=== PATIENT | female | born 1960 | race Caucasian/White ===

== ENCOUNTER → 2020-04-29 12:55 | Outpatient (BNVA) | payer OTHER, SELFPAY | PROVIDERS: PCP Internal Medicine; Visit Provider Nurse Practitioner Gerontology | DX: E11.42 Type 2 diabetes mellitus with diabetic polyneuropathy (principal); Z79.4 Long term (current) use of insulin; E78.5 Hyperlipidemia, unspecified; I10 Essential (primary) hypertension; F17.200 Nicotine dependence, unspecified, uncomplicated | CPT/HCPCS: 82947; Q3014 ==

== ENCOUNTER → 2020-05-30 09:15 | Outpatient (BNVA) | payer OTHER, SELFPAY | PROVIDERS: PCP Internal Medicine; Visit Provider Internal Medicine Gastroenterology | DX: Z13.89 Encounter for screening for other disorder (principal) | CPT/HCPCS: Q3014 ==

== ENCOUNTER → 2020-06-03 14:46 | Outpatient (BNVA) | payer OTHER, SELFPAY | PROVIDERS: PCP Internal Medicine; Visit Provider Nurse Practitioner Gerontology | DX: E11.42 Type 2 diabetes mellitus with diabetic polyneuropathy (principal); I10 Essential (primary) hypertension; E78.5 Hyperlipidemia, unspecified; F17.200 Nicotine dependence, unspecified, uncomplicated | CPT/HCPCS: 82947; 99212 ==

== ENCOUNTER → 2020-08-05 14:17 | Outpatient (BNVA) | payer OTHER, SELFPAY | PROVIDERS: PCP Internal Medicine; Visit Provider Nurse Practitioner Gerontology | DX: Z13.89 Encounter for screening for other disorder (principal) | CPT/HCPCS: Q3014 ==

== ENCOUNTER → 2020-09-19 08:05 | Outpatient (BNVA) | payer OTHER, SELFPAY | PROVIDERS: PCP Internal Medicine; Visit Provider Nurse Practitioner Gerontology | DX: E11.42 Type 2 diabetes mellitus with diabetic polyneuropathy (principal); I10 Essential (primary) hypertension; E78.5 Hyperlipidemia, unspecified; F17.200 Nicotine dependence, unspecified, uncomplicated | CPT/HCPCS: Q3014 ==

== ENCOUNTER → 2020-10-03 12:36 | Outpatient (BNVA) | payer OTHER, SELFPAY | PROVIDERS: PCP Internal Medicine; Visit Provider Internal Medicine Gastroenterology | DX: Z13.89 Encounter for screening for other disorder (principal) | CPT/HCPCS: Q3014 ==

== ENCOUNTER → 2020-12-19 08:01 | Outpatient (BNVA) | payer OTHER, SELFPAY | PROVIDERS: PCP Internal Medicine; Visit Provider Nurse Practitioner Gerontology | DX: E11.42 Type 2 diabetes mellitus with diabetic polyneuropathy (principal); I10 Essential (primary) hypertension; E78.5 Hyperlipidemia, unspecified; D53.9 Nutritional anemia, unspecified; K85.90 Acute pancreatitis without necrosis or infection, unspecified; F17.210 Nicotine dependence, cigarettes, uncomplicated; J30.1 Allergic rhinitis due to pollen; Z88.2 Allergy status to sulfonamides; Z79.4 Long term (current) use of insulin; Z79.899 Other long term (current) drug therapy | CPT/HCPCS: 82947; 99212 ==

== ENCOUNTER 2020-12-31 07:34 | Day surgery (SDC) | payer OTHER, SELFPAY ==
[2020-12-24 15:22] VITALS: BMI 20.1
--- NOTE | 2020-12-27 10:02 | P.CONAN_ITS ---
Documented by User: Susu Grey NP 12/27/20 10:03 HPI - Anesthesia Eval Consult details Narrative: 60yo F for Upper Endoscopy and Colonoscopy PMFSH Active Problems Active Problems: All Active Problems (Updated 12/24/20 @ 15:35 by Therese Mcknight, KEARA) GERD (gastroesophageal reflux disease) (Acute) Colon cancer screening (Acute) Type 2 diabetes mellitus with polyneuropathy (Acute) Essential hypertension (Acute) Hyperlipidemia LDL goal <100 (Acute) Chronic pancreatitis (Acute) Past Medical History Medical History Asthma Chronic pancreatitis Essential hypertension Hx MRSA infection Hx of respiratory failure Hx of septic shock Hyperlipidemia LDL goal <100 Macrocytic anemia Smoking Type 2 diabetes mellitus with polyneuropathy Family History Family History Father Diabetes Surgical History Surgical History Hx of abdominal surgery Hx of exploratory laparotomy Social History Social History Household Members: Family Household Members Other:: Sister Alcohol intake: former Year quit: 2019 Patient Tobacco Use Status: Current everyday Tobacco user Cigarettes Per Day: 20 Years Smoked: 30 Use of substances other than those prescribed or required for medical reasons: No Have you been hit, kicked, punched, or otherwise hurt by someone within the past year? If so, by whom?: No Are you DNR?: No Advance Directives: No Advance Directives Information Provided: No Advance Directives on File: No Current occupational status: disabled Meds Allergies Allergy/AdvReac Type Severity Reaction Status Date / Time ragweed pollen [RAGWEED] Allergy Severe RUNNY NOSE Verified 12/24/20 15:20 Sulfa (Sulfonamide Allergy Intermediate PASS OUT, Verified 12/24/20 15:20 Antibiotics) HIVES [SULFA(SULFONAMIDE ANTIBIOTICS)] Home Medications Medication Instructions Recorded Confirmed Last Taken Type blood pressure test kit-large #1 ea 04/29/20 12/19/20 Unknown History blood sugar diagnostic #10 ea 04/29/20 12/19/20 Unknown History insulin syringe-needle U-100 0.3 #10 ea 04/29/20 12/19/20 Unknown History mL 31 gauge x 5/16 lancets 28 gauge #100 ea 04/29/20 12/19/20 Unknown History lisinopril 10 mg tablet 10 mg PO DAILY 04/29/20 12/24/20 Unknown History pen needle, diabetic 32 gauge x #50 ea 04/29/20 12/19/20 Unknown History simvastatin 5 mg tablet 5 mg PO BEDTIME 04/29/20 12/24/20 Unknown History amlodipine 5 mg tablet 5 mg PO DAILY 06/03/20 12/24/20 Unknown History aspirin 81 mg tablet,delayed 81 mg PO DAILY 06/03/20 12/24/20 Unknown History release (Adult Low Dose Aspirin) ferrous sulfate 325 mg (65 mg 325 mg PO DAILY 06/03/20 12/24/20 Unknown History iron) tablet albuterol sulfate 90 mcg/actuation INHALATION 12/24/20 Unknown History aerosol inhaler insulin glargine U-300 conc 300 unit SUBCUT 12/24/20 Unknown History unit/mL (1.5 mL) subcutaneous pen (Toujeo SoloStar U-300 Insulin) insulin lispro 100 unit/mL SUBCUT 12/24/20 Unknown History subcutaneous half-unit pen (Humalog Scot KwikPen (U-100)) [id number] 2 cap PO TID 12/24/20 12/24/20 Unknown History 24,000-76,000-120,000 unit capsule,delayed rel (Creon) Exam Exam Date and Time: December 27, 2020 1002 Height,Weight and Vital Signs: Height 5 ft Weight 46.72 kg Assessment and Plan Assessment Anesthesia Assessment: Chart Reviewed Documented by User: Radha Bolton MD 12/31/20 08:33 [facility] Past Medical History Medical History Asthma Chronic pancreatitis Essential hypertension Hx MRSA infection Hx of respiratory failure Hx of septic shock Hyperlipidemia LDL goal <100 Macrocytic anemia Smoking Type 2 diabetes mellitus with polyneuropathy Family History Family History Father Diabetes Surgical History Surgical History Hx of abdominal surgery Hx of exploratory laparotomy History of Problems with Anesthesia: No Social History Social History Household Members: Family Household Members Other:: Sister Alcohol intake: former Year quit: 2019 Patient Tobacco Use Status: Current everyday Tobacco user Cigarettes Per Day: 20 Years Smoked: 30 Use of substances other than those prescribed or required for medical reasons: No Have you been hit, kicked, punched, or otherwise hurt by someone within the past year? If so, by whom?: No Are you DNR?: No Advance Directives: No Advance Directives Information Provided: No Advance Directives on File: No Current occupational status: disabled Meds Allergies Allergy/AdvReac Type Severity Reaction Status Date / Time ragweed pollen [RAGWEED] Allergy Severe RUNNY NOSE Verified 12/24/20 15:20 Sulfa (Sulfonamide Allergy Intermediate PASS OUT, Verified 12/24/20 15:20 Antibiotics) HIVES [SULFA(SULFONAMIDE ANTIBIOTICS)] Home Medications Medication Instructions Recorded Confirmed Last Taken Type blood pressure test kit-large #1 ea 04/29/20 12/19/20 Unknown History blood sugar diagnostic #10 ea 04/29/20 12/19/20 Unknown History insulin syringe-needle U-100 0.3 #10 ea 04/29/20 12/19/20 Unknown History mL 31 gauge x 5/16 lancets 28 gauge #100 ea 04/29/20 12/19/20 Unknown History lisinopril 10 mg tablet 10 mg PO DAILY 04/29/20 12/24/20 Unknown History pen needle, diabetic 32 gauge x #50 ea 04/29/20 12/19/20 Unknown History simvastatin 5 mg tablet 5 mg PO BEDTIME 04/29/20 12/24/20 Unknown History amlodipine 5 mg tablet 5 mg PO DAILY 06/03/20 12/24/20 Unknown History aspirin 81 mg tablet,delayed 81 mg PO DAILY 06/03/20 12/24/20 Unknown History release (Adult Low Dose Aspirin) ferrous sulfate 325 mg (65 mg 325 mg PO DAILY 06/03/20 12/24/20 Unknown History iron) tablet albuterol sulfate 90 mcg/actuation INHALATION 12/24/20 Unknown History aerosol inhaler insulin glargine U-300 conc 300 unit SUBCUT 12/24/20 Unknown History unit/mL (1.5 mL) subcutaneous pen (Toujeo SoloStar U-300 Insulin) insulin lispro 100 unit/mL SUBCUT 12/24/20 Unknown History subcutaneous half-unit pen (Humalog Scot KwikPen (U-100)) [id number] 2 cap PO TID 12/24/20 12/24/20 Unknown History 24,000-76,000-120,000 unit capsule,delayed rel (Creon) Exam Airway Mallampati Class: III (Very poor dentition) TM Dist: >3cm Neck ROM: Full Loose/Missing/Broken Teeth: Yes, Upper and Lower Heart: RRR Lungs: distant but clear Assessment and Plan Final Anesthetic Review History of Problems with Anesthesia: No NPO: Yes ASA Class: III Final Preanesthetic Review: Meds/Allgs Chart Reviewed, Consent Obtained/Reviewed and Anes Risks/Benef Reviewed Patient Risk: Intermediate Procedure Risk: Intermediate Anesthetic Plan Anesthetic Plan: MAC: Disposition: Standard PACU
[2020-12-31 07:32] VITALS: BP 131/86; PULSE 103; RESP 18; TEMP 36.1; O2SAT 99
--- NOTE | 2020-12-31 07:45 | MHC.SHP ---
Pre-Procedural Eval Section A Date of Service: 12/31/20 The patient is an INPATIENT: No The History & Physical has been completed within 30 days and I have reviewed it.: No Section B Chief Complaint: Screening, GERD Details of Present Illness: Colon cancer screening, GERD, dyspepsia Relevant Family History (Specify if Yes): No Relevant Social History: Tobacco Use Present Medications: see Short Stay Collaborative assessment Medical History: Significant History (Asthma Chronic pancreatitis Essential hypertension Hyperlipidemia LDL goal <100 Macrocytic anemia Smoking Type 2 diabetes mellitus with polyneuropathy) History of Previous Operations: Relevant previous surgery/procedure and date(s) (Hx of abdominal surgery Hx of mammogram) Allergies: Allergies Allergy/AdvReac Type Severity Reaction Status Date / Time ragweed pollen [RAGWEED] Allergy Severe RUNNY NOSE Verified 12/24/20 15:20 Sulfa (Sulfonamide Allergy Intermediate PASS OUT, Verified 12/24/20 15:20 Antibiotics) HIVES [SULFA(SULFONAMIDE ANTIBIOTICS)] Review of Systems Sugical H&P ROS: Negative: Constitution, Cardiovascular and Respiratory and Yes, Specify: Gastrointestinal (GERD, dyspepsia) Exam Surgical H&P Exam: Normal: Heart, Normal: Lungs, Normal: Extremities and Normal: Abdomen Plan Diagnosis/Plan: Unchanged I have reviewed the history and physical and performed a pertinent physical examination on my patient. No changes have occurred unless specified.
[2020-12-31 08:10] VITALS: BMI 20.2
[2020-12-31] MEDS: Lactated Ringers 1,000 ML 100 ML IVCONT (08:11)
--- NOTE | 2020-12-31 08:35 | PM.OP ---
Brief Operative Note Date of Service: 12/31/20 Pre-op diagnosis: Colon cancer screening, GERD, dyspepsia Post-op diagnosis: other (GERD, hiatal hernia, gastritis, duodenal nodules, colon polyp, diverticulosis) Procedure: FLEXIBLE TRANSORAL UPPER GASTROINTESTINAL ENDOSCOPY WITH BIOPSIES AND COLONOSCOPY TILL CECUM WITH BIOPSIES UPPER ENDOSCOPY Consent: Indications for the procedure and potential complications of bleeding, perforation, reaction to medications and missed diagnosis were discussed with the patient and informed consent was obtained. Instrument: Olympus GIF H 190 mid size upper endoscope Monitoring: Vital signs and clinical assessment, continuous EKG monitoring, Pulse oximetry, Carbon Dioxide monitoring and blood pressure monitoring were done throughout the procedure. Procedure: The patient was placed in the left lateral decubitis position and pre-procedure medications were administered and a bite block was placed. The endoscope was inserted into the mouth and advanced under direct vision to the third part of duodenum. A careful inspection was made as the upper endoscope was withdrawn including a retroflexed examination of the proximal stomach; Findings and interventions are described below. Findings: Larynx: Normal Esophagus: GE junction at 32 cms, hiatal hernia 32 to 35 cms. Irregular Z line - biopsied to check for Meyer's. Stomach: Moderate gastric erythema with nodular appearing gastric mucosa - biopsies were obtained from the gastric antrum and body. Grade 3 flap valve on retroflexed examination of the cardia. Duodenum: Multiple 5-8 mm benign aoppearing nodules/polyps in the bulb - biopsied. Normal descending duodenum Intervention: Biopsies as noted above COLONOSCOPY PROCEDURE NOTE Consent: Indications for the procedure and potential complications of bleeding, perforation, reaction to medications and missed diagnosis were discussed with the patient and informed consent was obtained. Instrument: Olympus PCF H 190 L variable stiffness pediatric colonoscope Monitoring: Vital signs and clinical assessment, intermittent blood pressure monitoring, continuous EKG monitoring, Pulse oximetry and Carbon Dioxide monitoring were done throughout the procedure. Colon withdrawl time was 16 minutes. Procedure: The patient was placed in the left lateral decubitis position and pre-procedure medications were administered. After a digital rectal examination of the ano-rectum, the video colonoscope was inserted into the rectum and advanced through the colon to the cecum. The colonoscope was slowly withdrawn in a retrograde panoramic fashion and the colon mucosa was carefully examined including a retroflexed view of the rectum. Findings and interventions are described below. Procedure Difficulty: : Without difficulty Findings: Terminal Ileum: Not evaluated Cecum: Normal Ascending Colon: Moderate diverticulosis Transverse Colon: Moderate diverticulosis Descending Colon: Severe diverticulosis Sigmoid Colon: A 5-6 mm diminutive appearing polyp removed with a cold bx. Severe diverticulosis with luminal narrowing Rectum: Normal Ano-rectum: Normal Colon preparation: Good after some irrigation Impression and Post Procedure Diagnosis: Endoscopy Findings: ESOPHAGUS: GE junction at 32 cms, hiatal hernia 32 to 35 cms. Irregular Z line - biopsied to check for Meyer's. STOMACH: Moderate gastric erythema with nodular appearing gastric mucosa - biopsies were obtained from the gastric antrum and body. DUODENUM: Multiple benign appearing polyps/nodule in the bulb. Colonoscopy Findings: One small polyp removed Random biopsies were obtained from the colon to check for microscopic colitis Moderate to severe diverticulosis seen in the entire colon Plan: Await pathology results Patient has an appointment on 01/16/21 in the GI Clinic with Angelika Ba M.D.. Repeat Colonoscopy interval based on path results - in 5 years if polyps are adenomatous and 10 years if polyps are hyperplastic. Above findings were reviewed with the patient and colon polyps and diverticulosis handouts were given in the discharge area Surgeon: Angelika aB MD Anesthesia: MAC Was an Addictions Counselor Assistant used for this Procedure?: Yes Addictions Counselor Assistant: Marianne Goss Estimated blood loss (mL): 0 Pathology: other (A. small bowel biopsies, R/O celiac B. nodule- duodenal bulb C. gastric antrum, R/O H. pylori D. gastric body E. gastro-esophageal junction, R/O Meyer's F. random colon, R/O) Condition: stable Disposition: PACU
--- NOTE | 2020-12-31 08:36 | W.PM.OPN ---
Operative Note Operative Note Date of Service: 12/31/20 Narrative: Pre-op diagnosis:?Colon cancer screening, GERD, dyspepsia Post-op diagnosis:?other (GERD, hiatal hernia, gastritis, duodenal nodules, colon polyp, diverticulosis) Procedure:? FLEXIBLE TRANSORAL UPPER GASTROINTESTINAL ENDOSCOPY WITH BIOPSIES AND COLONOSCOPY TILL CECUM WITH BIOPSIES UPPER ENDOSCOPY Consent:?Indications for the procedure and potential complications of bleeding, perforation, reaction to medications and missed diagnosis were discussed with the patient and informed consent was obtained. Instrument:?Olympus GIF H 190 mid size upper endoscope Monitoring: Vital signs and clinical assessment, continuous EKG monitoring, Pulse oximetry, Carbon Dioxide monitoring and blood pressure monitoring were done throughout the procedure. Procedure:?The patient was placed in the left lateral decubitis position and pre-procedure medications were administered and a bite block was placed. The endoscope was inserted into the mouth and advanced under direct vision to the third part of duodenum. A careful inspection was made as the upper endoscope was withdrawn including a retroflexed examination of the proximal stomach; Findings and interventions are described below. Findings: Larynx:? Normal Esophagus:?GE junction at 32 cms, hiatal hernia 32 to 35 cms.? Irregular Z line - biopsied to check for Meyer's. Stomach:?Moderate gastric erythema with nodular appearing gastric mucosa -? biopsies were obtained from the gastric antrum and body. Grade 3 flap valve on retroflexed examination of the cardia. Duodenum:?Multiple 5-8 mm benign aoppearing nodules/polyps in the bulb - biopsied. Normal descending duodenum Intervention:?Biopsies as noted above COLONOSCOPY PROCEDURE NOTE Consent:?Indications for the procedure and potential complications of bleeding, perforation, reaction to medications and missed diagnosis were discussed with the patient and informed consent was obtained. Instrument:?Olympus PCF H 190 L variable stiffness pediatric colonoscope Monitoring:?Vital signs and clinical assessment, intermittent blood pressure monitoring, continuous EKG monitoring, Pulse oximetry and Carbon Dioxide monitoring were done throughout the procedure. Colon withdrawl time was 16 minutes. Procedure:?The patient was placed in the left lateral decubitis position and pre-procedure medications were administered. After a digital rectal examination of the ano-rectum, the video colonoscope was inserted into the rectum and advanced through the colon to the cecum. The colonoscope was slowly withdrawn in a retrograde panoramic fashion and the colon mucosa was carefully examined including a retroflexed view of the rectum. Findings and interventions are described below. Procedure Difficulty:?: Without difficulty Findings: Terminal Ileum: Not evaluated Cecum:? Normal Ascending Colon:??Moderate diverticulosis Transverse Colon:??Moderate diverticulosis Descending Colon:? Severe diverticulosis Sigmoid Colon:??A 5-6 mm diminutive appearing polyp removed with a cold bx. Severe diverticulosis with luminal narrowing Rectum:??Normal Ano-rectum:??Normal Colon preparation:? Good after some irrigation Impression and Post Procedure Diagnosis: Endoscopy Findings: ESOPHAGUS:??GE junction at 32 cms, hiatal hernia 32 to 35 cms.? Irregular Z line - biopsied to check for Meyer's. STOMACH:?Moderate gastric erythema with nodular appearing gastric mucosa -? biopsies were obtained from the gastric antrum and body. DUODENUM: Multiple benign appearing polyps/nodule in the bulb. Colonoscopy Findings: One small polyp removed Random biopsies were obtained from the colon to check for microscopic colitis Moderate to severe diverticulosis seen in the entire colon Plan: Await pathology results Patient has an appointment on 01/16/21 in the GI Clinic with Angelika Ba M.D.. Repeat Colonoscopy interval based on path results - in 5 years if polyps are adenomatous and 10 years if polyps are hyperplastic. Above findings were reviewed with the patient and colon polyps and diverticulosis handouts were given in the discharge area Surgeon:?Angelika Ba MD Anesthesia:?MAC Was an Boat Crew Deck Hand used for this Procedure?:?Yes Boat Crew Deck Hand:?Marianne Goss Estimated blood loss (mL):?0 Pathology:?other (A. small bowel biopsies, R/O celiac? B. nodule- duodenal bulb? C. gastric antrum, R/O H. pylori? D. gastric body? E. gastro-esophageal junction, R/O Meyer's? F. random colon, R/O) Condition:?stable Disposition:?PACU
[2020-12-31 09:32] LABS: Glucose, Whole Blood 226 mg/dL (60-115)
[2020-12-31 09:34] VITALS: BP 136/78; PULSE 87; RESP 16; TEMP 36.6; O2SAT 97
[2020-12-31 09:48] VITALS: BP 122/47; PULSE 83; RESP 16; TEMP 36.6; O2SAT 100
== END 2020-12-31 10:45 | disposition home or self-care (01) ==
PROVIDERS: PCP Internal Medicine; Visit Provider Internal Medicine Gastroenterology
PROC: (CPT 45380; principal; 2020-12-31 08:20)
DX: Z12.11 Encounter for screening for malignant neoplasm of colon (principal); K63.5 Polyp of colon; K57.30 Diverticulosis of large intestine without perforation or abscess without bleeding; K21.9 Gastro-esophageal reflux disease without esophagitis; D13.2 Benign neoplasm of duodenum; K29.50 Unspecified chronic gastritis without bleeding; K44.9 Diaphragmatic hernia without obstruction or gangrene; K86.1 Other chronic pancreatitis; J45.909 Unspecified asthma, uncomplicated; I10 Essential (primary) hypertension; D53.9 Nutritional anemia, unspecified; E78.5 Hyperlipidemia, unspecified; E11.42 Type 2 diabetes mellitus with diabetic polyneuropathy; Z79.4 Long term (current) use of insulin; Z96.41 Presence of insulin pump (external) (internal); Z79.82 Long term (current) use of aspirin; Z79.899 Other long term (current) drug therapy; Z88.2 Allergy status to sulfonamides; F17.210 Nicotine dependence, cigarettes, uncomplicated
CPT/HCPCS: 45380; 43239; 82947; 88305; 88342

== ENCOUNTER 2021-01-07 14:22 | Outpatient (REF) | payer OTHER, SELFPAY ==
[2021-01-07 16:16] LABS: COVID-19 Test Negative (Negative)
== END 2021-01-07 14:23 | disposition home or self-care (01) ==
LOC: HO.LAB 14:22
PROVIDERS: PCP Internal Medicine; Visit Provider Internal Medicine
DX: Z20.822 Contact with and (suspected) exposure to COVID-19 (principal)
CPT/HCPCS: 36415; 87635; C9803

== ENCOUNTER → 2021-01-16 09:38 | Outpatient (BNVA) | payer OTHER, SELFPAY | PROVIDERS: PCP Internal Medicine; Referring Provider Internal Medicine; Visit Provider Internal Medicine Gastroenterology | DX: Z12.11 Encounter for screening for malignant neoplasm of colon (principal); K21.9 Gastro-esophageal reflux disease without esophagitis; K86.1 Other chronic pancreatitis; R13.12 Dysphagia, oropharyngeal phase | CPT/HCPCS: 99212 ==

== ENCOUNTER 2021-01-24 13:37 | Outpatient (REF) | payer OTHER, SELFPAY ==
--- NOTE | ~2021-01-24 | MM_ITS ---
EXAMINATION: BONE DENSITOMETRY CLINICAL INDICATION: Encounter for screening for osteoporosis. COMPARISON: This is the patient's baseline examination. TECHNIQUE: Using a Big Live DXA System (software version: 13.1) manufactured by [employer], dual-energy x-ray absorptiometry was performed of the lumbar spine and left hip. The images are of good technical quality. Summary results are attached. FINDINGS: AP SPINE L1-L4: BMD 0.761 g/cm2, Z-score -1.6, T-score -3.5, osteoporosis. LEFT FEMUR, NECK: BMD 0.566 g/cm2, Z-score -1.7, T-score -3.4, osteoporosis. LEFT FEMUR, TOTAL: BMD 0.566 g/cm2, Z-score -2.1, T-score -3.5, osteoporosis. IDENTIFIED RISK FACTORS: Early menopause, secondary osteoporosis, tobacco use (current smoker). HISTORY OF FRACTURE: None listed. MEDICATIONS: Multivitamin. MM/XR DEXA axial skeleton IMPRESSION: 1. DIAGNOSIS: Osteoporosis based on the lowest T-score value of -3.5 in the total femur and lumbar spine applying World Health Organization criteria. 2. 10-YEAR FRACTURE RISK PREDICTION, FRAX: Major osteoporotic fracture (clinical spine, forearm, hip or shoulder) 20.8%. Hip fracture 10.7%. 3. Treatment Recommendations: NOF guidelines recommend consideration for treatment in postmenopausal women and men age 50 and older presenting with the following: -A hip or vertebral (clinical or morphometric) fracture. -T-score less than or equal to -2.5 at the femoral neck or spine after appropriate evaluation to exclude secondary causes. -Low bone mass at the hip or spine and a 10-year fracture probability by FRAX of greater than or equal to 3% for hip fracture or greater than or equal to 20% for major osteoporotic fracture based on the [place] adapted WHO algorithm. 4. Other Recommendations: All treatment decisions require clinical judgment and consideration of individual patient factors, including patient preferences, comorbidities, previous drug use, risk factors not captured in the FRAX model (e.g. frailty, falls, vitamin D deficiency, increased bone turnover, interval significant decline in bone density) and possible under or overestimation of fracture risk by FRAX. Additional medical evaluation for secondary cause of low bone mineral density may be appropriate. FUTURE SCAN RECOMMENDATION: People with diagnosed cases of osteoporosis or at high risk for fracture should have regular bone mineral density tests. For patients eligible for Medicare, routine testing is allowed once every 2 years. The testing frequency can be increased to one year for patients who have rapidly progressing disease, those who are receiving or discontinuing medical therapy to restore bone mass, or have additional risk factors.
--- NOTE | ~2021-01-24 | MM_ITS ---
EXAMINATION: MM SCREENING DIGITAL BREAST TOMOSYNTHESIS, BILATERAL CLINICAL INFORMATION: Screening. Asymptomatic. The lifetime risk of breast cancer based on the Tyrer-Cuzick Model is 5%. COMPARISON: Mammography: 12/18/2015 (baseline). TECHNIQUE: Digital breast tomosynthesis is performed in both the craniocaudal and mediolateral oblique views along with computer-aided detection (CAD). Synthesized 2D images are generated from the tomosynthesis. FINDINGS: There are scattered areas of fibroglandular density (ACR BI-RADS breast composition Category b). There are no significant masses, abnormal calcifications, or other abnormalities. The axilla and skin contours are unremarkable. MM/MM tomosynthesis screening BI IMPRESSION: No mammographic evidence of malignancy. ASSESSMENT: BI-RADS 1: Negative RECOMMENDATION: Routine annual mammography screening. This patient's information was entered into a reminder system with a target due date for their next mammogram.
== END 2021-01-24 13:38 | disposition home or self-care (01) ==
LOC: HO.MAMMO 13:37
PROVIDERS: PCP Internal Medicine; Visit Provider Advanced Practice Midwife
DX: Z13.820 Encounter for screening for osteoporosis (principal); Z78.0 Asymptomatic menopausal state; Z12.31 Encounter for screening mammogram for malignant neoplasm of breast
CPT/HCPCS: 77063; 77067; 77080

== ENCOUNTER 2021-02-12 15:02 | Outpatient (REF) | payer OTHER, SELFPAY ==
--- NOTE | ~2021-02-12 | FL_ITS ---
EXAMINATION: XR BARIUM SWALLOW CLINICAL INFORMATION: Dysphagia. COMPARISON: None. TECHNIQUE: Routine modified barium swallow was performed in upright sitting lateral position under fluoroscopy. FINDINGS: Following oral administration of thin, thick barium and barium-coated solid food, there is normal propagation of bolus from the oral cavity through the pharynx and esophagus. No laryngeal penetration or aspiration seen. No retention of food in the valleculae or piriform sinuses. FLUOROSCOPY TIME: 1.4 minutes. DOSE AREA PRODUCT: 0.886 uGy-m2 (microgray-meter squared). FL/FL barium swallow modified IMPRESSION: Unremarkable modified barium swallow exam.
--- NOTE | 2021-02-14 09:56 | MHC.SL.IMP ---
Date of Plan of Treatment: 02/12/21 Onset of Symptoms/Illness: 11/12/17 Date Treatment Started: 02/12/21 Admitting Diagnosis: Comorbidities: IDDM on insulin pump Hypertension Dyslipidemia Acid reflux Chronic pancreatitis Hx GI bleed Erosive esophagitis Bilateral PE status post anticoagulation Cdiff Aortic thrombus Alcohol abuse Asthma MRSA infection Respiratory failure Septic shock Hyperlipidemia Macrocytic anemia Smoking Type 2 diabetes mellitus with polyneuropathy Surgical History: Abdominal laparotomy Esophagogastroduodenoscopy (EGD) Colonoscopy Primary Speech & Language Diagnosis: R13.12 Oropharyngeal Phase Dysphagia Secondary Speech & Language Diagnosis: R49.0 Dysphonia Reason for Today's Visit: 22182 Modified Barium Swallow Study Pre-evaluation Dietary Consistencies: Regular Pre-evaluation Liquid Consistency: Thin Pre-evaluation Medication Administration: Whole with Liquid Medical History: Modified Barium Swallow Study Fluoroscopic Evaluation of Swallowing Function CPT Code 57567 Evaluation Year: 2020 Reason for Study: Patient reports globus sensation and coughing when drinking liquids. Referring Physician: Angelika Ba MD Evaluating Clinician: Krystal Redman M.A., CCC-ASSEMBLY LINE MACHINE OPERATOR Study Number: 1 Patient Name: Clare Kee Status: Outpatient, Ambulatory Age: 60 Gender: Female MEDICAL HISTORY: Year of Onset or Diagnosis: 2018 Comorbidities: IDDM on insulin pump Hypertension Dyslipidemia Acid reflux Chronic pancreatitis Hx GI bleed Erosive esophagitis Bilateral PE status post anticoagulation Cdiff Aortic thrombus Alcohol abuse Asthma MRSA infection Respiratory failure Septic shock Hyperlipidemia Macrocytic anemia Smoking Type 2 diabetes mellitus with polyneuropathy Surgical History: Abdominal laparotomy Esophagogastroduodenoscopy (EGD) Colonoscopy Current (pre-evaluation) Intake/Diet: Route: PO Diet Grade: Regular Liquid Consistencies: Thin Pre-Study Functional Oral Intake Scale (FOIS): 7- Total oral intake with no restrictions Pain: None reported at time of study Oral Motor Exam Facial Symmetry: Symmetrical Mouth Occlusion: Normal Oral-Facial Teeth Characteristics: Partially Missing Oral-Facial Lip Pucker Description: Normal Oral-Facial Smile (Lips) Description: Normal Oral-Facial Puff Cheeks Description: Normal Tongue Size: Normal Tongue Excursion Description: Normal Tongue Range of Movement Description: Normal Tongue Speed of Movement Description: Reduced Tongue Strength of Movement (against opposing pressure): Reduced Tongue Movement Characteristics: Normal/Absent Tongue Movement Miscellaneous Observation: Mildly slow lateralized lingual movements. Patient used jaw for support. Is patient able to manage secretions?: Yes Food and Liquid Trials: Oral Impairment: Lip Closure: 0=No labial escape Oral Impairment: Tongue Control During Bolus Hold: 0=Cohesive bolus between tongue to palatal seal Oral Impairment: Bolus Preparation/Mastication: 2=Disorganized chewing/mashing with solid pieces of bolus Oral Impairment: Bolus Transport/Lingual Motion: 2=Slowed tongue motion Oral Impairment: Oral Residue: 2=Residue collection on oral structures Oral Impairment:Initiation of Pharyngeal Swallow: 2=Bolus head at posterior laryngeal surface of epiglottis Pharyngeal Impairment: Soft Palate Elevation: 0=No bolus between soft palate (SP)/pharyngeal wall (PW) Pharyngeal Impairment: Laryngeal Elevation: 1=Partial thyroid cartilage/arytenoids to epiglottic petiole movement Pharyngeal Impairment: Anterior Hyoid Excursion: 1=Partial anterior movement Pharyngeal Impairment: Epiglottic Movement: 1=Partial inversion Pharyngeal Impairment: Laryngeal Vestibular Closure:: 0=Complete: no air/contrast in laryngeal vestibule Pharyngeal Impairment: Pharyngeal Stripping Wave: 1=Present: diminished Pharyngeal Impairment: Pharyngeal Contraction: Did not test Pharyngeal Impairment: Pharyngoesophageal Segment Openin=Complete distension and complete duration: no obstruction of flow Pharyngeal Impairment: Tongue Base (TB) Retraction: 3=Wide column of contrast/air between TB and posterior PW Pharyngeal Impairment: Pharyngeal Residue: 2=Collection of residue within or on pharyngeal structures Pharyngeal Impairment: Esophageal Clearance Upright Position: Did not test Impressions and Recommendations Clinical Observations: OBJECTIVE: Time-out: performed at 3:15 Evaluation Start: 3:00; Stop: 3:05 Patient Positioning: Seated 70-90 degrees Viewing Planes: LATERAL ONLY Contrast: MBSImP? Standardized Protocol using commercially prepared, standardized Barium viscosities, including: Varibar? THIN LIQUID (40% w/v, <15 cps) , 1/2 Shortbread Cookie (1 x1 x.25 ) MBSImP ID: [id number] MBSImP Results: Lip closure for intraoral bolus containment resulted in no labial escape. Tongue control during bolus hold maintained a cohesive bolus held between tongue to palate seal. Bolus preparation and mastication demonstrated disorganized chewing/mashing with solid pieces of the bolus unchewed. Bolus transport/lingual motion was with slowed tongue motion. Oral residue was a collection on oral structures. Initiation of the pharyngeal swallow occurred as the bolus head was at the posterior laryngeal surface of the epiglottis. Soft palate elevation resulted in no bolus between the soft palate and the pharyngeal wall. Laryngeal elevation was decreased, with partial superior movement of the thyroid cartilage/partial approximation of the arytenoids to the epiglottic petiole. Anterior hyoid excursion demonstrated partial anterior movement. Epiglottic movement resulted in partial inversion. Laryngeal vestibular closure was complete, as indicated by no air or contrast within the laryngeal vestibule at the height of the swallow. Pharyngeal stripping wave was present, but diminished. Pharyngeal contraction could not be determined due to logistical reasons not related to physiologic impairment. Pharyngoesophageal segment opening was completely distended for complete duration with no obstruction of bolus flow. Tongue base retraction allowed a wide column of contrast or air between the retracted tongue base and the posterior pharyngeal wall. Pharyngeal residue was a collection of residue within or on pharyngeal structures. Esophageal clearance in the upright position could not be assessed due to logistical reasons not related to physiologic impairment. Oral Impairment Score: 8 Pharyngeal Impairment Score: 9 (absence of score, component 13) Esophageal Impairment Score: --- (absence of score, component 17) Laryngeal Penetration and Aspiration: Neither penetration nor aspiration was observed in today's study with Cookie, Thin. ASSESSMENT: This exam was completed by a multidisciplinary team which included a speech language pathologist, speech language pathology [place] clinician, radiologist, and radiology technicians. Patient was seated at upright 90 degree position for lateral view only. She fed herself without any difficulty. Patient trialed the following liquid and solid consistencies: -5 mL thin liquid barium -cup sip thin liquid barium with bolus hold -consecutive cup sips thin liquid barium -pureed solid (mixture applesauce with barium paste) -ground solid (mixture chicken salad with barium paste) -regular solid (Lary Doone cookie coated with barium paste) Patient presents with mild oropharyngeal dysphagia, characterized by the following impairments in swallow physiology: ORAL PHASE: -Disorganized chewing, characterized by piecemeal deglutition pattern. Patient chewed and swallowed partial bolus. Patient continued chewing remaining bolus followed by multiple swallows. When eating regular solid, patient swallowed 3-4 times to clear oral cavity. -Slowed posterior tongue movement -Mild oral residue coating the tongue. PHARYNGEAL PHASE: -Partial laryngeal elevation with partial anterior hyoid movement and partial epiglottic inversion. -Diminished pharyngeal stripping wave, likely contributing to pharyngeal retention. -Reduced tongue base retraction -Trace residue in valleculae and pyriforms with liquids and pureed solids. Mild retention mostly in the valleculae, but also on the posterior pharyngeal wall when patient swallowed regular solid. Patient reduced residue with multiple dry swallows. Patient effectively cleared residue with liquid wash. Trace residue remained with liquid. No evidence of aspiration or penetration. Patient displayed mild pharyngeal retention with regular solid consistency. Patient effectively cleared pharyngeal residue with multiple swallow and liquid wash. Liquid Intake Recommendation: Thin Liquid Intake Strategies: Small Sips Dietary Recommendations: Chopped/Advanced (NDD3) Medication Administration: Whole with Liquid Compensatory Strategies Recommended: Sitting Upright (90 deg) Double Swallow Small Bites and Sips Alternate Liquids/Solids Rate of Ingestion Change Avoid Specific Foods Supervision during eating and or drinking: None Needed Recommended Treatments: Compens. Strategy Educat. Recommendation for Speech Therapy: Outpatient Speech Therapy Intake Recommendations: Route: PO Diet Grade: Chopped/Advanced National Dysphagia Diet Level 3 (NDD3) Liquid Consistencies: Thin Post-Study Functional Oral Intake Scale (FOIS): 5- Total oral intake of multiple consistencies requiring special preparation Patient states that she prefers softer food. Patient is recommended CHOPPED/ADVANCED (NDD3) solids or to self select soft/easy to chew foods and THIN liquids, with pills WHOLE in PUREE or LIQUID per patient?s preference/ tolerance. Recommend the following strategies to promote oral and pharyngeal clearance: -Food to be cut into small bite size pieces and moistened with sauce/gravy when possible -Small, individual bites -Avoid tough, dry, and sticky foods -Chew food well -Alternate bite of food with sip of liquid -Multiple swallows -Upright 90 degree position during meal and for at least 30 minutes afterwards Frequency/Duration: 1x weekly x 1 week Suggested Referrals: The patient might benefit from a referral to: Gastroenterology Indication for Referral: Hx GI bleed Patient displayed hyponasal resonance and may benefit from a consult with an ENT and voice evaluation with a speech-language pathologist pending ENT consult. Therapy Recommendations: Therapy will be initiated Frequency per Week: 1 Number of Weeks: 1 Recommend 1 additional follow-up to provide education RE: results of MBSS and recommended diet consistencies and strategies. Prognosis for Improvement:?The prognosis for the patient to meet nutritional needs by mouth is good based on degree of impairment. Usp Goals: ? The patient will tolerate the least restrictive diet with a safe/efficient swallow to maintain adequate nutrition and hydration. ? The patient and/or family will participate in further education for swallowing goals. Short Term Goals: ? Guidelines - The patient will comply with/recall the following guidelines/strategies 100% of the time with minimal cuing: Bolus Volume Change, Rate of Ingestion Change, Liquid Wash, Additional Swallow(s) per Bolus, No Straws. ? Education - The patient will verbalize/demonstrate understanding of the results of this evaluation, the above recommendations, and the swallowing guidelines. Clinician - Supplemental, Miscellaneous Communication: It is important to note MBSS objective studies are snapshots in time and Patient function might vary with factors such as time of day or concomitant medical conditions. For this reason, the final treatment plan for this patient should rest with their medical care team. Additional recommendations should be considered with the totality of the Patient in mind.? Thank for the opportunity to participate in the care of this patient. If you have any questions about the content of this report, please contact the [facility] at [facility].? ? Education: Education regarding findings from today's study and plans for therapy were provided to Patient only through Verbal Instruction. Understanding was expressed by the Patient only. Nutrition Therapist Clinician/Clinical Fellow: Yes: Zaynab Dunaway Supervisory Statement: Yes Speech Language Pathologist: Krystal Redman M.A., CCC-ASSEMBLY LINE MACHINE OPERATOR
== END 2021-02-12 15:03 | disposition home or self-care (01) ==
LOC: HO.XRAY 15:02
PROVIDERS: Visit Provider Internal Medicine Gastroenterology
DX: R13.12 Dysphagia, oropharyngeal phase (principal)
CPT/HCPCS: 74230; 92611

== ENCOUNTER → 2021-04-29 09:03 | Outpatient (BNVA) | payer OTHER, SELFPAY | PROVIDERS: PCP Internal Medicine; Visit Provider Nurse Practitioner Gerontology | CPT/HCPCS: Q3014 ==

== ENCOUNTER → 2021-07-10 09:42 | Outpatient (BNVA) | payer OTHER, SELFPAY | PROVIDERS: PCP Internal Medicine; Visit Provider Internal Medicine Gastroenterology | DX: Z13.89 Encounter for screening for other disorder (principal) | CPT/HCPCS: Q3014 ==

== ENCOUNTER 2021-07-29 09:38 | Outpatient (REF) | payer OTHER, SELFPAY ==
[2021-07-29 10:50] LABS: MANUAL DIFF FLAG NO
[2021-07-29 11:04] LABS: Basophils Percent Auto 0.3 % (0-2); Eosinophils Absolute Auto 0.4 X10*3/uL (0.0-0.4); Eosinophils Percent Auto 2.5 % (0-4); Hematocrit 34.6 % (37.0-47.0); Hemoglobin 11.8 g/dl (12.0-16.0); Imm Gran Abs Auto 0.08 X10*3/uL (0.00-0.03); Imm Gran Pct Auto 0.6 % (0.0-0.4); Lymphocytes Absolute Auto 3.2 X10*3/uL (1.2-4.9); Lymphocytes Percent Auto 23.6 % (20-40); Mean Corpuscular HGB Conc 34.1 g/dl (31.0-35.0); Mean Corpuscular Volume 82.2 fL (80.0-98.0); Mean Platelet Volume 8.1 fL (9.4-12.3); Monocytes Absolute Auto 0.9 X10*3/uL (0.1-1.2); Monocytes Percent Auto 6.6 % (2-11); Neutrophils Absolute Auto 9.1 x10*3/uL (2.0-8.3); Neutrophils Percent Auto 66.4 % (45-73); Platelet Count 435 X10*3/uL (160-400); Red Blood Count 4.21 X10*6/uL (4.20-5.50); Red Cell Distribution Width 12.4 % (11.0-16.0); White Blood Count 13.7 X10*3/uL (4.8-10.8)
[2021-07-29 11:15] LABS: Estimated Average Glucose 177 mg/dL; Hemoglobin A1c % 7.8 %
[2021-07-29 12:16] LABS: Cholesterol 157 mg/dL; HDL Cholesterol 71 mg/dL; LDL Cholesterol Calculated 50 mg/dl; Triglycerides 182 mg/dL
[2021-07-29 12:22] LABS: Ferritin 207 ng/mL (10-250)
[2021-07-29 13:07] LABS: Creatinine Urine 186.41 mg/dL; Microalbum/Creatinine Ratio Ur 7.5 ug/mg cr
[2021-07-29 13:11] LABS: Alanine Aminotransferase 7 U/L (0-31); Albumin Level 4.4 g/dL (3.5-5.0); Alkaline Phosphatase 128 U/L (39-117); Anion Gap 16 (12-20); Aspartate Amino Transferase 10 U/L (5-31); Bilirubin Total 0.3 mg/dL (0.0-1.0); Blood Urea Nitrogen 12 mg/dL (9-16); Calcium 9.7 mg/dL (8.4-10.2); Carbon Dioxide 23 mmol/L (22-29); Chloride 85 mmol/L (96-108); Estimated Glomerular Filt Rate 40; Glucose Fasting 346 mg/dL (60-99); Potassium 5.5 mmol/L (3.3-5.1); Sodium 118 mmol/L (135-145); Total Protein 6.9 g/dL (6.5-8.0)
[2021-07-29 13:50] LABS: Reflex LDLD? No
[2021-07-31 03:07] LABS: LDL Cholesterol Direct 60 mg/dL (<100)
== END 2021-07-29 09:39 | disposition home or self-care (01) ==
LOC: HO.LAB 09:38
PROVIDERS: Internal Medicine Gastroenterology; PCP Internal Medicine; Visit Provider Nurse Practitioner Gerontology
DX: E11.42 Type 2 diabetes mellitus with diabetic polyneuropathy (principal); I10 Essential (primary) hypertension; E78.5 Hyperlipidemia, unspecified; K86.1 Other chronic pancreatitis; Z79.4 Long term (current) use of insulin
CPT/HCPCS: 36415; 80053; 80061; 82043; 82728; 82947; 83036; 83721; 85025; 99212

== ENCOUNTER 2021-08-01 10:00 | Outpatient (REF) | payer OTHER, SELFPAY ==
[2021-08-01 10:59] LABS: Alanine Aminotransferase 7 U/L (0-31); Albumin Level 4.4 g/dL (3.5-5.0); Alkaline Phosphatase 118 U/L (39-117); Anion Gap 15 (12-20); Aspartate Amino Transferase 11 U/L (5-31); Bilirubin Total 0.4 mg/dL (0.0-1.0); Blood Urea Nitrogen 11 mg/dL (9-16); Calcium 10.1 mg/dL (8.4-10.2); Carbon Dioxide 25 mmol/L (22-29); Chloride 91 mmol/L (96-108); Estimated Glomerular Filt Rate 53; Glucose Random 96 mg/dL (60-115); Potassium 5.9 mmol/L (3.3-5.1); Sodium 125 mmol/L (135-145); Total Protein 6.8 g/dL (6.5-8.0)
== END 2021-08-01 10:01 | disposition home or self-care (01) ==
LOC: HO.LAB 10:00
PROVIDERS: PCP Internal Medicine; Visit Provider Nurse Practitioner Gerontology
DX: E11.42 Type 2 diabetes mellitus with diabetic polyneuropathy (principal)
CPT/HCPCS: 36415; 80053

== ENCOUNTER 2021-09-23 10:50 | Emergency (ER) | payer OTHER, SELFPAY ==
[2021-09-23] VITALS (7 sets, daily range): BP systolic 95–117; BP diastolic 56–78; PULSE 74–101; RESP 16–20; TEMP 36.7–37.2; O2SAT 96–100; BMI 16.4
--- NOTE | ~2021-09-23 | CT_ITS ---
CT SOFT TISSUE NECK WITHOUT CONTRAST CLINICAL INFORMATION: Neck mass. COMPARISON: None available. TECHNIQUE: Helical imaging was performed in the axial plane with generation of coronal and sagittal reformatted images. This CT examination was performed using dose optimization techniques as appropriate, variously including the following: *Automated exposure control *Adjustment of mA and/or kV according to patient size (this includes techniques or standardized protocols for targeted exams where dose is matched to indication/reason for exam; i.e. extremities or head) *Use of iterative reconstruction technique FINDINGS: Limited noncontrast CT of the neck demonstrates a large soft tissue density mass involving the dorsal oropharynx, the hypopharynx effacing the piriform sinuses bilaterally, and the post cricoid region. This lesion possibly measures up to 7 cm CC by 2.5 cm AP by 4.8 cm TV. These findings are highly concerning for malignancy. Consider MRI of the neck with and without contrast or a PET/CT to more definitively characterize the mass and distinguish mass from obstructed material. The expansile mass above partially effaces the supraglottic larynx which remains patent. There is gas along the periphery of the expected location of the hypopharynx and lower cervical esophagus which may be secondary to hypopharyngeal/esophageal perforation or superimposed gas producing infection. An air-fluid level superficial to the upper aspect of the left thyroid cartilage may reflect an obstructive laryngocele or infected collection. Possible right-sided metastatic node of [place] on image 26 of series 2 measuring 1.1 cm. Additional nonpathologic size criteria lymph nodes within the suprahyoid and infrahyoid neck bilaterally can be further assessed with PET. Imaged upper lungs are clear. There is multilevel cervical spondylosis. No acute nor suspicious osseous findings are identified. There is atherosclerotic calcification involving the carotid bifurcations bilaterally, greater on the left. There is soft tissue associated with focal mandibular erosion involving the dorsal right gingival buccal mucosa/retromolar trigone that can be further assessed with PET to exclude an additional site of malignancy in this location. CT/CT soft tissue neck wo con IMPRESSION: - Limited noncontrast CT of the neck demonstrates a large up to 7 cm soft tissue density mass involving the dorsal oropharynx, the hypopharynx effacing the piriform sinuses bilaterally, and the post cricoid region. These findings are highly concerning for malignancy. Consider MRI of the neck with and without contrast and/or a PET/CT to more definitively characterize the mass and distinguish mass from obstructed material. The expansile mass partially effaces the supraglottic larynx which remains patent and the lesion partially effaces the paraglottic fat bilaterally. - There is gas along the periphery of the expected location of the hypopharynx and lower cervical esophagus which may be secondary to hypopharyngeal/esophageal perforation or superimposed gas producing infection. An air-fluid level superficial to the upper aspect of the left thyroid cartilage may reflect an obstructive laryngocele or infected collection. - Possible right-sided metastatic node of [place] on image 26 of series 2 measuring 1.1 cm. Additional nonpathologic size criteria lymph nodes within the suprahyoid and infrahyoid neck bilaterally can be further assessed with PET. - There is soft tissue associated with focal mandibular erosion involving the dorsal right gingival buccal mucosa/retromolar trigone that can be further assessed with PET to exclude an additional site of malignancy in this location. Findings discussed with LUCIO CALDERON at 2:24 PM on 09/23/2021.
--- NOTE | 2021-09-23 11:41 | ED_ITS ---
HPI - General Adult General Chief complaint: Neck Pain/Injury Stated complaint: lump on throat Time Seen by Provider: 09/23/21 11:40 Source: patient Mode of arrival: ambulatory Limitations: no limitations History of Present Illness HPI narrative: Patient is a 60 year old female presenting to the emergency department today with a growing neck mass. Patient states that for the last 3 weeks, she has noti iraj a mass on the left side of her neck that has slowly been growing and now it has gotten to the point where she is having difficulty swallowing. Patient states that she has also had some significant weight loss. Patient denies any dizziness, lightheadedness, abdominal pain, nausea, vomiting, fever, chills, blurry vision, double vision, loss of vision, chest pain, difficulty breathing, shortness of breath, back pain, night sweats, pain with urination, increased urinary frequency, increased urinary urgency, blood in her urine or stool, syncope or a near syncopal episode, recent trauma or falls, bowel incontinence, bladder incontinence, bowel retention, bladder retention, or any other complai nts at this time. Patient states that she has a history of has had pre-cancerous polyps removed from her colon and is a daily smoker. Onset (ago): week(s) (3) Severity: moderate Severity scale (1-10): 5 Relieving factors: none Exacerbating factors: none Associated symptoms: denies other symptoms Treatments prior to arrival: none Related Data Home Medications Medication Instructions Recorded Confirmed blood pressure test kit-large #1 04/29/20 07/29/21 blood sugar diagnostic #10 04/29/20 07/29/21 insulin syringe-needle U-100 0.3 #10 04/29/20 07/29/21 mL 31 gauge x 5/16 lancets 28 gauge #100 04/29/20 07/29/21 pen needle, diabetic 32 gauge x #50 04/29/20 07/29/21 simvastatin 5 mg tablet 5 mg PO BEDTIME 04/29/20 07/29/21 amlodipine 5 mg tablet 5 mg PO DAILY 06/03/20 07/29/21 aspirin 81 mg tablet,delayed 81 mg PO DAILY 06/03/20 07/29/21 release (Adult Low Dose Aspirin) ferrous sulfate 325 mg (65 mg 325 mg PO DAILY 06/03/20 07/29/21 iron) tablet albuterol sulfate 90 mcg/actuation INHALATION 12/24/20 07/29/21 aerosol inhaler Previous Rx's Medication Instructions Recorded insulin lispro 100 unit/mL See Rx Instructions SUBCUT QID #15 01/23/21 subcutaneous half-unit pen ml MDD 60 units (Humalog Scot KwikPen (U-100)) pen needle, diabetic 32 gauge x #200 ea 05/30/21 (BD Ultra-Fine Capri Pen Needle) fluconazole 200 mg tablet 200 mg PO DAILY 10 Days #10 tab 07/10/21 lisinopril 5 mg tablet 5 mg PO DAILY #30 tab 08/02/21 insulin glargine U-300 conc 300 10 unit (0.0333 mL) SUBCUT BEDTIME 08/13/21 unit/mL (1.5 mL) subcutaneous pen #4.5 ml (Toujeo SoloStar U-300 Insulin) [id number] 2 cap PO TID #180 cap 08/13/21 24,000-76,000-120,000 unit capsule,delayed rel (Creon) metformin 500 mg tablet 500 mg PO BID #180 tab 08/13/21 omeprazole 20 mg capsule,delayed 20 mg PO DAILY 90 Days #90 cap 08/27/21 release Allergies Allergy/AdvReac Type Severity Reaction Status Date / Time ragweed pollen [RAGWEED] Allergy Severe RUNNY NOSE Verified 09/23/21 11:33 Sulfa (Sulfonamide Allergy Intermediate PASS OUT, Verified 09/23/21 11:33 Antibiotics) HIVES [SULFA(SULFONAMIDE ANTIBIOTICS)] Review of Systems Constitutional: Constitutional: Reports no additional constitutional complaints, Denies chills, Denies fever(s), Denies night sweats and Reports weight loss Eyes: Eyes: Reports no additional eye complaints, Denies blurry vision, Denies change in vision, Denies diplopia, Denies eye discharge, Denies loss of vision and Denies eye pain ENT: Denies dizziness and Reports neck mass Cardiovascular: Cardiovascular: Reports no additional cardiovascular complaints, Denies chest pain, Denies lightheadedness, Denies Loss of Consciousness and Denies dyspnea Respiratory: Respiratory: Reports no additional respiratory complaints and Denies dyspnea Gastrointestinal: Gastrointestinal: Reports no additional gastrointestinal complaints, Denies abdominal pain, Denies melena, Denies hematochezia, Denies change in bowel habits and Denies change in stool character Genitourinary: Genitourinary: Denies hematuria, Denies urinary frequency, Denies dysuria, Denies urinary incontinence, Denies urinary hesitancy and Denies urinary urgency Musculoskeletal: Musculoskeletal: Reports no additional musculoskeletal compl aints, Denies numbness and Denies tingling Neurologic: Denies dizziness, Denies loss of vision, Denies numbness and Denies tingling Psychiatric: Psychiatric: Reports no additional psychiatric complaints Endocrine: Endocrine: Reports no additional endocrine complaints Hematologic/Lymphatic: Hematologic/Lymphatic: Reports no additional hematologic/lymphatic complaints Allergic/Immunologic: Allergic/Immunologic: Reports no additional allergic/immunologic complaints PMFSH Past Medical History Attestation statement: The following information was validated with the patient. Source: old records reviewed Medical History Asthma Chronic pancreatitis Essential hypertension Hx MRSA infection Hx of respiratory failure Hx of septic shock Hyperlipidemia LDL goal <100 Macrocytic anemia Smoking Type 2 diabetes mellitus with polyneuropathy Surgical History History of esophagogastroduodenoscopy (EGD) Hx of abdominal surgery Hx of colonoscopy Hx of exploratory laparotomy Family History Family History Father Diabetes Social History Social History Household Members: Family Household Members Other:: Sister Alcohol intake: never Patient Tobacco Use Status: Current everyday Tobacco user Cigarettes Per Day: 15 Years Smoked: 30 Use of substances other than those prescribed or required for medical reasons: No Advance Directives: No Advance Directives Information Provided: No Current occupational status: disabled Physical Exam ED Vital Signs: Vital Signs - 24 hr 09/23/21 11:33 09/23/21 11:52 09/23/21 12:01 Temperature 99.0 F 98.1 F Pulse Rate 101 H 98 101 H Respiratory Rate 18 18 20 Blood Pressure 98/71 101/70 114/78 Pulse Oximetry 97 96 98 09/23/21 14:30 09/23/21 15:47 Temperature 98.2 F Pulse Rate 84 84 Respiratory Rate 18 16 Blood Pressure 117/70 95/56 L Pulse Oximetry 100 100 BMI result Body Mass Index 16.4 Const General: cooperative, no acute distress, alert and awake Nutritional Appearance: well nourished Orientation/consciousness: patient oriented x3 Limitations: no limitations HENMT Head: Yes normal to inspection and Yes atraumatic Ears: hearing grossly normal bilaterally and external ears normal General nose exam: Normal external nose present, no nasal discharge noted and no epistaxis Face and sinus: Yes normal facial exam, No abrasion and No laceration Mouth: Normal oral and palatal mucosa present, no drooling and no muffled voice Eyes General: appearance normal, both eyes and all related structures Periorbital: periorbital findings normal Eyelids: Yes eyelids normal Conjunctivae: conjunctivae normal Pupils: Equal, round and reactive pupils present EOM: EOMs intact bilaterally Neck Other: large, palpable mass to the left neck Neck: Yes full ROM Chest Chest palpation & inspection: normal inspection of the chest Resp Other: voice horse Effort & Inspection: normal respiratory effort and stridor Auscultation: diminished lung sounds Cardio Rate: regular rate Rhythm: regular rhythm GI Inspection: Yes normal to inspection Neuro General: patient oriented x3 and moves all extremities Cranial nerves: Yes Equal, round and reactive pupils present Cognition (Neuro): normal cognition Motor exam (neuro): 5/5 motor strength present throughout Sensory Exam: Normal double simultaneous stimulation for sensation Coordination: [id number]-gh-hdsd test normal Extrem General: Yes normal to inspection, Yes full ROM and Yes capillary refill normal Psych Appearance: grossly normal Mental Status: mental status grossly normal Affect: normal affect Attitude: cooperative Thought process: Normal thought process present Thought content: Normal thought content present Insight: Good insight present (Psych) Medical Decision Making [facility] Narrative Medical decision making narrative: Patient is a 60 year old female presenting to the emergency department today with a neck mass. Patient's physical exam showed a very large left sided neck mass but was otherwise unremarkable. Patient's blood work showed an elevated white blood cell count at 18.9, an elevated creatinine at 2.03, and a decreased sodium at 130. Patient chronically has low sodium levels however the other values are acute changes. Patient's soft tissue neck CT showed a 7cm mass to the left side of the neck with questionable esophageal perforation. Patient was give n IV vancomycin, IV Zosyn, and IV fluconazole. Additionally, patient was given IV fluids. I called and spoke to Dr. Marinelli at who agreed to accept the patient there. I explained my physical exam findings as well as all test results to the patient. I answered all questions asked by the patient. Patient verbalized agreement and understanding with this treatment plan and transfer. Differential Diagnosis Differential Diagnosis: esophageal cancer, neck mass Medical Records Medical records reviewed: Yes I reviewed the patient's medical records. Lab Data Lab results reviewed: Yes I reviewed the patient's lab results. Result diagrams: 09/23/21 11:39 09/23/21 11:39 Labs: Lab Results 09/23/21 09/23/21 09/23/21 Range/Units 11:39 11:39 12:38 WBC 18.9 H (4.8-10.8) X10*3/uL RBC 4.66 (4.20-5.50) X10*6/uL Hgb 12.7 (12.0-16.0) g/dl Hct 38.3 (37.0-47.0) % MCV 82.2 (80.0-98.0) fL MCH 27.3 (27.0-33.0) pg MCHC 33.2 (31.0-35.0) g/dl RDW 13.5 (11.0-16.0) % Plt Count 404 H (160-400) X10*3/uL MPV 8.6 L (9.4-12.3) fL Immature Gran % (Auto) 0.6 H (0.0-0.4) % Neut % (Auto) 78.6 H (45-73) % Lymph % (Auto) 14.7 L (20-40) % [place] % (Auto) 5.2 (2-11) % Eos % (Auto) 0.7 (0-4) % Baso % (Auto) 0.2 (0-2) % Lymph # (Auto) 2.8 (1.2-4.9) X10*3/uL [place] # (Auto) 1.0 (0.1-1.2) X10*3/uL Eos # (Auto) 0.1 (0.0-0.4) X10*3/uL Baso # (Auto) 0.0 (0.0-0.2) X10*3/uL Abs Immat Gran (auto) 0.11 H (0.00-0.03) X10*3/uL Absolute Neuts (auto) 14.9 H (2.0-8.3) x10*3/uL Absolute Nucleated RBC 0.000 (0.0-0.012) X10*3/uL Nucleated RBC % (auto) 0.0 (0.0-0.2) /100WBC Sodium 130 L (135-145) mmol/L Potassium 3.8 D (3.3-5.1) mmol/L Chloride 90 L (96-108) mmol/L Carbon Dioxide 27 (22-29) mmol/L Anion Gap 17 (12-20) BUN 58 H D (9-16) mg/dL Creatinine 2.03 H (0.5-1.4) mg/dL Estim Creat Clear Calc 17.3 Estimated GFR 25 Random Glucose 175 H (60-115) mg/dL Lactic Acid 1.9 (0.5-2.0) mmol/L Calcium 10.9 H D (8.4-10.2) mg/dL Total Bilirubin 0.5 (0.0-1.0) mg/dL AST 12 (5-31) U/L ALT 8 (0-31) U/L Alkaline Phosphatase 99 (39-117) U/L Total Protein 6.8 (6.5-8.0) g/dL Albumin 3.7 (3.5-5.0) g/dL COVID-19 (ESPINOZA) (Negative) COVID-19 Clin Com 09/23/21 Range/Units 15:18 WBC (4.8-10.8) X10*3/uL RBC (4.20-5.50) X10*6/uL Hgb (12.0-16.0) g/dl Hct (37.0-47.0) % MCV (80.0-98.0) fL MCH (27.0-33.0) pg MCHC (31.0-35.0) g/dl RDW (11.0-16.0) % Plt Count (160-400) X10*3/uL MPV (9.4-12.3) fL Immature Gran % (Auto) (0.0-0.4) % Neut % (Auto) (45-73) % Lymph % (Auto) (20-40) % [place] % (Auto) (2-11) % Eos % (Auto) (0-4) % Baso % (Auto) (0-2) % Lymph # (Auto) (1.2-4.9) X10*3/uL [place] # (Auto) (0.1-1.2) X10*3/uL Eos # (Auto) (0.0-0.4) X10*3/uL Baso # (Auto) (0.0-0.2) X10*3/uL Abs Immat Gran (auto) (0.00-0.03) X10*3/uL Absolute Neuts (auto) (2.0-8.3) x10*3/uL Absolute Nucleated RBC (0.0-0.012) X10*3/uL Nucleated RBC % (auto) (0.0-0.2) /100WBC Sodium (135-145) mmol/L Potassium (3.3-5.1) mmol/L Chloride (96-108) mmol/L Carbon Dioxide (22-29) mmol/L Anion Gap (12-20) BUN (9-16) mg/dL Creatinine (0.5-1.4) mg/dL Estim Creat Clear Calc Estimated GFR Random Glucose (60-115) mg/dL Lactic Acid (0.5-2.0) mmol/L Calcium (8.4-10.2) mg/dL Total Bilirubin (0.0-1.0) mg/dL AST (5-31) U/L ALT (0-31) U/L Alkaline Phosphatase (39-117) U/L Total Protein (6.5-8.0) g/dL Albumin (3.5-5.0) g/dL COVID-19 (ESPINOZA) Negative (Negative) COVID-19 Clin Com See Note Imaging Data CT Scan - Soft tisse neck: Attestation: I personally reviewed and interpreted this imaging study as follows: My impression: Very large mass in the left neck. Radiologist's impression: CT SOFT TISSUE NECK WITHOUT CONTRAST CLINICAL INFORMATION: Neck mass.? COMPARISON: None available.? TECHNIQUE: Helical imaging was performed in the axial plane with generation of coronal and sagittal reformatted images. This CT examination was performed using dose optimization techniques as appropriate, variously including the following: *Automated exposure control *Adjustment of mA and/or kV according to patient size (this includes techniques or standardized protocols for targeted exams where dose is matched to indication/reason for exam; i.e. extremities or head) *Use of iterative reconstruction technique FINDINGS: Limited noncontrast CT of the neck demonstrates a large soft tissue density mass involving the dorsal oropharynx, the hypopharynx effacing the piriform sinuses bilaterally, and the post cricoid region. This lesion possibly measures up to 7 cm CC by 2.5 cm AP by 4.8 cm TV. These findings are highly concerning for malignancy. Consider MRI of the neck with and without contrast or a PET/CT to more definitively characterize the mass and distinguish mass from obstructed material. The expansile mass above partially effaces the supraglottic larynx which remains patent. There is gas along the periphery of the expected location of the hypopharynx and lower cervical esophagus which may be secondary to hypopharyngeal/esophageal perforation or superimposed gas producing infection. An air-fluid level superficial to the upper aspect of the left thyroid cartilage may reflect an obstructive laryngocele or infected collection. Possible right-sided metastatic node of [place] on image 26 of series 2 measuring 1.1 cm. Additional nonpathologic size criteria lymph nodes within the suprahyoid and infrahyoid neck bilaterally can be further assessed with PET. Imaged upper lungs are clear. There is multilevel cervical spondylosis. No acute nor suspicious osseous findings are identified. There is atherosclerotic calcification involving the carotid bifurcations bilaterally, greater on the left. There is soft tissue associated with focal mandibular erosion involving the dorsal right gingival buccal mucosa/retromolar trigone that can be further assessed with PET to exclude an additional site of malignancy in this location. CT/CT soft tissue neck wo con IMPRESSION: - Limited noncontrast CT of the neck demonstrates a large up to 7 cm soft tissue density mass involving the dorsal oropharynx, the hypopharynx effacing the piriform sinuses bilaterally, and the post cricoid region. These findings are highly concerning for malignancy. Consider MRI of the neck with and without contrast and/or a PET/CT to more definitively characterize the mass and distinguish mass from obstructed material. The expansile mass partially effaces the supraglottic larynx which remains patent and the lesion partially effaces the paraglottic fat bilaterally. ? - There is gas along the periphery of the expected location of the hypopharynx and lower cervical esophagus which may be secondary to hypopharyngeal/esophageal perforation or superimposed gas producing infection. An air-fluid level superficial to the upper aspect of the left thyroid cartilage may reflect an obstructive laryngocele or infected collection. ? - Possible right-sided metastatic node of [place] on image 26 of series 2 measuring 1.1 cm. Additional nonpathologic size criteria lymph nodes within the suprahyoid and infrahyoid neck bilaterally can be further assessed with PET. ? - There is soft tissue associated with focal mandibular erosion involving the dorsal right gingival buccal mucosa/retromolar trigone that can be further assessed with PET to exclude an additional site of malignancy in this location. ? Findings discussed with LUCIO WELLS at 2:24 PM on 09/23/2021. Dictated By: Robe Benz MD Signed By: Electronically signed by Robe Benz MD 09/23/21 1423 Critical Care Time Critical Care Time Critical Care Time: Yes Total Critical Care Time: 30 Attestation: I spent 30 minutes of Critical Care Time with this patient. This does not include time spent on separately reported billable procedures. Discharge Plan Discharge Clinical Impression: Mass in neck, MACKENZIE (acute kidney injury) Patient Disposition: er [facility] Hospital Transfer Details: [facility] Prescriptions: No Action insulin lispro [Humalog Scot KwikPen U-100] 100 unit/mL insulin pen, half- unit See Rx Instructions subcut QID MDD 60 units Qty: 15 6RF Rx Instructions: 5-15 units subcut 4 times a day; (DME) pen needle, diabetic [BD Ultra-Fine Capri Pen Needle] 32 gauge x 5/32 needle See Rx Instructions .ROUTE .MEDSUPPLY Qty: 200 11RF Rx Instructions: As directed five times a day lisinopril 5 mg tablet 5 mg PO DAILY Qty: 30 6RF Creon 24,000-76,000 -120,000 unit capsule,delayed release(DR/EC) 2 cap PO TID Qty: 180 3RF metformin 500 mg tablet 500 mg PO BID Qty: 180 1RF Toujeo SoloStar U-300 Insulin 300 unit/mL (1.5 mL) insulin pen 10 unit subcut BEDTIME Qty: 4.5 4RF omeprazole 20 mg capsule,delayed release(DR/EC) 20 mg PO DAILY 90 Days Qty: 90 1RF albuterol sulfate 90 mcg/actuation HFA aerosol inhaler inhalation 0RF (DME) lancets 28 gauge misc See Rx Instructions ea topical TID Qty: 100 0RF Rx Instructions: As directed (DME) pen needle, diabetic 32 gauge x 5/32 needle See Rx Instructions ea subcut QID Qty: 50 0RF Rx Instructions: As directed simvastatin 5 mg tablet 5 mg PO BEDTIME 0RF (DME) blood pressure test kit-large Kit See Rx Instructions ea .ROUTE DIRECTED Qty: 1 0RF Rx Instructions: [place] [place] sugar [place] Strip See Rx Instructions ea Not Applicable QID Qty: 10 0RF Rx Instructions: [place] [place] insulin syringe-needle U-100 0.3 mL 31 gauge x 5/16 syringe See Rx Instructions ea .ROUTE .MEDSUPPLY Qty: 10 0RF Rx Instructions: As directed fluconazole 200 mg tablet 200 mg PO DAILY 10 Days Qty: 10 0RF amlodipine 5 mg tablet 5 mg PO DAILY 0RF ferrous sulfate 325 mg (65 mg iron) tablet 325 mg PO DAILY 0RF aspirin [Adult Low Dose Aspirin] 81 mg tablet,delayed release (DR/EC) 81 mg PO DAILY 0RF Print Language: Indonesian
[2021-09-23 11:43] LABS: Basophils Percent Auto 0.2 % (0-2); Eosinophils Absolute Auto 0.1 X10*3/uL (0.0-0.4); Eosinophils Percent Auto 0.7 % (0-4); Hematocrit 38.3 % (37.0-47.0); Hemoglobin 12.7 g/dl (12.0-16.0); Imm Gran Abs Auto 0.11 X10*3/uL (0.00-0.03); Imm Gran Pct Auto 0.6 % (0.0-0.4); Lymphocytes Absolute Auto 2.8 X10*3/uL (1.2-4.9); Lymphocytes Percent Auto 14.7 % (20-40); MANUAL DIFF FLAG NO; Mean Corpuscular HGB Conc 33.2 g/dl (31.0-35.0); Mean Corpuscular Hemoglobin 27.3 pg (27.0-33.0); Mean Corpuscular Volume 82.2 fL (80.0-98.0); Mean Platelet Volume 8.6 fL (9.4-12.3); Monocytes Percent Auto 5.2 % (2-11); Neutrophils Absolute Auto 14.9 x10*3/uL (2.0-8.3); Neutrophils Percent Auto 78.6 % (45-73); Platelet Count 404 X10*3/uL (160-400); Red Blood Count 4.66 X10*6/uL (4.20-5.50); Red Cell Distribution Width 13.5 % (11.0-16.0); White Blood Count 18.9 X10*3/uL (4.8-10.8)
--- NOTE | 2021-09-23 12:01 | PC.NURSE ---
pt alert and oriented, skin pwd, respirations even and unlabored, pt reports having a lump on her left side of the neck for about three weeks, not painful but feels scratchy, having difficulty swallowing, needs to spit in a bag once in a while, speaking in full clear sentences, no respiratory distress noticed
[2021-09-23 12:18] LABS: Alanine Aminotransferase 8 U/L (0-31); Albumin Level 3.7 g/dL (3.5-5.0); Alkaline Phosphatase 99 U/L (39-117); Anion Gap 17 (12-20); Aspartate Amino Transferase 12 U/L (5-31); Bilirubin Total 0.5 mg/dL (0.0-1.0); Blood Urea Nitrogen 58 mg/dL (9-16); Calcium 10.9 mg/dL (8.4-10.2); Carbon Dioxide 27 mmol/L (22-29); Chloride 90 mmol/L (96-108); Creatinine Clr Calc Pharmacy 17.3; Estimated Glomerular Filt Rate 25; Glucose Random 175 mg/dL (60-115); Potassium 3.8 mmol/L (3.3-5.1); Sodium 130 mmol/L (135-145); Total Protein 6.8 g/dL (6.5-8.0)
[2021-09-23] MEDS: 0.9 % Sodium Chloride 1,000 ML 999 ML IVCONT (12:45)
[2021-09-23 12:56] LABS: Lactic Acid 1.9 mmol/L (0.5-2.0)
[2021-09-23] MEDS: Piperacillin Sodium/Tazobactam 4.5 GM in 0.9 % Sodium Chloride 100 ML IV (15:12)
[2021-09-23 15:42] LABS: COVID-19 Test Negative (Negative); IDNOW Serial# 16C4AD1C
[2021-09-23] MEDS: vancomycin HCL 750 MG in 0.9 % Sodium Chloride 250 ML 265 MG IV (16:38)
--- NOTE | 2021-09-23 16:42 | PC.NURSE ---
delay on antibiotics, do to pt having only one ic access, and awaiting on cultures, pt is a difficult stick
--- NOTE | 2021-09-23 17:09 | PC.NURSE ---
report given to osvaldo simon at [facility]
--- NOTE | 2021-09-23 19:15 | PC.NURSE ---
report received from KEARA Mendoza. pt is alert and oriented. resting in bed. no signs of acute distress notice. breathing equally unlabored
[2021-09-23] MEDS: Fluconazole in NaCl,Iso-Osm 200 MG/100 ML PIGGYBACK 100 MG IV (19:16)
== END 2021-09-23 20:38 | disposition short-term general hospital (02) ==
PROVIDERS: Physician Assistant Medical; Emergency Provider Emergency Medicine; PCP Internal Medicine
DX: R22.1 Localized swelling, mass and lump, neck (principal); N17.9 Acute kidney failure, unspecified; Z20.822 Contact with and (suspected) exposure to COVID-19; E11.9 Type 2 diabetes mellitus without complications; I10 Essential (primary) hypertension; E78.5 Hyperlipidemia, unspecified; F17.200 Nicotine dependence, unspecified, uncomplicated; Z79.4 Long term (current) use of insulin; Z79.02 Long term (current) use of antithrombotics/antiplatelets; Z79.82 Long term (current) use of aspirin; Z79.899 Other long term (current) drug therapy
CPT/HCPCS: 36415; 70490; 80053; 83605; 85025; 87040; 87635; 96361; 96365; 96367; 96368; 99285; J1450; J2543; J3370

== ENCOUNTER → 2021-12-12 07:57 | Outpatient (BNVA) | payer OTHER, SELFPAY | PROVIDERS: PCP Internal Medicine; Visit Provider Internal Medicine Endocrinology, Diabetes & Metabolism | DX: E11.42 Type 2 diabetes mellitus with diabetic polyneuropathy (principal); E78.5 Hyperlipidemia, unspecified; I10 Essential (primary) hypertension; Z79.4 Long term (current) use of insulin | CPT/HCPCS: 82947; 83036; 99212 ==

== ENCOUNTER 2021-12-15 08:39 | Emergency (ER) | payer OTHER, SELFPAY ==
--- NOTE | ~2021-12-15 | XR_ITS ---
EXAMINATION: XR CHEST CLINICAL INFORMATION: Cough, congestion. COMPARISON: 08/31/2018 chest radiograph. TECHNIQUE: 2 views of the chest were obtained. FINDINGS: There is generalized hyperinflation. No pleural effusions. The heart and mediastinal structures are unremarkable. A tracheostomy tube is noted in place. XR/XR chest 2V IMPRESSION: Generalized hyperinflation. No acute cardiopulmonary process.
[2021-12-15 08:58] VITALS: BP 94/64; PULSE 114; RESP 23; TEMP 37.2; O2SAT 95; BMI 16.2
[2021-12-15 10:42] LABS: Basophils Absolute Auto 0.1 X10*3/uL (0.0-0.2); Basophils Percent Auto 0.4 % (0-2); Eosinophils Absolute Auto 0.7 X10*3/uL (0.0-0.4); Eosinophils Percent Auto 3.5 % (0-4); Hematocrit 33.1 % (37.0-47.0); Hemoglobin 10.9 g/dl (12.0-16.0); Imm Gran Pct Auto 0.5 % (0.0-0.4); Lymphocytes Absolute Auto 2.4 X10*3/uL (1.2-4.9); Lymphocytes Percent Auto 12.6 % (20-40); MANUAL DIFF FLAG SCAN; Mean Corpuscular HGB Conc 32.9 g/dl (31.0-35.0); Mean Corpuscular Hemoglobin 29.1 pg (27.0-33.0); Mean Corpuscular Volume 88.3 fL (80.0-98.0); Mean Platelet Volume 8.7 fL (9.4-12.3); Monocytes Absolute Auto 2.4 X10*3/uL (0.1-1.2); Monocytes Percent Auto 12.4 % (2-11); Neutrophils Absolute Auto 13.4 x10*3/uL (2.0-8.3); Neutrophils Percent Auto 70.6 % (45-73); Platelet Count 575 X10*3/uL (160-400); Red Blood Count 3.75 X10*6/uL (4.20-5.50); Red Cell Distribution Width 19.6 % (11.0-16.0); SCAN SMEAR FLAG 1
[2021-12-15 10:50] LABS: INTERNATIONAL NORM RATIO 0.9 (0.9-1.1); Prothrombin Time 10.4 SEC (10.0-13.1)
[2021-12-15 10:56] LABS: COVID-19 Test Negative (Negative)
[2021-12-15 11:03] LABS: SLIDE REVIEW VERIFIED
[2021-12-15 11:06] LABS: Anion Gap 17 (12-20); Blood Urea Nitrogen 34 mg/dL (9-16); Carbon Dioxide 30 mmol/L (22-29); Chloride 88 mmol/L (96-108); Creatinine Clr Calc Pharmacy 42.2; Estimated Glomerular Filt Rate > 60; Glucose Random 95 mg/dL (60-115); Potassium 5.6 mmol/L (3.3-5.1); Sodium 129 mmol/L (135-145)
== END 2021-12-15 15:21 | disposition left against medical advice (07) ==
PROVIDERS: Emergency Provider Emergency Medicine; PCP Internal Medicine
DX: R05.9 Cough, unspecified (principal); Z20.822 Contact with and (suspected) exposure to COVID-19; E11.9 Type 2 diabetes mellitus without complications; I10 Essential (primary) hypertension; E78.5 Hyperlipidemia, unspecified; Z93.0 Tracheostomy status
CPT/HCPCS: 36415; 71046; 80048; 85025; 85610; 87635; 99281; 99283

== ENCOUNTER 2021-12-16 22:35 | Inpatient (IN) | payer OTHER, SELFPAY ==
--- NOTE | ~2021-12-16 | CT_ITS ---
EXAMINATION: CT SOFT TISSUE NECK WITH CONTRAST CLINICAL INFORMATION: Macerated trachea. Necrotic tissue. COMPARISON: CT neck from 10/21/2021 and 09/24/2021. TECHNIQUE: Multidetector helical imaging was performed in the axial plane following the administration of 60 mL of Omnipaque 350 intravenous contrast. Multiple axial reformats and coronal/sagittal reconstructions were created the technologist workstation for review. This CT examination was performed using dose optimization techniques as appropriate, variously including the following: *Automated exposure control. *Adjustment of mA and/or kV according to patient size (this includes techniques or standardized protocols for targeted exams where dose is matched to indication/reason for exam; i.e. extremities or head). *Use of iterative reconstruction technique. DLP: 239 mGy-cm FINDINGS: Tracheostomy tube in place. Progressive enlargement of a heterogeneously enhancing mass lesion centered on the right lateral and posterior mckeon of the pharynx, hypopharynx, and upper esophagus (now measuring upwards of 7.8 x 4.5 x 10 cm; previously 7 x 4.5 x 9 cm). The lesion likely extends into the dorsal aspect of the supraglottic larynx and right piriform sinus. There is moderate leftward deviation of the pharynx. The cervical esophagus is indiscernible. There are small volume fluid within the nondistended esophagus at the thoracic inlet. No significant cutaneous thickening or subcutaneous inflammation. No additional discrete drainable fluid collection within the soft tissues of the neck. The premaxillary, retromaxillary, pterygopalatine fossa, orbital apical, and parapharyngeal adipose tissue is maintained. Normal appearance of the parotid glands. The aforementioned mass abuts the posterior aspects of the submandibular glands bilaterally. Otherwise, the submandibular glands are normal in appearance. Few scattered subcentimeter hypoattenuating nodules within the thyroid gland (no follow-up imaging recommended based on current guidelines at the time of examination). There is a 0.7 cm rounded right level Ib lymph node. There is a cystic 1 cm left level IIb lymph node. Otherwise, scattered subcentimeter lymph nodes bilaterally, none of which are pathologically enlarged or abnormally enhancing. No demonstrated focal lesion within the intrinsic tissues of the tongue. The right posterior arch of the hyoid bone is eroded. Normal appearance of the thyroid cartilage. No radiopaque foreign bodies. The atlantooccipital and atlantoaxial articulations remain well aligned. Mild degenerative anterolisthesis of C4 on C5. Otherwise, there is anatomic alignment of the cervical spine. No evidence of acute fracture or subluxation of the cervical spine. Moderate multilevel degenerative spondyloarthropathy of the cervical spine. No demonstrated suspicious lytic or sclerotic osseous lesions. No evidence of epidural collection. There is no prevertebral soft tissue swelling. The carotid arteries and jugular veins are peripheralized. The visualized portion of the skull base is without significant abnormalities. The visualized paranasal sinuses are clear. The patient is edentulous. Mild mucosal thickening of the paranasal sinuses. The mastoid air cells and middle ear cavities are clear. CT Upper Chest: Moderate centrilobular emphysema. Otherwise, the visualized lung apices and upper mediastinum are within normal limits. CT/CT soft tissue neck w con IMPRESSION: Interval significant progression of a large (10 cm) heterogeneous mass centered on the right lateral and posterior mckeon of the pharynx, hypopharynx, and upper esophagus. This mass lesion now likely extends along the posterior wall of the supraglottic larynx and right piriform sinus. The cervical esophagus is indistinguishable from the mass. Tracheostomy tube in place. Moderate emphysema.
--- NOTE | ~2021-12-16 | CT_ITS ---
EXAMINATION: CT SOFT TISSUE NECK WITH CONTRAST CLINICAL INFORMATION: Squamous cell carcinoma of neck with worsening swelling COMPARISON: Neck CT 12/17/2021 TECHNIQUE: Following the intravenous administration of 60 mL of Omnipaque 350 intravenous contrast, helical imaging was performed in the axial plane with generation of coronal and sagittal reformatted images. This CT examination was performed using dose optimization techniques as appropriate, variously including the following: *Automated exposure control *Adjustment of mA and/or kV according to patient size (this includes techniques or standardized protocols for targeted exams where dose is matched to indication/reason for exam; i.e. extremities or head) *Use of iterative reconstruction technique DLP: 292 mGy-cm FINDINGS: No significant change in size or appearance of the large heterogeneously enhancing mass originating from the right pharyngeal tonsillar region extending caudally and posteriorly throughout the hypopharynx crossing the midline to the contralateral right side with marked narrowing of the supraglottic airway. The tumor extends posterior to the larynx and appears to involve the cervical esophagus. The mass lesion measures 7.3 x 4.3 x 10.1 cm in size, not significantly changed. Areas of nonenhancement within the lesion, presumably central necrosis. Couple small bubbles of soft tissue gas within the left aspect of the lesion on series 2 image 61 and image 71. Cannot exclude superimposed gas-forming infection or communication adjacent airway. Small subcentimeter nodular densities in the left thyroid lobe, unchanged, negative no clinical significance. Tracheostomy tube is in place. Internal jugular veins enhance normally. Common and internal carotid arteries are patent. Small nonpathologically enlarged cervical lymph nodes. An enlarged right lateral retropharyngeal lymph node measures 0.9 cm in short axis on series 2 image 38, unchanged. Normal appearance major salivary glands. Subcutaneous edema in the neck, similar to perhaps minimally increased since prior. Mild centrilobular emphysema in the upper lungs. Lungs otherwise clear. Visualized and cannot contents unremarkable. Globes and retro-orbital structures are intact. Normal appearance of the parapharyngeal fat and glove operator spaces. Paranasal sinuses and mastoid air cells normally aerated. No acute fracture or suspicious osseous lesion. CT/CT soft tissue neck w con IMPRESSION: 1. Overall similar size of the 10 cm pharyngeal/hypopharyngeal mass with perhaps minimal increased subcutaneous edema in the interval. 2. A few small bubbles of soft tissue gas in the left aspect of the lesion are nonspecific and could represent small perforations within the hypopharynx or superimposed gas-forming infection of the mass lesion. 3. Internal jugular veins remain patent.
--- NOTE | ~2021-12-16 | XR_ITS ---
EXAMINATION: XR CHEST CLINICAL INFORMATION: Cough COMPARISON: Chest radiograph 12/16/2021, CT chest 12/17/2021. TECHNIQUE: Portable upright AP view of the chest was obtained. FINDINGS: There is interval mild bilateral infrahilar airspace opacities. No lobar or segmental airspace consolidation or air bronchograms or effusion. The vascularity is normal. The heart is normal in size. Tracheostomy tube is in position. The costophrenic sulci are clear. No acute bony abnormality. XR/XR chest 1V IMPRESSION: Mild bilateral infrahilar airspace opacities. No effusion.
--- NOTE | ~2021-12-16 | XR_ITS ---
EXAMINATION: XR ABDOMEN KUB CLINICAL INDICATION: G-tube dislodged COMPARISON: 11/06/2021 TECHNIQUE: AP view of the abdomen. FINDINGS: No visible gastrostomy tube. Dense material is present within much of the colon, suggesting previously administered oral contrast. Bowel gas pattern is nonobstructive. Redemonstrated pancreatic calcifications consistent with chronic pancreatitis. No gross evidence for free air, though evaluation is limited without intravenous contrast. Included lung bases appear well-aerated. No acute osseous findings are seen. XR/XR KUB IMPRESSION: No gastrostomy tube visualized. Nonobstructive bowel gas pattern.
--- NOTE | ~2021-12-16 | CT_ITS ---
EXAMINATION: CT CHEST WITHOUT CONTRAST CLINICAL INFORMATION: Shortness of breath COMPARISON: Chest x-ray 12/16/2021, CT 09/24/2021 TECHNIQUE: Multidetector volumetric CT imaging of the chest was done. Axial MIP volume rendering provided. Sagittal and coronal reformatted images were obtained. This CT examination was performed using dose optimization techniques as appropriate, variously including the following: *Automated exposure control *Adjustment of mA and/or kV according to patient size (this includes techniques or standardized protocols for targeted exams where dose is matched to indication/reason for exam; i.e. extremities or head) *Use of iterative reconstruction technique DLP: 141 mGy-cm FINDINGS: LUNGS: There is moderate upper lobe predominant emphysema. There is a 1.0 cm nodule in the lingula on image 302/[id number], previously 0.8 cm on 09/24/2021. Subsegmental atelectasis is also noted in the lingula. There appears to be partial volume loss in the right middle lobe with some patchy and dense areas of opacity, favored to at least partially be due to atelectasis though a superimposed acute infectious/inflammatory component may also be present. Subsegmental atelectasis is noted in the right lower lobe. MEDIASTINUM: Partially visualized extensive soft tissue density in the anterior lower neck, more fully assessed on accompanying neck CT. Mildly prominent subcentimeter mediastinal lymph node anterior to the juany is similar to prior. Cardiac size is within normal limits; no pericardial effusion. Coronary artery calcifications are present. Scattered atherosclerotic calcifications are present along the aorta. PLEURA: No pneumothorax or pleural effusion. AXILLA: No lymphadenopathy. UPPER ABDOMEN: Partially visualized pancreatic atrophy with calcifications. OSSEOUS STRUCTURES: Mild degenerative changes are noted in the spine. CT/CT chest wo con IMPRESSION: 1. Enlarging pulmonary nodule in the lingula now measuring 1.0 cm, compared to 0.8 cm on 09/24/2021. Appearance is concerning for malignancy, either metastasis or primary lung cancer. 2. Partial opacification of the right middle lobe, favored to at least partially be due to atelectasis, though a superimposed developing infectious/inflammatory component may also be present. 3. Moderate upper lobe predominant emphysema. 4. Partially visualized extensive soft tissue density in the lower neck, more fully assessed on accompanying neck CT. This critical result was discussed with Les Boggs on 12/17/2021 1:51 AM, and it was ascertained that the content and urgency of the report was understood at the time of direct communication.
--- NOTE | ~2021-12-16 | XR_ITS ---
EXAMINATION: XR ABDOMEN KUB CLINICAL INDICATION: Check J-tube replacement COMPARISON: 12/19/2021 TECHNIQUE: AP view of the abdomen. 60 mL of Gastrografin utilized. FINDINGS: Gastrostomy tube is identified. Contrast injected through the tube fills the stomach and extends into the small bowel, consistent with appropriate positioning. Nonobstructive bowel gas pattern. The lung bases are clear. XR/XR abdomen 1V IMPRESSION: Gastrostomy tube in place within the stomach.
--- NOTE | ~2021-12-16 | XR_ITS ---
EXAMINATION: XR CHEST CLINICAL INFORMATION: Trach placement, sputum production COMPARISON: 12/15/2021 TECHNIQUE: Frontal view of the chest was obtained. FINDINGS: Redemonstrated tracheostomy tube. Lung volumes are symmetric. No focal consolidation is seen. No evidence of pneumothorax, pleural effusion, or pulmonary edema. The cardiomediastinal contour is unremarkable. No acute osseous findings are seen. XR/XR chest 1V IMPRESSION: No acute cardiopulmonary findings.
[2021-12-16 22:46] VITALS: BP 146/66; PULSE 93; O2SAT 97; BMI 24.2
--- NOTE | 2021-12-16 22:52 | ED.URI ---
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 Patient tells me this has been going on intermittently for a while, worsening over the past few days. Patient is currently receiving boluses for tube feeding and feeding herself. Patient scheduled to start chemo soon however not currently on it. Scheduled to get a port in the near future. She has a meeting with Radiation oncologist soon, start date for both chemo and radiation on 12/24/2021. Denies fevers, chills, chest pain, nausea, vomiting, abdominal pain, headache, dizziness, vision changes Related Data Home Medications Medication Instructions Recorded Confirmed blood pressure test kit-large #1 ea 04/29/20 12/04/21 blood sugar diagnostic #10 ea 04/29/20 12/04/21 insulin syringe-needle U-100 0.3 #10 ea 04/29/20 12/04/21 mL 31 gauge x 5/16 lancets 28 gauge #100 ea 04/29/20 12/04/21 pen needle, diabetic 32 gauge x #50 ea 04/29/20 12/04/21 5/32 simvastatin 5 mg tablet 5 mg PO BEDTIME 04/29/20 12/04/21 amlodipine 5 mg tablet 5 mg PO DAILY 06/03/20 12/04/21 famotidine 20 mg tablet 1 tab PO BID 11/20/21 12/04/21 hydromorphone 1 mg/mL oral liquid 1 ea PO DAILY PRN Pain 11/20/21 12/04/21 ipratropium 0.5 mg-albuterol 3 mg ml inhalation 12/12/21 (2.5 mg base)/3 mL nebulization soln multivit and minerals-ferrous ml PO DAILY 12/12/21 gluconate 9 mg iron/15 mL oral liquid (Centrum) polyethylene glycol 3350 17 g PO DIRECTED 12/12/21 gram/dose oral powder (Gavilax) prochlorperazine maleate 5 mg 0 mg PO 12/12/21 tablet Previous Rx's Medication Instructions Recorded pen needle, diabetic 32 gauge x #200 ea 05/30/21/32 (BD Ultra-Fine Capri Pen Needle) lisinopril 5 mg tablet 5 mg PO DAILY #30 tabs 08/02/21 omeprazole 20 mg capsule,delayed 20 mg PO DAILY 90 days #90 caps 08/27/21 release blood sugar diagnostic (FreeStyle #100 ea 12/08/21 Lite Strips) lancets 28 gauge (FreeStyle #100 ea 12/08/21 Lancets) insulin glargine U-300 conc 300 10 unit (0.0333 mL) subcut BEDTIME 12/12/21 unit/mL (3 mL) subcutaneous pen #6 mL (Toujeo Max U-300 SoloStar) insulin lispro 100 unit/mL See Rx Instructions subcut QID #15 12/12/21 subcutaneous half-unit pen mL (Humalog Scot KwikPen (U-100)) Allergies Allergy/AdvReac Type Severity Reaction Status Date / Time ragweed pollen [RAGWEED] Allergy Severe RUNNY NOSE Verified 12/12/21 08:04 Sulfa (Sulfonamide Allergy Intermediate PASS OUT, Verified 12/12/21 08:04 Antibiotics) HIVES [SULFA(SULFONAMIDE ANTIBIOTICS)] Review of Systems Review of Systems: Constitutional : No Weight loss, No Fever, No Chills, No Fatigue, No Malaise ENT/Mouth : No sore throat, No Rhinorrhea Eyes: No Eye Pain, No Swelling, No Redness Cardiovascular : No Chest Pain, + SOB, No Dyspnea on Exertion, No Orthopnea, No Edema, No Palpitations Respiratory : + Cough, + Sputum, No Wheezing Gastrointestinal : No Nausea, No Vomiting, No Diarrhea, No Constipation, No abdominal Pain, No Hematochezia, No Melena Genitourinary : No Dysuria, No Urinary Frequency, No Hematuria, Musculoskeletal : No joint pain, No Myalgias, No Joint Swelling Skin : No Skin Lesions, No rash Neuro : No Weakness, No Numbness, No Dizziness, No Headache Psych : No Anxiety/Panic, No Depression All other systems reviewed and are negative Yes all other systems are reviewed and are negative [facility] Past Medical History Attestation statement: The following information was validated with the patient. Source: old records reviewed and nursing notes reviewed Medical History Asthma Chronic pancreatitis Essential hypertension Feeding by G-tube Hx MRSA infection Hx of respiratory failure Hx of septic shock Hyperlipidemia LDL goal <100 Macrocytic anemia Smoking Type 2 diabetes mellitus with polyneuropathy Surgical History History of esophagogastroduodenoscopy (EGD) History of tracheostomy Hx of abdominal surgery Hx of colonoscopy Hx of exploratory laparotomy Family History Family History Father Diabetes Myeloma Mother Brain cancer Mother Lung cancer Sister Breast cancer Social History Social History Household Members: Family and None Household Members Other:: Sister Housing: Apartment Are you a primary intensive care anaesthetist to a significant other at home: No Do you presently have visiting nurse or other home services: No Alcohol intake: never Patient Tobacco Use Status: Former Tobacco user Quit Date: 08/2021 Years Smoked: 30 Advance Directives: No Advance Directives Information Provided: Yes service: No Current occupational status: disabled Physical Exam Vital Signs: Vital Signs: Last Vital Signs Pulse 84 12/16/21 22:58 Resp 16 12/16/21 22:58 BP 96/49 L 12/16/21 22:58 Pulse Ox 98 12/16/21 22:58 O2 Del Method 12/16/21 22:58 BMI result Body Mass Index 24.2 Appearance: Alert.? Oriented X3.? No acute distress.? Patient intermittently coughing throughout my examination. Appears uncomfortable. Head: Normocephalic, atraumatic, no step-offs or deformities Eyes: Pupils equal, round and reactive to light.? ENT: Pharynx normal.? Neck: Normal inspection.? Neck supple.?+ tracheostomy in place, stoma with overlying macerations, appears erythematous, there is discharge that is yellow/green coming from the stoma, thick yellow/green sputum with tinges of red blood noted to the area. CVS: Normal heart rate and rhythm.? Pulses normal.? Respiratory: No respiratory distress.? Breath sounds normal.? Abdomen: Soft and nontender.? Skin: Skin warm and dry.? Normal skin color.? Normal skin turgor.? Extremities: No lower extremity edema.? No calf ttp. 5/5 strength to bilateral upper and lower extremities Neuro: Oriented X 3.? No motor deficit.? No sensory deficit. CN 2-12 intact Course Reevaluation(s) Reevaluation #1: Concern for infection, patient will be given Zosyn as well as vancomycin as she does have a history of MRSA. Time: 23:17 Reevaluation #2: Labs appear to be around baseline, however slightly higher leukocytosis. Chemistry with elevated potassium, will give Lokelma 10 mg. Lactic within normal limits. COVID negative. Chest x-ray with no acute findings. Time: 00:19 Reevaluation #3: At this time patient will be admitted to the hospitalist team for further intervention and treatment. Time: 00:26 MDM - URI/Sore Throat MDM Narrative Medical decision making narrative: [id number] 60-year-old female presents with cough and serosanguineous fluid coming from patient's trach times a few days worsening. Physical examination significant for tracheostomy in place, stoma with overlying macerations, appears erythematous, there is discharge that is yellow/green coming from the stoma, thick yellow/green sputum with tinges of red blood noted to the area. Patient with an intermittent productive cough. Vital signs stable. Patient appears uncomfortable. Likely infection at site of stoma, will obtain a chest x-ray to rule out pneumonia. Plan at this time is basic lab work, blood cultures, lactic acid, urine. Medical Records Attestation: I reviewed the patient's medical records. Lab Data Attestation: I reviewed the patient's lab results. Result diagrams: 12/16/21 23:11 12/16/21 23:11 Labs: Lab Results 12/16/21 12/16/21 12/16/21 Range/Units 22:54 23:11 23:11 WBC 20.7 H (4.8-10.8) X10*3/uL RBC 3.37 L (4.20-5.50) X10*6/uL Hgb 9.8 L (12.0-16.0) g/dl Hct 29.1 L (37.0-47.0) % MCV 86.4 (80.0-98.0) fL MCH 29.1 (27.0-33.0) pg MCHC 33.7 (31.0-35.0) g/dl RDW 19.2 H (11.0-16.0) % Plt Count 609 H (160-400) X10*3/uL MPV 8.8 L (9.4-12.3) fL Immature Gran % (Auto) 0.5 H (0.0-0.4) % Neut % (Auto) 73.8 H (45-73) % Lymph % (Auto) 14.7 L (20-40) % [place] % (Auto) 9.0 (2-11) % Eos % (Auto) 1.7 (0-4) % Baso % (Auto) 0.3 (0-2) % Lymph # (Auto) 3.0 (1.2-4.9) X10*3/uL [place] # (Auto) 1.9 H (0.1-1.2) X10*3/uL Eos # (Auto) 0.4 (0.0-0.4) X10*3/uL Baso # (Auto) 0.1 (0.0-0.2) X10*3/uL Abs Immat Gran (auto) 0.11 H (0.00-0.03) X10*3/uL Absolute Neuts (auto) 15.3 H (2.0-8.3) x10*3/uL Absolute Nucleated RBC 0.000 (0.0-0.012) X10*3/uL Nucleated RBC % (auto) 0.0 (0.0-0.2) /100WBC Smear Tech's Comments VERIFIED Sodium 126 L (135-145) mmol/L Potassium 5.2 H (3.3-5.1) mmol/L Chloride 86 L (96-108) mmol/L Carbon Dioxide 29 (22-29) mmol/L Anion Gap 16 (12-20) BUN 33 H (9-16) mg/dL Creatinine 0.90 (0.5-1.4) mg/dL Estim Creat Clear Calc 60.6 Estimated GFR > 60 Random Glucose 313 H (60-115) mg/dL Lactic Acid (0.5-2.0) mmol/L Calcium 9.4 D (8.4-10.2) mg/dL Magnesium 1.9 (1.6-2.6) mg/dL Total Bilirubin 0.2 (0.0-1.0) mg/dL AST 6 (5-31) U/L ALT < 6 (0-31) U/L Alkaline Phosphatase 128 H (39-117) U/L Total Protein 5.7 L (6.5-8.0) g/dL Albumin 3.2 L (3.5-5.0) g/dL COVID-19 (ESPINOZA) Negative (Negative) COVID-19 Clin Com See Note 12/16/21 Range/Units 23:11 WBC (4.8-10.8) X10*3/uL RBC (4.20-5.50) X10*6/uL Hgb (12.0-16.0) g/dl Hct (37.0-47.0) % MCV (80.0-98.0) fL MCH (27.0-33.0) pg MCHC (31.0-35.0) g/dl RDW (11.0-16.0) % Plt Count (160-400) X10*3/uL MPV (9.4-12.3) fL Immature Gran % (Auto) (0.0-0.4) % Neut % (Auto) (45-73) % Lymph % (Auto) (20-40) % [place] % (Auto) (2-11) % Eos % (Auto) (0-4) % Baso % (Auto) (0-2) % Lymph # (Auto) (1.2-4.9) X10*3/uL [place] # (Auto) (0.1-1.2) X10*3/uL Eos # (Auto) (0.0-0.4) X10*3/uL Baso # (Auto) (0.0-0.2) X10*3/uL Abs Immat Gran (auto) (0.00-0.03) X10*3/uL Absolute Neuts (auto) (2.0-8.3) x10*3/uL Absolute Nucleated RBC (0.0-0.012) X10*3/uL Nucleated RBC % (auto) (0.0-0.2) /100WBC Smear Tech's Comments Sodium (135-145) mmol/L Potassium (3.3-5.1) mmol/L Chloride (96-108) mmol/L Carbon Dioxide (22-29) mmol/L Anion Gap (12-20) BUN (9-16) mg/dL Creatinine (0.5-1.4) mg/dL Estim Creat Clear Calc Estimated GFR Random Glucose (60-115) mg/dL Lactic Acid 1.4 (0.5-2.0) mmol/L Calcium (8.4-10.2) mg/dL Magnesium (1.6-2.6) mg/dL Total Bilirubin (0.0-1.0) mg/dL AST (5-31) U/L ALT (0-31) U/L Alkaline Phosphatase (39-117) U/L Total Protein (6.5-8.0) g/dL Albumin (3.5-5.0) g/dL COVID-19 (ESPINOZA) (Negative) COVID-19 Clin Com Critical Care Time Critical Care Time Critical Care Time: No Discharge Plan Discharge Clinical Impression: Bronchitis, Shortness of breath, Cellulitis Patient Disposition: Admitted As Inpatient
[2021-12-16 22:58] VITALS: BP 96/49; PULSE 84; RESP 16; O2SAT 98
[2021-12-16 23:19] LABS: Basophils Absolute Auto 0.1 X10*3/uL (0.0-0.2); Basophils Percent Auto 0.3 % (0-2); Eosinophils Absolute Auto 0.4 X10*3/uL (0.0-0.4); Eosinophils Percent Auto 1.7 % (0-4); Hematocrit 29.1 % (37.0-47.0); Hemoglobin 9.8 g/dl (12.0-16.0); Imm Gran Abs Auto 0.11 X10*3/uL (0.00-0.03); Imm Gran Pct Auto 0.5 % (0.0-0.4); Lymphocytes Percent Auto 14.7 % (20-40); MANUAL DIFF FLAG SCAN; Mean Corpuscular HGB Conc 33.7 g/dl (31.0-35.0); Mean Corpuscular Hemoglobin 29.1 pg (27.0-33.0); Mean Corpuscular Volume 86.4 fL (80.0-98.0); Mean Platelet Volume 8.8 fL (9.4-12.3); Monocytes Absolute Auto 1.9 X10*3/uL (0.1-1.2); Neutrophils Absolute Auto 15.3 x10*3/uL (2.0-8.3); Neutrophils Percent Auto 73.8 % (45-73); Platelet Count 609 X10*3/uL (160-400); Red Blood Count 3.37 X10*6/uL (4.20-5.50); Red Cell Distribution Width 19.2 % (11.0-16.0); SCAN SMEAR FLAG 1; White Blood Count 20.7 X10*3/uL (4.8-10.8)
[2021-12-16] MEDS: 0.9 % Sodium Chloride 2,041.17 ML 2041.17 ML IV (23:30)
[2021-12-16] MEDS: Piperacillin Sodium/Tazobactam 3.375 GM in 0.9 % Sodium Chloride 50 ML IV (23:30)
[2021-12-16 23:31] LABS: Lactic Acid 1.4 mmol/L (0.5-2.0)
[2021-12-16 23:36] LABS: COVID-19 Test Negative (Negative)
[2021-12-16 23:38] LABS: SLIDE REVIEW VERIFIED
[2021-12-16 23:43] LABS: Alanine Aminotransferase < 6 U/L (0-31); Albumin Level 3.2 g/dL (3.5-5.0); Alkaline Phosphatase 128 U/L (39-117); Anion Gap 16 (12-20); Aspartate Amino Transferase 6 U/L (5-31); Bilirubin Total 0.2 mg/dL (0.0-1.0); Blood Urea Nitrogen 33 mg/dL (9-16); Calcium 9.4 mg/dL (8.4-10.2); Carbon Dioxide 29 mmol/L (22-29); Chloride 86 mmol/L (96-108); Creatinine Clr Calc Pharmacy 60.6; Estimated Glomerular Filt Rate > 60; Glucose Random 313 mg/dL (60-115); Magnesium 1.9 mg/dL (1.6-2.6); Potassium 5.2 mmol/L (3.3-5.1); Sodium 126 mmol/L (135-145); Total Protein 5.7 g/dL (6.5-8.0)
[2021-12-17] VITALS: BP 101/60; PULSE 88; RESP 16; TEMP 37; O2SAT 98
[2021-12-17] MEDS: iohexoL 350 MG/ML 100 ML INFUS..BTL 60 ML IV (00:14)
--- NOTE | 2021-12-17 00:32 | PC.NURSE ---
pt a&ox3, vss, ivf running, 20G left AC. pt pending admission.
[2021-12-17] MEDS: vancomycin HCL 1,000 MG, vancomycin HCL 750 MG in 0.9 % Sodium Chloride 500 ML 267.5 MG IV (01:07)
[2021-12-17 01:25] LABS: Appearance Urine Clear; Color Urine Yellow; Glucose Urine UA Negative (Negative); Leukocyte Esterase Urine Negative (Negative); Nitrite Urine Negative (Negative); PH 8.5 (5.0-8.0); Specific Gravity - Urine >= 1.030 (1.005-1.025); Urine Blood Negative (Negative); Urine Ketones Negative (Negative); Urine Protein Negative (Neg-Trace)
--- NOTE | 2021-12-17 01:48 | PC.NURSE ---
med rec complete.
[2021-12-17] MEDS: HYDROmorphone HCl 0.5 MG/0.5 ML SYRINGE IVPUSH (02:15)
[2021-12-17 02:43] VITALS: BP 131/59; RESP 20
--- NOTE | 2021-12-17 03:20 | PC.NURSE ---
RN assumed care of patient at this time.
[2021-12-17] MEDS: Sodium Zirconium Cyclosilicate 10 GM POWD.PACK PO (04:10)
[2021-12-17 05:02] VITALS: BP 118/55; PULSE 85; RESP 18; O2SAT 98
--- NOTE | 2021-12-17 05:44 | P.HPHOSP_ITS ---
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 Patient reports that the secretion have been increasing over the past few weeks but she noted blood secretions for the past 1 week. Patient reports that her weight has been stable since started feeding tube, reports no acute worsening pain, denies any fever or chills, she reports that she has been coughing more than usual, denies any headache no change in vision, no chest pain, no abdominal pain, no diarrhea constipation, no urinary symptoms and no lower extremity edema. Patient reports that she is supposed to be starting chemoradiation in November. But according to the note from Hematology-Oncology patient had already started on chemotherapy on 10/31 2021. On arrival to the ED patient hemodynamically stable with a blood pressure of 96/49, labs are significant for WBC count 20.7, it appears to be chronically elevated but worse today, hemoglobin of 9.8, hematocrit 29.1 which is stable, she has a left shift, sodium of 126 chronically low, potassium 5.2, chloride of 86, BUN of 33, alk-phos of 128, chest, abdominal and pelvis CT showed enlarging pulmonary nodule in the lingula now measuring 1.0 cm compared to 0.8 cm on 10/05, parents concerning for malignancy either metastasis or primary lung cancer, partial opacification of the right middle lobe, favored to be atelectasis versus superimposed infection, moderate upper lobe emphysema, there is also interval significant progression of a large 10 cm heterogeneous mass centered on the right lateral and posterior mckeon of the pharynx hypopharynx and upper esophagus. Patient started on IV antibiotics and will be admitted for further management Review of Systems Review of Systems: Yes all other systems are reviewed and are negative [facility] Medical History Asthma Chronic pancreatitis Essential hypertension Feeding by G-tube Hx MRSA infection Hx of respiratory failure Hx of septic shock Hyperlipidemia LDL goal <100 Macrocytic anemia Smoking Type 2 diabetes mellitus with polyneuropathy Family History Father Diabetes Myeloma Mother Brain cancer Mother Lung cancer Sister Breast cancer Surgical History History of esophagogastroduodenoscopy (EGD) History of tracheostomy Hx of abdominal surgery Hx of colonoscopy Hx of exploratory laparotomy Social History Household Members: Family and None Household Members Other:: Sister Housing: Apartment Are you a primary care process manager to a significant other at home: No Do you presently have visiting nurse or other home services: No Alcohol intake: never Patient Tobacco Use Status: Former Tobacco user Quit Date: 08/2021 Years Smoked: 30 Advance Directives: No Advance Directives Information Provided: Yes service: No Current occupational status: disabled Meds Allergies Allergy/AdvReac Type Severity Reaction Status Date / Time ragweed pollen [RAGWEED] Allergy Severe RUNNY NOSE Verified 12/12/21 08:04 Sulfa (Sulfonamide Allergy Intermediate PASS OUT, Verified 12/12/21 08:04 Antibiotics) HIVES [SULFA(SULFONAMIDE ANTIBIOTICS)] Active Medications: Current Medications Acetaminophen (Acetaminophen 325 Mg Tablet) 650 mg PO Q6H PRN PRN Reason: Pain, Mild (Pain Scale 1-3) Docusate Sodium (Docusate Sodium 100 Mg Capsule) 100 mg PO DAILY PRN PRN Reason: Constipation Enoxaparin Sodium (Enoxaparin Sodium 40 Mg/0.4 Ml Syringe) 40 mg SUBCUT Q24H VARGAS Piperacillin Sod/Tazobactam (Sod 3.375 gm/ Sodium Chloride) 50 mls @ 100 mls/hr IV Q6H VARGAS Ondansetron HCl (Ondansetron Hcl 4 Mg/2 Ml Vial) 4 mg IVPUSH Q8H PRN PRN Reason: Nausea and Vomiting Pharmacy Consult (Consult Rx Perform Med Rec) 1 each MISCELLANE ONCE PRN PRN Reason: Consult order Pharmacy Consult (Consult Rx Vancomycin Dosing) 1 each MISCELLANE DAILY PRN PRN Reason: Consult order Sodium Chloride (0.9 % Sodium Chloride Flush 3 Ml Syringe) 3 ml IVFLUSH QSHIFT VARGAS Home Medications Medication Instructions Recorded Confirmed Last Taken Type blood pressure test kit-large #1 ea 04/29/20 12/04/21 Unknown History blood sugar diagnostic #10 ea 04/29/20 12/04/21 Unknown History insulin syringe-needle U-100 0.3 #10 ea 04/29/20 12/04/21 Unknown History mL 31 gauge x 16 lancets 28 gauge #100 ea 04/29/20 12/04/21 Unknown History pen needle, diabetic 32 gauge x #50 ea 04/29/20 12/04/21 Unknown History simvastatin 5 mg tablet 5 mg PO BEDTIME 04/29/20 12/17/21 Unknown History amlodipine 5 mg tablet 5 mg PO DAILY 06/03/20 12/17/21 Unknown History famotidine 20 mg tablet 1 tab PO BID 11/20/21 12/17/21 Unknown History hydromorphone 1 mg/mL oral liquid 1 ea PO DAILY PRN Pain 11/20/21 12/04/21 Unknown History ipratropium 0.5 mg-albuterol 3 mg ml inhalation 12/12/21 Unknown History (2.5 mg base)/3 mL nebulization soln multivit and minerals-ferrous ml PO DAILY 12/12/21 Unknown History gluconate 9 mg iron/15 mL oral liquid (Centrum) polyethylene glycol 3350 17 g PO DIRECTED 12/12/21 Unknown History gram/dose oral powder (Gavilax) prochlorperazine maleate 5 mg 0 mg PO 12/12/21 Unknown History tablet albuterol sulfate 90 mcg/actuation inh PO 12/17/21 Unknown History aerosol inhaler (Ventolin HFA) calcium carbonate 600 mg-vitamin 1 tab PO DAILY 12/17/21 12/17/21 Unknown History D3 10 mcg (400 unit) tablet hydromorphone 1 mg/mL oral liquid 8 ml PO Q4H PRN severe pain 12/17/21 12/17/21 Unknown History ipratropium 0.5 mg-albuterol 3 mg ml inhalation 12/17/21 Unknown History (2.5 mg base)/3 mL nebulization soln [id number] 2 cap PO TID 12/17/21 12/17/21 Unknown History 24,000-76,000-120,000 unit capsule,delayed rel (Creon) loratadine 10 mg tablet 1 tab PO DAILY 12/17/21 12/17/21 Unknown History metformin 500 mg tablet 1 tab PO BID 12/17/21 12/17/21 Unknown History multivit and minerals-ferrous ml PO DAILY 12/17/21 Unknown History gluconate 9 mg iron/15 mL oral liquid (Centrum) sodium chloride 1 gram tablet tab PO 12/17/21 Unknown History Physical Exam Vital Signs and Narrative: Vital Signs: Last Vital Signs Temp 98.6 F 12/17/21 00:00 Pulse 85 12/17/21 05:02 Resp 18 12/17/21 05:02 BP 118/55 L 12/17/21 05:02 Pulse Ox 98 12/17/21 05:02 O2 Del Method 12/17/21 00:00 BMI result Body Mass Index 24.2 Const: General: cooperative and no acute distress Orientation/consciousness: patient oriented x3 HEENT: Other: tracheostomy tube in place, appears clean Eyes: General: appearance normal, both eyes and all related structures Cardio: Rate: regular rate Rhythm: regular rhythm GI: Other: PEG tube in place Palpation (GI): Soft to palpation Auscultation: normal bowel sounds Skin: General skin exam: no rashes or lesions noted Neuro: General: patient oriented x3 Cognition (Neuro): normal cognition Extrem: General: Yes normal to inspection and Yes no pedal edema Results Labs CBC and Chem 7: 12/16/21 23:11 12/16/21 23:11 Labs: Laboratory Results - last 24 hr 12/16/21 12/16/21 12/16/21 22:54 23:11 23:11 MCV 86.4 MCH 29.1 MCHC 33.7 RDW 19.2 H Plt Count 609 H MPV 8.8 L Immature Gran % (Auto) 0.5 H Neut % (Auto) 73.8 H Lymph % (Auto) 14.7 L [place] % (Auto) 9.0 Eos % (Auto) 1.7 Baso % (Auto) 0.3 Lymph # (Auto) 3.0 [place] # (Auto) 1.9 H Eos # (Auto) 0.4 Baso # (Auto) 0.1 Abs Immat Gran (auto) 0.11 H Absolute Neuts (auto) 15.3 H Absolute Nucleated RBC 0.000 Nucleated RBC % (auto) 0.0 Smear Tech's Comments VERIFIED Anion Gap 16 Estim Creat Clear Calc 60.6 Estimated GFR > 60 Random Glucose 313 H Lactic Acid Calcium 9.4 D Magnesium 1.9 Total Bilirubin 0.2 AST 6 ALT < 6 Alkaline Phosphatase 128 H Total Protein 5.7 L Albumin 3.2 L Urine Color Urine Appearance Urine pH Ur Specific [place] Urine Protein Urine Glucose (UA) Urine Ketones Urine Blood Urine Nitrite Ur Leukocyte Esterase COVID-19 (ESPINOZA) Negative COVID-19 Clin Com See Note 12/16/21 12/17/21 23:11 01:19 MCV MCH MCHC RDW Plt Count MPV Immature Gran % (Auto) Neut % (Auto) Lymph % (Auto) [place] % (Auto) Eos % (Auto) Baso % (Auto) Lymph # (Auto) [place] # (Auto) Eos # (Auto) Baso # (Auto) Abs Immat Gran (auto) Absolute Neuts (auto) Absolute Nucleated RBC Nucleated RBC % (auto) Smear Tech's Comments Anion Gap Estim Creat Clear Calc Estimated GFR Random Glucose Lactic Acid 1.4 Calcium Magnesium Total Bilirubin AST ALT Alkaline Phosphatase Total Protein Albumin Urine Color Yellow Urine Appearance Clear Urine pH 8.5 H Ur Specific [place] >= 1.030 H Urine Protein Negative Urine Glucose (UA) Negative Urine Ketones Negative Urine Blood Negative Urine Nitrite Negative Ur Leukocyte Esterase Negative COVID-19 (ESPINOZA) COVID-19 Clin Com Imaging Radiologist's Impressions: Impressions Chest X-Ray 12/16/21 23:02 IMPRESSION: No acute cardiopulmonary findings. Soft Tissue Neck CT 12/17/21 00:11 IMPRESSION: Interval significant progression of a large (10 cm) heterogeneous mass centered on the right lateral and posterior mckeon of the pharynx, hypopharynx, and upper esophagus. This mass lesion now likely extends along the posterior wall of the supraglottic larynx and right piriform sinus. The cervical esophagus is indistinguishable from the mass. Tracheostomy tube in place. Moderate emphysema. Chest CT 12/17/21 01:05 IMPRESSION: 1. Enlarging pulmonary nodule in the lingula now measuring 1.0 cm, compared to 0.8 cm on 09/24/2021. Appearance is concerning for malignancy, either metastasis or primary lung cancer. 2. Partial opacification of the right middle lobe, favored to at least partially be due to atelectasis, though a superimposed developing infectious/inflammatory component may also be present. 3. Moderate upper lobe predominant emphysema. 4. Partially visualized extensive soft tissue density in the lower neck, more fully assessed on accompanying neck CT. This critical result was discussed with Les Boggs on 12/17/2021 1:51 AM, and it was ascertained that the content and urgency of the report was understood at the time of direct communication. Assessment and Plan (1) Shortness of breath: Status: Acute (2) Bronchitis: Status: Acute (3) Lung mass: Status: Acute (4) Pneumonia: Status: Acute (5) Squamous cell carcinoma of head and neck: Status: Acute (6) Hemoptysis: Status: Acute Plan 60-year-old female with past medical history of recently diagnosed carcinoma of head and neck status post tracheotomy in place presents to the hospital with complaints of increased secretions from the trachea, shortness of breath, and increased cough. # bronchitis / COPD exacerbation? /Pneumonia - patient has history of smoking cigarettes, an evidence of emphysema on CT of the chest, but has no official documented history of COPD presents to the hospital with increased secretions from the trach as well as increased cough and shortness of breath - there is possible evidence of pneumonia on chest CT - patient has worsening leukocytosis - normal lactic acid, afebrile, - this time will treat with IV antibiotics - no wheezing on exam, - follow cultures # hemoptysis - likely secondary to lung mass - hemoglobin stable - monitor CBC and for any further bleed from the trach # lung mass, head and neck squamous cell carcinoma - both lung mass as well as the squamous cell carcinoma of the head and neck increased from previous imaging in September - patient follows with Hematology-Oncology, will consult them for any further recommendation # diabetes - low-dose sliding scale insulin - diabetic diet DVT prophylaxis: Heparin subQ as patient is at a very high risk of developing a clot given her history of cancer given need for IV antibiotics and further evaluation patient will require a minimum 2 night hospital stay for further management and monitoring Quality Stroke Does the patient have a stroke diagnosis?: No VTE Prior VTE?: No VTE Risk Level:: Medical - moderate - high VTE Device Contraindication: Treatment Not Indicated VTE Drug Contraindication: N/A - Med Ordered
[2021-12-17] MEDS: Piperacillin Sodium/Tazobactam 3.375 GM in 0.9 % Sodium Chloride 50 ML IV ×3 (05:56→19:54)
[2021-12-17] MEDS: Enoxaparin Sodium 40 MG/0.4 ML SYRINGE SUBCUT (05:57)
[2021-12-17 07:48] LABS: Basophils Absolute Auto 0.1 X10*3/uL (0.0-0.2); Basophils Percent Auto 0.5 % (0-2); Eosinophils Absolute Auto 0.6 X10*3/uL (0.0-0.4); Eosinophils Percent Auto 2.5 % (0-4); Hematocrit 29.1 % (37.0-47.0); Hemoglobin 9.5 g/dl (12.0-16.0); Imm Gran Pct Auto 0.9 % (0.0-0.4); Lymphocytes Absolute Auto 2.4 X10*3/uL (1.2-4.9); Lymphocytes Percent Auto 10.6 % (20-40); MANUAL DIFF FLAG SCAN; Mean Corpuscular HGB Conc 32.6 g/dl (31.0-35.0); Mean Corpuscular Hemoglobin 29.1 pg (27.0-33.0); Mean Platelet Volume 9.1 fL (9.4-12.3); Monocytes Absolute Auto 2.3 X10*3/uL (0.1-1.2); Neutrophils Absolute Auto 17.2 x10*3/uL (2.0-8.3); Neutrophils Percent Auto 75.5 % (45-73); Platelet Count 560 X10*3/uL (160-400); Red Blood Count 3.27 X10*6/uL (4.20-5.50); Red Cell Distribution Width 19.3 % (11.0-16.0); SCAN SMEAR FLAG 1; White Blood Count 22.8 X10*3/uL (4.8-10.8)
[2021-12-17 07:55] LABS: Anion Gap 17 (12-20); Blood Urea Nitrogen 24 mg/dL (9-16); Carbon Dioxide 19 mmol/L (22-29); Chloride 96 mmol/L (96-108); Creatinine Clr Calc Pharmacy 75.8; Estimated Glomerular Filt Rate > 60; Glucose Random 199 mg/dL (60-115); Potassium 4.6 mmol/L (3.3-5.1); Sodium 127 mmol/L (135-145)
[2021-12-17 08:03] LABS: Calcium 8.5 mg/dL (8.4-10.2)
--- NOTE | 2021-12-17 09:10 | PHA.MEDREC ---
Pharmacy Consult ? Medication Reconciliation Pharmacy has completed the medication reconciliation.
[2021-12-17 09:36] LABS: Glucose, Whole Blood 185 mg/dL (60-115)
[2021-12-17] MEDS: Heparin Sodium,Porcine 5,000 UNIT/ML VIAL 5000 UNIT SUBCUT ×2 (09:53→19:54)
[2021-12-17] MEDS: Loratadine 10 MG TABLET PO (09:54)
[2021-12-17] MEDS: Calcium + Vitamin D 250 MG TABLET 500 MG PO (09:54)
[2021-12-17] MEDS: 0.9 % Sodium Chloride Flush 3 ML SYRINGE IVFLUSH (09:55)
[2021-12-17] MEDS: Omeprazole 20 MG CAPSULE.DR PO (09:58)
--- NOTE | 2021-12-17 10:20 | PHA.PROG ---
Admission Date/Time: December 17, 2021 04:33 Indication: other,, resp? Weight in k.039 kg Adjusted body weight in K [place] body weight in K Obesity Dosing Indication % IBW: Serum Creatinine - Last 168 Hours 12/16/21 12/17/21 23:11 06:54 Creatinine 0.90 0.72 Estimated CrCl and GFR - Last 168 Hours 12/16/21 12/17/21 23:11 06:54 Estim Creat Clear Calc 60.6 75.8 Estimated GFR > 60 > 60 Vancomycin Loading Dose: 1750 Current Vancomycin Dosing Regimen: 750 mg q12 Vancomycin Monitoring using AUC goal of 400 - 600 range with trough as surrogate marker: Date and Time for next Vancomycin Level to be drawn:12/18@1100 Pharmacist Comments on Vancomycin Plan: predicted auc 432, trough 13.6 Vancomycin dosing will take advantage of [employer] as a clinical decision support tool that uses Bayesian modeling to calculate individual patient's pharmacokinetic parameters and forecast the patient's drug concentration time course with the target goal AUC 24 range of 400 - 600 mg/L/hr.
[2021-12-17 10:31] LABS: Procalcitonin 0.17 ng/mL
[2021-12-17 11:16] VITALS: BP 121/69; PULSE 72; RESP 18; TEMP 37.1; O2SAT 100
[2021-12-17] MEDS: Acetaminophen 325 MG TABLET 650 MG PO (11:45)
[2021-12-17 12:38] LABS: Glucose, Whole Blood 167 mg/dL (60-115)
--- NOTE | 2021-12-17 15:13 | PC.NURSE ---
CONTACTED JAMIE FOR NUTRITION CONSULT FOR TUBE FEEDS AND SOMETHING ELSE FOR PAIN MANAGEMENT
[2021-12-17] MEDS: vancomycin HCL 750 MG in 0.9 % Sodium Chloride 250 ML 265 MG IV (15:18)
[2021-12-17] MEDS: Sodium Chloride Tab 1 GM TABLET PO (15:19)
--- NOTE | 2021-12-17 15:45 | MHC.CM.PN ---
PATIENT IS CURRENTLY LIVING WITH HER SISTER WHO HELPS WITH ADLS. HCP IS ON FILE AND VERIFIED. PATIENT USES WRITING A METHOD OF COMMUNICATING ANYTHING OTHER THAN YES OR NO RESPONSES. PATIENT HAS A TRACH AND A NEW GTUBE (TUBE PLACED IN SEPTEMBER 2021) PATIENT MANAGES HER OWN TRACH CARE NEEDS. VNA WAS EXPECTED TO COME TO THE HOME TODAY. SISTER CONTACTED [facility] TO NOTIFY OF PAT[facility]. SHE DOES NOT RECALL THE NAME OF AGENCY. PATIENT IS COVID VAX X 2 AND REPORTS NEVER BAL COVID-19 VIRUS. PATIENT DOES NOT USE A CANE OR WALKER. CASE MANAGEMENT FOLLOWING FOR DC PLANS. IMM 12/17 IN MEDICAL RECORDS BIN.
--- NOTE | 2021-12-17 15:47 | PC.NURSE ---
sent text to aminata gilmore about tube feeds for pt
[2021-12-17 15:53] VITALS: BP 87/47; PULSE 65; RESP 17; O2SAT 100
--- NOTE | 2021-12-17 16:13 | PM.EVENT ---
Event Note Date of Service: 12/17/21 Event Note: day hospitalist update S c/o cough + clear secretions from tracheostomy though had blood earlier no fever/chills O Vital Signs Temperature 98.7 F 12/17/21 11:16 Pulse Rate 65 12/17/21 15:53 Respiratory Rate 17 12/17/21 15:53 Blood Pressure 87/47 L 12/17/21 15:53 Pulse Oximetry 100 12/17/21 15:53 Oxygen Delivery Method 12/17/21 00:00 Oxygen Flow Rate 6 12/17/21 15:53 gen- NAD, ambulatory neck- tracheostomy in place lungs- scattered rhonchi CV- RRR no murmurs abd- soft, PEG in place ext- no C/C/E neuro- oriented, alert psych- appropriate affect Laboratory Results - last 24 hr 12/16/21 12/16/21 12/16/21 22:54 23:11 23:11 WBC 20.7 H RBC 3.37 L Hgb 9.8 L Hct 29.1 L MCV 86.4 MCH 29.1 MCHC 33.7 RDW 19.2 H Plt Count 609 H MPV 8.8 L Immature Gran % (Auto) 0.5 H Neut % (Auto) 73.8 H Lymph % (Auto) 14.7 L [place] % (Auto) 9.0 Eos % (Auto) 1.7 Baso % (Auto) 0.3 Lymph # (Auto) 3.0 [place] # (Auto) 1.9 H Eos # (Auto) 0.4 Baso # (Auto) 0.1 Abs Immat Gran (auto) 0.11 H Absolute Neuts (auto) 15.3 H Absolute Nucleated RBC 0.000 Nucleated RBC % (auto) 0.0 Smear Tech's Comments VERIFIED Sodium 126 L Potassium 5.2 H Chloride 86 L Carbon Dioxide 29 Anion Gap 16 BUN 33 H Creatinine 0.90 Estim Creat Clear Calc 60.6 Estimated GFR > 60 POC Glucose Random Glucose 313 H Lactic Acid Calcium 9.4 D Magnesium 1.9 Total Bilirubin 0.2 AST 6 ALT < 6 Alkaline Phosphatase 128 H Total Protein 5.7 L Albumin 3.2 L Procalcitonin Urine Color Urine Appearance Urine pH Ur Specific [place] Urine Protein Urine Glucose (UA) Urine Ketones Urine Blood Urine Nitrite Ur Leukocyte Esterase COVID-19 (ESPINOZA) Negative COVID-19 Clin Com See Note 08/23/22 08/24/22 08/24/22 23:11 01:19 06:54 WBC 22.8 H RBC 3.27 L Hgb 9.5 L Hct 29.1 L MCV 89.0 MCH 29.1 MCHC 32.6 RDW 19.3 H Plt Count 560 H MPV 9.1 L Immature Gran % (Auto) 0.9 H Neut % (Auto) 75.5 H Lymph % (Auto) 10.6 L [place] % (Auto) 10.0 Eos % (Auto) 2.5 Baso % (Auto) 0.5 Lymph # (Auto) 2.4 [place] # (Auto) 2.3 H Eos # (Auto) 0.6 H Baso # (Auto) 0.1 Abs Immat Gran (auto) 0.20 H Absolute Neuts (auto) 17.2 H Absolute Nucleated RBC 0.000 Nucleated RBC % (auto) 0.0 Smear Tech's Comments Sodium Potassium Chloride Carbon Dioxide Anion Gap BUN Creatinine Estim Creat Clear Calc Estimated GFR POC Glucose Random Glucose Lactic Acid 1.4 Calcium Magnesium Total Bilirubin AST ALT Alkaline Phosphatase Total Protein Albumin Procalcitonin Urine Color Yellow Urine Appearance Clear Urine pH 8.5 H Ur Specific [place] >= 1.030 H Urine Protein Negative Urine Glucose (UA) Negative Urine Ketones Negative Urine Blood Negative Urine Nitrite Negative Ur Leukocyte Esterase Negative COVID-19 (ESPINOZA) COVID-19 Clin Com 12/17/21 12/17/21 12/17/21 06:54 06:54 09:32 WBC RBC Hgb Hct MCV MCH MCHC RDW Plt Count MPV Immature Gran % (Auto) Neut % (Auto) Lymph % (Auto) [place] % (Auto) Eos % (Auto) Baso % (Auto) Lymph # (Auto) [place] # (Auto) Eos # (Auto) Baso # (Auto) Abs Immat Gran (auto) Absolute Neuts (auto) Absolute Nucleated RBC Nucleated RBC % (auto) Smear Tech's Comments Sodium 127 L Potassium 4.6 Chloride 96 Carbon Dioxide 19 L Anion Gap 17 BUN 24 H Creatinine 0.72 Estim Creat Clear Calc 75.8 Estimated GFR > 60 POC Glucose 185 H Random Glucose 199 H Lactic Acid Calcium 8.5 D Magnesium Total Bilirubin AST ALT Alkaline Phosphatase Total Protein Albumin Procalcitonin 0.17 Urine Color Urine Appearance Urine pH Ur Specific [place] Urine Protein Urine Glucose (UA) Urine Ketones Urine Blood Urine Nitrite Ur Leukocyte Esterase COVID-19 (ESPINOZA) COVID-19 Clin Com 12/17/21 12:33 WBC RBC Hgb Hct MCV MCH MCHC RDW Plt Count MPV Immature Gran % (Auto) Neut % (Auto) Lymph % (Auto) [place] % (Auto) Eos % (Auto) Baso % (Auto) Lymph # (Auto) [place] # (Auto) Eos # (Auto) Baso # (Auto) Abs Immat Gran (auto) Absolute Neuts (auto) Absolute Nucleated RBC Nucleated RBC % (auto) Smear Tech's Comments Sodium Potassium Chloride Carbon Dioxide Anion Gap BUN Creatinine Estim Creat Clear Calc Estimated GFR POC Glucose 167 H Random Glucose Lactic Acid Calcium Magnesium Total Bilirubin AST ALT Alkaline Phosphatase Total Protein Albumin Procalcitonin Urine Color Urine Appearance Urine pH Ur Specific [place] Urine Protein Urine Glucose (UA) Urine Ketones Urine Blood Urine Nitrite Ur Leukocyte Esterase COVID-19 (ESPINOZA) COVID-19 Clin Com A/P hospital d#1 60yo F with recently diagnosed SCC of neck with tracheostomy and PEG presenting with cough, increased tracheostomy secretions with blood, and dyspnea found to have enlarging nodule of lingula as well as radiographic evidence of emphysema and possible PNA # lingular nodule - Heme/Onc consult, question of metastasis vs primary CA, will likely need CT-guided biopsy # PNA - on d#1 vanco + pip/mae, follow BCx + trend PCT # hemoptysis - due to above; monitor carefully on heparin # SCC of neck - had cycle 1 of cisplatin/docetaxel/5 FU at [facility] 10/31/21 and has [place] [facility] [place] [facility] with plan for concurrent chemoradiation therapy, chemotherapy with weekly carboplatin and Taxol - Heme/Onc consult # DM2 - correction-dose lispro # tube feeding dependnece - Nutrition consultation # VTE ppx: UFH In my clinical judgment, the patient requires continued hospitalization for the following reasons: IV ABX, possible biopsy
--- NOTE | 2021-12-17 16:15 | MHC.CLN ---
Addendum entered by Kristin Lema RD 12/17/21 16:41: PER MD, PATIENT TOLERATING GLUCERNA BOLUS AT HOME 4 X DAILY. RECOMMEND GLUCERNA BOLUS 300 ML 4 TIMES DAILY. PROVIDES 1200 KCALS, 50 G PROTEIN, 1024 ML FREE WATER. Original Note: NUTRITION PATIENT IN ED OVERFLOW. CONSULT FOR TUBE FEED ORDER. HAS G TUBE FEEDING. RECOMMEND JEVITY 1.0 AT MAX GOAL RATE 45 ML PER HOUR. FREE WATER FLUSH 120 ML Q 6 HOURS. PROVIDES: 1145 KCALS, 48 G PROTEIN. 902 ML FREE WATER FROM FORMULA, PLUS FLUSH 380 [id number] ML FREE WATER. START FEEDING AT 20 ML PER HOUR; INCREASE BY 10 ML EVERY 4 HOURS TO MAX GOAL RATE OF 45 ML PER HOUR. CHECK RESIDUALS EVERY 4 HOURS, HOLD FOR 2 HOURS IF >250 ML, THEN RECHECK. [id number]=[id number]. PLEASE ADJUST FREE WATER FLUSH NEEDED. PLEASE RECHECK WEIGHT AND HEIGHT SINCE VARIES FROM PRIOR ADMIT. RD TO COMPETE NUTRITION ASSESSMENT WHEN PATIENT ADMITTED TO FLOOR.
--- NOTE | 2021-12-17 16:42 | PC.NURSE ---
Assumed care of pt at 1600, pt is A&Ox3, non verbal due to trach but able to make needs known with writing them down. Pt has peg in place, weight provided to Kristin larose for tube feeding diet. Awaiting further orders at this time. Sister is at bedside, agitated at the fact that no insulin or tube feeding have been given today, explained I just assumed care at 1600, POC will be checked prior to tube feeding administration, tube feeding is pending an updated weight which I obtained at this time. Call yepez within reach. Pt trach is intake, no signs of irritation or inflammation at this time. Suction on reg for self trach care, trach collar in place, 6LPM at this time. Will continue to monitor.
[2021-12-17 17:10] LABS: Glucose, Whole Blood 127 mg/dL (60-115)
[2021-12-17] MEDS: 0.9 % Sodium Chloride 1,000 ML 500 ML IVCONT (17:37)
--- NOTE | 2021-12-17 19:36 | PC.NURSE ---
report received from Aurelia SARAH. pt resting comfortably on stetcher. call yepez within reach. will continue to monitor. waiting for tube feedings from kitchen.
[2021-12-17 22:34] LABS: Glucose, Whole Blood 90 mg/dL (60-115)
--- NOTE | 2021-12-17 23:07 | PC.NURSE ---
G tube feeding started at 2200 at 20mL/hr
[2021-12-18] VITALS (7 sets, daily range): BP systolic 98–159; BP diastolic 55–95; PULSE 66–106; RESP 14–18; TEMP 36.2–36.9; O2SAT 96–100; BMI 19.9
[2021-12-18] MEDS: Sodium Chloride Tab 1 GM TABLET PO ×4 (00:20→21:17)
[2021-12-18] MEDS: Piperacillin Sodium/Tazobactam 3.375 GM in 0.9 % Sodium Chloride 50 ML IV ×4 (02:15→23:47)
[2021-12-18] MEDS: vancomycin HCL 750 MG in 0.9 % Sodium Chloride 250 ML 265 MG IV ×2 (02:45→13:55)
[2021-12-18] MEDS: Heparin Sodium,Porcine 5,000 UNIT/ML VIAL 5000 UNIT SUBCUT ×2 (06:14→18:09)
[2021-12-18 06:36] LABS: Hematocrit 27.3 % (37.0-47.0); Mean Corpuscular Hemoglobin 28.9 pg (27.0-33.0); Mean Corpuscular Volume 87.8 fL (80.0-98.0); Mean Platelet Volume 8.7 fL (9.4-12.3); Platelet Count 572 X10*3/uL (160-400); Red Blood Count 3.11 X10*6/uL (4.20-5.50); Red Cell Distribution Width 19.4 % (11.0-16.0); White Blood Count 20.7 X10*3/uL (4.8-10.8)
[2021-12-18 07:20] LABS: Glucose, Whole Blood 150 mg/dL (60-115)
[2021-12-18 07:23] LABS: Anion Gap 14 (12-20); Blood Urea Nitrogen 15 mg/dL (9-16); Calcium 8.6 mg/dL (8.4-10.2); Carbon Dioxide 21 mmol/L (22-29); Chloride 100 mmol/L (96-108); Creatinine Clr Calc Pharmacy 80.2; Estimated Glomerular Filt Rate > 60; Glucose Random 145 mg/dL (60-115); Potassium 4.3 mmol/L (3.3-5.1); Sodium 131 mmol/L (135-145)
--- NOTE | 2021-12-18 08:03 | P.CDIC_ITS ---
CDI Concurrent Query Documentation Clarification: PHYSICIAN'S DOCUMENTATION REQUEST Date of Query: 12/18/21 0803 Patient Name: Clare Kee Admit Date: 12/17/21 Dear Doctor, A review of the medical record indicates additional documentation may be needed. Please review below and update the documentation accordingly. Clinical Indicators: The following diagnoses or signs and symptoms were noted in the patient record: Risk Factors/Clinical Indicators/Treatments ED 12/16 : Labs: sodium 126 L IV Fluids Based on the above, could you clarify in the Progress Notes the appropriate diagnosis, if significant, that supports the above abnormalities and additional evaluation, monitoring, and/or treatment rendered: * Hyponatremia or other etiology of lab findings * Labs indicate a diagnosis of (please specify) * Other (please specify) * Unable to determine Use of terms such as suspected, likely, concern for, or probable (associated with a specific diagnosis that is being evaluated, monitored, or treated as if it exists) are acceptable and can be coded in the inpatient setting, when documented at the time of discharge. Thank you, Mari Delacruz [facility], [facility]IS Extension: [phone] Please use your independent medical judgment in providing your response. THIS QUERY IS PART OF THE PERMANENT MEDICAL RECORD Provider Response: Other Other Diagnosis: hyponatremia
--- NOTE | 2021-12-18 08:07 | P.CDIC_ITS ---
CDI Concurrent Query Documentation Clarification: PHYSICIAN'S DOCUMENTATION REQUEST Date of Query: 12/18/21 0807 Patient Name: Clare Kee Admit Date: 12/17/21 Dear Doctor, A review of the medical record indicates additional documentation may be needed. Please review below and update the documentation accordingly. Clinical Indicators: The following diagnoses or signs and symptoms were noted in the patient record: Risk Factors/Clinical Indicators/Treatments LABS: potassium 5.6 ED 12/16 - potassium elevated - Lokelma 10 mg Based on the above, could you clarify in the Progress Notes the appropriate diagnosis, if significant, that supports the above abnormalities and additional evaluation, monitoring, and/or treatment rendered: * Hyperkalemia or other etiology of lab findings, poa * Labs indicate a diagnosis of (please specify) * Other (please specify) * Unable to determine Use of terms such as suspected, likely, concern for, or probable (associated with a specific diagnosis that is being evaluated, monitored, or treated as if it exists) are acceptable and can be coded in the inpatient setting, when documented at the time of discharge. Thank you, Mari Delacruz [facility], CDIS Extension: [id number] Please use your independent medical judgment in providing your response. THIS QUERY IS PART OF THE PERMANENT MEDICAL RECORD Provider Response: Other Other Diagnosis: hyperK
[2021-12-18] MEDS: Calcium + Vitamin D 250 MG TABLET 500 MG G-TUBE (09:54)
[2021-12-18] MEDS: Loratadine 10 MG TABLET G-TUBE (09:55)
[2021-12-18] MEDS: 0.9 % Sodium Chloride Flush 3 ML SYRINGE IVFLUSH ×3 (09:55→23:47)
--- NOTE | 2021-12-18 11:34 | HO.PM.IMPN ---
Subjective Subjective Date of Service: 12/18/21 Interval History: Redness around trach; no further bloody secretions; dyspnea improved No fever Tolerating bolus TFs Review of Systems Review of Systems: Yes all other systems are reviewed and are negative Physical Exam Vital Signs: Vital Signs: Last Vital Signs Temp 97.5 F 12/18/21 04:00 Pulse 66 12/18/21 08:05 Resp 16 12/18/21 08:05 BP 98/57 L 12/18/21 08:05 Pulse Ox 99 12/18/21 08:05 O2 Del Method 12/18/21 08:05 O2 Flow Rate 6 12/18/21 08:05 BMI result Body Mass Index 24.2 gen- NAD neck- tracheostomy in place with some surrounding erythema lungs- scattered rhonchi CV- RRR no murmurs abd- soft, PEG in place ext- no C/C/E neuro- oriented, alert psych- appropriate affect Objective Data Active Medications Acetaminophen (Acetaminophen 325 Mg Tablet) 650 mg G-TUBE Q6H PRN PRN Reason: Pain, Mild (Pain Scale 1-3) Albuterol/Ipratropium (Albuterol/Iprat 2.5/0.5mg 3 Ml Ampul.Neb) 3 ml INHALE Q6H PRN PRN Reason: Shortness Of Breath Calcium Carbonate/Cholecalciferol (Calcium + Vitamin D 250 Mg Tablet) 500 mg G-TUBE DAILY [facility] Last Admin: 12/18/21 09:54 Dose: 500 mg Documented By: ZAFAR Dextrose (Dextrose 50 % 25 Gm/50 Ml Syringe) 25 gm IVPUSH Q15M PRN; Protocol PRN Reason: per Hypoglycemia Standing Ord. Docusate Sodium (Docusate Sodium 100 Mg Capsule) 100 mg PO DAILY PRN PRN Reason: Constipation Glucose (Glucose Gel 15 Gm Gel..Gram.) 15 gm BUCCAL Q15M PRN; Protocol PRN Reason: per Hypoglycemia Standing Ord. Heparin Sodium (Porcine) (Heparin Sodium,Porcine 5,000 Unit/Ml Vial) 5,000 unit SUBCUT Q12H [facility] Last Admin: 12/18/21 06:14 Dose: 5,000 unit Documented By: EDUARD Hydromorphone HCl (Hydromorphone Hcl 2 Mg/Ml Vial) 1 mg IVPUSH Q4H PRN; Protocol PRN Reason: severe pain Hydromorphone HCl (Hydromorphone Hcl 4 Mg Tablet) 8 mg G-TUBE Q4H PRN PRN Reason: severe pain Last Admin: 12/18/21 09:53 Dose: 8 mg Documented By: ZAFAR Vancomycin HCl 750 mg/ Sodium (Chloride) 265 mls @ 265 mls/hr IV Q12H [facility] Piperacillin Sod/Tazobactam (Sod 3.375 gm/ Sodium Chloride) 50 mls @ 100 mls/hr IV Q6H [facility] Insulin Human Lispro (Insulin Lispro 100 Unit/Ml 3 Ml Vial) 0 unit SUBCUT QIDACHS [facility]; Protocol Last Admin: 12/18/21 08:30 Dose: Not Given Documented By: ZAFAR Non-Admin Reason: No Insulin Coverage Loratadine (Loratadine 10 Mg Tablet) 10 mg G-TUBE DAILY [facility] Last Admin: 12/18/21 09:55 Dose: 10 mg Documented By: ZAFAR Non-Formulary Medication (Simvastatin) 5 mg G-TUBE BEDTIME [facility] Nystatin (Nystatin Powder 15 Gm Bottle) 1 appl TOPICAL TID [facility]; Protocol Omeprazole (Omeprazole 20 Mg Capsule.Dr) 20 mg PO DAILY [facility] Last Admin: 12/17/21 09:58 Dose: 20 mg Documented By: ALMA Omeprazole (Omeprazole 20 Mg/10 Ml Susp.Recon) 20 mg G-TUBE DAILY@0630 [facility] Ondansetron HCl (Ondansetron Hcl 4 Mg/2 Ml Vial) 4 mg IVPUSH Q8H PRN PRN Reason: Nausea and Vomiting Pharmacy Consult (Consult Rx Perform Med Rec) 1 each MISCELLANE ONCE PRN PRN Reason: Consult order Pharmacy Consult (Consult Rx Vancomycin Dosing) 1 each MISCELLANE DAILY PRN PRN Reason: Consult order Polyethylene Glycol (Polyethylene Glycol 3350 17 Gm Powd.Pack) 17 gm G-TUBE DAILY PRN PRN Reason: Constipation Sodium Chloride (0.9 % Sodium Chloride Flush 3 Ml Syringe) 3 ml IVFLUSH QSHIFT [facility] Last Admin: 12/18/21 09:55 Dose: 3 ml Documented By: ZAFAR Sodium Chloride (Sodium Chloride Tab 1 Gm Tablet) 1 gm PO TID [facility] Last Admin: 12/18/21 09:54 Dose: 1 gm Documented By: ZAFAR Labs CBC & Chem 7: 12/18/21 06:22 12/18/21 06:49 Labs: Laboratory Results - last 24 hr 12/17/21 12/17/21 12/17/21 12:33 17:05 22:30 MCV MCH MCHC RDW Plt Count MPV Absolute Nucleated RBC Nucleated RBC % (auto) Anion Gap Estim Creat Clear Calc Estimated GFR POC Glucose 167 H 127 H 90 Random Glucose Calcium 12/18/21 12/18/21 12/18/21 06:22 06:49 07:10 MCV 87.8 MCH 28.9 MCHC 33.0 RDW 19.4 H Plt Count 572 H MPV 8.7 L Absolute Nucleated RBC 0.000 Nucleated RBC % (auto) 0.0 Anion Gap 14 Estim Creat Clear Calc 80.2 Estimated GFR > 60 POC Glucose 150 H Random Glucose 145 H Calcium 8.6 Microbiology Microbiology Results: Microbiology 12/16/21 23:11 Blood Culture - Preliminary Blood - Venous No growth after 24 hours. 12/16/21 23:11 Blood Culture - Preliminary Blood - Venous No growth after 24 hours. 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 presenting with cough, increased tracheostomy secretions with blood, and dyspnea found to have enlarging nodule of lingula as well as radiographic evidence of emphysema and possible PNA # lingular nodule - Heme/Onc consult, question of metastasis vs primary CA, will likely need CT-guided biopsy # acute hypoxic resp failure due to PNA - on d#2 of vanco + pip/mae, follow BCx + trend PCT - wean suppl O2 as tolerated # hemoptysis - due to above; monitor carefully on heparin # hyperK - resolved s/p SZC 10g # hypoNa - improving s/p IV NS # SCC of neck - had cycle 1 of cisplatin/docetaxel/5 FU at [facility] 10/31/21 and has transitioned care to [facility] + [facility] Radiation Oncology with plan for concurrent chemoradiation therapy, chemotherapy with weekly carboplatin and Taxol - Heme/Onc consult # DM2 - correction-dose lispro # tube feeding dependence - Nutrition consulted, started on Glucerna # VTE ppx: UFH In my clinical judgment, the patient requires continued hospitalization for the following reasons: hypoxia, IV ABX Quality Stroke Does the patient have a stroke diagnosis?: No VTE Prior VTE?: No VTE Risk Level:: Medical - moderate - high VTE Device Contraindication: Treatment Not Indicated VTE Drug Contraindication: N/A - Med Ordered
[2021-12-18 12:40] LABS: Glucose, Whole Blood 195 mg/dL (60-115)
[2021-12-18] MEDS: Insulin Lispro 100 UNIT/ML 3 ML VIAL SUBCUT ×2 (13:09→21:17)
--- NOTE | 2021-12-18 13:43 | PC.NURSE ---
Trach care given. New inner cannulas at bedside. Producing large amt cream colored mucus. Redness to skin below trach. Nystatin ordered. IV leaking to left AC. IR nurse able to place 24g to right wrist. Medicated for neck pain with dilaudid via peg with good effect. Tube feedings changed from continuous to bolus per order. Tolerating feedings with 10cc residual.
[2021-12-18 14:13] LABS: Vancomycin Trough 25.9 mcg/mL (10.0-20.0)
--- NOTE | 2021-12-18 14:21 | HE.PHANOTE ---
[Vanco addendum] Pt's trough on 12/18/21 came back at 25.9 mg/L; spoke to nurse Maryam who I advised to pause next dose due at 1500 that was being administered early.
--- NOTE | 2021-12-18 14:39 | PM.HEMONCCN ---
Subjective - Subjective Chief complaint: Consult for: Squamous cell carcinoma of the head and neck. Patient: known to practice within the last 3 years Consult date: 12/18/21 Requesting Physician: Filippo. Primary Care Provider: Shae Chicas MD Medical Summary: DIAGNOSIS: HEAD AND NECK CARCINOMA. CURRENT THERAPY: STATUS POST 1 CYCLE OF CISPLATIN AND TAXOTERE AT [facility]. HPI - Consult Narrative Reason for consult: Consult for: Squamous cell carcinoma of the head and neck. Narrative: Clare Kee is a 60 year old female She presented to the ER on 12/17. 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 Patient reports that the secretion have been increasing over the past few weeks but she noted blood secretions for the past 1 week. Patient reports that her weight has been stable since started feeding tube, reports no acute worsening pain, denies any fever or chills, she reports that she has been coughing more than usual, denies any headache no change in vision, no chest pain, no abdominal pain, no diarrhea constipation, no urinary symptoms and no lower extremity edema. Patient reports that she is supposed to be starting chemoradiation in November. But according to the note from Hematology-Oncology patient had already started on chemotherapy on 10/31 2021. On arrival to the ED patient hemodynamically stable with a blood pressure of 96/49, labs are significant for WBC count 20.7, it appears to be chronically elevated but worse today, hemoglobin of 9.8, hematocrit 29.1 which is stable, she has a left shift, sodium of 126 chronically low, potassium 5.2, chloride of 86, BUN of 33, alk-phos of 128, chest, abdominal and pelvis CT showed enlarging pulmonary nodule in the lingula now measuring 1.0 cm compared to 0.8 cm on 10/05, parents concerning for malignancy either metastasis or primary lung cancer, partial opacification of the right middle lobe, favored to be atelectasis versus superimposed infection, moderate upper lobe emphysema, there is also interval significant progression of a large 10 cm heterogeneous mass centered on the right lateral and posterior mckeon of the pharynx hypopharynx and upper esophagus. Patient started on IV antibiotics and will be admitted for further management Review of Systems Review of Systems: Yes all other systems are reviewed and are negative PMFSH Medical History: 1. Squamous cell carcinoma of the head and neck: She had initially presented to the emergency department with a growing neck mass. Patient states that for the last 3 weeks, she has noticed a mass on the left side of her neck that has slowly been growing and now it has gotten to the point where she is having difficulty swallowing. Patient states that she has also had some significant weight loss. Patient denies any dizziness, lightheadedness, abdominal pain, nausea, vomiting, fever, chills, blurry vision, double vision, loss of vision, chest pain, difficulty breathing, shortness of breath, back pain, night sweats, pain with urination, increased urinary frequency, increased urinary urgency, blood in her urine or stool, syncope or a near syncopal episode, recent trauma or falls, bowel incontinence, bladder incontinence, bowel retention, bladder retention, or any other complaints at this time. Patient states that she has a history of has had pre-cancerous polyps removed from her colon and is a daily smoker. CT scan of the neck from 09/23 revealed; - Limited noncontrast CT of the neck demonstrates a large up to 7 cm soft tissue density mass involving the dorsal oropharynx, the hypopharynx effacing the piriform sinuses bilaterally, and the post cricoid region. These findings are highly concerning for malignancy. Consider MRI of the neck with and without contrast and/or a PET/CT to more definitively characterize the mass and distinguish mass from obstructed material. The expansile mass partially effaces the supraglottic larynx which remains patent and the lesion partially effaces the paraglottic fat bilaterally. - There is gas along the periphery of the expected location of the hypopharynx and lower cervical esophagus which may be secondary to hypopharyngeal/esophageal perforation or superimposed gas producing infection. An air-fluid level superficial to the upper aspect of the left thyroid cartilage may reflect an obstructive laryngocele or infected collection. - Possible right-sided metastatic node of Rouviere on image 26 of series 2 measuring 1.1 cm. Additional nonpathologic size criteria lymph nodes within the suprahyoid and infrahyoid neck bilaterally can be further assessed with PET. - There is soft tissue associated with focal mandibular erosion involving the dorsal right gingival buccal mucosa/retromolar trigone that can be further assessed with PET to exclude an additional site of malignancy in this location. ER course: Patient's physical exam showed a very large left sided neck mass but was otherwise unremarkable. Patient's blood work showed an elevated white blood cell count at 18.9, an elevated creatinine at 2.03, and a decreased sodium at 130. Patient chronically has low sodium levels however the other values are acute changes. Patient's soft tissue neck CT showed a 7cm mass to the left side of the neck with questionable esophageal perforation. Patient was given IV vancomycin, IV Zosyn, and IV fluconazole. Additionally, patient was given IV fluids. I called and spoke to Dr. Marinelli at [facility] who agreed to accept the patient there. I explained my physical exam findings as well as all test results to the patient. Patient verbalized agreement and understanding with this treatment plan and transfer. She tells me that she was had [facility] for almost 7 weeks. 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 She had a tracheostomy placed on 09/26/2021. 10/31: She was under the care of Dr. Yobany Gastelum, from Oncology. She received dose reduced cisplatin/docetaxel/5 FU. Plan is for weekly carboplatin/ paclitaxel plus radiation, locally. She is currently on tube feedings and supplemental oxygen via trach. Asthma Chronic pancreatitis Essential hypertension Feeding by G-tube Hx MRSA infection Hx of respiratory failure Hx of septic shock Hyperlipidemia LDL goal <100 Macrocytic anemia Smoking Type 2 diabetes mellitus with polyneuropathy Family history: Father Diabetes Myeloma Mother: Lung cancer with brain Mets. Sister Breast cancer Surgical History: History of esophagogastroduodenoscopy (EGD) History of tracheostomy Hx of abdominal surgery Hx of colonoscopy Hx of exploratory laparotomy Social History: Household Members: Family and None Household Members Other:: Sister Housing: Apartment Are you a primary skin care specialist to a significant other at home: No Do you presently have visiting nurse or other home services: No Alcohol intake: never Patient Tobacco Use Status: Former Tobacco user Quit Date: 08/2021 Years Smoked: 30 Advance Directives: No Advance Directives Information Provided: Yes Review of Systems - Constitutional Reports system reviewed and no additional complaints, except as documented - Eyes Reports system reviewed and no additional complaints, except as documented - ENT Reports system reviewed and no additional complaints, except as documented - Cardiovascular Reports system reviewed and no additional complaints, except as documented - Respiratory Reports no additional respiratory complaints - Gastrointestinal Reports system reviewed and no additional complaints, except as documented - Genitourinary Reports no additional female genitourinary complaints - Musculoskeletal Reports system reviewed and no additional complaints, except as documented - Integumentary/Breasts Skin/Breast: Reports no additional skin complaints - Neurologic Reports system reviewed and no additional complaints, except as documented - Psychiatric Reports system reviewed and no additional complaints, except as documented - Endocrine Reports no additional endocrine complaints - Hematologic/Lymphatic Reports system reviewed and no additional complaints, except as documented - Allergic/Immunologic Reports system reviewed and no additional complaints, except as documented Oncology Screenings - ECOG Performance Status E[facility] Performance Status: [facility] Medical History: Medical History (Last Reviewed 12/19/21 @ 14:20 by Paulina Alvarez MD) Asthma Chronic pancreatitis Essential hypertension Feeding by G-tube Hx MRSA infection Hx of respiratory failure Hx of septic shock Hyperlipidemia LDL goal <100 Macrocytic anemia Smoking Type 2 diabetes mellitus with polyneuropathy Functional capacity: wheelchair bound Patient : No Family History: Family History (Last Reviewed 12/19/21 @ 14:20 by Paulina Alvarez MD) Father Diabetes Myeloma Mother Brain cancer Mother Lung cancer Sister Breast cancer Surgical History: Surgical History (Last Reviewed 12/19/21 @ 14:20 by Paulina Alvarez MD) History of esophagogastroduodenoscopy (EGD) History of tracheostomy Hx of abdominal surgery Hx of colonoscopy Hx of exploratory laparotomy Social History: Social History (Last Reviewed 12/19/21 @ 14:20 by Paulina Alvarez MD) Living Situation History: Household Members: Family Household Members Other:: 2 Housing: House Are you a primary skin care specialist to a significant other at home: No Do you presently have visiting nurse or other home services: Yes Do you presently have visiting nurse or other home services comment: CANNOT RECALL NAME OF AGENCY Tobacco History: Patient Tobacco Use Status: Former Tobacco user Years Smoked: 40 Smoke Quit Date: JULY 2021 Occupation Assessmet: service: No Current occupational status: disabled Home Medications and Allergies Current Medications: Current Medications Acetaminophen (Acetaminophen 325 Mg Tablet) 650 mg G-TUBE Q6H PRN PRN Reason: Pain, Mild (Pain Scale 1-3) Albuterol/Ipratropium (Albuterol/Iprat 2.5/0.5mg 3 Ml Ampul.Neb) 3 ml INHALE Q6H PRN PRN Reason: Shortness Of Breath Calcium Carbonate/Cholecalciferol (Calcium + Vitamin D 250 Mg Tablet) 500 mg G-TUBE DAILY [facility] Last Admin: 12/18/21 09:54 Dose: 500 mg Dextrose (Dextrose 50 % 25 Gm/50 Ml Syringe) 25 gm IVPUSH Q15M PRN; Protocol PRN Reason: per Hypoglycemia Standing Ord. Docusate Sodium (Docusate Sodium 100 Mg Capsule) 100 mg PO DAILY PRN PRN Reason: Constipation Glucose (Glucose Gel 15 Gm Gel..Gram.) 15 gm BUCCAL Q15M PRN; Protocol PRN Reason: per Hypoglycemia Standing Ord. Heparin Sodium (Porcine) (Heparin Sodium,Porcine 5,000 Unit/Ml Vial) 5,000 unit SUBCUT Q12H [facility] Last Admin: 12/18/21 06:14 Dose: 5,000 unit Hydromorphone HCl (Hydromorphone Hcl 2 Mg/Ml Vial) 1 mg IVPUSH Q4H PRN; Protocol PRN Reason: severe pain Hydromorphone HCl (Hydromorphone Hcl 4 Mg Tablet) 8 mg G-TUBE Q4H PRN PRN Reason: severe pain Last Admin: 12/18/21 13:54 Dose: 8 mg Vancomycin HCl 750 mg/ Sodium (Chloride) 265 mls @ 265 mls/hr IV Q12H [facility] Last Infusion: 12/18/21 14:16 Dose: 0 mls/hr Piperacillin Sod/Tazobactam (Sod 3.375 gm/ Sodium Chloride) 50 mls @ 100 mls/hr IV Q6H [facility] Insulin Human Lispro (Insulin Lispro 100 Unit/Ml 3 Ml Vial) 0 unit SUBCUT QIDACHS [facility]; Protocol Last Admin: 12/18/21 13:09 Dose: 2 unit Loratadine (Loratadine 10 Mg Tablet) 10 mg G-TUBE DAILY [facility] Last Admin: 12/18/21 09:55 Dose: 10 mg Non-Formulary Medication (Simvastatin) 5 mg G-TUBE BEDTIME [facility] Nystatin (Nystatin Powder 15 Gm Bottle) 1 appl TOPICAL TID [facility]; Protocol Omeprazole (Omeprazole 20 Mg Capsule.Dr) 20 mg PO DAILY [facility] Last Admin: 12/18/21 13:11 Dose: Not Given Omeprazole (Omeprazole 20 Mg/10 Ml Susp.Recon) 20 mg G-TUBE DAILY@0630 [facility] Last Admin: 12/18/21 13:10 Dose: 20 mg Ondansetron HCl (Ondansetron Hcl 4 Mg/2 Ml Vial) 4 mg IVPUSH Q8H PRN PRN Reason: Nausea and Vomiting Pharmacy Consult (Consult Rx Perform Med Rec) 1 each MISCELLANE ONCE PRN PRN Reason: Consult order Pharmacy Consult (Consult Rx Vancomycin Dosing) 1 each MISCELLANE DAILY PRN PRN Reason: Consult order Polyethylene Glycol (Polyethylene Glycol 3350 17 Gm Powd.Pack) 17 gm G-TUBE DAILY PRN PRN Reason: Constipation Sodium Chloride (0.9 % Sodium Chloride Flush 3 Ml Syringe) 3 ml IVFLUSH QSHIFT [facility] Last Admin: 12/18/21 09:55 Dose: 3 ml Sodium Chloride (Sodium Chloride Tab 1 Gm Tablet) 1 gm PO TID [facility] Last Admin: 12/18/21 13:54 Dose: 1 gm Home Medications Medication Instructions Recorded Confirmed Type blood pressure test kit-large #1 ea 04/29/20 12/04/21 History blood sugar diagnostic #10 ea 04/29/20 12/04/21 History insulin syringe-needle U-100 0.3 #10 ea 04/29/20 12/04/21 History mL 31 gauge x 5/16 lancets 28 gauge #100 ea 04/29/20 12/04/21 History pen needle, diabetic 32 gauge x #50 ea 04/29/20 12/04/21 History 5/32 Allergies Allergy/AdvReac Type Severity Reaction Status Date / Time ragweed pollen [RAGWEED] Allergy Severe RUNNY NOSE Verified 12/12/21 08:04 Sulfa (Sulfonamide Allergy Intermediate PASS OUT, Verified 12/12/21 08:04 Antibiotics) HIVES [SULFA(SULFONAMIDE ANTIBIOTICS)] Physical Exam Vital signs: Vital Signs Temp 97.5 F 12/18/21 04:00 Pulse 80 12/18/21 12:30 Resp 14 12/18/21 12:30 BP 113/60 12/18/21 12:30 Pulse Ox 99 12/18/21 12:30 O2 Del Method 12/18/21 12:30 O2 Flow Rate 6 12/18/21 12:30 Intake & Output 12/17/21 12/18/21 12/18/21 18:59 06:59 18:59 Intake Total 2039 142.75 / 142.75 Balance 2039 142.75 / 142.75 Intake: Intake, Oral Amount 0 / 0 Intake, Tube Irrigant Amount 120 / 120 Intake, Other Amount 240 / 240 Intake, IV Amount 50 0 1630 / 1680 142.75 / 142.75 Piperacillin Sodium/Tazobactam 50 / 150 100 / 150 50 / 50 3.375 gm In 0.9 % Sodium Chloride 50 ml @ 100 mls/hr IV Q6H [facility] Rx#:[id number] vancomycin HCL 750 mg In 0.9 % 530 / 530 92.75 / 92.75 Sodium Chloride 250 ml @ 265 mls/hr IV Q12H [facility] Rx#: [id number] 0.9 % Sodium Chloride 1,000 ml 1000 / 1000 @ 500 mls/hr IVCONT .Q2H [facility] Rx #:[id number] Other: Number of Unmeasured Voids 2 Urine Bathroom Weight 68.039 kg - Constitutional Present: mild distress - Routine HEENT Exam Head: Present: scalp tenderness ENT: Present: mucous membranes moist Comments: Tracheostomy in place. - Routine Neck Exam Present: supple Hem/Onc Consult Result - Labs CBC & Chem 7: 12/20/21 18:07 12/20/21 18:07 Labs: Short CBC 12/18/21 Range/Units 06:22 WBC 20.7 H (4.8-10.8) X10*3/uL Hgb 9.0 L (12.0-16.0) g/dl Hct 27.3 L (37.0-47.0) % Plt Count 572 H (160-400) X10*3/uL BMP 12/18/21 06:49 Sodium 131 L Potassium 4.3 Chloride 100 Carbon Dioxide 21 L BUN 15 Creatinine 0.68 Calcium 8.6 Assessment and Plan Patient Active problem list reviewed?: Yes (1) Squamous cell carcinoma of head and neck Status: Acute Assessment and plan: 60 year old lady, with recently diagnosed SCC of neck with tracheostomy and PEG placement. Presented with cough, dyspnea and increased tracheostomy secretions with blood. She had cycle 1 of cisplatin/docetaxel/5 FU at [facility] 10/31/21. Has transitioned care to [facility] Oncology + [facility] Radiation On[facility]. She has been noted to have enlarging nodule of lingula as well as radiographic evidence of emphysema and possible PNA # acute hypoxic resp failure due to PNA - on d#2 of vanco + pip/mae, follow BCx + trend PCT - wean suppl O2 as tolerated # lingular nodule: - Question of metastasis vs primary CA PLAN: Will need CT-guided biopsy for further evaluation. In view of the pneumonia, it will be done as an outpatient. The plan is for concurrent chemoradiation therapy, chemotherapy with weekly carboplatin and Taxol. This will be set up as an outpatient. She was supposed to have a portacath placed, will delay that for a week pending clearing of the infection. Thank you, Cc: - Time Spent With Patient Time Spent with Patient (in minutes): 30
--- NOTE | 2021-12-18 16:28 | PC.NURSE ---
TOTAL INTAKE FEED 250ML WITH 120ML WATER
--- NOTE | 2021-12-18 16:57 | MHC.CLN ---
Addendum entered by Kristin Lema RD 12/18/21 17:00: CORRECTION: FREE WATER FLUSH 120 ML Q 6 HOURS. Original Note: NUTRITION CONSULT FOR TUBE FEEDING. TAKES BOLUS TUBE FEEDING AT HOME. PATIENT COMMUNICATES VIA WRITING OR NODDING. ASKED IF GLUCERNA FORMULA AT 300 ML FOUR TIMES DAILY WAS OK FOR HER. NODDED THAT OK. TUBE FEEDING REC GLUCERNA 1.0, 300 ML BOLUS FEEDING 4 TIMES DAILY. FREE WATER FLUSH 120 ML Q 4 HOURS. PROVIDES 1200 KCAL (25.9 KCALS/KG); 50 G PROTEIN (1.08 G/KG); FREE WATER FROM FORMULA AND WQFCR=8684 ML (32.5 ML/KG). LABS REVEWIED. [id number]=237, LOW, BUT IMPROVING. PATIENT WITH PEG AND TRACH. APPEARS TO BE TOLERATING TUBE FEEDING. FOLLOW TF TOLERANCE, RESIDUALS, AND LYTES. SEE NUTRITION ASSESSMENT 12/18/21.
[2021-12-18 16:58] LABS: Glucose, Whole Blood 64 mg/dL (60-115)
[2021-12-18 17:20] LABS: Glucose, Whole Blood 100 mg/dL (60-115)
[2021-12-18 20:01] LABS: Glucose, Whole Blood 203 mg/dL (60-115)
--- NOTE | 2021-12-19 00:19 | MHC.PIE ---
P. G tube dislodged I. Assessing pt g tube site and noted to be completely out. Pt not aware. Dr Mart notified, Stat KUB ordered and surgical consult for am placed. Dressing applied to site. Notified pt to call for pain or new dressing. E. Pt aware of new orders. continue to montior.
[2021-12-19 03:04] VITALS: BP 122/64; PULSE 83; RESP 18; TEMP 36.9; O2SAT 97
[2021-12-19] MEDS: Piperacillin Sodium/Tazobactam 3.375 GM in 0.9 % Sodium Chloride 50 ML IV ×4 (05:34→22:02)
[2021-12-19 06:37] LABS: Hemoglobin 8.7 g/dl (12.0-16.0); Mean Corpuscular HGB Conc 33.5 g/dl (31.0-35.0); Mean Corpuscular Hemoglobin 28.9 pg (27.0-33.0); Mean Corpuscular Volume 86.4 fL (80.0-98.0); Mean Platelet Volume 8.7 fL (9.4-12.3); Platelet Count 578 X10*3/uL (160-400); Red Blood Count 3.01 X10*6/uL (4.20-5.50); Red Cell Distribution Width 18.9 % (11.0-16.0); White Blood Count 22.7 X10*3/uL (4.8-10.8)
[2021-12-19 07:03] LABS: Anion Gap 17 (12-20); Blood Urea Nitrogen 11 mg/dL (9-16); Calcium 8.8 mg/dL (8.4-10.2); Carbon Dioxide 21 mmol/L (22-29); Chloride 97 mmol/L (96-108); Creatinine Clr Calc Pharmacy 54.4; Estimated Glomerular Filt Rate > 60; Glucose Random 155 mg/dL (60-115); Potassium 4.4 mmol/L (3.3-5.1); Sodium 131 mmol/L (135-145)
[2021-12-19 07:17] VITALS: BP 123/58; PULSE 88; RESP 14; TEMP 35.9; O2SAT 100
[2021-12-19 07:21] LABS: Vancomycin Trough 16.5 mcg/mL (10.0-20.0)
[2021-12-19 07:31] LABS: Glucose, Whole Blood 174 mg/dL (60-115)
[2021-12-19 07:34] LABS: Procalcitonin 0.12 ng/mL
--- NOTE | 2021-12-19 07:52 | HE.PHANOTE ---
[VANCO ADDENDUM] Doses were held 12/18, random this morning came back at 16.5mg/L. Put in new dose of 500mg Q12H with predicted AUC 520mg/L. Random to be drawn 12/20/21 @0600
[2021-12-19] MEDS: HYDROmorphone HCl 2 MG/ML VIAL 1 MG IVPUSH ×3 (08:44→23:41)
[2021-12-19] MEDS: 0.9 % Sodium Chloride Flush 3 ML SYRINGE IVFLUSH ×3 (08:45→23:42)
[2021-12-19] MEDS: vancomycin HCL 500 MG in 0.9 % Sodium Chloride 100 ML 110 MG IV ×2 (08:47→19:45)
--- NOTE | 2021-12-19 09:02 | PM.CNGS ---
History of Present Illness Consult details Consult date: 12/19/21 Requesting physician: Galen Mart Narrative: 60 year old female patient with advanced SCCa of the oropharynx, s/p tracheostomy and PEG tube placement admitted on 12/17/2021 for SOB and Increased tracheal secretions. Patient reported a coughing spell last evening between 10 and 11:00 o'clock after which she felt the gastrostomy tube dislodged. The patient is using the PEG tube for both meds and food therefore needs to be replaced. Surgical consultation is requested for replacement of G-tube. Review of Systems Review of Systems: Yes all other systems are reviewed and are negative ENT: Reports dysphagia Cardiovascular: Cardiovascular: Reports dyspnea Respiratory: Respiratory: Reports chest congestion, Reports cough, Reports excessive phlegm production and Reports dyspnea Gastrointestinal: Gastrointestinal: Denies abdominal pain, Denies bloating, Denies GI cramping and Reports dysphagia PMFSH Past Medical History Medical History Asthma Chronic pancreatitis Essential hypertension Feeding by G-tube Hx MRSA infection Hx of respiratory failure Hx of septic shock Hyperlipidemia LDL goal <100 Macrocytic anemia Smoking Type 2 diabetes mellitus with polyneuropathy Functional capacity: wheelchair bound Family History Family History Father Diabetes Myeloma Mother Brain cancer Mother Lung cancer Sister Breast cancer Surgical History Surgical History History of esophagogastroduodenoscopy (EGD) History of tracheostomy Hx of abdominal surgery Hx of colonoscopy Hx of exploratory laparotomy Social History Social History Household Members: Family Household Members Other:: 2 Housing: House Are you a primary geriatric care manager to a significant other at home: No Do you presently have visiting nurse or other home services: Yes (CANNOT RECALL NAME OF AGENCY) Alcohol intake: never Patient Tobacco Use Status: Former Tobacco user Quit Date: JULY 2021 Years Smoked: 40 service: No Current occupational status: disabled Meds Allergies Allergy/AdvReac Type Severity Reaction Status Date / Time ragweed pollen [RAGWEED] Allergy Severe RUNNY NOSE Verified 12/12/21 08:04 Sulfa (Sulfonamide Allergy Intermediate PASS OUT, Verified 12/12/21 08:04 Antibiotics) HIVES [SULFA(SULFONAMIDE ANTIBIOTICS)] Active Medications: Current Medications Acetaminophen (Acetaminophen 325 Mg Tablet) 650 mg G-TUBE Q6H PRN PRN Reason: Pain, Mild (Pain Scale 1-3) Albuterol/Ipratropium (Albuterol/Iprat 2.5/0.5mg 3 Ml Ampul.Neb) 3 ml INHALE Q6H PRN PRN Reason: Shortness Of Breath Calcium Carbonate/Cholecalciferol (Calcium + Vitamin D 250 Mg Tablet) 500 mg G-TUBE DAILY [facility] Last Admin: 12/19/21 08:38 Dose: Not Given Dextrose (Dextrose 50 % 25 Gm/50 Ml Syringe) 25 gm IVPUSH Q15M PRN; Protocol PRN Reason: per Hypoglycemia Standing Ord. Docusate Sodium (Docusate Sodium 100 Mg Capsule) 100 mg PO DAILY PRN PRN Reason: Constipation Glucose (Glucose Gel 15 Gm Gel..Gram.) 15 gm BUCCAL Q15M PRN; Protocol PRN Reason: per Hypoglycemia Standing Ord. Heparin Sodium (Porcine) (Heparin Sodium,Porcine 5,000 Unit/Ml Vial) 5,000 unit SUBCUT Q12H [facility] Last Admin: 12/19/21 08:38 Dose: Not Given Hydromorphone HCl (Hydromorphone Hcl 2 Mg/Ml Vial) 1 mg IVPUSH Q4H PRN; Protocol PRN Reason: severe pain Last Admin: 12/19/21 08:44 Dose: 1 mg Hydromorphone HCl (Hydromorphone Hcl 4 Mg Tablet) 8 mg G-TUBE Q4H PRN PRN Reason: severe pain Last Admin: 12/18/21 18:09 Dose: 8 mg Piperacillin Sod/Tazobactam (Sod 3.375 gm/ Sodium Chloride) 50 mls @ 100 mls/hr IV Q6H [facility] Last Infusion: 12/19/21 06:18 Dose: Infused Vancomycin HCl 500 mg/ Sodium (Chloride) 110 mls @ 110 mls/hr IV Q12H [facility] Last Admin: 12/19/21 08:47 Dose: 110 mls/hr Insulin Human Lispro (Insulin Lispro 100 Unit/Ml 3 Ml Vial) 0 unit SUBCUT QIDACHS [facility]; Protocol Last Admin: 12/19/21 08:37 Dose: Not Given Loratadine (Loratadine 10 Mg Tablet) 10 mg G-TUBE DAILY [facility] Last Admin: 12/19/21 08:38 Dose: Not Given Non-Formulary Medication (Simvastatin) 5 mg G-TUBE BEDTIME [facility] Nystatin (Nystatin Cream 15 Gm Tube) 1 appl TOPICAL BID [facility]; Protocol Last Admin: 12/19/21 08:57 Dose: Not Given Omeprazole (Omeprazole 20 Mg Capsule.Dr) 20 mg PO DAILY [facility] Last Admin: 12/19/21 08:39 Dose: Not Given Omeprazole (Omeprazole 20 Mg/10 Ml Susp.Recon) 20 mg G-TUBE DAILY@0630 [facility] Last Admin: 12/19/21 05:52 Dose: Not Given Ondansetron HCl (Ondansetron Hcl 4 Mg/2 Ml Vial) 4 mg IVPUSH Q8H PRN PRN Reason: Nausea and Vomiting Pharmacy Consult (Consult Rx Perform Med Rec) 1 each MISCELLANE ONCE PRN PRN Reason: Consult order Pharmacy Consult (Consult Rx Vancomycin Dosing) 1 each MISCELLANE DAILY PRN PRN Reason: Consult order Polyethylene Glycol (Polyethylene Glycol 3350 17 Gm Powd.Pack) 17 gm G-TUBE DAILY PRN PRN Reason: Constipation Sodium Chloride (0.9 % Sodium Chloride Flush 3 Ml Syringe) 3 ml IVFLUSH QSHIFT [facility] Last Admin: 12/19/21 08:45 Dose: 3 ml Sodium Chloride (Sodium Chloride Tab 1 Gm Tablet) 1 gm PO TID [facility] Last Admin: 12/19/21 08:39 Dose: Not Given Home Medications Medication Instructions Recorded Confirmed Last Taken Type blood pressure test kit-large #1 ea 04/29/20 12/04/21 Unknown History blood sugar diagnostic #10 ea 04/29/20 12/04/21 Unknown History insulin syringe-needle U-100 0.3 #10 ea 04/29/20 12/04/21 Unknown History mL 31 gauge x 09/08 lancets 28 gauge #100 ea 04/29/20 12/04/21 Unknown History pen needle, diabetic 32 gauge x #50 ea 04/29/20 12/04/21 Unknown History simvastatin 5 mg tablet 5 mg PO BEDTIME 04/29/20 12/17/21 Unknown History amlodipine 5 mg tablet 5 mg PO DAILY 06/03/20 12/17/21 Unknown History famotidine 20 mg tablet 1 tab PO BID 11/20/21 12/17/21 Unknown History polyethylene glycol 3350 17 17 g PO DAILY PRN Constipation 12/12/21 12/17/21 Unknown History gram/dose oral powder (Gavilax) prochlorperazine maleate 5 mg 5 mg feeding tube Q6H PRN Nausea 12/12/21 12/17/21 Unknown History tablet calcium carbonate 600 mg-vitamin 1 tab PO DAILY 12/17/21 12/17/21 Unknown History D3 10 mcg (400 unit) tablet hydromorphone 1 mg/mL oral liquid 8 ml PO Q4H PRN severe pain 12/17/21 12/17/21 Unknown History insulin glargine U-300 conc 300 8 unit subcut DAILY 12/17/21 12/17/21 Unknown History unit/mL (3 mL) subcutaneous pen (Toujeo Max U-300 SoloStar) insulin lispro 100 unit/mL See Protocol subcut TIDAC 12/17/21 12/17/21 Unknown History subcutaneous half-unit pen (Humalog Scot KwikPen (U-100)) ipratropium 0.5 mg-albuterol 3 mg 3 ml inhalation Q6H PRN Shortness 12/17/21 12/17/21 Unknown History (2.5 mg base)/3 mL nebulization Of Breath soln loratadine 10 mg tablet 1 tab PO DAILY 12/17/21 12/17/21 Unknown History metformin 500 mg tablet 1 tab PO BID 12/17/21 12/17/21 Unknown History multivit and minerals-ferrous 15 ml PO DAILY 12/17/21 12/17/21 Unknown History gluconate 9 mg iron/15 mL oral liquid (Centrum) ondansetron 4 mg disintegrating 1 tab PO Q8H PRN Nausea And 12/17/21 12/17/21 Unknown History tablet Vomiting sodium chloride 1 gram tablet 1 tab PO TID 12/17/21 12/17/21 Unknown History Physical Exam Vital Signs: Vital Signs: Last Vital Signs Temp 96.7 F L 12/19/21 07:17 Pulse 88 12/19/21 07:17 Resp 14 12/19/21 07:17 BP 123/58 L 12/19/21 07:17 Pulse Ox 100 12/19/21 07:17 O2 Del Method 12/19/21 07:17 O2 Flow Rate 5 12/18/21 16:00 BMI result Body Mass Index 19.9 Const: General: alert, awake and ill appearing Nutritional Appearance: thin Orientation/consciousness: patient oriented x3 Neck: Other: Tracheostomy in place, thick yellow secretions within oxygen tubing Resp: Effort & Inspection: not able to speak in complete sentences, Actively coughing and tachypneic Auscultation: rhonchi GI: Other: soft and nondistended. gastrostomy site open bilious drainage noted. No surrounding erythema appreciated. A 20 Panamanian silastic Dickinson catheter was easily inserted into the stomach and the balloon inflated with 10 mL of saline. This was then brought up to the abdominal wall and held with tape. The patient tolerated this well. Neuro: General: patient oriented x3 Extrem: Other: No edema Results Labs Result diagrams: 12/19/21 06:06 12/19/21 06:06 Labs: Abnormal lab results 12/18/21 12/18/21 12/18/21 Range/Units 12:29 12:40 19:42 WBC (4.8-10.8) X10*3/uL RBC (4.20-5.50) X10*6/uL Hgb (12.0-16.0) g/dl Hct (37.0-47.0) % RDW (11.0-16.0) % Plt Count (160-400) X10*3/uL MPV (9.4-12.3) fL Sodium (135-145) mmol/L Carbon Dioxide (22-29) mmol/L POC Glucose 195 H 203 H (60-115) mg/dL Random Glucose (60-115) mg/dL Vancomycin Trough 25.9 H* (10.0-20.0) mcg/mL 12/19/21 12/19/21 12/19/21 Range/Units 06:06 06:06 07:19 WBC 22.7 H (4.8-10.8) X10*3/uL RBC 3.01 L (4.20-5.50) X10*6/uL Hgb 8.7 L (12.0-16.0) g/dl Hct 26.0 L (37.0-47.0) % RDW 18.9 H (11.0-16.0) % Plt Count 578 H (160-400) X10*3/uL MPV 8.7 L (9.4-12.3) fL Sodium 131 L (135-145) mmol/L Carbon Dioxide 21 L (22-29) mmol/L POC Glucose 174 H (60-115) mg/dL Random Glucose 155 H (60-115) mg/dL Vancomycin Trough (10.0-20.0) mcg/mL Short CBC 12/19/21 Range/Units 06:06 WBC 22.7 H (4.8-10.8) X10*3/uL Hgb 8.7 L (12.0-16.0) g/dl Hct 26.0 L (37.0-47.0) % Plt Count 578 H (160-400) X10*3/uL BMP 12/19/21 06:06 Sodium 131 L Potassium 4.4 Chloride 97 Carbon Dioxide 21 L BUN 11 Creatinine 0.77 Calcium 8.8 Urine 12/17/21 Range/Units 01:19 Urine Color Yellow Urine Appearance Clear Urine pH 8.5 H (5.0-8.0) Ur Specific Vale >= 1.030 H (1.005-1.025) Urine Protein Negative (Neg-Trace) mg/dL Urine Glucose (UA) Negative (Negative) mg/dL All other labs normal. Assessment and Plan (1) Squamous cell carcinoma of head and neck: Status: Acute (2) Oropharyngeal dysphagia: Status: Acute Plan gastrostomy tube was temporarily replaced using a Dickinson catheter. A new gastrostomy tube has been requested and will replace the Dickinson once available. Patient expressed understanding and agrees with the plan. The current Dickinson can be used in the time being for feeding and meds. Procedures Date of Service Date of Service: 12/19/21 Feeding Tube Replacement Type of tube: gastrostomy Insertion site prior to procedure: clean Tube used for reinsertion: Dickinson Panamanian Tube Size (F): 20 Balloon size (ml): 10 Verification of placement: auscultation Tube secured by: tape/dressing Patient tolerated procedure: well
[2021-12-19 11:08] VITALS: BP 109/55; PULSE 76; RESP 16; TEMP 36.2; O2SAT 99
[2021-12-19 11:18] LABS: Glucose, Whole Blood 181 mg/dL (60-115)
[2021-12-19] MEDS: Diatrizoate Meglumine, Sodium 30 ML SOLUTION PO ×2 (11:30→11:31)
[2021-12-19 11:45] LABS: MRSA Nasal PCR NEGATIVE (Negative); SA Nasal PCR NEGATIVE (Negative)
--- NOTE | 2021-12-19 11:54 | HO.PM.IMPN ---
Subjective Subjective Date of Service: 12/19/21 Interval History: dyspnea + secretions improved overnight had coughing fit and G-tube dislodged Dr Temple came and placed temporarly Dickinson replaced with 18 Fr G tube, gastrograffin study pending Review of Systems Review of Systems: Yes all other systems are reviewed and are negative Physical Exam Vital Signs: Vital Signs: Last Vital Signs Temp 97.2 F 12/19/21 11:08 Pulse 76 12/19/21 11:08 Resp 16 12/19/21 11:08 BP 109/55 L 12/19/21 11:08 Pulse Ox 99 12/19/21 11:08 O2 Del Method 12/19/21 11:08 O2 Flow Rate 5 12/18/21 16:00 BMI result Body Mass Index 19.9 gen- NAD neck- tracheostomy in place with some surrounding erythema lungs- scattered rhonchi CV- RRR no murmurs abd- soft, PEG in place ext- no C/C/E neuro- oriented, alert psych- appropriate affect Objective Data Active Medications Acetaminophen (Acetaminophen 325 Mg Tablet) 650 mg G-TUBE Q6H PRN PRN Reason: Pain, Mild (Pain Scale 1-3) Albuterol/Ipratropium (Albuterol/Iprat 2.5/0.5mg 3 Ml Ampul.Neb) 3 ml INHALE Q6H PRN PRN Reason: Shortness Of Breath Calcium Carbonate/Cholecalciferol (Calcium + Vitamin D 250 Mg Tablet) 500 mg G-TUBE DAILY [facility] Last Admin: 12/19/21 08:38 Dose: Not Given Documented By: DOYLE Non-Admin Reason: Physician Approved Dextrose (Dextrose 50 % 25 Gm/50 Ml Syringe) 25 gm IVPUSH Q15M PRN; Protocol PRN Reason: per Hypoglycemia Standing Ord. Docusate Sodium (Docusate Sodium 100 Mg Capsule) 100 mg PO DAILY PRN PRN Reason: Constipation Glucose (Glucose Gel 15 Gm Gel..Gram.) 15 gm BUCCAL Q15M PRN; Protocol PRN Reason: per Hypoglycemia Standing Ord. Heparin Sodium (Porcine) (Heparin Sodium,Porcine 5,000 Unit/Ml Vial) 5,000 unit SUBCUT Q12H [facility] Last Admin: 12/19/21 08:38 Dose: Not Given Documented By: DOYLE Non-Admin Reason: procedure today Hydromorphone HCl (Hydromorphone Hcl 2 Mg/Ml Vial) 1 mg IVPUSH Q4H PRN; Protocol PRN Reason: severe pain Last Admin: 12/19/21 08:44 Dose: 1 mg Documented By: DOYLE Hydromorphone HCl (Hydromorphone Hcl 4 Mg Tablet) 8 mg G-TUBE Q4H PRN PRN Reason: severe pain Last Admin: 12/18/21 18:09 Dose: 8 mg Documented By: DOYLE Piperacillin Sod/Tazobactam (Sod 3.375 gm/ Sodium Chloride) 50 mls @ 100 mls/hr IV Q6H [facility] Last Infusion: 12/19/21 06:18 Dose: 0 mls/hr Documented By: NEELAM Vancomycin HCl 500 mg/ Sodium (Chloride) 110 mls @ 110 mls/hr IV Q12H [facility] Last Infusion: 12/19/21 10:12 Dose: 0 mls/hr Documented By: DOYLE Insulin Human Lispro (Insulin Lispro 100 Unit/Ml 3 Ml Vial) 0 unit SUBCUT QIDACHS [facility]; Protocol Last Admin: 12/19/21 08:37 Dose: Not Given Documented By: DOYLE Non-Admin Reason: NPO Loratadine (Loratadine 10 Mg Tablet) 10 mg G-TUBE DAILY [facility] Last Admin: 12/19/21 08:38 Dose: Not Given Documented By: DOYLE Non-Admin Reason: Physician Approved Non-Formulary Medication (Simvastatin) 5 mg G-TUBE BEDTIME [facility] Nystatin (Nystatin Cream 15 Gm Tube) 1 appl TOPICAL BID [facility]; Protocol Last Admin: 12/19/21 08:57 Dose: Not Given Documented By: DOYLE Non-Admin Reason: Patient Refused Omeprazole (Omeprazole 20 Mg Capsule.Dr) 20 mg PO DAILY [facility] Last Admin: 12/19/21 08:39 Dose: Not Given Documented By: DOYLE Non-Admin Reason: Physician Approved Omeprazole (Omeprazole 20 Mg/10 Ml Susp.Recon) 20 mg G-TUBE DAILY@0630 [facility] Last Admin: 12/19/21 05:52 Dose: Not Given Documented By: NEELAM Non-Admin Reason: G tube out Ondansetron HCl (Ondansetron Hcl 4 Mg/2 Ml Vial) 4 mg IVPUSH Q8H PRN PRN Reason: Nausea and Vomiting Pharmacy Consult (Consult Rx Perform Med Rec) 1 each MISCELLANE ONCE PRN PRN Reason: Consult order Pharmacy Consult (Consult Rx Vancomycin Dosing) 1 each MISCELLANE DAILY PRN PRN Reason: Consult order Polyethylene Glycol (Polyethylene Glycol 3350 17 Gm Powd.Pack) 17 gm G-TUBE DAILY PRN PRN Reason: Constipation Sodium Chloride (0.9 % Sodium Chloride Flush 3 Ml Syringe) 3 ml IVFLUSH QSHIFT [facility] Last Admin: 12/19/21 08:45 Dose: 3 ml Documented By: DOYLE Sodium Chloride (Sodium Chloride Tab 1 Gm Tablet) 1 gm PO TID [facility] Last Admin: 12/19/21 08:39 Dose: Not Given Documented By: DOYLE Non-Admin Reason: Physician Approved Labs CBC & Chem 7: 12/19/21 06:06 12/19/21 06:06 Labs: Laboratory Results - last 24 hr 12/18/21 12/18/21 12/18/21 12:29 12:40 16:53 MCV MCH MCHC RDW Plt Count MPV Absolute Nucleated RBC Nucleated RBC % (auto) Anion Gap Estim Creat Clear Calc Estimated GFR POC Glucose 195 H 64 Random Glucose Calcium Procalcitonin Vancomycin Trough 25.9 H* 12/18/21 12/18/21 12/19/21 17:15 19:42 06:06 MCV 86.4 MCH 28.9 MCHC 33.5 RDW 18.9 H Plt Count 578 H MPV 8.7 L Absolute Nucleated RBC 0.000 Nucleated RBC % (auto) 0.0 Anion Gap Estim Creat Clear Calc Estimated GFR POC Glucose 100 203 H Random Glucose Calcium Procalcitonin Vancomycin Trough 12/19/21 12/19/21 12/19/21 06:06 06:06 06:06 MCV MCH MCHC RDW Plt Count MPV Absolute Nucleated RBC Nucleated RBC % (auto) Anion Gap 17 Estim Creat Clear Calc 54.4 Estimated GFR > 60 POC Glucose Random Glucose 155 H Calcium 8.8 Procalcitonin 0.12 Vancomycin Trough 16.5 12/19/21 12/19/21 07:19 11:13 MCV MCH MCHC RDW Plt Count MPV Absolute Nucleated RBC Nucleated RBC % (auto) Anion Gap Estim Creat Clear Calc Estimated GFR POC Glucose 174 H 181 H Random Glucose Calcium Procalcitonin Vancomycin Trough Microbiology Microbiology Results: Microbiology 12/16/21 23:11 Blood Culture - Preliminary Blood - Venous No growth after 48 hours. 12/16/21 23:11 Blood Culture - Preliminary Blood - Venous No growth after 48 hours. Assessment and Plan (1) Hemoptysis: Status: Acute (2) Lung mass: Status: Acute Plan hospital d#3 60yo F with recently diagnosed SCC of neck with tracheostomy and PEG presenting with cough, increased tracheostomy secretions with blood, and dyspnea found to have enlarging nodule of lingula as well as radiographic evidence of emphysema and possible PNA # G tube dislodgement - replaced by Dr Temple, gastrograffin study pending # lingular nodule - Heme/Onc consulted, question of metastasis vs primary CA, will schedule CT-guided biopsy as outpt due to PNA # acute hypoxic resp failure due to PNA - on d#3 of vanco + pip/mae, BCx neg, PCT low, ID consultation re de-escalation - weaned off O2, on trach collar # hemoptysis - resolved # hyperK - resolved s/p SZC 10g # hypoNa - improving s/p IV NS # SCC of neck - had cycle 1 of cisplatin/docetaxel/5 FU at [facility] 10/31/21 and has transitioned care to [facility] Oncology + [facility] Radiation Oncology with plan for concurrent chemoradiation therapy, chemotherapy with weekly carboplatin and Taxol - port placement rescheduled for 12/30/21 # DM2 - correction-dose lispro # tube feeding dependence - Nutrition consulted, on Glucerna # VTE ppx: UFH In my clinical judgment, the patient requires continued hospitalization for the following reasons: G tube dislodgment, IV ABX Quality Stroke Does the patient have a stroke diagnosis?: No VTE Prior VTE?: No VTE Risk Level:: Medical - moderate - high VTE Device Contraindication: Treatment Not Indicated VTE Drug Contraindication: N/A - Med Ordered
--- NOTE | 2021-12-19 14:18 | W.PM.IDCN ---
History of Present Illness Data of Consult Service Date: 12/19/21 Requesting physician: Franco Barkley Primary Care Provider: MD ALEXY Early Reason for consult: tracheal secretions?bronchiectasis She presents with yellow/red secretions from trachea ,worse over last week. 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 She has nodule lingula increasing 1 cm. Review of Systems Review of Systems: Yes all other systems are reviewed and are negative PMFSH Past Medical History Medical History Asthma Chronic pancreatitis Essential hypertension Feeding by G-tube Hx MRSA infection Hx of respiratory failure Hx of septic shock Hyperlipidemia LDL goal <100 Macrocytic anemia Smoking Type 2 diabetes mellitus with polyneuropathy Functional capacity: wheelchair bound Family History Family History Father Diabetes Myeloma Mother Brain cancer Mother Lung cancer Sister Breast cancer Family history: reviewed and not pertinent Surgical History Surgical History History of esophagogastroduodenoscopy (EGD) History of tracheostomy Hx of abdominal surgery Hx of colonoscopy Hx of exploratory laparotomy Social History Social History Household Members: Family Household Members Other:: 2 Housing: House Are you a primary foster care social worker to a significant other at home: No Do you presently have visiting nurse or other home services: Yes (CANNOT RECALL NAME OF AGENCY) Alcohol intake: never Patient Tobacco Use Status: Former Tobacco user Quit Date: JULY 2021 Years Smoked: 40 service: No Current occupational status: disabled Meds Allergies Allergy/AdvReac Type Severity Reaction Status Date / Time ragweed pollen [RAGWEED] Allergy Severe RUNNY NOSE Verified 12/12/21 08:04 Sulfa (Sulfonamide Allergy Intermediate PASS OUT, Verified 12/12/21 08:04 Antibiotics) HIVES [SULFA(SULFONAMIDE ANTIBIOTICS)] Active Medications: Current Medications Acetaminophen (Acetaminophen 325 Mg Tablet) 650 mg G-TUBE Q6H PRN PRN Reason: Pain, Mild (Pain Scale 1-3) Albuterol/Ipratropium (Albuterol/Iprat 2.5/0.5mg 3 Ml Ampul.Neb) 3 ml INHALE Q6H PRN PRN Reason: Shortness Of Breath Calcium Carbonate/Cholecalciferol (Calcium + Vitamin D 250 Mg Tablet) 500 mg G-TUBE DAILY [facility] Last Admin: 12/19/21 08:38 Dose: Not Given Dextrose (Dextrose 50 % 25 Gm/50 Ml Syringe) 25 gm IVPUSH Q15M PRN; Protocol PRN Reason: per Hypoglycemia Standing Ord. Docusate Sodium (Docusate Sodium 100 Mg Capsule) 100 mg PO DAILY PRN PRN Reason: Constipation Glucose (Glucose Gel 15 Gm Gel..Gram.) 15 gm BUCCAL Q15M PRN; Protocol PRN Reason: per Hypoglycemia Standing Ord. Heparin Sodium (Porcine) (Heparin Sodium,Porcine 5,000 Unit/Ml Vial) 5,000 unit SUBCUT Q12H [facility] Last Admin: 12/19/21 08:38 Dose: Not Given Hydromorphone HCl (Hydromorphone Hcl 2 Mg/Ml Vial) 1 mg IVPUSH Q4H PRN; Protocol PRN Reason: severe pain Last Admin: 12/19/21 13:38 Dose: 1 mg Hydromorphone HCl (Hydromorphone Hcl 4 Mg Tablet) 8 mg G-TUBE Q4H PRN PRN Reason: severe pain Last Admin: 12/18/21 18:09 Dose: 8 mg Piperacillin Sod/Tazobactam (Sod 3.375 gm/ Sodium Chloride) 50 mls @ 100 mls/hr IV Q6H [facility] Last Admin: 12/19/21 13:37 Dose: 100 mls/hr Vancomycin HCl 500 mg/ Sodium (Chloride) 110 mls @ 110 mls/hr IV Q12H [facility] Last Infusion: 12/19/21 10:12 Dose: Infused Insulin Human Lispro (Insulin Lispro 100 Unit/Ml 3 Ml Vial) 0 unit SUBCUT QIDACHS [facility]; Protocol Last Admin: 12/19/21 11:58 Dose: Not Given Loratadine (Loratadine 10 Mg Tablet) 10 mg G-TUBE DAILY [facility] Last Admin: 12/19/21 08:38 Dose: Not Given Non-Formulary Medication (Simvastatin) 5 mg G-TUBE BEDTIME [facility] Nystatin (Nystatin Cream 15 Gm Tube) 1 appl TOPICAL BID [facility]; Protocol Last Admin: 12/19/21 10:11 Dose: Not Given Omeprazole (Omeprazole 20 Mg Capsule.Dr) 20 mg PO DAILY [facility] Last Admin: 12/19/21 08:39 Dose: Not Given Omeprazole (Omeprazole 20 Mg/10 Ml Susp.Recon) 20 mg G-TUBE DAILY@0630 [facility] Last Admin: 12/19/21 05:52 Dose: Not Given Ondansetron HCl (Ondansetron Hcl 4 Mg/2 Ml Vial) 4 mg IVPUSH Q8H PRN PRN Reason: Nausea and Vomiting Pharmacy Consult (Consult Rx Perform Med Rec) 1 each MISCELLANE ONCE PRN PRN Reason: Consult order Pharmacy Consult (Consult Rx Vancomycin Dosing) 1 each MISCELLANE DAILY PRN PRN Reason: Consult order Polyethylene Glycol (Polyethylene Glycol 3350 17 Gm Powd.Pack) 17 gm G-TUBE DAILY PRN PRN Reason: Constipation Sodium Chloride (0.9 % Sodium Chloride Flush 3 Ml Syringe) 3 ml IVFLUSH QSHIFT [facility] Last Admin: 12/19/21 08:45 Dose: 3 ml Sodium Chloride (Sodium Chloride Tab 1 Gm Tablet) 1 gm PO TID [facility] Last Admin: 12/19/21 08:39 Dose: Not Given Home Medications Medication Instructions Recorded Confirmed Last Taken Type blood pressure test kit-large #1 nick 04/29/20 12/04/21 Unknown History blood sugar diagnostic #10 ea 04/29/20 12/04/21 Unknown History insulin syringe-needle U-100 0.3 #10 ea 04/29/20 12/04/21 Unknown History mL 31 gauge x 16 lancets 28 gauge #100 ea 04/29/20 12/04/21 Unknown History pen needle, diabetic 32 gauge x #50 ea 04/29/20 12/04/21 Unknown History simvastatin 5 mg tablet 5 mg PO BEDTIME 04/29/20 12/17/21 Unknown History amlodipine 5 mg tablet 5 mg PO DAILY 06/03/20 12/17/21 Unknown History famotidine 20 mg tablet 1 tab PO BID 11/20/21 12/17/21 Unknown History polyethylene glycol 3350 17 17 g PO DAILY PRN Constipation 12/12/21 12/17/21 Unknown History gram/dose oral powder (Gavilax) prochlorperazine maleate 5 mg 5 mg feeding tube Q6H PRN Nausea 12/12/21 12/17/21 Unknown History tablet calcium carbonate 600 mg-vitamin 1 tab PO DAILY 12/17/21 12/17/21 Unknown History D3 10 mcg (400 unit) tablet hydromorphone 1 mg/mL oral liquid 8 ml PO Q4H PRN severe pain 12/17/21 12/17/21 Unknown History insulin glargine U-300 conc 300 8 unit subcut DAILY 12/17/21 12/17/21 Unknown History unit/mL (3 mL) subcutaneous pen (Toujeo Max U-300 SoloStar) insulin lispro 100 unit/mL See Protocol subcut TIDAC 12/17/21 12/17/21 Unknown History subcutaneous half-unit pen (Humalog Scot KwikPen (U-100)) ipratropium 0.5 mg-albuterol 3 mg 3 ml inhalation Q6H PRN Shortness 12/17/21 12/17/21 Unknown History (2.5 mg base)/3 mL nebulization Of Breath soln loratadine 10 mg tablet 1 tab PO DAILY 12/17/21 12/17/21 Unknown History metformin 500 mg tablet 1 tab PO BID 12/17/21 12/17/21 Unknown History multivit and minerals-ferrous 15 ml PO DAILY 12/17/21 12/17/21 Unknown History gluconate 9 mg iron/15 mL oral liquid (Centrum) ondansetron 4 mg disintegrating 1 tab PO Q8H PRN Nausea And 12/17/21 12/17/21 Unknown History tablet Vomiting sodium chloride 1 gram tablet 1 tab PO TID 12/17/21 12/17/21 Unknown History Physical Exam Vital Signs: Vital Signs: Last Vital Signs Temp 97.2 F 12/19/21 11:08 Pulse 76 12/19/21 11:08 Resp 16 12/19/21 11:08 BP 109/55 L 12/19/21 11:08 Pulse Ox 99 12/19/21 11:08 O2 Del Method 12/19/21 11:08 O2 Flow Rate 5 12/18/21 16:00 BMI result Body Mass Index 19.9 Const: General: cooperative HEENT: Head: Yes normal to inspection Face and sinus: Yes normal facial exam Mouth: Normal oral and palatal mucosa present Teeth and gingiva: dentition normal Eyes: General: appearance normal, both eyes and all related structures Pupils: Equal, round and reactive pupils present Resp: Other: mild distress,trach in Cardio: Rate: regular rate Rhythm: regular rhythm GI: Palpation (GI): Soft to palpation and nontender : General: Yes no CVA tenderness Back/Spine/Pelvis: Back: no CVA tenderness Skin: General skin exam: no rashes or lesions noted Neuro: General: moves all extremities Cranial nerves: Yes Equal, round and reactive pupils present Extrem: General: Yes normal to inspection Psych: Appearance: grossly normal Results Labs CBC & Chem 7: 12/19/21 06:06 12/19/21 06:06 Labs: Short CBC 12/19/21 Range/Units 06:06 WBC 22.7 H (4.8-10.8) X10*3/uL Hgb 8.7 L (12.0-16.0) g/dl Hct 26.0 L (37.0-47.0) % Plt Count 578 H (160-400) X10*3/uL BMP 12/19/21 06:06 Sodium 131 L Potassium 4.4 Chloride 97 Carbon Dioxide 21 L BUN 11 Creatinine 0.77 Calcium 8.8 Microbiology Microbiology Results: Microbiology 12/16/21 23:11 Blood - Venous Blood Culture - Preliminary No growth after 48 hours. 12/16/21 23:11 Blood - Venous Blood Culture - Preliminary No growth after 48 hours. Assessment and Plan (1) Hemoptysis: Status: Acute possible some infection MRSA is pending No definite cultures. This can be a paraneoplastic syndrome?with excessive secretions possibly (2) Lung mass: Status: Acute (3) Shortness of breath: Status: Acute Plan Oncology to continue lung mass comment? bronchoscopy other No h/o TB seen For now Zosyn and Vancomycin possible 3-5 days cover bronchiectasis Check MRSA screen
[2021-12-19] MEDS: Sodium Chloride Tab 1 GM TABLET PO ×2 (14:33→19:46)
--- NOTE | 2021-12-19 15:38 | MHC.CLN ---
Addendum entered by Kristin Lema, LIZZIE 12/19/21 15:56: SODIUM DZBXR=227. DECREASE FLUSH TO 120 ML Q 8 HOURS. GLUCERNA 1.0, 300 ML BOLUS FEEDING 4 TIMES DAILY. FREE WATER FLUSH 120 ML Q 8 HOURS. PROVIDES 1200 KCAL (25.9 KCALS/KG); 50 G PROTEIN (1.08 G/KG); FREE WATER FROM FORMULA AND SKISN=8723 ML (29.9 ML/KG). Original Note: F/U G TUBE DISLODGED AND REPLACED. HAS HAD TWO BOLUS FEEDING TODAY. NO REPORTED CONCERNS. CONTINUE GLUCERNA 1.0 BOLUS 300ML FOUR TIMES DAILY. FLUSH 120 ML Q 6 HOURS. FOLLOW TOLERANCE, RESIDUALS, LYTES.
[2021-12-19 16:00] VITALS: BP 107/62; PULSE 74; RESP 16; TEMP 36.8; O2SAT 100
[2021-12-19 16:23] LABS: Glucose, Whole Blood 229 mg/dL (60-115)
[2021-12-19] MEDS: Insulin Lispro 100 UNIT/ML 3 ML VIAL SUBCUT (16:31)
--- NOTE | 2021-12-19 16:36 | MHC.CM.PN ---
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 PT ON DAY 3 OF VANCO/ZOSYN AND ANTIC TWO MORE DAYS OF IV ABX PRIOR TO D/C, CM WILL CONT TO FOLLOW D/C NEEDS. CM MET W/PT AND PLAN REMAINS HOME W/FAMILY ONCE MEDICALLY CLEARED.
--- NOTE | 2021-12-19 18:25 | PC.NURSE ---
Patient kept NPO including feedings for procedure (Ct guided biopsy) which was cancelled. Tube ok to use again after xray placement verification per Dr. Barkley. Feeding total feed 250ml and total 120ml sterile water. 90ml sterile water afterwards with meds.
[2021-12-19 18:58] VITALS: BP 99/57; PULSE 75; RESP 15; TEMP 37.1; O2SAT 99
[2021-12-19 19:47] LABS: Glucose, Whole Blood 42 mg/dL (60-115)
[2021-12-19 20:20] LABS: Glucose, Whole Blood 87 mg/dL (60-115)
[2021-12-19 21:38] LABS: Glucose, Whole Blood 60 mg/dL (60-115)
[2021-12-19 22:05] LABS: Glucose, Whole Blood 139 mg/dL (60-115)
[2021-12-19 23:26] VITALS: BP 109/66; PULSE 83; RESP 18; TEMP 36.4; O2SAT 98
[2021-12-20] MEDS: Acetaminophen 325 MG TABLET 650 MG G-TUBE ×4 (00:57→23:37)
[2021-12-20 03:18] VITALS: BP 134/73; PULSE 75; RESP 16; TEMP 36.6; O2SAT 99
[2021-12-20] MEDS: HYDROmorphone HCl 2 MG/ML VIAL 1 MG IVPUSH (04:30)
[2021-12-20] MEDS: Piperacillin Sodium/Tazobactam 3.375 GM in 0.9 % Sodium Chloride 50 ML IV ×4 (04:31→21:22)
[2021-12-20 06:54] VITALS: BP 115/61; PULSE 69; RESP 18; TEMP 36.6; O2SAT 99
[2021-12-20 07:07] LABS: Creatinine Clr Calc Pharmacy 50.4; Estimated Glomerular Filt Rate > 60
[2021-12-20 07:09] LABS: Vancomycin Trough 16.7 mcg/mL (10.0-20.0)
[2021-12-20 07:17] LABS: Glucose, Whole Blood 287 mg/dL (60-115)
--- NOTE | 2021-12-20 07:34 | HE.PHANOTE ---
Vancomycin Dosing Addendum Vancomycin Trough 16.7. SCr trending upwards. Rechecking scr and trough tonight. next trough due 12/20/21 @1800.
[2021-12-20] MEDS: Omeprazole 20 MG CAPSULE.DR PO (08:22)
[2021-12-20] MEDS: Calcium + Vitamin D 250 MG TABLET 500 MG G-TUBE (08:22)
[2021-12-20] MEDS: Loratadine 10 MG TABLET G-TUBE (08:23)
[2021-12-20] MEDS: Insulin Lispro 100 UNIT/ML 3 ML VIAL SUBCUT ×2 (08:23→16:24)
[2021-12-20] MEDS: Sodium Chloride Tab 1 GM TABLET PO ×3 (08:23→19:58)
[2021-12-20] MEDS: Multivitamin with Minerals Liq 15 ML LIQUID G-TUBE (08:24)
[2021-12-20] MEDS: Nystatin Cream 15 GM TUBE 1 APPL TOPICAL (08:28)
[2021-12-20] MEDS: 0.9 % Sodium Chloride Flush 3 ML SYRINGE IVFLUSH ×3 (08:34→21:14)
[2021-12-20] MEDS: vancomycin HCL 500 MG in 0.9 % Sodium Chloride 100 ML 110 MG IV (08:54)
--- NOTE | 2021-12-20 10:29 | HO.PM.IMPN ---
Subjective Subjective Date of Service: 12/20/21 Interval History: GT replaced, tolerating feeds no further bloody secretions in trach dyspnea resolved Review of Systems Review of Systems: Yes all other systems are reviewed and are negative Physical Exam Vital Signs: Vital Signs: Last Vital Signs Temp 97.9 F 12/20/21 06:54 Pulse 69 12/20/21 06:54 Resp 18 12/20/21 06:54 BP 115/61 12/20/21 06:54 Pulse Ox 99 12/20/21 06:54 O2 Del Method 12/20/21 06:54 O2 Flow Rate 5 12/19/21 23:26 BMI result Body Mass Index 19.9 gen- NAD neck- tracheostomy to humidified collar lungs- clear bilaterally CV- RRR no murmurs abd- soft, PEG in place ext- no C/C/E neuro- oriented, alert psych- appropriate affect Objective Data Active Medications Acetaminophen (Acetaminophen 325 Mg Tablet) 650 mg G-TUBE Q6H PRN PRN Reason: Pain, Mild (Pain Scale 1-3) Last Admin: 12/20/21 08:23 Dose: 650 mg Documented By: IVAN Albuterol/Ipratropium (Albuterol/Iprat 2.5/0.5mg 3 Ml Ampul.Neb) 3 ml INHALE Q6H PRN PRN Reason: Shortness Of Breath Calcium Carbonate/Cholecalciferol (Calcium + Vitamin D 250 Mg Tablet) 500 mg G-TUBE DAILY [facility] Last Admin: 12/20/21 08:22 Dose: 500 mg Documented By: IVAN Dextrose (Dextrose 50 % 25 Gm/50 Ml Syringe) 25 gm IVPUSH Q15M PRN; Protocol PRN Reason: per Hypoglycemia Standing Ord. Docusate Sodium (Docusate Sodium 100 Mg Capsule) 100 mg PO DAILY PRN PRN Reason: Constipation Glucose (Glucose Gel 15 Gm Gel..Gram.) 15 gm BUCCAL Q15M PRN; Protocol PRN Reason: per Hypoglycemia Standing Ord. Heparin Sodium (Porcine) (Heparin Sodium,Porcine 5,000 Unit/Ml Vial) 5,000 unit SUBCUT Q12H [facility] Last Admin: 12/19/21 08:38 Dose: Not Given Documented By: DOYLE Non-Admin Reason: procedure today Hydromorphone HCl (Hydromorphone Hcl 2 Mg/Ml Vial) 1 mg IVPUSH Q4H PRN; Protocol PRN Reason: severe pain Last Admin: 12/20/21 04:30 Dose: 1 mg Documented By: LACY Hydromorphone HCl (Hydromorphone Hcl 4 Mg Tablet) 8 mg G-TUBE Q4H PRN PRN Reason: severe pain Last Admin: 12/20/21 08:22 Dose: 8 mg Documented By: IVAN Piperacillin Sod/Tazobactam (Sod 3.375 gm/ Sodium Chloride) 50 mls @ 100 mls/hr IV Q6H [facility] Last Infusion: 12/20/21 05:09 Dose: 0 mls/hr Documented By: LACY Vancomycin HCl 500 mg/ Sodium (Chloride) 110 mls @ 110 mls/hr IV Q12H [facility] Last Admin: 12/20/21 08:54 Dose: 110 mls/hr Documented By: IVAN Insulin Human Lispro (Insulin Lispro 100 Unit/Ml 3 Ml Vial) 0 unit SUBCUT QIDACHS [facility]; Protocol Last Admin: 12/20/21 08:23 Dose: 6 unit Documented By: IVAN Loratadine (Loratadine 10 Mg Tablet) 10 mg G-TUBE DAILY [facility] Last Admin: 12/20/21 08:23 Dose: 10 mg Documented By: IVAN Non-Formulary Medication (Simvastatin) 5 mg G-TUBE BEDTIME [facility] Nystatin (Nystatin Cream 15 Gm Tube) 1 appl TOPICAL BID [facility]; Protocol Last Admin: 12/20/21 08:28 Dose: 1 appl Documented By: IVAN Omeprazole (Omeprazole 20 Mg Capsule.Dr) 20 mg PO DAILY [facility] Last Admin: 12/20/21 08:22 Dose: 20 mg Documented By: IVAN Omeprazole (Omeprazole 20 Mg/10 Ml Susp.Recon) 20 mg G-TUBE DAILY@0630 [facility] Last Admin: 12/20/21 06:01 Dose: 20 mg Documented By: LACY Ondansetron HCl (Ondansetron Hcl 4 Mg/2 Ml Vial) 4 mg IVPUSH Q8H PRN PRN Reason: Nausea and Vomiting Pharmacy Consult (Consult Rx Perform Med Rec) 1 each MISCELLANE ONCE PRN PRN Reason: Consult order Pharmacy Consult (Consult Rx Vancomycin Dosing) 1 each MISCELLANE DAILY PRN PRN Reason: Consult order Polyethylene Glycol (Polyethylene Glycol 3350 17 Gm Powd.Pack) 17 gm G-TUBE DAILY PRN PRN Reason: Constipation Sodium Chloride (0.9 % Sodium Chloride Flush 3 Ml Syringe) 3 ml IVFLUSH QSHIFT [facility] Last Admin: 12/20/21 08:34 Dose: 3 ml Documented By: IVAN Sodium Chloride (Sodium Chloride Tab 1 Gm Tablet) 1 gm PO TID [facility] Last Admin: 12/20/21 08:23 Dose: 1 gm Documented By: IVAN Labs CBC & Chem 7: 12/19/21 06:06 12/20/21 05:54 Labs: Laboratory Results - last 24 hr 12/19/21 12/19/21 12/19/21 09:10 11:13 15:54 Estim Creat Clear Calc Estimated GFR POC Glucose 181 H 229 H Nasal Screen MRSA (PCR) NEGATIVE Nasal S. aureus Screen NEGATIVE Nasal MRSA/S.aureus Interp SEE NOTE Vancomycin Trough 12/19/21 12/19/21 12/19/21 19:30 19:55 20:17 Estim Creat Clear Calc Estimated GFR POC Glucose 42 L* 60 87 Nasal Screen MRSA (PCR) Nasal S. aureus Screen Nasal MRSA/S.aureus Interp Vancomycin Trough 12/19/21 12/20/21 12/20/21 22:00 05:54 05:54 Estim Creat Clear Calc 50.4 Estimated GFR > 60 POC Glucose 139 H Nasal Screen MRSA (PCR) Nasal S. aureus Screen Nasal MRSA/S.aureus Interp Vancomycin Trough 16.7 12/20/21 06:55 Estim Creat Clear Calc Estimated GFR POC Glucose 287 H Nasal Screen MRSA (PCR) Nasal S. aureus Screen Nasal MRSA/S.aureus Interp Vancomycin Trough Assessment and Plan (1) Hemoptysis: Status: Acute (2) Lung mass: Status: Acute Plan hospital d#4 60yo F with recently diagnosed SCC of neck with tracheostomy and PEG presenting with cough, increased tracheostomy secretions with blood, and dyspnea found to have enlarging nodule of lingula as well as radiographic evidence of emphysema and possible PNA # G tube dislodgement - replaced by Dr Temple 12/19/21, gastrograffin study confirms placement # lingular nodule - Heme/Onc consulted, question of metastasis vs primary CA, will schedule CT-guided biopsy as outpt due to PNA # acute hypoxic resp failure due to PNA - on d#4 of vanco + pip/mae, BCx neg, PCT low, ID consulted, MRSA neg, will d/c vanco and continue pip/mae - weaned off O2, on trach collar # hemoptysis - resolved # hyperK - resolved s/p SZC 10g # hypoNa - improving s/p IV NS # SCC of neck - had cycle 1 of cisplatin/docetaxel/5 FU at [facility] 10/31/21 and has transitioned care to [facility] Oncology + [facility] Radiation Oncology with plan for concurrent chemoradiation therapy, chemotherapy with weekly carboplatin and Taxol - port placement rescheduled for 12/30/21; pt has radiation in AM that day # DM2 - correction-dose lispro # tube feeding dependence - Nutrition consulted, on Glucerna # VTE ppx: UFH In my clinical judgment, the patient requires continued hospitalization for the following reasons: IV ABX Quality Stroke Does the patient have a stroke diagnosis?: No VTE Prior VTE?: No VTE Risk Level:: Medical - moderate - high VTE Device Contraindication: Treatment Not Indicated VTE Drug Contraindication: N/A - Med Ordered
[2021-12-20 11:16] VITALS: BP 97/62; PULSE 71; RESP 18; TEMP 36.6; O2SAT 98
[2021-12-20 11:23] LABS: Glucose, Whole Blood 115 mg/dL (60-115)
[2021-12-20 15:47] VITALS: BP 101/68; PULSE 69; RESP 18; TEMP 35.5; O2SAT 99
[2021-12-20 16:15] LABS: Glucose, Whole Blood 252 mg/dL (60-115)
[2021-12-20 18:14] LABS: Hematocrit 24.6 % (37.0-47.0); Hemoglobin 8.1 g/dl (12.0-16.0); Mean Corpuscular HGB Conc 32.9 g/dl (31.0-35.0); Mean Corpuscular Hemoglobin 29.3 pg (27.0-33.0); Mean Corpuscular Volume 89.1 fL (80.0-98.0); Mean Platelet Volume 8.2 fL (9.4-12.3); Platelet Count 472 X10*3/uL (160-400); Red Blood Count 2.76 X10*6/uL (4.20-5.50); Red Cell Distribution Width 18.8 % (11.0-16.0)
[2021-12-20 18:29] LABS: Sodium 132 mmol/L (135-145)
[2021-12-20 18:52] LABS: Procalcitonin 0.22 ng/mL
[2021-12-20 19:11] VITALS: BP 100/57; PULSE 74; RESP 18; TEMP 36.1; O2SAT 98
[2021-12-20 19:47] LABS: Glucose, Whole Blood 132 mg/dL (60-115)
[2021-12-20 23:31] VITALS: BP 116/61; PULSE 68; RESP 16; TEMP 36.3; O2SAT 100
[2021-12-21 04:00] VITALS: BP 124/60; PULSE 68; RESP 17; TEMP 36.3; O2SAT 97
[2021-12-21] MEDS: Acetaminophen 325 MG TABLET 650 MG G-TUBE (05:07)
[2021-12-21] MEDS: Piperacillin Sodium/Tazobactam 3.375 GM in 0.9 % Sodium Chloride 50 ML IV (05:07)
[2021-12-21 07:01] VITALS: BP 123/58; PULSE 69; RESP 18; TEMP 36.4; O2SAT 100
[2021-12-21 07:13] LABS: Glucose, Whole Blood 222 mg/dL (60-115)
[2021-12-21] MEDS: Insulin Lispro 100 UNIT/ML 3 ML VIAL SUBCUT ×3 (09:12→20:40)
[2021-12-21] MEDS: Multivitamin with Minerals Liq 15 ML LIQUID G-TUBE (09:12)
[2021-12-21] MEDS: Omeprazole 20 MG CAPSULE.DR PO (09:13)
[2021-12-21] MEDS: Sodium Chloride Tab 1 GM TABLET PO ×3 (09:13→20:55)
[2021-12-21] MEDS: Loratadine 10 MG TABLET G-TUBE (09:13)
[2021-12-21] MEDS: Calcium + Vitamin D 250 MG TABLET 500 MG G-TUBE (09:13)
[2021-12-21] MEDS: 0.9 % Sodium Chloride Flush 3 ML SYRINGE IVFLUSH ×3 (09:15→23:41)
--- NOTE | 2021-12-21 10:17 | MHC.CM.PN ---
Addendum entered by Suzie Meredith 12/21/21 10:35: CM MET WITH PT WHO REPORTS SHE NEVER MET THE VNA SO IS UNSURE IF IT WAS AN AGENCY OR A [facility] NURSE THAT WAS GOING TO SEE HER. SHE REPORTS SHE ONLY RECEIVED ONE BOX OF GLUCERNA BECAUSE SHE WAS RECENTLY CHANGED TO THAT FROM [facility] REPORTS HER SISTER PROVIDES HER TRANSPORTATION, BUT WILL LIKELY NEED NOTICE THAT SHE IS BEING DISCHARGED CM CALLED PTS SISTER, GILL ([phone]) AND INFORMED HER OF PLAN TO DC, REFERRAL TO [facility], AND CALL TO [facility] RE GLUCERNA NEEDS SHE REPORTS SHE IS VERY WORRIED ABOUT THE PT DISCHARGING, SHE SAYS THE PT SOUNDED TERRIBLE WHEN SHE SAW HER YESTERDAY, SHE ALSO SAYS THE RT WHO WAS SUCTIONING THE PT YESTERDAY TOLD HER THE PT LIKELY HAS A BAD INFECTION BECAUSE OF THE SMELL. GILL SAYS SHE DOES NOT KNOW HOW TO CHANGE A TRACH AND HAS ASKED THAT IT BE DONE. SHE ALSO REPORTS SHE ASKED THE PTS PCP TO REFER HER TO GI OR SOMEONE TO MANAGE THE FEEDING TUBE, BUT THEY DID NOT. SHE REPORTS SHE WAS PLANNING TO COME SEE THE PT AROUND 1130 SHE WILL DISCUSS HER CONCERNS WITH THE MD AT THAT TIME. MD INFORMED VIA [facility] Original Note: CM INFORMED PT WOULD BE DISCHARGED TODAY PER PREVIOUS NOTES, PT WAS EXPECTING A VISITING NURSE RING PACKER HOWEVER DOES NOT KNOW THE NAME CM ALSO INFORMED PT IS CONCERNED THAT SHE ONLY HAS ONE BOX OF GLUCERNA LEFT CM ATTEMPTED TO CONTACT [facility] ([phone]) TO OBTAIN ANY VNA INFORMATION AND DETERMINE IF PT WOULD BE ABLE TO GET GLUCERNA MATIAS WAITED 20+ MINUTES ON HOLD, HOWEVER THE CALL WAS NEVER PICKED UP CM CALLED [facility] LIAISON, ORACIO ([phone]) AND LEFT A VOICEMAIL INFORMING HER OF PTS DISCHARGE AND HOME NEEDS MATIAS ALSO INFORMED HER A REFERRAL WOULD BE MADE TO [facility] IN CASE THERE WAS NO VNA IN PLACE. PT WILL BE DISCHARGING TO HER SISTERS HOME WITH A REFERRAL [facility]
[2021-12-21 11:15] LABS: Glucose, Whole Blood 166 mg/dL (60-115)
[2021-12-21 11:45] VITALS: BP 128/61; PULSE 81; RESP 16; TEMP 35.8; O2SAT 98
[2021-12-21] MEDS: HYDROmorphone HCl 2 MG TABLET 10 MG G-TUBE ×3 (13:00→20:54)
[2021-12-21] MEDS: dexAMETHasone sod phosphate 10 MG/ML VIAL IVPUSH ×2 (13:18→20:55)
--- NOTE | 2021-12-21 13:56 | P.PNIM_ITS ---
Subjective Subjective Date of Service: 12/21/21 Interval History: c/o worsening swelling in neck just below chin + secretions in trach Review of Systems Review of Systems: Yes all other systems are reviewed and are negative Physical Exam Vital Signs: Vital Signs: Last Vital Signs Temp 96.5 F L 12/21/21 11:45 Pulse 81 12/21/21 11:45 Resp 16 12/21/21 11:45 BP 128/61 12/21/21 11:45 Pulse Ox 98 12/21/21 11:45 O2 Del Method 12/21/21 11:45 O2 Flow Rate 5 12/20/21 23:31 BMI result Body Mass Index 19.9 gen- NAD neck- tracheostomy to humidified collar lungs- clear bilaterally CV- RRR no murmurs abd- soft, PEG in place ext- no C/C/E neuro- oriented, alert psych- appropriate affect Objective Data Active Medications Acetaminophen (Acetaminophen 325 Mg Tablet) 650 mg G-TUBE Q6H PRN PRN Reason: Pain, Mild (Pain Scale 1-3) Last Admin: 12/21/21 05:07 Dose: 650 mg Documented By: RADHA Albuterol/Ipratropium (Albuterol/Iprat 2.5/0.5mg 3 Ml Ampul.Neb) 3 ml INHALE Q6H PRN PRN Reason: Shortness Of Breath Amoxicillin/Clavulanate Potassium (Amoxicillin/Potassium Clav 2,000 Mg/50 Ml Bottle) 875 mg PO Q12H [facility] Last Admin: 12/21/21 11:27 Dose: 875 mg Documented By: GABRIEL Calcium Carbonate/Cholecalciferol (Calcium + Vitamin D 250 Mg Tablet) 500 mg G- TUBE DAILY [facility] Last Admin: 12/21/21 09:13 Dose: 500 mg Documented By: GABRIEL Dexamethasone Sodium Phosphate (Dexamethasone Sod Phosphate 10 Mg/Ml Vial) 10 mg IVPUSH Q6H [facility] Last Admin: 12/21/21 13:18 Dose: 10 mg Documented By: GABRIEL Dextrose (Dextrose 50 % 25 Gm/50 Ml Syringe) 25 gm IVPUSH Q15M PRN; Protocol PRN Reason: per Hypoglycemia Standing Ord. Docusate Sodium (Docusate Sodium 100 Mg Capsule) 100 mg PO DAILY PRN PRN Reason: Constipation Glucose (Glucose Gel 15 Gm Gel..Gram.) 15 gm BUCCAL Q15M PRN; Protocol PRN Reason: per Hypoglycemia Standing Ord. Heparin Sodium (Porcine) (Heparin Sodium,Porcine 5,000 Unit/Ml Vial) 5,000 unit SUBCUT Q12H [facility] Last Admin: 12/19/21 08:38 Dose: Not Given Documented By: DOYLE Non-Admin Reason: procedure today Hydromorphone HCl (Hydromorphone Hcl 2 Mg/Ml Vial) 1 mg IVPUSH Q4H PRN; Protocol PRN Reason: severe pain Last Admin: 12/20/21 04:30 Dose: 1 mg Documented By: LACY Hydromorphone HCl (Hydromorphone Hcl 2 Mg Tablet) 10 mg G-TUBE Q4H PRN PRN Reason: severe pain Last Admin: 12/21/21 13:00 Dose: 10 mg Documented By: GABRIEL Insulin Human Lispro (Insulin Lispro 100 Unit/Ml 3 Ml Vial) 0 unit SUBCUT QIDACHS [facility]; Protocol Last Admin: 12/21/21 11:27 Dose: 2 unit Documented By: GABRIEL Loratadine (Loratadine 10 Mg Tablet) 10 mg G-TUBE DAILY [facility] Last Admin: 12/21/21 09:13 Dose: 10 mg Documented By: GABRIEL Non-Formulary Medication (Simvastatin) 5 mg G-TUBE BEDTIME [facility] Nystatin (Nystatin Cream 15 Gm Tube) 1 appl TOPICAL BID [facility]; Protocol Last Admin: 12/21/21 12:01 Dose: Not Given Documented By: GABRIEL Non-Admin Reason: n Omeprazole (Omeprazole 20 Mg/10 Ml Susp.Recon) 20 mg G-TUBE DAILY@0630 [facility] Last Admin: 12/21/21 05:08 Dose: 20 mg Documented By: RADHA Ondansetron HCl (Ondansetron Hcl 4 Mg/2 Ml Vial) 4 mg IVPUSH Q8H PRN PRN Reason: Nausea and Vomiting Pharmacy Consult (Consult Rx Perform Med Rec) 1 each MISCELLANE ONCE PRN PRN Reason: Consult order Pharmacy Consult (Consult Rx Vancomycin Dosing) 1 each MISCELLANE DAILY PRN PRN Reason: Consult order Polyethylene Glycol (Polyethylene Glycol 3350 17 Gm Powd.Pack) 17 gm G-TUBE DAILY PRN PRN Reason: Constipation Sodium Chloride (0.9 % Sodium Chloride Flush 3 Ml Syringe) 3 ml IVFLUSH QSHIFT [facility] Last Admin: 12/21/21 09:15 Dose: 3 ml Documented By: GABRIEL Sodium Chloride (Sodium Chloride Tab 1 Gm Tablet) 1 gm PO TID [facility] Last Admin: 12/21/21 09:13 Dose: 1 gm Documented By: GABRIEL Labs CBC & Chem 7: 12/20/21 18:07 12/20/21 18:07 Labs: Laboratory Results - last 24 hr 12/20/21 12/20/21 12/20/21 15:09 18:07 18:07 MCV 89.1 MCH 29.3 MCHC 32.9 RDW 18.8 H Plt Count 472 H MPV 8.2 L Absolute Nucleated RBC 0.000 Nucleated RBC % (auto) 0.0 POC Glucose 252 H Procalcitonin 0.22 12/20/21 12/21/21 12/21/21 19:37 06:59 11:10 MCV MCH MCHC RDW Plt Count MPV Absolute Nucleated RBC Nucleated RBC % (auto) POC Glucose 132 H 222 H 166 H Procalcitonin Assessment and Plan (1) Hemoptysis: Status: Acute (2) Lung mass: Status: Acute Plan hospital d#5 60yo F with 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 will start dexamethasone 10 mg IV q6h. discussed with Critical Care- does not appear to have airway obstruction but will obtain CT neck. discussed with Oncology- may need transfer to tertiary care center for inpatient radiation depending on CT neck. - pt has Iwona Fowler trach- we do not have inner cannula; sister brought in from home. Pulm consult; the tracheostomy itself has not been changed since it was placed at [facility]. Pt needs Pulm/trach clinic follow-up. - had cycle 1 of cisplatin/docetaxel/5 FU at [facility] 10/31/21 and has transitioned care to [facility] Oncology + [facility] Radiation Oncology with plan for concurrent chemoradiation therapy, chemotherapy with weekly carboplatin and Taxol - port placement rescheduled for 12/30/21; pt has radiation in AM that day # acute hypoxic resp failure due to PNA - BCx neg, PCT low, MRSA negative. d/c'ed vanco on d#4. change pip/mae to amox/clav today - weaned off O2, on trach collar with 2L only for humidification [no medical air in unit] # G tube dislodgement - replaced by Dr Temple 12/19/21, gastrograffin study confirms placement # lingular nodule - Heme/Onc consulted, question of metastasis vs primary CA, will schedule CT- guided biopsy as outpt due to PNA # hemoptysis - resolved # hyperK - resolved s/p SZC 10g # hypoNa - improving s/p IV NS. on maintenance NaCl tabs. 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 # DM2 - correction-dose lispro # tube feeding dependence - Nutrition consulted, on Glucerna # VTE ppx: UFH In my clinical judgment, the patient requires continued hospitalization for the following reasons: neck swelling Quality Stroke Does the patient have a stroke diagnosis?: No VTE Prior VTE?: No VTE Risk Level:: Medical - moderate - high VTE Device Contraindication: Treatment Not Indicated VTE Drug Contraindication: N/A - Med Ordered
[2021-12-21 15:20] VITALS: BP 125/67; PULSE 62; RESP 17; TEMP 36.1; O2SAT 100
[2021-12-21 16:18] LABS: Glucose, Whole Blood 142 mg/dL (60-115)
[2021-12-21] MEDS: iohexoL 350 MG/ML 100 ML INFUS..BTL IV (17:02)
[2021-12-21 19:55] LABS: Glucose, Whole Blood 310 mg/dL (60-115)
[2021-12-21 20:11] VITALS: BP 120/65; PULSE 79; RESP 15; TEMP 37.1; O2SAT 97
[2021-12-21] MEDS: Ampicillin Sodium/Sulbactam Na 3 GM in 0.9 % Sodium Chloride 100 ML IV (20:55)
[2021-12-21 23:18] VITALS: BP 97/57; PULSE 68; RESP 17; TEMP 36.2; O2SAT 99
[2021-12-22] MEDS: HYDROmorphone HCl 2 MG TABLET 10 MG G-TUBE ×4 (01:49→16:48)
[2021-12-22] MEDS: Ampicillin Sodium/Sulbactam Na 3 GM in 0.9 % Sodium Chloride 100 ML IV ×4 (01:50→20:10)
[2021-12-22] MEDS: dexAMETHasone sod phosphate 10 MG/ML VIAL IVPUSH ×4 (02:02→20:10)
[2021-12-22 04:00] VITALS: BP 139/63; PULSE 69; RESP 17; TEMP 36; O2SAT 100
[2021-12-22] MEDS: HYDROmorphone HCl 2 MG/ML VIAL 1 MG IVPUSH ×2 (04:03→21:23)
[2021-12-22 07:22] VITALS: BP 118/66; PULSE 76; RESP 18; TEMP 36.1; O2SAT 100
[2021-12-22 07:50] LABS: Glucose, Whole Blood 317 mg/dL (60-115)
[2021-12-22] MEDS: Insulin Lispro 100 UNIT/ML 3 ML VIAL SUBCUT ×4 (08:44→20:10)
[2021-12-22] MEDS: Sodium Chloride Tab 1 GM TABLET PO ×3 (08:46→20:09)
[2021-12-22] MEDS: Calcium + Vitamin D 250 MG TABLET 500 MG G-TUBE (08:46)
[2021-12-22] MEDS: 0.9 % Sodium Chloride Flush 3 ML SYRINGE IVFLUSH ×2 (08:47→16:48)
[2021-12-22] MEDS: Loratadine 10 MG TABLET G-TUBE (08:47)
[2021-12-22] MEDS: Acetaminophen 325 MG TABLET 650 MG G-TUBE ×2 (08:47→15:31)
[2021-12-22] MEDS: Multivitamin with Minerals Liq 15 ML LIQUID G-TUBE (08:49)
--- NOTE | 2021-12-22 10:39 | MHC.CLN ---
F/U PATIENT WITH TRACH AND PEG DUE TO SQUAMOUS CELL HEAD AND NECK CANCER. CONTINUE TUBE FEEDING: GLUCERNA 1.0, 300 ML BOLUS FEEDING 4 TIMES DAILY. FREE WATER FLUSH 120 ML Q 8 HOURS. PROVIDES 1200 KCAL (25.9 KCALS/KG); 50 G PROTEIN (1.08 G/KG); FREE WATER FROM FORMULA AND FFXPX=6353 ML (29.9 ML/KG). SODIUM 12/2088=232 PROVIDE TUBE FEEDING WHILE AWAKE. FOLLOW FOR RESIDUALS, TOLERANCE, LYTES.
[2021-12-22 11:15] VITALS: BP 130/67; PULSE 70; RESP 18; TEMP 36; O2SAT 100
[2021-12-22 12:05] LABS: Glucose, Whole Blood 309 mg/dL (60-115)
[2021-12-22] MEDS: Nystatin Cream 15 GM TUBE 1 APPL TOPICAL ×2 (12:34→20:12)
--- NOTE | 2021-12-22 12:45 | P.PNIM_ITS ---
Subjective Subjective Date of Service: 12/23/21 Interval History: feels swelling in neck is better today, denies shortness of breath, no other acute overnight events overnight no fever no chills, no worsening secretions. Review of Systems Review of Systems: Yes all other systems are reviewed and are negative Physical Exam Vital Signs: Vital Signs: Last Vital Signs Temp 96.8 F 12/22/21 11:15 Pulse 70 12/22/21 11:15 Resp 18 12/22/21 11:15 BP 130/67 12/22/21 11:15 Pulse Ox 100 12/22/21 11:15 O2 Del Method 12/22/21 11:15 O2 Flow Rate 5 12/22/21 11:15 BMI result Body Mass Index 19.9 Const: Other: gen- Awake alert no acute distress neck- tracheostomy to humidified collar, no redness, firm mass in neck nontender lungs- clear bilaterally, no respiratory distress no use of accessory muscle no wheeze, no rhonchi CV- RRR no murmurs abd- soft, PEG in place no surrounding erythema, bowel sounds audible ext- no C/C/E neuro- oriented, alert psych- appropriate affect Objective Data Active Medications Acetaminophen (Acetaminophen 325 Mg Tablet) 650 mg G-TUBE Q6H PRN PRN Reason: Pain, Mild (Pain Scale 1-3) Last Admin: 12/22/21 08:47 Dose: 650 mg Documented By: GABRIEL Albuterol/Ipratropium (Albuterol/Iprat 2.5/0.5mg 3 Ml Ampul.Neb) 3 ml INHALE Q6H PRN PRN Reason: Shortness Of Breath Calcium Carbonate/Cholecalciferol (Calcium + Vitamin D 250 Mg Tablet) 500 mg G- TUBE DAILY [facility] Last Admin: 12/22/21 08:46 Dose: 500 mg Documented By: GABRIEL Dexamethasone Sodium Phosphate (Dexamethasone Sod Phosphate 10 Mg/Ml Vial) 10 mg IVPUSH Q6H [facility] Last Admin: 12/22/21 06:01 Dose: 10 mg Documented By: EDUARD Dextrose (Dextrose 50 % 25 Gm/50 Ml Syringe) 25 gm IVPUSH Q15M PRN; Protocol PRN Reason: per Hypoglycemia Standing Ord. Docusate Sodium (Docusate Sodium 100 Mg Capsule) 100 mg PO DAILY PRN PRN Reason: Constipation Glucose (Glucose Gel 15 Gm Gel..Gram.) 15 gm BUCCAL Q15M PRN; Protocol PRN Reason: per Hypoglycemia Standing Ord. Heparin Sodium (Porcine) (Heparin Sodium,Porcine 5,000 Unit/Ml Vial) 5,000 unit SUBCUT Q12H [facility] Last Admin: 12/19/21 08:38 Dose: Not Given Documented By: YULISA-WILLIS Non-Admin Reason: procedure today Hydromorphone HCl (Hydromorphone Hcl 2 Mg/Ml Vial) 1 mg IVPUSH Q4H PRN; Protocol PRN Reason: severe pain Last Admin: 12/22/21 04:03 Dose: 1 mg Documented By: EDUARD Hydromorphone HCl (Hydromorphone Hcl 2 Mg Tablet) 10 mg G-TUBE Q4H PRN PRN Reason: severe pain Last Admin: 12/22/21 08:45 Dose: 10 mg Documented By: GABRIEL Ampicillin Sodium/Sulbactam (Sodium 3 gm/ Sodium Chloride) 100 mls @ 200 mls/hr IV Q6H [facility] Last Infusion: 12/22/21 12:15 Dose: 200 mls/hr Documented By: GABRIEL Insulin Human Lispro (Insulin Lispro 100 Unit/Ml 3 Ml Vial) 0 unit SUBCUT QIDACHS [facility]; Protocol Last Admin: 12/22/21 08:44 Dose: 8 unit Documented By: GABRIEL Loratadine (Loratadine 10 Mg Tablet) 10 mg G-TUBE DAILY [facility] Last Admin: 12/22/21 08:47 Dose: 10 mg Documented By: GABRIEL Non-Formulary Medication (Simvastatin) 5 mg G-TUBE BEDTIME [facility] Nystatin (Nystatin Cream 15 Gm Tube) 1 appl TOPICAL BID [facility]; Protocol Last Admin: 12/21/21 22:48 Dose: Not Given Documented By: EDUARD Non-Admin Reason: Patient Refused Omeprazole (Omeprazole 20 Mg/10 Ml Susp.Recon) 20 mg G-TUBE DAILY@0630 [facility] Last Admin: 12/22/21 06:01 Dose: 20 mg Documented By: EDUARD Ondansetron HCl (Ondansetron Hcl 4 Mg/2 Ml Vial) 4 mg IVPUSH Q8H PRN PRN Reason: Nausea and Vomiting Pharmacy Consult (Consult Rx Perform Med Rec) 1 each MISCELLANE ONCE PRN PRN Reason: Consult order Pharmacy Consult (Consult Rx Vancomycin Dosing) 1 each MISCELLANE DAILY PRN PRN Reason: Consult order Polyethylene Glycol (Polyethylene Glycol 3350 17 Gm Powd.Pack) 17 gm G-TUBE DAILY PRN PRN Reason: Constipation Sodium Chloride (0.9 % Sodium Chloride Flush 3 Ml Syringe) 3 ml IVFLUSH QSHIFT [facility] Last Admin: 12/22/21 08:47 Dose: 3 ml Documented By: GABRIEL Sodium Chloride (Sodium Chloride Tab 1 Gm Tablet) 1 gm PO TID [facility] Last Admin: 12/22/21 08:46 Dose: 1 gm Documented By: GABRIEL Labs CBC & Chem 7: 12/20/21 18:07 12/20/21 18:07 Labs: Laboratory Results - last 24 hr 12/21/21 12/21/21 12/22/21 15:24 19:50 07:21 POC Glucose 142 H 310 H 317 H 12/22/21 11:14 POC Glucose 309 H Microbiology Microbiology Results: Microbiology 12/16/21 23:11 Blood Culture - Final Blood - Venous No growth after 5 days. 12/16/21 23:11 Blood Culture - Final Blood - Venous No growth after 5 days. 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 presenting with cough, increased tracheostomy secretions with blood, and dyspnea found to have enlarging nodule of lingula as well as radiographic evidence of emphysema and possible PNA # squamous cell carcinoma of neck with swelling # tracheostomy dependence - no respiratory distress feeling better on dexamethasone 10 mg IV q6h day 2, CT neck showed similar size of pharyngeal / hypopharyngeal mass with minimally increased subcutaneous edema, few small bubbles of soft tissue gas nonspecific could represent small perforations within the hypopharynx or superimposed gas-forming infection of a mass lesion Dr. Barkley spoke with ENT [facility] and radiation oncology , at this time they do not feel patient need inpatient radiation therapy no evidence local infection continue IV steroids and IV antibiotics for now pt has Iwona 7 trach patient evaluated by Dr. Crowley and will undergo trach replacement tomorrow patient had cycle 1 of cisplatin/docetaxel/5 FU at [facility] 10/31/21 and has transitioned care to [facility] Oncology + [facility] Radiation Oncology with plan for concurrent chemoradiation therapy, chemotherapy with weekly carboplatin and Taxol port placement rescheduled for 12/30/21; pt has radiation in AM that day case discussed with Dr. Weir she reviewed CT neck with radiology they do not feel neck findings have significantly changed since previous examination, plan is for outpatient radiation therapy at [facility] next week, will wean IV steroids, monitor clinical status once clinically stable will discharge home for outpatient radiation and chemo # acute hypoxic resp failure due to PNA - BCx neg, PCT low, MRSA negative. continue IV antibiotic - weaned off O2, on trach collar with oxygen only for humidification [no medical air in unit] # G tube dislodgement - replaced by Dr Temple 12/19/21, gastrograffin study confirms placement, # lingular nodule - Heme/Onc consulted, question of metastasis vs primary CA, will schedule CT- guided biopsy as outpt due to PNA # hemoptysis - resolved # hyperK - resolved s/p SZC 10g # hypoNa - sodium stable around 132, status post IV normal saline, continue maintenance NaCl tabs. 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 # DM2 - blood sugars elevated likely due to steroid, continue correction-dose lispro and wean steroid # tube feeding dependence - Nutrition consulted, on Glucerna # VTE ppx: UFH In my clinical judgment, the patient requires continued hospitalization for the following reasons: neck swelling on IV steroids and IV antibiotics and need change of trach in OR Quality Stroke Does the patient have a stroke diagnosis?: No VTE Prior VTE?: No VTE Risk Level:: Medical - moderate - high VTE Device Contraindication: Treatment Not Indicated VTE Drug Contraindication: N/A - Med Ordered
--- NOTE | 2021-12-22 14:24 | PM.IDPN ---
Subjective Subjective Date of Service: 12/22/21 Critical Care Time (minutes): 15 Comment: she is getting trach change she has no complaint and is on 5 liter investigation pending ?further malignancy Objective Data Labs CBC & Chem 7: 12/20/21 18:07 12/20/21 18:07 Labs: Laboratory Results - last 24 hr 12/21/21 12/21/21 12/22/21 15:24 19:50 07:21 POC Glucose 142 H 310 H 317 H 12/22/21 11:14 POC Glucose 309 H Microbiology Microbiology Results: Microbiology 12/16/21 23:11 Blood - Venous Blood Culture - Final No growth after 5 days. 12/16/21 23:11 Blood - Venous Blood Culture - Final No growth after 5 days. Physical Exam Vital Signs: Vital Signs: Last Vital Signs Temp 96.8 F 12/22/21 11:15 Pulse 70 12/22/21 11:15 Resp 18 12/22/21 11:15 BP 130/67 12/22/21 11:15 Pulse Ox 100 12/22/21 11:15 O2 Del Method 12/22/21 11:15 O2 Flow Rate 5 12/22/21 11:15 BMI result Body Mass Index 19.9 Const: General: cooperative Orientation/consciousness: patient oriented x3 HEENT: Head: Yes normal to inspection Mouth: Normal oral and palatal mucosa present Eyes: General: appearance normal, both eyes and all related structures Pupils: Equal, round and reactive pupils present Resp: Other: trach Effort & Inspection: normal respiratory effort Cardio: Rate: regular rate Rhythm: regular rhythm GI: Palpation (GI): Soft to palpation and nontender : General: Yes no CVA tenderness Back/Spine/Pelvis: Back: no CVA tenderness Skin: General skin exam: no rashes or lesions noted Neuro: General: patient oriented x3 Cranial nerves: Yes CN's II-XII intact bilaterally and Yes Equal, round and reactive pupils present Extrem: General: Yes normal to inspection Psych: Appearance: grossly normal Assessment and Plan Assessment and plan (1) Pneumonia: Problem details: She is still on 5 liters SHe has no MRSA This is day 7 of antibiotics,now on Unasyn Status: Acute Plan Would continue IV antibiotics another 2-3 days Further investigation malignancy/other lung Time Spent With Patient Time: Total time spent is greater than 50% in coordination of care (as documented) at patient's floor/unit and/or counseling patient:
--- NOTE | 2021-12-22 14:54 | MHC.CM.PN ---
EMR REVIEWED, PT W/SQUAMOUS CELL CARCINOMA OF NECK W/SHILEY 7 TRACH, PT EVALUATED BY DR HALL AND WILL HAVE TRACH REPLACED TOMORROW. NO PLAN FOR D/C TODAY, CM WILL CONT TO FOLLOW D/C NEEDS. CM RECEIVED CALL FROM [facility] ONCOLOGY NURSE LARA [phone] ASKING IF PT WILL BE DISCHARGING AND GOING TO HER RADIATION APPT ON 12/24 AT 9:30AM. PER CONVERSATION WILL UPDATE HER IN AM.
[2021-12-22 15:12] VITALS: BP 100/55; PULSE 61; RESP 18; TEMP 36.2; O2SAT 98
[2021-12-22 16:20] LABS: Glucose, Whole Blood 205 mg/dL (60-115)
[2021-12-22 19:13] VITALS: BP 123/66; PULSE 63; RESP 18; TEMP 35.9; O2SAT 99
[2021-12-22 19:57] LABS: Glucose, Whole Blood 226 mg/dL (60-115)
--- NOTE | 2021-12-22 20:43 | P.CONPL_ITS ---
History of Present Illness History of Present Illness Consult date: 12/22/21 Chief complaint: Pneumonia Narrative: This is an inpatient pulmonary consultation. 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 Patient reports that the secretion have been increasing over the past few weeks but she noted blood secretions for the past 1 week.? Patient reports that her weight has been stable since started feeding tube, reports no acute worsening pain, denies any fever or chills, she reports that she has been coughing more than usual, denies any headache no change in vision, no chest pain, no abdominal pain, no diarrhea constipation, no urinary symptoms and no lower extremity edema. On arrival to the ED patient hemodynamically stable with a blood pressure of 96/49. CT showed enlarging pulmonary nodule in the lingula now measuring 1.0 cm compared to 0.8 cm on 10/05, parents concerning for malignancy either metastasis or primary lung cancer, partial opacification of the right middle lobe, favored to be atelectasis versus superimposed infection, moderate upper lobe? emphysema,? there is also interval significant progression of a large 10 cm heterogeneous mass centered on the? right lateral and posterior mckeon of the pharynx hypopharynx and upper esophagus. She was started on antibiotics and doing better. Her tracheostomy was changed back in . Her tracheostomy needs to be changed prior to discharge. Unfortunately, we do not have spare inner cannula for her current tracheostomy. 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 Functional capacity: wheelchair bound Family History Family History Father Diabetes Myeloma Mother Brain cancer Mother Lung cancer Sister Breast cancer Family history: reviewed and not pertinent Surgical History Surgical History History of esophagogastroduodenoscopy (EGD) History of tracheostomy Hx of abdominal surgery Hx of colonoscopy Hx of exploratory laparotomy Social History Social History Household Members: Family Household Members Other:: 2 Housing: House Are you a primary women's health care nurse practitioner to a significant other at home: No Do you presently have visiting nurse or other home services: Yes (CANNOT RECALL NAME OF AGENCY) Alcohol intake: never Patient Tobacco Use Status: Former Tobacco user Quit Date: JULY 2021 Years Smoked: 40 service: No Current occupational status: disabled Meds Allergies Allergy/AdvReac Type Severity Reaction Status Date / Time ragweed pollen [RAGWEED] Allergy Severe RUNNY NOSE Verified 12/12/21 08:04 Sulfa (Sulfonamide Allergy Intermediate PASS OUT, Verified 12/12/21 08:04 Antibiotics) HIVES [SULFA(SULFONAMIDE ANTIBIOTICS)] Active Medications: Current Medications Acetaminophen (Acetaminophen 325 Mg Tablet) 650 mg G-TUBE Q6H PRN PRN Reason: Pain, Mild (Pain Scale 1-3) Last Admin: 12/22/21 15:31 Dose: 650 mg Albuterol/Ipratropium (Albuterol/Iprat 2.5/0.5mg 3 Ml Ampul.Neb) 3 ml INHALE Q 6H PRN PRN Reason: Shortness Of Breath Calcium Carbonate/Cholecalciferol (Calcium + Vitamin D 250 Mg Tablet) 500 mg G- TUBE DAILY [facility] Last Admin: 12/22/21 08:46 Dose: 500 mg Dexamethasone Sodium Phosphate (Dexamethasone Sod Phosphate 10 Mg/Ml Vial) 10 mg IVPUSH Q8H [facility] Last Admin: 12/22/21 20:10 Dose: 10 mg Dextrose (Dextrose 50 % 25 Gm/50 Ml Syringe) 25 gm IVPUSH Q15M PRN; Protocol PRN Reason: per Hypoglycemia Standing Ord. Docusate Sodium (Docusate Sodium 100 Mg Capsule) 100 mg PO DAILY PRN PRN Reason: Constipation Glucose (Glucose Gel 15 Gm Gel..Gram.) 15 gm BUCCAL Q15M PRN; Protocol PRN Reason: per Hypoglycemia Standing Ord. Heparin Sodium (Porcine) (Heparin Sodium,Porcine 5,000 Unit/Ml Vial) 5,000 unit SUBCUT Q12H [facility] Last Admin: 12/19/21 08:38 Dose: Not Given Hydromorphone HCl (Hydromorphone Hcl 2 Mg/Ml Vial) 1 mg IVPUSH Q4H PRN; Protocol PRN Reason: severe pain Last Admin: 12/22/21 04:03 Dose: 1 mg Hydromorphone HCl (Hydromorphone Hcl 2 Mg Tablet) 10 mg G-TUBE Q4H PRN PRN Reason: severe pain Last Admin: 12/22/21 16:48 Dose: 10 mg Ampicillin Sodium/Sulbactam (Sodium 3 gm/ Sodium Chloride) 100 mls @ 200 mls/hr IV Q6H [facility] Last Admin: 12/22/21 20:10 Dose: 200 mls/hr Insulin Human Lispro (Insulin Lispro 100 Unit/Ml 3 Ml Vial) 0 unit SUBCUT QIDACHS [facility]; Protocol Last Admin: 12/22/21 20:10 Dose: 4 unit Loratadine (Loratadine 10 Mg Tablet) 10 mg G-TUBE DAILY [facility] Last Admin: 12/22/21 08:47 Dose: 10 mg Non-Formulary Medication ( Simvastatin 5 Mg) 5 each G-TUBE BEDTIME [facility] Nystatin (Nystatin Cream 15 Gm Tube) 1 appl TOPICAL BID [facility]; Protocol Last Admin: 12/22/21 20:12 Dose: 1 appl Omeprazole (Omeprazole 20 Mg/10 Ml Susp.Recon) 20 mg G-TUBE DAILY@0630 [facility] Last Admin: 12/22/21 06:01 Dose: 20 mg Ondansetron HCl (Ondansetron Hcl 4 Mg/2 Ml Vial) 4 mg IVPUSH Q8H PRN PRN Reason: Nausea and Vomiting Pharmacy Consult (Consult Rx Perform Med Rec) 1 each MISCELLANE ONCE PRN PRN Reason: Consult order Pharmacy Consult (Consult Rx Vancomycin Dosing) 1 each MISCELLANE DAILY PRN PRN Reason: Consult order Polyethylene Glycol (Polyethylene Glycol 3350 17 Gm Powd.Pack) 17 gm G-TUBE DAILY PRN PRN Reason: Constipation Sodium Chloride (0.9 % Sodium Chloride Flush 3 Ml Syringe) 3 ml IVFLUSH QSHIFT [facility] Last Admin: 12/22/21 16:48 Dose: 3 ml Sodium Chloride (Sodium Chloride Tab 1 Gm Tablet) 1 gm PO TID [facility] Last Admin: 12/22/21 20:09 Dose: 1 gm Home Medications Medication Instructions Recorded Confirmed Last Taken Type blood pressure test kit-large #1 nick 04/29/20 12/04/21 Unknown History blood sugar diagnostic #10 ea 04/29/20 12/04/21 Unknown History insulin syringe-needle U-100 0.3 #10 ea 04/29/20 12/04/21 Unknown History mL 31 gauge x 09/08 lancets 28 gauge #100 ea 04/29/20 12/04/21 Unknown History pen needle, diabetic 32 gauge x #50 ea 04/29/20 12/04/21 Unknown History Physical Exam Vital Signs: Vital Signs: Last Vital Signs Temp 96.6 F L 12/22/21 19:13 Pulse 63 12/22/21 19:13 Resp 18 12/22/21 19:13 BP 123/66 12/22/21 19:13 Pulse Ox 99 12/22/21 19:13 O2 Del Method 12/22/21 19:13 O2 Flow Rate 5 12/22/21 19:13 BMI result Body Mass Index 19.9 Const: General: cooperative Orientation/consciousness: patient oriented x3 HEENT: Head: Yes normal to inspection Mouth: Normal oral and palatal mucosa present Eyes: General: appearance normal, both eyes and all related structures Pupils: Equal, round and reactive pupils present Neck: Neck: Yes tracheostomy present (tolerates minimal occlussion, 7mm ID medtronic trach, uncuffed.) Resp: Other: trach Effort & Inspection: normal respiratory effort Cardio: Rate: regular rate Rhythm: regular rhythm GI: Palpation (GI): Soft to palpation and nontender : General: Yes no CVA tenderness Back/Spine/Pelvis: Back: no CVA tenderness Skin: General skin exam: no rashes or lesions noted Neuro: General: patient oriented x3 Cranial nerves: Yes CN's II-XII intact bilaterally and Yes Equal, round and reactive pupils present Extrem: General: Yes normal to inspection Psych: Appearance: grossly normal Results Laboratory Findings CBC and BMP: 12/20/21 18:07 12/20/21 18:07 Abnormal lab findings: Abnormal Labs 12/16/21 12/16/21 12/17/21 23:11 23:11 01:19 WBC 20.7 H RBC 3.37 L Hgb 9.8 L Hct 29.1 L RDW 19.2 H Plt Count 609 H MPV 8.8 L Immature Gran % (Auto) 0.5 H Neut % (Auto) 73.8 H Lymph % (Auto) 14.7 L [place] # (Auto) 1.9 H Eos # (Auto) Abs Immat Gran (auto) 0.11 H Absolute Neuts (auto) 15.3 H Sodium 126 L Potassium 5.2 H Chloride 86 L Carbon Dioxide BUN 33 H POC Glucose Random Glucose 313 H Alkaline Phosphatase 128 H Total Protein 5.7 L Albumin 3.2 L Urine pH 8.5 H Ur Specific [place] >= 1.030 H Vancomycin Trough 12/17/21 12/17/21 12/17/21 06:54 06:54 09:32 WBC 22.8 H RBC 3.27 L Hgb 9.5 L Hct 29.1 L RDW 19.3 H Plt Count 560 H MPV 9.1 L Immature Gran % (Auto) 0.9 H Neut % (Auto) 75.5 H Lymph % (Auto) 10.6 L [place] # (Auto) 2.3 H Eos # (Auto) 0.6 H Abs Immat Gran (auto) 0.20 H Absolute Neuts (auto) 17.2 H Sodium 127 L Potassium Chloride Carbon Dioxide 19 L BUN 24 H POC Glucose 185 H Random Glucose 199 H Alkaline Phosphatase Total Protein Albumin Urine pH Ur Specific [place] Vancomycin Trough 12/17/21 12/17/21 12/18/21 12:33 17:05 06:22 WBC 20.7 H RBC 3.11 L Hgb 9.0 L Hct 27.3 L RDW 19.4 H Plt Count 572 H MPV 8.7 L Immature Gran % (Auto) Neut % (Auto) Lymph % (Auto) [place] # (Auto) Eos # (Auto) Abs Immat Gran (auto) Absolute Neuts (auto) Sodium Potassium Chloride Carbon Dioxide BUN POC Glucose 167 H 127 H Random Glucose Alkaline Phosphatase Total Protein Albumin Urine pH Ur Specific [place] Vancomycin Trough 12/18/21 12/18/21 12/18/21 06:49 07:10 12:29 WBC RBC Hgb Hct RDW Plt Count MPV Immature Gran % (Auto) Neut % (Auto) Lymph % (Auto) [place] # (Auto) Eos # (Auto) Abs Immat Gran (auto) Absolute Neuts (auto) Sodium 131 L Potassium Chloride Carbon Dioxide 21 L BUN POC Glucose 150 H 195 H Random Glucose 145 H Alkaline Phosphatase Total Protein Albumin Urine pH Ur Specific [place] Vancomycin Trough 12/18/21 12/18/21 12/19/21 12:40 19:42 06:06 WBC 22.7 H RBC 3.01 L Hgb 8.7 L Hct 26.0 L RDW 18.9 H Plt Count 578 H MPV 8.7 L Immature Gran % (Auto) Neut % (Auto) Lymph % (Auto) [place] # (Auto) Eos # (Auto) Abs Immat Gran (auto) Absolute Neuts (auto) Sodium Potassium Chloride Carbon Dioxide BUN POC Glucose 203 H Random Glucose Alkaline Phosphatase Total Protein Albumin Urine pH Ur Specific [place] Vancomycin Trough 25.9 H* 12/19/21 12/19/21 12/19/21 06:06 07:19 11:13 WBC RBC Hgb Hct RDW Plt Count MPV Immature Gran % (Auto) Neut % (Auto) Lymph % (Auto) [place] # (Auto) Eos # (Auto) Abs Immat Gran (auto) Absolute Neuts (auto) Sodium 131 L Potassium Chloride Carbon Dioxide 21 L BUN POC Glucose 174 H 181 H Random Glucose 155 H Alkaline Phosphatase Total Protein Albumin Urine pH Ur Specific [place] Vancomycin Trough 12/19/21 12/19/21 12/19/21 15:54 19:30 22:00 WBC RBC Hgb Hct RDW Plt Count MPV Immature Gran % (Auto) Neut % (Auto) Lymph % (Auto) [place] # (Auto) Eos # (Auto) Abs Immat Gran (auto) Absolute Neuts (auto) Sodium Potassium Chloride Carbon Dioxide BUN POC Glucose 229 H 42 L* 139 H Random Glucose Alkaline Phosphatase Total Protein Albumin Urine pH Ur Specific [place] Vancomycin Trough 12/20/21 12/20/21 12/20/21 06:55 15:09 18:07 WBC 19.0 H RBC 2.76 L Hgb 8.1 L Hct 24.6 L RDW 18.8 H Plt Count 472 H MPV 8.2 L Immature Gran % (Auto) Neut % (Auto) Lymph % (Auto) [place] # (Auto) Eos # (Auto) Abs Immat Gran (auto) Absolute Neuts (auto) Sodium Potassium Chloride Carbon Dioxide BUN POC Glucose 287 H 252 H Random Glucose Alkaline Phosphatase Total Protein Albumin Urine pH Ur Specific [place] Vancomycin Trough 12/20/21 12/20/21 12/21/21 18:07 19:37 06:59 WBC RBC Hgb Hct RDW Plt Count MPV Immature Gran % (Auto) Neut % (Auto) Lymph % (Auto) [place] # (Auto) Eos # (Auto) Abs Immat Gran (auto) Absolute Neuts (auto) Sodium 132 L Potassium Chloride Carbon Dioxide BUN POC Glucose 132 H 222 H Random Glucose Alkaline Phosphatase Total Protein Albumin Urine pH Ur Specific [place] Vancomycin Trough 12/21/21 12/21/21 12/21/21 11:10 15:24 19:50 WBC RBC Hgb Hct RDW Plt Count MPV Immature Gran % (Auto) Neut % (Auto) Lymph % (Auto) [place] # (Auto) Eos # (Auto) Abs Immat Gran (auto) Absolute Neuts (auto) Sodium Potassium Chloride Carbon Dioxide BUN POC Glucose 166 H 142 H 310 H Random Glucose Alkaline Phosphatase Total Protein Albumin Urine pH Ur Specific [place] Vancomycin Trough 12/22/21 12/22/21 12/22/21 07:21 11:14 15:17 WBC RBC Hgb Hct RDW Plt Count MPV Immature Gran % (Auto) Neut % (Auto) Lymph % (Auto) [place] # (Auto) Eos # (Auto) Abs Immat Gran (auto) Absolute Neuts (auto) Sodium Potassium Chloride Carbon Dioxide BUN POC Glucose 317 H 309 H 205 H Random Glucose Alkaline Phosphatase Total Protein Albumin Urine pH Ur Specific [place] Vancomycin Trough 12/22/21 19:15 WBC RBC Hgb Hct RDW Plt Count MPV Immature Gran % (Auto) Neut % (Auto) Lymph % (Auto) [place] # (Auto) Eos # (Auto) Abs Immat Gran (auto) Absolute Neuts (auto) Sodium Potassium Chloride Carbon Dioxide BUN POC Glucose 226 H Random Glucose Alkaline Phosphatase Total Protein Albumin Urine pH Ur Specific [place] Vancomycin Trough Microbiology: Microbiology 12/16/21 23:11 Blood - Venous Blood Culture - Final No growth after 5 days. 12/16/21 23:11 Blood - Venous Blood Culture - Final No growth after 5 days. Assessment and Plan (1) Squamous cell carcinoma of head and neck: Status: Acute (2) Lung mass: Status: Acute (3) Pneumonia: Status: Acute (4) Tracheostomy dependence: Status: Acute Plan plan to change her tracheostomy prior to discharge. Will be best exchange in the OR to better control her airway Procedures Date of Service Date of Service: 12/22/21
[2021-12-22 23:35] VITALS: BP 126/69; PULSE 65; RESP 18; TEMP 36.1; O2SAT 99
[2021-12-23] MEDS: Acetaminophen 325 MG TABLET 650 MG G-TUBE ×3 (01:52→21:39)
[2021-12-23] MEDS: HYDROmorphone HCl 2 MG/ML VIAL 1 MG IVPUSH ×5 (01:52→21:30)
[2021-12-23] MEDS: Ampicillin Sodium/Sulbactam Na 3 GM in 0.9 % Sodium Chloride 100 ML IV ×4 (01:53→21:30)
[2021-12-23 03:17] VITALS: BP 129/61; PULSE 80; RESP 18; TEMP 35.9; O2SAT 98
[2021-12-23] MEDS: dexAMETHasone sod phosphate 10 MG/ML VIAL IVPUSH ×2 (05:23→12:51)
[2021-12-23 07:57] LABS: Glucose, Whole Blood 388 mg/dL (60-115)
[2021-12-23 08:00] VITALS: BP 158/76; PULSE 66; RESP 18; TEMP 36.8; O2SAT 99
[2021-12-23] MEDS: Multivitamin with Minerals Liq 15 ML LIQUID G-TUBE (08:21)
[2021-12-23] MEDS: Sodium Chloride Tab 1 GM TABLET PO ×3 (08:21→21:30)
[2021-12-23] MEDS: Loratadine 10 MG TABLET G-TUBE (08:21)
[2021-12-23] MEDS: Calcium + Vitamin D 250 MG TABLET 500 MG G-TUBE (08:22)
[2021-12-23] MEDS: Insulin Lispro 100 UNIT/ML 3 ML VIAL SUBCUT ×4 (08:23→21:31)
[2021-12-23] MEDS: 0.9 % Sodium Chloride Flush 3 ML SYRINGE IVFLUSH (08:23)
[2021-12-23] MEDS: Nystatin Cream 15 GM TUBE 1 APPL TOPICAL ×2 (08:24→21:31)
[2021-12-23 11:18] VITALS: BP 116/64; PULSE 66; RESP 18; TEMP 36.7; O2SAT 95
[2021-12-23 11:49] LABS: Glucose, Whole Blood 377 mg/dL (60-115)
--- NOTE | 2021-12-23 13:51 | MHC.CM.PN ---
EMR REVIEWED, PER HOSPITALIST TRACH REPLACEMENT POSTPONED UNTIL TOMORROW 12/24 D/T OVER BOOKED OR, CM MET W/PT WHO REPORTS SHE IS INDEPENDENT W/TRACH CARE AND GTUBE FEEDS/CARE, PT COMMUNICATES BY WRITING ON PAD AND DOES NOT FEEL SHE NEEDS A MOTOR VEHICLE ASSEMBLY SUPERVISOR OR TALKING BOOKS LIBRARY CLERK TO ASSIST IN HOME. PT REPORTS SHE IS DISAPPOINTED SHE IS UNABLE TO GO TO CHEMO/RADIATION APPT'S D/T BEING IN THE HOSPITAL. PT ABLE TO GIVE CM HI COMPANY, [employer]. CM CONTACTED PT'S SISTER GILL AT 1:30PM AT [employer] AND SHE AGREES THEY DO NOT NEED TALKING BOOKS LIBRARY CLERK/MOTOR VEHICLE ASSEMBLY SUPERVISOR SERVICES [facility] CAN ASSIST W/PERSONAL OR HOUSEHOLD NEEDS, GILL VERIFIES [employer] [facility] PROVIDES GTUBE FEEDS/SUPPLIES AND TRACH SUPPLIES FOR PT. GILL DID REPORT THAT PT DOES NOT USE PROPER HAND HYGIENE OR GLOVES WHEN DOING HER TRACH CARE AND IS VERY STUBBORN AND DOESN'T ALLOW HER TO ASSIST HOWEVER [facility] BELIEVES PT WILL ALLOW FOR IT IF SHE INSISTS, CM WILL ARRANGE FOR [facility] TO COME IN FOR ADDITIONAL TEACHING PRIOR TO D/C. CM SPOKE W/CANDY AT [facility] AND CANDY CONFIRMED THEY WILL PROVIDE SENIOR CARE FOR PT. MI REFERRAL FOR [employer] [facility] SENT AND CM SPOKE W/LIAISON REGARDING ISSUES W/NOT BEING DELIVERED ENOUGH FEED, LIAISON REPORTS SHE WILL CHECK INTO IT AND MAKE SURE ISSUE IS RESOLVED AND WILL HAVE DELIVERY PRIOR TO D/C HOME OR ON D/C HOME. CM WILL CONT TO FOLLOW D/C NEEDS.
--- NOTE | 2021-12-23 14:02 | P.PNPL_ITS ---
Subjective Subjective Date of Service: 12/23/21 Interval history: The patient was seen on exam. Significant amount of secretions from the tracheostomy. She is feeling better. Continue to be on antibiotics for pneumonia. Her chemotherapy is on hold until she completes her course of ant ibiotics. She has been arranged to have outpatient radiation for her large mass. Objective Data Labs CBC & Chem 7: 12/20/21 18:07 12/20/21 18:07 Labs: Laboratory Results - last 24 hr 12/22/21 12/22/21 12/23/21 15:17 19:15 07:49 POC Glucose 205 H 226 H 388 H* 12/23/21 11:18 POC Glucose 377 H* Microbiology Microbiology Results: Microbiology 12/16/21 23:11 Blood - Venous Blood Culture - Final No growth after 5 days. 12/16/21 23:11 Blood - Venous Blood Culture - Final No growth after 5 days. Review of Systems Review of Systems Yes Unobtainable due to mental condition Physical Exam Vital Signs: Vital Signs: Last Vital Signs Temp 98.1 F 12/23/21 11:18 Pulse 66 12/23/21 11:18 Resp 18 12/23/21 11:18 BP 116/64 12/23/21 11:18 Pulse Ox 95 12/23/21 11:18 O2 Del Method 12/23/21 11:18 O2 Flow Rate 5 12/23/21 11:18 BMI result Body Mass Index 19.9 Const: General: cooperative Orientation/consciousness: patient oriented x3 HEENT: Head: Yes normal to inspection Mouth: Normal oral and palatal mucosa present Eyes: General: appearance normal, both eyes and all related structures Pupils: Equal, round and reactive pupils present Neck: Neck: Yes tracheostomy present (tolerates minimal occlussion, 7mm ID medtronic trach, uncuffed.) Resp: Other: trach Effort & Inspection: normal respiratory effort Cardio: Rate: regular rate Rhythm: regular rhythm GI: Palpation (GI): Soft to palpation and nontender : General: Yes no CVA tenderness Back/Spine/Pelvis: Back: no CVA tenderness Skin: General skin exam: no rashes or lesions noted Neuro: General: patient oriented x3 Cranial nerves: Yes CN's II-XII intact bilaterally and Yes Equal, round and reactive pupils present Extrem: General: Yes normal to inspection Psych: Appearance: grossly normal Procedures Date of Service Date of Service: 12/23/21 Assessment and Plan Assessment and plan (1) Tracheostomy dependence: Status: Acute (2) Squamous cell carcinoma of head and neck: Status: Acute (3) GERD (gastroesophageal reflux disease): Problem details: Continue omeprazole 20 mg once daily Status: Acute (4) Pneumonia: Problem details: She is still on 5 liters SHe has no MRSA This is day 7 of antibiotics,now on Unasyn Status: Acute Plan PLan to change tracheostomy in the OR if it is safe. Will reassess in the once in the OR Continue abx as per ID trach care, needs additional trach supplies (inner cannulas) Time Spent With Patient Time: Total time spent is greater than 50% in coordination of care (as documented) at patient's floor/unit and/or counseling patient: Progress Note: Quality Stroke Does the patient have a stroke diagnosis?: No
--- NOTE | 2021-12-23 14:03 | P.PNIM_ITS ---
Subjective Subjective Date of Service: 12/23/21 Interval History: Offers no acute complaints this morning, denies shortness of breath no neck pain, no fevers, no chills, no other acute issues, no worsening in trach secretions Review of Systems Review of Systems: Yes all other systems are reviewed and are negative Physical Exam Vital Signs: Vital Signs: Last Vital Signs Temp 98.1 F 12/23/21 11:18 Pulse 66 12/23/21 11:18 Resp 18 12/23/21 11:18 BP 116/64 12/23/21 11:18 Pulse Ox 95 12/23/21 11:18 O2 Del Method 12/23/21 11:18 O2 Flow Rate 5 12/23/21 11:18 BMI result Body Mass Index 19.9 Const: Other: gen- ? Awake alert no acute distress neck- tracheostomy to humidified collar, no redness, firm mass in neck nontender lungs- clear bilaterally, no respiratory distress no use of accessory muscle no wheeze, no rhonchi CV- RRR no murmurs abd- soft, PEG in place no surrounding erythema, bowel sounds audible ext- no C/C/E neuro- oriented, alert psych- appropriate affect Objective Data Active Medications Acetaminophen (Acetaminophen 325 Mg Tablet) 650 mg G-TUBE Q6H PRN PRN Reason: Pain, Mild (Pain Scale 1-3) Last Admin: 12/23/21 13:07 Dose: 650 mg Documented By: RAFAT Albuterol/Ipratropium (Albuterol/Iprat 2.5/0.5mg 3 Ml Ampul.Neb) 3 ml INHALE Q6H PRN PRN Reason: Shortness Of Breath Calcium Carbonate/Cholecalciferol (Calcium + Vitamin D 250 Mg Tablet) 500 mg G- TUBE DAILY [facility] Last Admin: 12/23/21 08:22 Dose: 500 mg Documented By: RAFAT Dexamethasone Sodium Phosphate (Dexamethasone Sod Phosphate 10 Mg/Ml Vial) 10 mg IVPUSH Q8H [facility] Last Admin: 12/23/21 12:51 Dose: 10 mg Documented By: RAFAT Dextrose (Dextrose 50 % 25 Gm/50 Ml Syringe) 25 gm IVPUSH Q15M PRN; Protocol PRN Reason: per Hypoglycemia Standing Ord. Docusate Sodium (Docusate Sodium 100 Mg Capsule) 100 mg PO DAILY PRN PRN Reason: Constipation Glucose (Glucose Gel 15 Gm Gel..Gram.) 15 gm BUCCAL Q15M PRN; Protocol PRN Reason: per Hypoglycemia Standing Ord. Heparin Sodium (Porcine) (Heparin Sodium,Porcine 5,000 Unit/Ml Vial) 5,000 unit SUBCUT Q12H [facility] Last Admin: 12/19/21 08:38 Dose: Not Given Documented By: DOYLE Non-Admin Reason: procedure today Hydromorphone HCl (Hydromorphone Hcl 2 Mg/Ml Vial) 1 mg IVPUSH Q4H PRN; Protocol PRN Reason: severe pain Last Admin: 12/23/21 12:50 Dose: 1 mg Documented By: RAFAT Hydromorphone HCl (Hydromorphone Hcl 2 Mg Tablet) 10 mg G-TUBE Q4H PRN PRN Reason: severe pain Last Admin: 12/22/21 16:48 Dose: 10 mg Documented By: BLACK Ampicillin Sodium/Sulbactam (Sodium 3 gm/ Sodium Chloride) 100 mls @ 200 mls/hr IV Q6H [facility] Last Infusion: 12/23/21 09:04 Dose: 0 mls/hr Documented By: RAFAT Insulin Human Lispro (Insulin Lispro 100 Unit/Ml 3 Ml Vial) 0 unit SUBCUT QIDACHS [facility]; Protocol Last Admin: 12/23/21 12:50 Dose: 12 unit Documented By: RAFAT Comments: per Dr James Loratadine (Loratadine 10 Mg Tablet) 10 mg G-TUBE DAILY [facility] Last Admin: 12/23/21 08:21 Dose: 10 mg Documented By: RAFAT Non-Formulary Medication ( Simvastatin 5 Mg) 5 each G-TUBE BEDTIME [facility] Nystatin (Nystatin Cream 15 Gm Tube) 1 appl TOPICAL BID [facility]; Protocol Last Admin: 12/23/21 08:24 Dose: 1 appl Documented By: RAFAT Omeprazole (Omeprazole 20 Mg/10 Ml Susp.Recon) 20 mg G-TUBE DAILY@0630 [facility] Last Admin: 12/23/21 05:23 Dose: 20 mg Documented By: KEVIN Ondansetron HCl (Ondansetron Hcl 4 Mg/2 Ml Vial) 4 mg IVPUSH Q8H PRN PRN Reason: Nausea and Vomiting Pharmacy Consult (Consult Rx Perform Med Rec) 1 each MISCELLANE ONCE PRN PRN Reason: Consult order Pharmacy Consult (Consult Rx Vancomycin Dosing) 1 each MISCELLANE DAILY PRN PRN Reason: Consult order Polyethylene Glycol (Polyethylene Glycol 3350 17 Gm Powd.Pack) 17 gm G-TUBE DA NANETTE PRN PRN Reason: Constipation Sodium Chloride (0.9 % Sodium Chloride Flush 3 Ml Syringe) 3 ml IVFLUSH QSHIFT [facility] Last Admin: 12/23/21 08:23 Dose: 3 ml Documented By: RAFAT Sodium Chloride (Sodium Chloride Tab 1 Gm Tablet) 1 gm PO TID [facility] Last Admin: 12/23/21 08:21 Dose: 1 gm Documented By: RAFAT Labs CBC & Chem 7: 12/20/21 18:07 12/20/21 18:07 Labs: Laboratory Results - last 24 hr 12/22/21 12/22/21 12/23/21 15:17 19:15 07:49 POC Glucose 205 H 226 H 388 H* 12/23/21 11:18 POC Glucose 377 H* Assessment and Plan (1) Pneumonia: Status: Acute (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: Status: Acute Plan 60yo F with recently diagnosed SCC of neck with tracheostomy and PEG presenting with cough, increased tracheostomy secretions with blood, and dyspnea found to have enlarging nodule of lingula as well as radiographic evidence of emphysema and possible PNA # squamous cell carcinoma of neck with swelling/# tracheostomy dependence - no respiratory distress feeling better on dexamethasone 10 mg IV q8h day 3, CT neck showed similar size of pharyngeal / hypopharyngeal mass with minimally increased subcutaneous edema, few small bubbles of soft tissue gas nonspecific could represent small perforations within the hypopharynx or superimposed gas-forming infection of a mass lesion Dr. Barkley spoke with [facility] and radiation oncology , at this time they do not feel patient need inpatient radiation therapy no evidence local infection wean IV steroids and continue IV antibiotic pt has [place] 7 trach patient evaluated by Dr. Crowley and will undergo trach replacement tomorrow patient had cycle 1 of cisplatin/docetaxel/5 FU at [facility] 10/31/21 and has transitioned care to [facility] Oncology + [facility] Radiation Oncology with plan for concurrent chemoradiation therapy, chemotherapy with weekly carboplatin and Taxol port placement rescheduled for 12/30/21; pt has radiation in AM that day outpatient radiation therapy at [facility] next week monitor clinical status once clinically stable will discharge home for outpatient radiation and chemo, will arrange for VNA services for [facility] care # acute hypoxic resp failure due to PNA - BCx neg, PCT low, MRSA negative. continue IV antibiotic - weaned off O2, on trach collar with oxygen only for humidification [no medical air in unit] # G tube dislodgement - replaced by Dr Temple 12/19/21, gastrograffin study confirms placement, # lingular nodule - Heme/Onc consulted, question of metastasis vs primary CA, will schedule CT- guided biopsy as outpt due to PNA # hemoptysis - resolved # hyperK - resolved s/p SZC 10g # hypoNa - sodium stable around 132, status post IV normal saline, continue maintenance NaCl tabs. 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 # DM2 - blood sugars elevated likely due to steroid, continue correction-dose lispro and wean steroid # tube feeding dependence - Nutrition consulted, on Glucerna # VTE ppx: UFH In my clinical judgment, the patient requires continued hospitalization for the following reasons: neck swelling on IV steroids and IV antibiotics and need change of trach in OR Quality Stroke Does the patient have a stroke diagnosis?: No VTE Prior VTE?: No VTE Risk Level:: Medical - moderate - high VTE Device Contraindication: Treatment Not Indicated VTE Drug Contraindication: N/A - Med Ordered
--- NOTE | 2021-12-23 14:08 | MHC.CM.PN ---
CONTACT INFO: KATHLEEN NURSE TRANSPORTATION ENGINEER AT [facility] [phone] [facility] [phone] [facility] ON[facility]OG[facility] NURSE LARA [phone]
[2021-12-23 14:56] VITALS: BP 110/58; PULSE 76; RESP 18; TEMP 36.7; O2SAT 99
[2021-12-23 16:04] LABS: Glucose, Whole Blood 249 mg/dL (60-115)
[2021-12-23] MEDS: Metoclopramide HCl 10 MG/2 ML VIAL 5 MG IVPUSH (17:03)
[2021-12-23] MEDS: dexAMETHasone sod phosphate 10 MG/ML VIAL 6 MG IVPUSH (17:03)
--- NOTE | 2021-12-23 18:39 | PC.NURSE ---
patients morning tube feeding to be held tomorrow 12/24/21 for trach replacement.
[2021-12-23 19:14] VITALS: BP 117/57; PULSE 52; RESP 16; TEMP 36.6; O2SAT 99
[2021-12-23 20:38] LABS: Glucose, Whole Blood 224 mg/dL (60-115)
[2021-12-23 23:42] VITALS: BP 145/63; PULSE 85; RESP 16; TEMP 36.4; O2SAT 92
[2021-12-24] VITALS (11 sets, daily range): BP systolic 122–152; BP diastolic 59–74; PULSE 60–77; RESP 16–22; TEMP 36–36.7; O2SAT 94–100
[2021-12-24] MEDS: dexAMETHasone sod phosphate 10 MG/ML VIAL 6 MG IVPUSH (02:19)
[2021-12-24] MEDS: HYDROmorphone HCl 2 MG/ML VIAL 1 MG IVPUSH ×5 (02:19→22:04)
[2021-12-24] MEDS: Ampicillin Sodium/Sulbactam Na 3 GM in 0.9 % Sodium Chloride 100 ML IV ×4 (02:20→22:05)
[2021-12-24 06:50] LABS: Anion Gap 18 (12-20); Blood Urea Nitrogen 35 mg/dL (9-16); Calcium 9.7 mg/dL (8.4-10.2); Carbon Dioxide 23 mmol/L (22-29); Chloride 93 mmol/L (96-108); Creatinine Clr Calc Pharmacy 40.5; Estimated Glomerular Filt Rate 55; Potassium 4.7 mmol/L (3.3-5.1); Sodium 129 mmol/L (135-145)
[2021-12-24 07:03] LABS: Glucose Random 422 mg/dL (60-115)
[2021-12-24 07:07] LABS: Hematocrit 28.6 % (37.0-47.0); Hemoglobin 9.5 g/dl (12.0-16.0); Mean Corpuscular HGB Conc 33.2 g/dl (31.0-35.0); Mean Corpuscular Hemoglobin 29.1 pg (27.0-33.0); Mean Corpuscular Volume 87.7 fL (80.0-98.0); Mean Platelet Volume 8.7 fL (9.4-12.3); Platelet Count 551 X10*3/uL (160-400); Red Blood Count 3.26 X10*6/uL (4.20-5.50); Red Cell Distribution Width 18.8 % (11.0-16.0)
[2021-12-24 07:18] LABS: Glucose, Whole Blood 424 mg/dL (60-115)
[2021-12-24 07:27] LABS: White Blood Count 53.7 X10*3/uL (4.8-10.8)
[2021-12-24] MEDS: dexAMETHasone sod phosphate 10 MG/ML VIAL 4 MG IVPUSH ×3 (07:45→23:46)
[2021-12-24] MEDS: Insulin Lispro 100 UNIT/ML 3 ML VIAL SUBCUT ×4 (07:45→22:04)
[2021-12-24] MEDS: Multivitamin with Minerals Liq 15 ML LIQUID G-TUBE (07:46)
[2021-12-24] MEDS: Calcium + Vitamin D 250 MG TABLET 500 MG G-TUBE (07:46)
[2021-12-24] MEDS: Loratadine 10 MG TABLET G-TUBE (07:46)
[2021-12-24] MEDS: Sodium Chloride Tab 1 GM TABLET PO ×3 (07:46→22:05)
[2021-12-24] MEDS: 0.9 % Sodium Chloride Flush 3 ML SYRINGE IVFLUSH ×2 (07:48→23:51)
[2021-12-24] MEDS: Nystatin Cream 15 GM TUBE 1 APPL TOPICAL (08:04)
--- NOTE | 2021-12-24 09:36 | P.CONAN_ITS ---
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 (Acute) GERD (gastroesophageal reflux disease) (Acute) Colon cancer screening (Acute) Oral pharyngeal candidiasis (Acute) Type 2 diabetes mellitus with polyneuropathy (Acute) Essential hypertension (Acute) Hyperlipidemia LDL goal <100 (Acute) Chronic pancreatitis (Acute) Past Medical History Medical History Asthma Bronchitis Cellulitis Chronic pancreatitis Essential hypertension Feeding by G-tube Hemoptysis Hx MRSA infection Hx of respiratory failure Hx of septic shock Hyperlipidemia LDL goal <100 Lung mass Macrocytic anemia Oropharyngeal dysphagia Pneumonia Shortness of breath Smoking 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 Functional capacity: wheelchair bound Family History Family History Father Diabetes Myeloma Mother Brain cancer Mother Lung cancer Sister Breast cancer Family history of problems with anesthesia: No Surgical History Surgical History History of esophagogastroduodenoscopy (EGD) History of tracheostomy Hx of abdominal surgery Hx of colonoscopy Hx of exploratory laparotomy History of Problems with Anesthesia: No Social History Social History Household Members: Family Household Members Other:: 2 Housing: House Are you a primary care management coordinator to a significant other at home: No Do you presently have visiting nurse or other home services: Yes (CANNOT RECALL NAME OF AGENCY) Alcohol intake: never Patient Tobacco Use Status: Former Tobacco user Quit Date: JULY 2021 Years Smoked: 40 service: No Current occupational status: disabled Meds Allergies Allergy/AdvReac Type Severity Reaction Status Date / Time ragweed pollen [RAGWEED] Allergy Severe RUNNY NOSE Verified 12/12/21 08:04 Sulfa (Sulfonamide Allergy Intermediate PASS OUT, Verified 12/12/21 08:04 Antibiotics) HIVES [SULFA(SULFONAMIDE ANTIBIOTICS)] Active Medications: Current Medications Acetaminophen (Acetaminophen 325 Mg Tablet) 650 mg G-TUBE Q6H PRN PRN Reason: Pain, Mild (Pain Scale 1-3) Last Admin: 12/23/21 21:39 Dose: 650 mg Albuterol/Ipratropium (Albuterol/Iprat 2.5/0.5mg 3 Ml Ampul.Neb) 3 ml INHALE Q6H PRN PRN Reason: Shortness Of Breath Calcium Carbonate/Cholecalciferol (Calcium + Vitamin D 250 Mg Tablet) 500 mg G- TUBE DAILY [facility] Last Admin: 12/24/21 07:46 Dose: 500 mg Dexamethasone Sodium Phosphate (Dexamethasone Sod Phosphate 10 Mg/Ml Vial) 4 mg IVPUSH Q8H [facility] Last Admin: 12/24/21 07:45 Dose: 4 mg Dextrose (Dextrose 50 % 25 Gm/50 Ml Syringe) 25 gm IVPUSH Q15M PRN; Protocol PRN Reason: per Hypoglycemia Standing Ord. Docusate Sodium (Docusate Sodium 100 Mg Capsule) 100 mg PO DAILY PRN PRN Reason: Constipation Fentanyl (Fentanyl Citrate/Pf 100 Mcg/2 Ml Vial) 25 mcg IVPUSH Q5M PRN; Protocol PRN Reason: Pain, Moderate (Pain Scale 4-6 Glucose (Glucose Gel 15 Gm Gel..Gram.) 15 gm BUCCAL Q15M PRN; Protocol PRN Reason: per Hypoglycemia Standing Ord. Heparin Sodium (Porcine) (Heparin Sodium,Porcine 5,000 Unit/Ml Vial) 5,000 unit SUBCUT Q12H [facility] Last Admin: 12/19/21 08:38 Dose: Not Given Hydromorphone HCl (Hydromorphone Hcl 2 Mg/Ml Vial) 1 mg IVPUSH Q4H PRN; Protocol PRN Reason: severe pain Last Admin: 12/24/21 06:40 Dose: 1 mg Hydromorphone HCl (Hydromorphone Hcl 2 Mg Tablet) 10 mg G-TUBE Q4H PRN PRN Reason: severe pain Last Admin: 12/22/21 16:48 Dose: 10 mg Ampicillin Sodium/Sulbactam (Sodium 3 gm/ Sodium Chloride) 100 mls @ 200 mls/hr IV Q6H [facility] Last Infusion: 12/24/21 08:23 Dose: Infused Insulin Human Lispro (Insulin Lispro 100 Unit/Ml 3 Ml Vial) 0 unit SUBCUT QIDACHS [facility]; Protocol Last Admin: 12/24/21 07:45 Dose: 14 unit Loratadine (Loratadine 10 Mg Tablet) 10 mg G-TUBE DAILY [facility] Last Admin: 12/24/21 07:46 Dose: 10 mg Non-Formulary Medication ( Simvastatin 5 Mg) 5 each G-TUBE BEDTIME [facility] Nystatin (Nystatin Cream 15 Gm Tube) 1 appl TOPICAL BID [facility]; Protocol Last Admin: 12/24/21 08:04 Dose: 1 appl Omeprazole (Omeprazole 20 Mg/10 Ml Susp.Recon) 20 mg G-TUBE DAILY@0630 [facility] Last Admin: 12/24/21 06:40 Dose: 20 mg Ondansetron HCl (Ondansetron Hcl 4 Mg/2 Ml Vial) 4 mg IVPUSH Q8H PRN PRN Reason: Nausea and Vomiting Ondansetron HCl (Ondansetron Hcl 4 Mg/2 Ml Vial) 4 mg IVPUSH ONCE PRN PRN Reason: Nausea and Vomiting Pharmacy Consult (Consult Rx Perform Med Rec) 1 each MISCELLANE ONCE PRN PRN Reason: Consult order Pharmacy Consult (Consult Rx Vancomycin Dosing) 1 each MISCELLANE DAILY PRN PRN Reason: Consult order Polyethylene Glycol (Polyethylene Glycol 3350 17 Gm Powd.Pack) 17 gm G-TUBE DAILY PRN PRN Reason: Constipation Sodium Chloride (0.9 % Sodium Chloride Flush 3 Ml Syringe) 3 ml IVFLUSH QSHIFT [facility] Last Admin: 12/24/21 07:48 Dose: 3 ml Sodium Chloride (Sodium Chloride Tab 1 Gm Tablet) 1 gm PO TID [facility] Last Admin: 12/24/21 07:46 Dose: 1 gm Home Medications Medication Instructions Recorded Confirmed Last Taken Type blood pressure test kit-large #1 nick 04/29/20 12/04/21 Unknown History blood sugar diagnostic #10 nick 04/29/20 12/04/21 Unknown History insulin syringe-needle U-100 0.3 #10 ea 04/29/20 12/04/21 Unknown History mL 31 gauge x 09/08 lancets 28 gauge #100 ea 04/29/20 12/04/21 Unknown History pen needle, diabetic 32 gauge x #50 ea 04/29/20 12/04/21 Unknown History Exam Exam Date and Time: December 24, 2021 0936 Height,Weight and Vital Signs: Height 5 ft Weight 46.3 kg Last Vital Signs Temp 96.9 F 12/24/21 07:04 Pulse 72 12/24/21 08:12 Resp 18 12/24/21 08:12 BP 142/65 H 12/24/21 08:12 Pulse Ox 98 12/24/21 08:12 O2 Del Method 12/24/21 08:12 O2 Flow Rate 5 12/24/21 08:12 Oxygen Flow Rate 5 12/24/21 08:12 Pertinent Lab Results Pertinent Lab Results: Laboratory Tests 12/16/21 12/16/21 12/16/21 22:54 23:11 23:11 WBC 20.7 H RBC 3.37 L Hgb 9.8 L Hct 29.1 L MCV 86.4 MCH 29.1 MCHC 33.7 RDW 19.2 H Plt Count 609 H MPV 8.8 L Immature Gran % (Auto) 0.5 H Neut % (Auto) 73.8 H Lymph % (Auto) 14.7 L Adams % (Auto) 9.0 Eos % (Auto) 1.7 Baso % (Auto) 0.3 Lymph # (Auto) 3.0 Adams # (Auto) 1.9 H Eos # (Auto) 0.4 Baso # (Auto) 0.1 Abs Immat Gran (auto) 0.11 H Absolute Neuts (auto) 15.3 H Absolute Nucleated RBC 0.000 Nucleated RBC % (auto) 0.0 Smear Tech's Comments VERIFIED Smear Path Review Sodium 126 L Potassium 5.2 H Chloride 86 L Carbon Dioxide 29 Anion Gap 16 BUN 33 H Creatinine 0.90 Estim Creat Clear Calc 60.6 Estimated GFR > 60 POC Glucose Random Glucose 313 H Lactic Acid Calcium 9.4 D Magnesium 1.9 Total Bilirubin 0.2 AST 6 ALT < 6 Alkaline Phosphatase 128 H Total Protein 5.7 L Albumin 3.2 L Procalcitonin Urine Color Urine Appearance Urine pH Ur Specific [place] Urine Protein Urine Glucose (UA) Urine Ketones Urine Blood Urine Nitrite Ur Leukocyte Esterase Nasal Screen MRSA (PCR) Nasal S. aureus Screen Nasal MRSA/S.aureus Interp Vancomycin Trough COVID-19 ([facility]) Negative COVID-19 Clin Com See Note 12/16/21 12/17/21 12/17/21 23:11 01:19 06:54 WBC 22.8 H RBC 3.27 L Hgb 9.5 L Hct 29.1 L MCV 89.0 MCH 29.1 MCHC 32.6 RDW 19.3 H Plt Count 560 H MPV 9.1 L Immature Gran % (Auto) 0.9 H Neut % (Auto) 75.5 H Lymph % (Auto) 10.6 L Adams % (Auto) 10.0 Eos % (Auto) 2.5 Baso % (Auto) 0.5 Lymph # (Auto) 2.4 Adams # (Auto) 2.3 H Eos # (Auto) 0.6 H Baso # (Auto) 0.1 Abs Immat Gran (auto) 0.20 H Absolute Neuts (auto) 17.2 H Absolute Nucleated RBC 0.000 Nucleated RBC % (auto) 0.0 Smear Tech's Comments Smear Path Review Sodium Potassium Chloride Carbon Dioxide Anion Gap BUN Creatinine Estim Creat Clear Calc Estimated GFR POC Glucose Random Glucose Lactic Acid 1.4 Calcium Magnesium Total Bilirubin AST ALT Alkaline Phosphatase Total Protein Albumin Procalcitonin Urine Color Yellow Urine Appearance Clear Urine pH 8.5 H Ur Specific [place] >= 1.030 H Urine Protein Negative Urine Glucose (UA) Negative Urine Ketones Negative Urine Blood Negative Urine Nitrite Negative Ur Leukocyte Esterase Negative Nasal Screen MRSA (PCR) Nasal S. aureus Screen Nasal MRSA/S.aureus Interp Vancomycin Trough COVID-19 ([facility]) COVID-19 [employer] 12/17/21 12/17/21 12/17/21 06:54 06:54 09:32 WBC RBC Hgb Hct MCV MCH MCHC RDW Plt Count MPV Immature Gran % (Auto) Neut % (Auto) Lymph % (Auto) [place] % (Auto) Eos % (Auto) Baso % (Auto) Lymph # (Auto) [place] # (Auto) Eos # (Auto) Baso # (Auto) Abs Immat Gran (auto) Absolute Neuts (auto) Absolute Nucleated RBC Nucleated RBC % (auto) Smear Tech's Comments Smear Path Review Sodium 127 L Potassium 4.6 Chloride 96 Carbon Dioxide 19 L Anion Gap 17 BUN 24 H Creatinine 0.72 Estim Creat Clear Calc 75.8 Estimated GFR > 60 POC Glucose 185 H Random Glucose 199 H Lactic Acid Calcium 8.5 D Magnesium Total Bilirubin AST ALT Alkaline Phosphatase Total Protein Albumin Procalcitonin 0.17 Urine Color Urine Appearance Urine pH Ur Specific [place] Urine Protein Urine Glucose (UA) Urine Ketones Urine Blood Urine Nitrite Ur Leukocyte Esterase Nasal Screen MRSA (PCR) Nasal S. aureus Screen Nasal MRSA/S.aureus Interp Vancomycin Trough COVID-19 ([facility]) COVID-19 Clin Com 12/17/21 12/17/21 12/17/21 12:33 17:05 22:30 WBC RBC Hgb Hct MCV MCH MCHC RDW Plt Count MPV Immature Gran % (Auto) Neut % (Auto) Lymph % (Auto) Adams % (Auto) Eos % (Auto) Baso % (Auto) Lymph # (Auto) Adams # (Auto) Eos # (Auto) Baso # (Auto) Abs Immat Gran (auto) Absolute Neuts (auto) Absolute Nucleated RBC Nucleated RBC % (auto) Smear Tech's Comments Smear Path Review Sodium Potassium Chloride Carbon Dioxide Anion Gap BUN Creatinine Estim Creat Clear Calc Estimated GFR POC Glucose 167 H 127 H 90 Random Glucose Lactic Acid Calcium Magnesium Total Bilirubin AST ALT Alkaline Phosphatase Total Protein Albumin Procalcitonin Urine Color Urine Appearance Urine pH Ur Specific [place] Urine Protein Urine Glucose (UA) Urine Ketones Urine Blood Urine Nitrite Ur Leukocyte Esterase Nasal Screen MRSA (PCR) Nasal S. aureus Screen Nasal MRSA/S.aureus Interp Vancomycin Trough COVID-19 ([facility]) COVID-19 [facility] 12/18/21 12/18/21 12/18/21 06:22 06:49 07:10 WBC 20.7 H RBC 3.11 L Hgb 9.0 L Hct 27.3 L MCV 87.8 MCH 28.9 MCHC 33.0 RDW 19.4 H Plt Count 572 H MPV 8.7 L Immature Gran % (Auto) Neut % (Auto) Lymph % (Auto) [place] % (Auto) Eos % (Auto) Baso % (Auto) Lymph # (Auto) Adams # (Auto) Eos # (Auto) Baso # (Auto) Abs Immat Gran (auto) Absolute Neuts (auto) Absolute Nucleated RBC 0.000 Nucleated RBC % (auto) 0.0 Smear Tech's Comments Smear Path Review Sodium 131 L Potassium 4.3 Chloride 100 Carbon Dioxide 21 L Anion Gap 14 BUN 15 Creatinine 0.68 Estim Creat Clear Calc 80.2 Estimated GFR > 60 POC Glucose 150 H Random Glucose 145 H Lactic Acid Calcium 8.6 Magnesium Total Bilirubin AST ALT Alkaline Phosphatase Total Protein Albumin Procalcitonin Urine Color Urine Appearance Urine pH Ur Specific [place] Urine Protein Urine Glucose (UA) Urine Ketones Urine Blood Urine Nitrite Ur Leukocyte Esterase Nasal Screen MRSA (PCR) Nasal S. aureus Screen Nasal MRSA/S.aureus Interp Vancomycin Trough COVID-19 ([facility]) COVID-19 Clin Com 12/18/21 12/18/21 12/18/21 12:29 12:40 16:53 WBC RBC Hgb Hct MCV MCH MCHC RDW Plt Count MPV Immature Gran % (Auto) Neut % (Auto) Lymph % (Auto) [place] % (Auto) Eos % (Auto) Baso % (Auto) Lymph # (Auto) Adams # (Auto) Eos # (Auto) Baso # (Auto) Abs Immat Gran (auto) Absolute Neuts (auto) Absolute Nucleated RBC Nucleated RBC % (auto) Smear Tech's Comments Smear Path Review Sodium Potassium Chloride Carbon Dioxide Anion Gap BUN Creatinine Estim Creat Clear Calc Estimated GFR POC Glucose 195 H 64 Random Glucose Lactic Acid Calcium Magnesium Total Bilirubin AST ALT Alkaline Phosphatase Total Protein Albumin Procalcitonin Urine Color Urine Appearance Urine pH Ur Specific [place] Urine Protein Urine Glucose (UA) Urine Ketones Urine Blood Urine Nitrite Ur Leukocyte Esterase Nasal Screen MRSA (PCR) Nasal S. aureus Screen Nasal MRSA/S.aureus Interp Vancomycin Trough 25.9 H* COVID-19 ([facility]) COVID-19 [employer] [facility] 12/18/21 12/18/21 12/19/21 17:15 19:42 06:06 WBC 22.7 H RBC 3.01 L Hgb 8.7 L Hct 26.0 L MCV 86.4 MCH 28.9 MCHC 33.5 RDW 18.9 H Plt Count 578 H MPV 8.7 L Immature Gran % (Auto) Neut % (Auto) Lymph % (Auto) [place] % (Auto) Eos % (Auto) Baso % (Auto) Lymph # (Auto) [place] # (Auto) Eos # (Auto) Baso # (Auto) Abs Immat Gran (auto) Absolute Neuts (auto) Absolute Nucleated RBC 0.000 Nucleated RBC % (auto) 0.0 Smear Tech's Comments Smear Path Review Sodium Potassium Chloride Carbon Dioxide Anion Gap BUN Creatinine Estim Creat Clear Calc Estimated GFR POC Glucose 100 203 H Random Glucose Lactic Acid Calcium Magnesium Total Bilirubin AST ALT Alkaline Phosphatase Total Protein Albumin Procalcitonin Urine Color Urine Appearance Urine pH Ur Specific [place] Urine Protein Urine Glucose (UA) Urine Ketones Urine Blood Urine Nitrite Ur Leukocyte Esterase Nasal Screen MRSA (PCR) Nasal S. aureus Screen Nasal MRSA/S.aureus Interp Vancomycin Trough COVID-19 ([facility]) COVID-19 [employer] 12/19/21 12/19/21 12/19/21 06:06 06:06 06:06 WBC RBC Hgb Hct MCV MCH MCHC RDW Plt Count MPV Immature Gran % (Auto) Neut % (Auto) Lymph % (Auto) [place] % (Auto) Eos % (Auto) Baso % (Auto) Lymph # (Auto) [place] # (Auto) Eos # (Auto) Baso # (Auto) Abs Immat Gran (auto) Absolute Neuts (auto) Absolute Nucleated RBC Nucleated RBC % (auto) Smear Tech's Comments Smear Path Review Sodium 131 L Potassium 4.4 Chloride 97 Carbon Dioxide 21 L Anion Gap 17 BUN 11 Creatinine 0.77 Estim Creat Clear Calc 54.4 Estimated GFR > 60 POC Glucose Random Glucose 155 H Lactic Acid Calcium 8.8 Magnesium Total Bilirubin AST ALT Alkaline Phosphatase Total Protein Albumin Procalcitonin 0.12 Urine Color Urine Appearance Urine pH Ur Specific [place] Urine Protein Urine Glucose (UA) Urine Ketones Urine Blood Urine Nitrite Ur Leukocyte Esterase Nasal Screen MRSA (PCR) Nasal S. aureus Screen Nasal MRSA/S.aureus Interp Vancomycin Trough 16.5 COVID-19 ([facility]) COVID-19 [employer] 12/19/21 12/19/21 12/19/21 07:19 09:10 11:13 WBC RBC Hgb Hct MCV MCH MCHC RDW Plt Count MPV Immature Gran % (Auto) Neut % (Auto) Lymph % (Auto) [place] % (Auto) Eos % (Auto) Baso % (Auto) Lymph # (Auto) [place] # (Auto) Eos # (Auto) Baso # (Auto) Abs Immat Gran (auto) Absolute Neuts (auto) Absolute Nucleated RBC Nucleated RBC % (auto) Smear Tech's Comments Smear Path Review Sodium Potassium Chloride Carbon Dioxide Anion Gap BUN Creatinine Estim Creat Clear Calc Estimated GFR POC Glucose 174 H 181 H Random Glucose Lactic Acid Calcium Magnesium Total Bilirubin AST ALT Alkaline Phosphatase Total Protein Albumin Procalcitonin Urine Color Urine Appearance Urine pH Ur Specific [place] Urine Protein Urine Glucose (UA) Urine Ketones Urine Blood Urine Nitrite Ur Leukocyte Esterase Nasal Screen MRSA (PCR) NEGATIVE Nasal S. aureus Screen NEGATIVE Nasal MRSA/S.aureus Interp SEE NOTE Vancomycin Trough COVID-19 ([facility]) COVID-19 [employer] 12/19/21 12/19/21 12/19/21 15:54 19:30 19:55 WBC RBC Hgb Hct MCV MCH MCHC RDW Plt Count MPV Immature Gran % (Auto) Neut % (Auto) Lymph % (Auto) [place] % (Auto) Eos % (Auto) Baso % (Auto) Lymph # (Auto) [place] # (Auto) Eos # (Auto) Baso # (Auto) Abs Immat Gran (auto) Absolute Neuts (auto) Absolute Nucleated RBC Nucleated RBC % (auto) Smear Tech's Comments Smear Path Review Sodium Potassium Chloride Carbon Dioxide Anion Gap BUN Creatinine Estim Creat Clear Calc Estimated GFR POC Glucose 229 H 42 L* 60 Random Glucose Lactic Acid Calcium Magnesium Total Bilirubin AST ALT Alkaline Phosphatase Total Protein Albumin Procalcitonin Urine Color Urine Appearance Urine pH Ur Specific [place] Urine Protein Urine Glucose (UA) Urine Ketones Urine Blood Urine Nitrite Ur Leukocyte Esterase Nasal Screen MRSA (PCR) Nasal S. aureus Screen Nasal MRSA/S.aureus Interp Vancomycin Trough COVID-19 ([facility]) COVID-19 [employer] 12/19/21 12/19/21 12/20/21 20:17 22:00 05:54 WBC RBC Hgb Hct MCV MCH MCHC RDW Plt Count MPV Immature Gran % (Auto) Neut % (Auto) Lymph % (Auto) [place] % (Auto) Eos % (Auto) Baso % (Auto) Lymph # (Auto) [place] # (Auto) Eos # (Auto) Baso # (Auto) Abs Immat Gran (auto) Absolute Neuts (auto) Absolute Nucleated RBC Nucleated RBC % (auto) Smear Tech's Comments Smear Path Review Sodium Potassium Chloride Carbon Dioxide Anion Gap BUN Creatinine Estim Creat Clear Calc Estimated GFR POC Glucose 87 139 H Random Glucose Lactic Acid Calcium Magnesium Total Bilirubin AST ALT Alkaline Phosphatase Total Protein Albumin Procalcitonin Urine Color Urine Appearance Urine pH Ur Specific [place] Urine Protein Urine Glucose (UA) Urine Ketones Urine Blood Urine Nitrite Ur Leukocyte Esterase Nasal Screen MRSA (PCR) Nasal S. aureus Screen Nasal MRSA/S.aureus Interp Vancomycin Trough 16.7 COVID-19 ([facility]) COVID-19 [employer] 12/20/21 12/20/21 12/20/21 05:54 06:55 11:15 WBC RBC Hgb Hct MCV MCH MCHC RDW Plt Count MPV Immature Gran % (Auto) Neut % (Auto) Lymph % (Auto) [place] % (Auto) Eos % (Auto) Baso % (Auto) Lymph # (Auto) [place] # (Auto) Eos # (Auto) Baso # (Auto) Abs Immat Gran (auto) Absolute Neuts (auto) Absolute Nucleated RBC Nucleated RBC % (auto) Smear Tech's Comments Smear Path Review Sodium Potassium Chloride Carbon Dioxide Anion Gap BUN Creatinine 0.83 Estim Creat Clear Calc 50.4 Estimated GFR > 60 POC Glucose 287 H 115 Random Glucose Lactic Acid Calcium Magnesium Total Bilirubin AST ALT Alkaline Phosphatase Total Protein Albumin Procalcitonin Urine Color Urine Appearance Urine pH Ur Specific [place] Urine Protein Urine Glucose (UA) Urine Ketones Urine Blood Urine Nitrite Ur Leukocyte Esterase Nasal Screen MRSA (PCR) Nasal S. aureus Screen Nasal MRSA/S.aureus Interp Vancomycin Trough COVID-19 ([facility]) COVID-19 [employer] 12/20/21 12/20/21 12/20/21 15:09 18:07 18:07 WBC 19.0 H RBC 2.76 L Hgb 8.1 L Hct 24.6 L MCV 89.1 MCH 29.3 MCHC 32.9 RDW 18.8 H Plt Count 472 H MPV 8.2 L Immature Gran % (Auto) Neut % (Auto) Lymph % (Auto) [place] % (Auto) Eos % (Auto) Baso % (Auto) Lymph # (Auto) [place] # (Auto) Eos # (Auto) Baso # (Auto) Abs Immat Gran (auto) Absolute Neuts (auto) Absolute Nucleated RBC 0.000 Nucleated RBC % (auto) 0.0 Smear Tech's Comments Smear Path Review Sodium Potassium Chloride Carbon Dioxide Anion Gap BUN Creatinine Estim Creat Clear Calc Estimated GFR POC Glucose 252 H Random Glucose Lactic Acid Calcium Magnesium Total Bilirubin AST ALT Alkaline Phosphatase Total Protein Albumin Procalcitonin 0.22 Urine Color Urine Appearance Urine pH Ur Specific [place] Urine Protein Urine Glucose (UA) Urine Ketones Urine Blood Urine Nitrite Ur Leukocyte Esterase Nasal Screen MRSA (PCR) Nasal S. aureus Screen Nasal MRSA/S.aureus Interp Vancomycin Trough COVID-19 ([facility]) COVID-19 [employer] 12/20/21 12/20/21 12/21/21 18:07 19:37 06:59 WBC RBC Hgb Hct MCV MCH MCHC RDW Plt Count MPV Immature Gran % (Auto) Neut % (Auto) Lymph % (Auto) [place] % (Auto) Eos % (Auto) Baso % (Auto) Lymph # (Auto) [place] # (Auto) Eos # (Auto) Baso # (Auto) Abs Immat Gran (auto) Absolute Neuts (auto) Absolute Nucleated RBC Nucleated RBC % (auto) Smear Tech's Comments Smear Path Review Sodium 132 L Potassium Chloride Carbon Dioxide Anion Gap BUN Creatinine Estim Creat Clear Calc Estimated GFR POC Glucose 132 H 222 H Random Glucose Lactic Acid Calcium Magnesium Total Bilirubin AST ALT Alkaline Phosphatase Total Protein Albumin Procalcitonin Urine Color Urine Appearance Urine pH Ur Specific [place] Urine Protein Urine Glucose (UA) Urine Ketones Urine Blood Urine Nitrite Ur Leukocyte Esterase Nasal Screen MRSA (PCR) Nasal S. aureus Screen Nasal MRSA/S.aureus Interp Vancomycin Trough COVID-19 ([facility]) COVID-19 Clin Com 12/21/21 12/21/21 12/21/21 11:10 15:24 19:50 WBC RBC Hgb Hct MCV MCH MCHC RDW Plt Count MPV Immature Gran % (Auto) Neut % (Auto) Lymph % (Auto) [place] % (Auto) Eos % (Auto) Baso % (Auto) Lymph # (Auto) [place] # (Auto) Eos # (Auto) Baso # (Auto) Abs Immat Gran (auto) Absolute Neuts (auto) Absolute Nucleated RBC Nucleated RBC % (auto) Smear Tech's Comments Smear Path Review Sodium Potassium Chloride Carbon Dioxide Anion Gap BUN Creatinine Estim Creat Clear Calc Estimated GFR POC Glucose 166 H 142 H 310 H Random Glucose Lactic Acid Calcium Magnesium Total Bilirubin AST ALT Alkaline Phosphatase Total Protein Albumin Procalcitonin Urine Color Urine Appearance Urine pH Ur Specific [place] Urine Protein Urine Glucose (UA) Urine Ketones Urine Blood Urine Nitrite Ur Leukocyte Esterase Nasal Screen MRSA (PCR) Nasal S. aureus Screen Nasal MRSA/S.aureus Interp Vancomycin Trough COVID-19 ([facility]) COVID-19 Clin Com 12/22/21 12/22/21 12/22/21 07:21 11:14 15:17 WBC RBC Hgb Hct MCV MCH MCHC RDW Plt Count MPV Immature Gran % (Auto) Neut % (Auto) Lymph % (Auto) [place] % (Auto) Eos % (Auto) Baso % (Auto) Lymph # (Auto) [place] # (Auto) Eos # (Auto) Baso # (Auto) Abs Immat Gran (auto) Absolute Neuts (auto) Absolute Nucleated RBC Nucleated RBC % (auto) Smear Tech's Comments Smear Path Review Sodium Potassium Chloride Carbon Dioxide Anion Gap BUN Creatinine Estim Creat Clear Calc Estimated GFR POC Glucose 317 H 309 H 205 H Random Glucose Lactic Acid Calcium Magnesium Total Bilirubin AST ALT Alkaline Phosphatase Total Protein Albumin Procalcitonin Urine Color Urine Appearance Urine pH Ur Specific [place] Urine Protein Urine Glucose (UA) Urine Ketones Urine Blood Urine Nitrite Ur Leukocyte Esterase Nasal Screen MRSA (PCR) Nasal S. aureus Screen Nasal MRSA/S.aureus Interp Vancomycin Trough COVID-19 ([facility]) COVID-19 Clin Com 12/22/21 12/23/21 12/23/21 19:15 07:49 11:18 WBC RBC Hgb Hct MCV MCH MCHC RDW Plt Count MPV Immature Gran % (Auto) Neut % (Auto) Lymph % (Auto) [place] % (Auto) Eos % (Auto) Baso % (Auto) Lymph # (Auto) [place] # (Auto) Eos # (Auto) Baso # (Auto) Abs Immat Gran (auto) Absolute Neuts (auto) Absolute Nucleated RBC Nucleated RBC % (auto) Smear Tech's Comments Smear Path Review Sodium Potassium Chloride Carbon Dioxide Anion Gap BUN Creatinine Estim Creat Clear Calc Estimated GFR POC Glucose 226 H 388 H* 377 H* Random Glucose Lactic Acid Calcium Magnesium Total Bilirubin AST ALT Alkaline Phosphatase Total Protein Albumin Procalcitonin Urine Color Urine Appearance Urine pH Ur Specific [place] Urine Protein Urine Glucose (UA) Urine Ketones Urine Blood Urine Nitrite Ur Leukocyte Esterase Nasal Screen MRSA (PCR) Nasal S. aureus Screen Nasal MRSA/S.aureus Interp Vancomycin Trough COVID-19 ([facility]) COVID-19 Clin Com 12/23/21 12/23/21 12/24/21 15:49 20:28 05:29 WBC 53.7 H* RBC 3.26 L Hgb 9.5 L Hct 28.6 L MCV 87.7 MCH 29.1 MCHC 33.2 RDW 18.8 H Plt Count 551 H MPV 8.7 L Immature Gran % (Auto) Neut % (Auto) Lymph % (Auto) [place] % (Auto) Eos % (Auto) Baso % (Auto) Lymph # (Auto) [place] # (Auto) Eos # (Auto) Baso # (Auto) Abs Immat Gran (auto) Absolute Neuts (auto) Absolute Nucleated RBC 0.000 Nucleated RBC % (auto) 0.0 Smear Tech's Comments Smear Path Review SEE NOTE Sodium Potassium Chloride Carbon Dioxide Anion Gap BUN Creatinine Estim Creat Clear Calc Estimated GFR POC Glucose 249 H 224 H Random Glucose Lactic Acid Calcium Magnesium Total Bilirubin AST ALT Alkaline Phosphatase Total Protein Albumin Procalcitonin Urine Color Urine Appearance Urine pH Ur Specific [place] Urine Protein Urine Glucose (UA) Urine Ketones Urine Blood Urine Nitrite Ur Leukocyte Esterase Nasal Screen MRSA (PCR) Nasal S. aureus Screen Nasal MRSA/S.aureus Interp Vancomycin Trough COVID-19 ([facility]) COVID-19 Clin Com 12/24/21 12/24/21 05:29 07:13 WBC RBC Hgb Hct MCV MCH MCHC RDW Plt Count MPV Immature Gran % (Auto) Neut % (Auto) Lymph % (Auto) [place] % (Auto) Eos % (Auto) Baso % (Auto) Lymph # (Auto) [place] # (Auto) Eos # (Auto) Baso # (Auto) Abs Immat Gran (auto) Absolute Neuts (auto) Absolute Nucleated RBC Nucleated RBC % (auto) Smear Tech's Comments Smear Path Review Sodium 129 L Potassium 4.7 Chloride 93 L Carbon Dioxide 23 Anion Gap 18 BUN 35 H D Creatinine 1.02 Estim Creat Clear Calc 40.5 Estimated GFR 55 POC Glucose 424 H* Random Glucose 422 H* Lactic Acid Calcium 9.7 D Magnesium Total Bilirubin AST ALT Alkaline Phosphatase Total Protein Albumin Procalcitonin Urine Color Urine Appearance Urine pH Ur Specific [place] Urine Protein Urine Glucose (UA) Urine Ketones Urine Blood Urine Nitrite Ur Leukocyte Esterase Nasal Screen MRSA (PCR) Nasal S. aureus Screen Nasal MRSA/S.aureus Interp Vancomycin Trough COVID-19 ([facility]) COVID-19 Clin Com Airway Heart: rrr Lungs: rales ronchi throughout Assessment and Plan Final Anesthetic Review Family History of Problems with Anesthesia: No History of Problems with Anesthesia: No NPO: Yes ASA Class: IV Final Preanesthetic Review: No Changes in Pt Med Stat, Meds/Allgs Chart Reviewed and Consent Obtained/Reviewed Patient Risk: High Procedure Risk: Intermediate Anesthetic Plan Anesthetic Plan: MAC: Disposition: Standard PACU
--- NOTE | 2021-12-24 10:15 | MHC.SHP ---
Pre-Procedural Eval Section A Date of Service: 12/24/21 The patient is an INPATIENT: No Section B Chief Complaint: Pneumonia Allergies: Allergies Allergy/AdvReac Type Severity Reaction Status Date / Time ragweed pollen [RAGWEED] Allergy Severe RUNNY NOSE Verified 12/12/21 08:04 Sulfa (Sulfonamide Allergy Intermediate PASS OUT, Verified 12/12/21 08:04 Antibiotics) HIVES [SULFA(SULFONAMIDE ANTIBIOTICS)] Plan I have reviewed the history and physical and performed a pertinent physical examination on my patient. No changes have occurred unless specified.
[2021-12-24 10:18] LABS: Glucose, Whole Blood 281 mg/dL (60-115)
--- NOTE | 2021-12-24 10:40 | PM.OP ---
Brief Operative Note Date of Service: 12/24/21 Pre-op diagnosis: tracheostomy dependednt, head and neck cancer Post-op diagnosis: same Procedure: tracheostomy change under MAC Surgeon: Fox Crowley MD Anesthesia: MAC Was an Consultant Dietitian used for this Procedure?: No Estimated blood loss (mL): 0 Pathology: none sent Condition: stable Disposition: floor
--- NOTE | 2021-12-24 11:08 | MHC.CLN ---
Addendum entered by Kristin Lema, LIZZIE 12/24/21 14:12: STYFTS=[id number], LOW. CONTINUE TO FOLLOW. Original Note: F/U PATIENT WITH TRACH AND PEG DUE TO SQUAMOUS CELL HEAD AND NECK CANCER. TF ON HOLD TODAY DUE TO TRACH REPLACEMENT. APPEARS TO BE TOLERATING CURRENT TUBE FEEDING AND FLUSH (PRIOR TO HOLD). ALERTED BY CM THAT HAD BEEN TAKING GLUCERNA 1.5 VIA BOLUS FEED AT HOME. WHEN HOME, OK TO RESUME GLUCERNA 1.5 BOLUS FEEDINGS. WHEN ABLE, CONTINUE CURRENT TUBE FEED/FLUSH ORDER: GLUCERNA 1.0, 300 ML BOLUS FEEDING 4 TIMES DAILY. FREE WATER FLUSH 120 ML Q 8 HOURS. PROVIDES 1200 KCAL (25.9 KCALS/KG); 50 G PROTEIN (1.08 G/KG); FREE WATER FROM FORMULA AND ZESOA=3920 ML (29.9 ML/KG). PROVIDE TUBE FEEDING WHILE AWAKE. FOLLOW FOR RESIDUALS, TOLERANCE, LYTES.
[2021-12-24 11:46] LABS: Glucose, Whole Blood 257 mg/dL (60-115)
--- NOTE | 2021-12-24 13:03 | HO.PM.IMPN ---
Subjective Subjective Date of Service: 12/25/21 Interval History: Offers no acute complaints, wants to know if she will be continued on steroids upon discharge since she feels that steroids are helping to reduce size of the tumor, noted to have elevated blood sugars, denies shortness of breath, no neck discomfort. Review of Systems Review of Systems: Yes all other systems are reviewed and are negative Physical Exam Vital Signs: Vital Signs: Last Vital Signs Temp 96.8 F 12/24/21 11:48 Pulse 64 12/24/21 11:48 Resp 18 12/24/21 11:48 BP 138/64 12/24/21 11:48 Pulse Ox 99 12/24/21 11:48 O2 Del Method 12/24/21 11:48 O2 Flow Rate 5 12/24/21 11:48 Oxygen Flow Rate 5 12/24/21 08:12 BMI result Body Mass Index 19.9 Const: Other: gen- ? Awake alert no acute distress neck- tracheostomy to humidified collar, no redness, firm mass in neck nontender stable lungs- clear bilaterally, no respiratory distress no use of accessory muscle no wheeze, no rhonchi CV- RRR no murmurs abd- soft, PEG in place no surrounding erythema, bowel sounds audible ext- no C/C/E neuro- oriented, alert psych- appropriate affect Objective Data Active Medications Acetaminophen (Acetaminophen 325 Mg Tablet) 650 mg G-TUBE Q6H PRN PRN Reason: Pain, Mild (Pain Scale 1-3) Last Admin: 12/23/21 21:39 Dose: 650 mg Documented By: KEVIN Albuterol/Ipratropium (Albuterol/Iprat 2.5/0.5mg 3 Ml Ampul.Neb) 3 ml INHALE Q6H PRN PRN Reason: Shortness Of Breath Calcium Carbonate/Cholecalciferol (Calcium + Vitamin D 250 Mg Tablet) 500 mg G-TUBE DAILY [facility] Last Admin: 12/24/21 07:46 Dose: 500 mg Documented By: RAFAT Dexamethasone Sodium Phosphate (Dexamethasone Sod Phosphate 10 Mg/Ml Vial) 4 mg IVPUSH Q8H [facility] Last Admin: 12/24/21 07:45 Dose: 4 mg Documented By: RAFAT Dextrose (Dextrose 50 % 25 Gm/50 Ml Syringe) 25 gm IVPUSH Q15M PRN; Protocol PRN Reason: per Hypoglycemia Standing Ord. Docusate Sodium (Docusate Sodium 100 Mg Capsule) 100 mg PO DAILY PRN PRN Reason: Constipation Fentanyl (Fentanyl Citrate/Pf 100 Mcg/2 Ml Vial) 25 mcg IVPUSH Q5M PRN; Protocol PRN Reason: Pain, Moderate (Pain Scale 4-6 Glucose (Glucose Gel 15 Gm Gel..Gram.) 15 gm BUCCAL Q15M PRN; Protocol PRN Reason: per Hypoglycemia Standing Ord. Heparin Sodium (Porcine) (Heparin Sodium,Porcine 5,000 Unit/Ml Vial) 5,000 unit SUBCUT Q12H [facility] Last Admin: 12/19/21 08:38 Dose: Not Given Documented By: DOYLE Non-Admin Reason: procedure today Hydromorphone HCl (Hydromorphone Hcl 2 Mg/Ml Vial) 1 mg IVPUSH Q4H PRN; Protocol PRN Reason: severe pain Last Admin: 12/24/21 12:07 Dose: 1 mg Documented By: RAFAT Hydromorphone HCl (Hydromorphone Hcl 2 Mg Tablet) 10 mg G-TUBE Q4H PRN PRN Reason: severe pain Last Admin: 12/22/21 16:48 Dose: 10 mg Documented By: BLACK Ampicillin Sodium/Sulbactam (Sodium 3 gm/ Sodium Chloride) 100 mls @ 200 mls/hr IV Q6H [facility] Last Infusion: 12/24/21 08:23 Dose: 0 mls/hr Documented By: COTSURESH Insulin Human Lispro (Insulin Lispro 100 Unit/Ml 3 Ml Vial) 0 unit SUBCUT QIDACHS [facility]; Protocol Last Admin: 12/24/21 12:08 Dose: 8 unit Documented By: RAFAT Loratadine (Loratadine 10 Mg Tablet) 10 mg G-TUBE DAILY [facility] Last Admin: 12/24/21 07:46 Dose: 10 mg Documented By: RAFAT Non-Formulary Medication ( Simvastatin 5 Mg) 5 each G-TUBE BEDTIME [facility] Nystatin (Nystatin Cream 15 Gm Tube) 1 appl TOPICAL BID [facility]; Protocol Last Admin: 12/24/21 08:04 Dose: 1 appl Documented By: RAFAT Omeprazole (Omeprazole 20 Mg/10 Ml Susp.Recon) 20 mg G-TUBE DAILY@0630 [facility] Last Admin: 12/24/21 06:40 Dose: 20 mg Documented By: EMILIAJ Ondansetron HCl (Ondansetron Hcl 4 Mg/2 Ml Vial) 4 mg IVPUSH Q8H PRN PRN Reason: Nausea and Vomiting Ondansetron HCl (Ondansetron Hcl 4 Mg/2 Ml Vial) 4 mg IVPUSH ONCE PRN PRN Reason: Nausea and Vomiting Pharmacy Consult (Consult Rx Perform Med Rec) 1 each MISCELLANE ONCE PRN PRN Reason: Consult order Pharmacy Consult (Consult Rx Vancomycin Dosing) 1 each MISCELLANE DAILY PRN PRN Reason: Consult order Polyethylene Glycol (Polyethylene Glycol 3350 17 Gm Powd.Pack) 17 gm G-TUBE DAILY PRN PRN Reason: Constipation Sodium Chloride (0.9 % Sodium Chloride Flush 3 Ml Syringe) 3 ml IVFLUSH QSHIFT [facility] Last Admin: 12/24/21 07:48 Dose: 3 ml Documented By: RAFAT Sodium Chloride (Sodium Chloride Tab 1 Gm Tablet) 1 gm PO TID [facility] Last Admin: 12/24/21 07:46 Dose: 1 gm Documented By: RAFAT Labs CBC & Chem 7: 12/24/21 05:29 12/25/21 07:48 Labs: Laboratory Results - last 24 hr 12/23/21 12/23/21 12/24/21 15:49 20:28 05:29 MCV 87.7 MCH 29.1 MCHC 33.2 RDW 18.8 H Plt Count 551 H MPV 8.7 L Absolute Nucleated RBC 0.000 Nucleated RBC % (auto) 0.0 Smear Path Review SEE NOTE Anion Gap Estim Creat Clear Calc Estimated GFR POC Glucose 249 H 224 H Random Glucose Calcium 12/24/21 12/24/21 12/24/21 05:29 07:13 10:14 MCV MCH MCHC RDW Plt Count MPV Absolute Nucleated RBC Nucleated RBC % (auto) Smear Path Review Anion Gap 18 Estim Creat Clear Calc 40.5 Estimated GFR 55 POC Glucose 424 H* 281 H Random Glucose 422 H* Calcium 9.7 D 12/24/21 11:42 MCV MCH MCHC RDW Plt Count MPV Absolute Nucleated RBC Nucleated RBC % (auto) Smear Path Review Anion Gap Estim Creat Clear Calc Estimated GFR POC Glucose 257 H Random Glucose Calcium Assessment and Plan (1) Pneumonia: Status: Acute (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: Status: Acute Plan 60yo F with recently diagnosed SCC of neck with tracheostomy and PEG presenting with cough, increased tracheostomy secretions with blood, and dyspnea found to have enlarging nodule of lingula as well as radiographic evidence of emphysema and possible PNA # Squamous cell carcinoma of neck with swelling/# tracheostomy dependence - no respiratory distress feeling better on dexamethasone 6 mg IV q8h day 4, CT neck showed similar size of pharyngeal / hypopharyngeal mass with minimally increased subcutaneous edema, few small bubbles of soft tissue gas nonspecific could represent small perforations within the hypopharynx or superimposed gas-forming infection of a mass lesion ENT from [facility] and radiation oncology , did not feel patient need inpatient radiation therapy no evidence local infection will gradually wean IV steroids and DC IV antibiotic since finish course of antibiotic for pneumonia Tracheostomy changed this morning by Dr. Crowley patient had cycle 1 of cisplatin/docetaxel/5 FU at [facility] 10/31/21 and has transitioned care to [facility] with plan for concurrent chemoradiation therapy, chemotherapy with weekly carboplatin and Taxol port placement rescheduled for 12/30/21; pt has radiation in AM that day outpatient radiation therapy at [facility] next week monitor clinical status once clinically stable will discharge home for outpatient radiation and chemo, will discharge with VNA services for [facility] care Case discussed with Dr. Weir will continue low-dose steroid upon discharge # acute hypoxic resp failure due to PNA - BCx neg, PCT low, MRSA negative. DC IV antibiotic - weaned off O2, on trach collar with oxygen only for humidification [no medical air in unit] # G tube dislodgement - replaced by Dr Temple 12/19/21, gastrograffin study confirms placement, # lingular nodule - Heme/Onc consulted, question of metastasis vs primary CA, will schedule CT-guided biopsy as outpt due to PNA # leukocytosis likely related to high-dose steroid, no evidence of reinfection or worsening infection, follow CBC # hemoptysis - resolved # hyperK - resolved s/p SZC 10g # hypoNa - sodium 129,status post IV normal saline, continue NaCl tabs. 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 Follow BMP # DM2 - blood sugars elevated likely due to steroid, adjusted correction-dose lispro and wean steroids # tube feeding dependence - Nutrition consulted, on Glucerna # VTE ppx: UFH In my clinical judgment, the patient requires continued hospitalization for the following reasons: neck swelling on IV steroids and IV antibiotics and need change of trach in OR Quality Stroke Does the patient have a stroke diagnosis?: No VTE Prior VTE?: No VTE Risk Level:: Medical - moderate - high VTE Device Contraindication: Treatment Not Indicated VTE Drug Contraindication: N/A - Med Ordered
--- NOTE | 2021-12-24 14:40 | OP_ITS ---
SURGEON: Fox Crowley MD PREOPERATIVE DIAGNOSIS: Head and neck cancer and tracheostomy dependent. POSTOPERATIVE DIAGNOSIS: Head and neck cancer and tracheostomy dependent. PROCEDURE PERFORMED: Tracheostomy change under MAC sedation. ESTIMATED BLOOD LOSS: COMPLICATIONS: ANESTHESIA: ASSISTANTS: SPECIMENS: DESCRIPTION OF PROCEDURE: After the patient is adequately sedated, the tracheostomy was evaluated, appeared to be significantly discolored due to mucous. Suctioning was provided. The tracheostomy was then removed. Appeared to have some areas of erythema and also granulation tissue surrounding it. The erythema appears to be somewhat tender to the touch. A bougie was placed into the airway, and the tracheostomy #7 [employer] was placed without any complications. It was then secured and then the trach was suctioned again and cleared out as much as possible. Once it was secured, the procedure was completed. No apparent complications, no bleeding. INTERPRETATION: Successful tracheostomy change under MAC sedation due to high risk as before. No apparent complications. MD CORDELL Quiroz/ALEXAL / [phone]
[2021-12-24 16:23] LABS: Glucose, Whole Blood 168 mg/dL (60-115)
[2021-12-24] MEDS: Acetaminophen 325 MG TABLET 650 MG G-TUBE (17:02)
[2021-12-24 21:12] LABS: Glucose, Whole Blood 217 mg/dL (60-115)
[2021-12-24] MEDS: ondansetron HCL 4 MG/2 ML VIAL IVPUSH (23:47)
[2021-12-25] VITALS (7 sets, daily range): BP systolic 110–157; BP diastolic 55–73; PULSE 58–86; RESP 16–18; TEMP 36.2–37.2; O2SAT 94–100
[2021-12-25] MEDS: HYDROmorphone HCl 2 MG/ML VIAL 1 MG IVPUSH ×2 (03:04→07:54)
[2021-12-25] MEDS: Ampicillin Sodium/Sulbactam Na 3 GM in 0.9 % Sodium Chloride 100 ML IV (03:04)
[2021-12-25 07:31] LABS: Glucose, Whole Blood 305 mg/dL (60-115)
[2021-12-25] MEDS: Insulin Lispro 100 UNIT/ML 3 ML VIAL SUBCUT ×3 (07:51→19:44)
[2021-12-25] MEDS: 0.9 % Sodium Chloride Flush 3 ML SYRINGE IVFLUSH ×3 (07:53→19:54)
[2021-12-25] MEDS: dexAMETHasone sod phosphate 10 MG/ML VIAL 4 MG IVPUSH (07:56)
[2021-12-25] MEDS: Calcium + Vitamin D 250 MG TABLET 500 MG G-TUBE (08:00)
[2021-12-25] MEDS: Loratadine 10 MG TABLET G-TUBE (08:00)
[2021-12-25] MEDS: Acetaminophen 325 MG TABLET 650 MG G-TUBE ×2 (08:00→19:45)
[2021-12-25] MEDS: Multivitamin with Minerals Liq 15 ML LIQUID G-TUBE (08:01)
[2021-12-25] MEDS: Sodium Chloride Tab 1 GM TABLET PO ×3 (08:01→19:46)
[2021-12-25 08:43] LABS: Anion Gap 19 (12-20); Blood Urea Nitrogen 30 mg/dL (9-16); Calcium 9.6 mg/dL (8.4-10.2); Carbon Dioxide 23 mmol/L (22-29); Chloride 94 mmol/L (96-108); Creatinine Clr Calc Pharmacy 42.6; Estimated Glomerular Filt Rate 58; Glucose Random 314 mg/dL (60-115); Potassium 5.3 mmol/L (3.3-5.1); Sodium 131 mmol/L (135-145)
--- NOTE | 2021-12-25 10:00 | MHC.CM.PN ---
EMR REVEIWED, PT HAD TRACH REPLACED YESTERDAY, NO COMPLICATIONS NOTED, PER DIETARY PT WILL BE CHANGED TO CONT FEED D/T ASPIRATING, AND WILL BE ON GLUCERNA 1.0 40ML/HR AND CAN CHANGE BACK TO GLUCERNA 1.5 AT 35ML/HR UPON D/C, [facility] C[facility] UPDATED VIA [facility].
--- NOTE | 2021-12-25 10:10 | P.PNPL_ITS ---
Subjective Subjective Date of Service: 12/25/21 Interval history: The patient was seen on exam today. Apparently last night she had an aspiration event of her tube feeds. Yesterday we did change her tracheostomy with the tube exchanger without any evidence of any complications. The mass at this point is not completely obstructing the airway. Unfortunately now that she aspirated she is bringing up a lot of secretions thick tenacious. The secretions actually smell like her to feet. Therefore she did have definitely an aspiration event. I will request a repeat x-ray. She now completed the Unasyn but I do believe that she may have a recurrent or different infection going on at this time. Objective Data Labs CBC & Chem 7: 12/24/21 05:29 12/25/21 07:48 Labs: Laboratory Results - last 24 hr 12/24/21 12/24/21 12/24/21 10:14 11:42 16:15 Sodium Potassium Chloride Carbon Dioxide Anion Gap BUN Creatinine Estim Creat Clear Calc Estimated GFR POC Glucose 281 H 257 H 168 H Random Glucose Calcium 12/24/21 12/25/21 12/25/21 20:57 07:13 07:48 Sodium 131 L Potassium 5.3 H Chloride 94 L Carbon Dioxide 23 Anion Gap 19 BUN 30 H Creatinine 0.97 Estim Creat Clear Calc 42.6 Estimated GFR 58 POC Glucose 217 H 305 H Random Glucose 314 H Calcium 9.6 Microbiology Microbiology Results: Microbiology 12/16/21 23:11 Blood - Venous Blood Culture - Final No growth after 5 days. 12/16/21 23:11 Blood - Venous Blood Culture - Final No growth after 5 days. Review of Systems Review of Systems Yes Unobtainable due to mental condition Cardiovascular: Reports dyspnea Respiratory: Reports change in phlegm color, Reports chest congestion, Reports cough, Denies hemoptysis, Reports excessive phlegm production and Reports dyspnea Physical Exam Vital Signs: Vital Signs: Last Vital Signs Temp 99.0 F 12/25/21 07:19 Pulse 70 12/25/21 07:19 Resp 18 12/25/21 07:19 BP 154/69 H 12/25/21 07:19 Pulse Ox 100 12/25/21 08:12 O2 Del Method 12/25/21 08:12 O2 Flow Rate 5 12/25/21 07:19 Oxygen Flow Rate 5 12/25/21 08:12 BMI result Body Mass Index 19.9 Const: General: cooperative Orientation/consciousness: patient oriented x3 HEENT: Head: Yes normal to inspection Mouth: Normal oral and palatal mucosa present Eyes: General: appearance normal, both eyes and all related structures P upils: Equal, round and reactive pupils present Neck: Neck: Yes tracheostomy present (significant secretions) Resp: Other: trach Effort & Inspection: normal respiratory effort Cardio: Rate: regular rate Rhythm: regular rhythm GI: Palpation (GI): Soft to palpation and nontender : General: Yes no CVA tenderness Back/Spine/Pelvis: Back: no CVA tenderness Skin: General skin exam: no rashes or lesions noted Neuro: General: patient oriented x3 Cranial nerves: Yes CN's II-XII intact bilaterally and Yes Equal, round and reactive pupils present Extrem: General: Yes normal to inspection Psych: Appearance: grossly normal Procedures Date of Service Date of Service: 12/25/21 Assessment and Plan Assessment and plan (1) Tracheostomy dependence: Status: Acute (2) Squamous cell carcinoma of head and neck: Status: Acute (3) Aspiration into airway: Status: Acute Plan sputum GS and culture CXR need address aspiration/dysphagia from tube feeds still requiring alot of suction Time Spent With Patient Time: Total time spent is greater than 50% in coordination of care (as documented) at patient's floor/unit and/or counseling patient: Progress Note: Quality Stroke Does the patient have a stroke diagnosis?: No
[2021-12-25 11:11] LABS: Glucose, Whole Blood 248 mg/dL (60-115)
--- NOTE | 2021-12-25 11:51 | MHC.CLN ---
F/U PATIENT WITH TRACH AND PEG DUE TO SQUAMOUS CELL HEAD AND NECK CANCER NOTED ASPIRATION EVENT LAST EVENING PER MD RECOMMEND SWITCHING TF TO CONTINUOUS R/T ASPIRATION EVENT: GLUCERNA AT MAX GOAL RATE 50ML/HR WITH 120ML FREE WATER FLUSHES Q 8 HRS TO PROVIDE 1200 KCAL (25.9 KCALS/KG); 50 G PROTEIN (1.08 G/KG); 1384 ML (29.9 ML/KG) TOTAL FREE WATER FROM FORMULA AND FLUSH HEAD OF BED MUST BE AT 90 DEGREE MONITOR RESIDUALS, TOLERANCE, AND LYTES
[2021-12-25] MEDS: HYDROmorphone HCl 2 MG TABLET 10 MG G-TUBE ×3 (12:51→21:27)
[2021-12-25] MEDS: Nystatin Cream 15 GM TUBE 1 APPL TOPICAL ×2 (13:01→19:53)
--- NOTE | 2021-12-25 15:32 | HO.PM.IMPN ---
Subjective Subjective Date of Service: 12/25/21 Interval History: Sitting comfortably, denies fever chills, no acute overnight events, no shortness of breath, sputum sample smelled like tube feeds, therefore chest x-ray obtained. 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 Awake alert no acute distress neck- tracheostomy site showed no redness, thick creamy secretions, firm mass in neck nontender stable lungs- clear bilaterally, no respiratory distress, no use of accessory muscle no wheeze, no rhonchi CV- RRR no murmurs abd- soft, PEG in place no surrounding erythema, bowel sounds audible ext- no C/C/E neuro- oriented, alert psych- appropriate affect Objective Data Active Medications Acetaminophen (Acetaminophen 325 Mg Tablet) 650 mg G-TUBE Q6H PRN PRN Reason: Pain, Mild (Pain Scale 1-3) Last Admin: 12/25/21 08:00 Dose: 650 mg Documented By: IVAN Albuterol/Ipratropium (Albuterol/Iprat 2.5/0.5mg 3 Ml Ampul.Neb) 3 ml INHALE Q6H PRN PRN Reason: Shortness Of Breath Calcium Carbonate/Cholecalciferol (Calcium + Vitamin D 250 Mg Tablet) 500 mg G-TUBE DAILY [facility] Last Admin: 12/25/21 08:00 Dose: 500 mg Documented By: IVAN Dexamethasone Sodium Phosphate (Dexamethasone Sod Phosphate 10 Mg/Ml Vial) 4 mg PO Q8H [facility] Last Admin: 12/25/21 08:11 Dose: Not Given Documented By: IVAN Non-Admin Reason: previously given IV push dose Dextrose (Dextrose 50 % 25 Gm/50 Ml Syringe) 25 gm IVPUSH Q15M PRN; Protocol PRN Reason: per Hypoglycemia Standing Ord. Docusate Sodium (Docusate Sodium 100 Mg Capsule) 100 mg PO DAILY PRN PRN Reason: Constipation Fentanyl (Fentanyl Citrate/Pf 100 Mcg/2 Ml Vial) 25 mcg IVPUSH Q5M PRN; Protocol PRN Reason: Pain, Moderate (Pain Scale 4-6 Glucose (Glucose Gel 15 Gm Gel..Gram.) 15 gm BUCCAL Q15M PRN; Protocol PRN Reason: per Hypoglycemia Standing Ord. Heparin Sodium (Porcine) (Heparin Sodium,Porcine 5,000 Unit/Ml Vial) 5,000 unit SUBCUT Q12H [facility] Last Admin: 12/19/21 08:38 Dose: Not Given Documented By: DOYLE Non-Admin Reason: procedure today Hydromorphone HCl (Hydromorphone Hcl 2 Mg Tablet) 10 mg G-TUBE Q4H PRN PRN Reason: severe pain Last Admin: 12/25/21 12:51 Dose: 10 mg Documented By: IVAN Insulin Human Lispro (Insulin Lispro 100 Unit/Ml 3 Ml Vial) 0 unit SUBCUT QIDACHS [facility]; Protocol Last Admin: 12/25/21 12:34 Dose: Not Given Documented By: IVAN Non-Admin Reason: tube feed was held Loratadine (Loratadine 10 Mg Tablet) 10 mg G-TUBE DAILY [facility] Last Admin: 12/25/21 08:00 Dose: 10 mg Documented By: IVAN Non-Formulary Medication ( Simvastatin 5 Mg) 5 each G-TUBE BEDTIME [facility] Nystatin (Nystatin Cream 15 Gm Tube) 1 appl TOPICAL BID [facility]; Protocol Last Admin: 12/25/21 13:01 Dose: 1 appl Documented By: IVAN Omeprazole (Omeprazole 20 Mg/10 Ml Susp.Recon) 20 mg G-TUBE DAILY@0630 [facility] Last Admin: 12/25/21 06:26 Dose: 20 mg Documented By: CATRACHO Ondansetron HCl (Ondansetron Hcl 4 Mg/2 Ml Vial) 4 mg IVPUSH Q8H PRN PRN Reason: Nausea and Vomiting Last Admin: 12/24/21 23:47 Dose: 4 mg Documented By: CATRACHO Ondansetron HCl (Ondansetron Hcl 4 Mg/2 Ml Vial) 4 mg IVPUSH ONCE PRN PRN Reason: Nausea and Vomiting Pharmacy Consult (Consult Rx Perform Med Rec) 1 each MISCELLANE ONCE PRN PRN Reason: Consult order Pharmacy Consult (Consult Rx Vancomycin Dosing) 1 each MISCELLANE DAILY PRN PRN Reason: Consult order Polyethylene Glycol (Polyethylene Glycol 3350 17 Gm Powd.Pack) 17 gm G-TUBE DAILY PRN PRN Reason: Constipation Sodium Chloride (0.9 % Sodium Chloride Flush 3 Ml Syringe) 3 ml IVFLUSH QSHIFT [facility] Last Admin: 12/25/21 07:53 Dose: 3 ml Documented By: IVAN Sodium Chloride (Sodium Chloride Tab 1 Gm Tablet) 1 gm PO TID [facility] Last Admin: 12/25/21 08:01 Dose: 1 gm Documented By: IVAN Labs CBC & Chem 7: 12/24/21 05:29 12/25/21 07:48 Labs: Laboratory Results - last 24 hr 12/24/21 12/24/21 12/25/21 16:15 20:57 07:13 Anion Gap Estim Creat Clear Calc Estimated GFR POC Glucose 168 H 217 H 305 H Random Glucose Calcium 12/25/21 12/25/21 07:48 10:55 Anion Gap 19 Estim Creat Clear Calc 42.6 Estimated GFR 58 POC Glucose 248 H Random Glucose 314 H Calcium 9.6 Microbiology Microbiology Results: Microbiology 12/25/21 09:47 Gram Stain - Final Sputum - Suctioned Assessment and Plan (1) Pneumonia: Status: Acute (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: Status: Acute Plan 60yo F with recently diagnosed SCC of neck with tracheostomy and PEG presenting with cough, increased tracheostomy secretions with blood, and dyspnea found to have enlarging nodule of lingula as well as radiographic evidence of emphysema and possible PNA # Squamous cell carcinoma of neck with swelling/# tracheostomy dependence Trach tube changed yesterday by Dr. Crowley, bringing up thick creamy secretions today likely due to aspiration Patient antibiotic discontinued today, after 7 day treatment Chest x-ray showed mild bilateral infrahilar airspace opacities, no effusion, follow sputum cultures sensitive, hold antibiotics G-tube feedings changed to continuous feeds due to aspiration Follow clinical course repeat CBC IV steroids changed to by mouth port placement rescheduled for 12/30/21; pt has radiation in AM that day outpatient radiation therapy at [facility] next week DC IV Dilaudid, continue Dilaudid via G-tube # acute hypoxic resp failure due to PNA - BCx neg, PCT low, MRSA negative. IV antibiotic discontinued today - weaned off O2, on trach collar with oxygen only for humidification [no medical air in unit] # G tube dislodgement - replaced by Dr Temple 12/19/21, gastrograffin study confirms placement, change G-tube feedings to continuous # lingular nodule - Heme/Onc consulted, question of metastasis vs primary CA, will schedule CT-guided biopsy as outpt due to PNA # leukocytosis likely related to high-dose steroid, no evidence of reinfection or worsening infection, follow CBC # hemoptysis - resolved # recurrent hyperK will give lokelma # hypoNa - sodium 131,status post IV normal saline, continue NaCl tabs. 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 Follow BMP # DM2 - blood sugars elevated likely due to steroid, adjusted correction-dose lispro and wean steroids # tube feeding dependence - Nutrition consulted, changed to continues feeds # VTE ppx: UFH In my clinical judgment, the patient requires continued hospitalization for aspiration, hyperkalemia need close follow-up. Quality Stroke Does the patient have a stroke diagnosis?: No VTE Prior VTE?: No VTE Risk Level:: Medical - moderate - high VTE Device Contraindication: Treatment Not Indicated VTE Drug Contraindication: N/A - Med Ordered
[2021-12-25 15:44] LABS: Glucose, Whole Blood 383 mg/dL (60-115)
[2021-12-25] MEDS: Sodium Zirconium Cyclosilicate 5 GM POWD.PACK PO (16:05)
[2021-12-25] MEDS: dexAMETHasone sod phosphate 10 MG/ML VIAL 4 MG PO ×2 (16:05→23:59)
[2021-12-25 19:29] LABS: Glucose, Whole Blood 237 mg/dL (60-115)
[2021-12-26] MEDS: HYDROmorphone HCl 2 MG TABLET 10 MG G-TUBE ×5 (01:36→20:20)
[2021-12-26] MEDS: Acetaminophen 325 MG TABLET 650 MG G-TUBE (01:39)
[2021-12-26 03:29] VITALS: BP 124/64; PULSE 67; RESP 17; TEMP 36.3; O2SAT 94
--- NOTE | 2021-12-26 04:33 | PC.NURSE ---
pt's tube feeding was increased to 50 ml/hr at 1999, checked residual at 0000 and it was 120 ml, re-checked residual at 0130 and it was 180 ml, pt requested to hold tube feedings for a couple hours, re-checked residual at 0330 and it was 50 ml. Tube feedings re-started at 0330. will continue to monitor pt.
[2021-12-26 06:35] LABS: Hematocrit 27.4 % (37.0-47.0); Hemoglobin 8.9 g/dl (12.0-16.0); Mean Corpuscular HGB Conc 32.5 g/dl (31.0-35.0); Mean Corpuscular Hemoglobin 28.4 pg (27.0-33.0); Mean Corpuscular Volume 87.5 fL (80.0-98.0); Mean Platelet Volume 9.7 fL (9.4-12.3); Platelet Count 390 X10*3/uL (160-400); Red Blood Count 3.13 X10*6/uL (4.20-5.50); Red Cell Distribution Width 18.9 % (11.0-16.0)
[2021-12-26 06:38] LABS: White Blood Count 39.8 X10*3/uL (4.8-10.8)
--- NOTE | 2021-12-26 06:48 | HO.POSTANES ---
Post Anesthesia Evaluation Post Anesthesia Evaluation Vital Signs: Vital Signs Temp Pulse Resp BP Pulse Ox O2 Del Method O2 Flow Rate 12/26/21 03:29 97.4 F 67 17 124/64 94 Trach Collar 4 12/25/21 23:37 97.8 F 86 17 139/59 L 94 Nasal Cannula 4 12/25/21 19:21 97.6 F 58 16 110/55 L 97 Trach Collar 4 Anesthesia: Monitored Mental Status: Awake Pain Control: Satisfactory Nausea/Vomiting: None Hydration: Adequate Anesthesia-Related Issues: No Anes. Related Issues
[2021-12-26 07:17] LABS: Anion Gap 20 (12-20); Blood Urea Nitrogen 27 mg/dL (9-16); Calcium 9.1 mg/dL (8.4-10.2); Carbon Dioxide 24 mmol/L (22-29); Chloride 90 mmol/L (96-108); Creatinine Clr Calc Pharmacy 44.9; Estimated Glomerular Filt Rate > 60; Sodium 129 mmol/L (135-145)
[2021-12-26 07:23] LABS: Glucose, Whole Blood 400 mg/dL (60-115)
[2021-12-26 07:54] LABS: Glucose Random 416 mg/dL (60-115)
[2021-12-26 08:00] VITALS: BP 153/72; PULSE 58; RESP 16; TEMP 36.3; O2SAT 98
[2021-12-26] MEDS: Calcium + Vitamin D 250 MG TABLET 500 MG G-TUBE (08:16)
[2021-12-26] MEDS: Insulin Lispro 100 UNIT/ML 3 ML VIAL SUBCUT ×4 (08:16→20:20)
[2021-12-26] MEDS: 0.9 % Sodium Chloride Flush 3 ML SYRINGE IVFLUSH ×3 (08:17→20:24)
[2021-12-26] MEDS: Loratadine 10 MG TABLET G-TUBE (08:17)
[2021-12-26] MEDS: dexAMETHasone sod phosphate 10 MG/ML VIAL 4 MG IVPUSH (08:17)
[2021-12-26] MEDS: Nystatin Cream 15 GM TUBE 1 APPL TOPICAL ×2 (08:17→23:14)
[2021-12-26] MEDS: Sodium Chloride Tab 1 GM TABLET PO ×3 (08:17→20:20)
[2021-12-26] MEDS: Multivitamin with Minerals Liq 15 ML LIQUID G-TUBE (08:18)
--- NOTE | 2021-12-26 10:37 | MHC.CLN ---
F/U PATIENT WITH TRACH AND PEG DUE TO SQUAMOUS CELL HEAD AND NECK CANCER. NOTED ASPIRATION EVENT 12/24 PER MD. TUBE FEEDING CHANGED TO CONTINUOUS FROM BOLUS DUE TO ASPIRATION EVENT. TOLERATING CURRENT TUBE FEED: GLUCERNA AT MAX GOAL RATE 50ML/HR WITH 120ML FREE WATER FLUSHES Q 8 HRS. PROVIDES 1200 KCAL (25.9 KCALS/KG); 50 G PROTEIN (1.08 G/KG); 1384 ML (29.9 ML/KG) TOTAL FREE WATER FROM FORMULA AND FLUSH. TUBE FEED HELD DURING NIGHT PER PATIENT REQUEST DUE TO RESIDUALS, THEN RESTARTED AND RUNNING AT GOAL RATE. LABS REVIEWED AND MUPLVQ=[id number], LOW. MONITOR RESIDUALS, TOLERANCE, AND LYTES.
[2021-12-26] MEDS: levoFLOXacin 500 MG TABLET PO (10:51)
[2021-12-26 11:07] VITALS: BP 144/68; PULSE 63; RESP 18; TEMP 36.3; O2SAT 98
[2021-12-26 11:19] LABS: Glucose, Whole Blood 346 mg/dL (60-115)
--- NOTE | 2021-12-26 14:02 | HO.PM.IMPN ---
Subjective Subjective Date of Service: 12/26/21 Interval History: No acute issues overnight, trach tube clean with less secretions, patient denies shortness of breath no cough, no fever no chills, no residual G-tube, patient concern about discharge medications. 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 Awake alert no acute distress neck- tracheostom y site showed no r edness, no secreti ons, firm mass in neck nontender sta ble lungs- clear b ilaterally, no res piratory distress, no use of accesso ry muscle no wheez e, no rhonchi CV- RRR no murmurs abd - soft, PEG in paty ce no surrounding erythema, mild erin kage around peg, b owel sounds audibl e ext- no C/C/E ne uro- oriented, desirae rt psych- appropri ate affect Objective Data Active Medications Acetaminophen (Acetaminophen 325 Mg Tablet) 650 mg G-TUBE Q6H PRN PRN Reason: Pain, Mild (Pain Scale 1-3) Last Admin: 12/26/21 01:39 Dose: 650 mg Documented By: SHANITA Albuterol/Ipratropium (Albuterol/Iprat 2.5/0.5mg 3 Ml Ampul.Neb) 3 ml INHALE Q6H PRN PRN Reason: Shortness Of Breath Calcium Carbonate/Cholecalciferol (Calcium + Vitamin D 250 Mg Tablet) 500 mg G-TUBE DAILY [facility] Last Admin: 12/26/21 08:16 Dose: 500 mg Documented By: BRYAN Dexamethasone Sodium Phosphate (Dexamethasone Sod Phosphate 10 Mg/Ml Vial) 2 mg IVPUSH Q8H [facility] Dextrose (Dextrose 50 % 25 Gm/50 Ml Syringe) 25 gm IVPUSH Q15M PRN; Protocol PRN Reason: per Hypoglycemia Standing Ord. Docusate Sodium (Docusate Sodium 100 Mg Capsule) 100 mg PO DAILY PRN PRN Reason: Constipation Glucose (Glucose Gel 15 Gm Gel..Gram.) 15 gm BUCCAL Q15M PRN; Protocol PRN Reason: per Hypoglycemia Standing Ord. Heparin Sodium (Porcine) (Heparin Sodium,Porcine 5,000 Unit/Ml Vial) 5,000 unit SUBCUT Q12H [facility] Last Admin: 12/19/21 08:38 Dose: Not Given Documented By: DOYLE Non-Admin Reason: procedure today Hydromorphone HCl (Hydromorphone Hcl 2 Mg Tablet) 10 mg G-TUBE Q4H PRN PRN Reason: severe pain Last Admin: 12/26/21 11:52 Dose: 10 mg Documented By: BRYAN Insulin Human Lispro (Insulin Lispro 100 Unit/Ml 3 Ml Vial) 0 unit SUBCUT QIDACHS [facility]; Protocol Last Admin: 12/26/21 11:51 Dose: 10 unit Documented By: BRYAN Levofloxacin (Levofloxacin 500 Mg Tablet) 500 mg PO DAILY [facility] Last Admin: 12/26/21 10:51 Dose: 500 mg Documented By: BRYAN Loratadine (Loratadine 10 Mg Tablet) 10 mg G-TUBE DAILY [facility] Last Admin: 12/26/21 08:17 Dose: 10 mg Documented By: BRYAN Non-Formulary Medication ( Simvastatin 5 Mg) 5 each G-TUBE BEDTIME [facility] Nystatin (Nystatin Cream 15 Gm Tube) 1 appl TOPICAL BID [facility]; Protocol Last Admin: 12/26/21 08:17 Dose: 1 appl Documented By: BRYAN Omeprazole (Omeprazole 20 Mg/10 Ml Susp.Recon) 20 mg G-TUBE DAILY@0630 [facility] Last Admin: 12/26/21 06:02 Dose: 20 mg Documented By: SHANITA Ondansetron HCl (Ondansetron Hcl 4 Mg/2 Ml Vial) 4 mg IVPUSH Q8H PRN PRN Reason: Nausea and Vomiting Last Admin: 12/24/21 23:47 Dose: 4 mg Documented By: CATRACHO Ondansetron HCl (Ondansetron Hcl 4 Mg/2 Ml Vial) 4 mg IVPUSH ONCE PRN PRN Reason: Nausea and Vomiting Pharmacy Consult (Consult Rx Perform Med Rec) 1 each MISCELLANE ONCE PRN PRN Reason: Consult order Pharmacy Consult (Consult Rx Vancomycin Dosing) 1 each MISCELLANE DAILY PRN PRN Reason: Consult order Polyethylene Glycol (Polyethylene Glycol 3350 17 Gm Powd.Pack) 17 gm G-TUBE DAILY PRN PRN Reason: Constipation Sodium Chloride (0.9 % Sodium Chloride Flush 3 Ml Syringe) 3 ml IVFLUSH QSHIFT [facility] Last Admin: 12/26/21 08:17 Dose: 3 ml Documented By: BRYAN Sodium Chloride (Sodium Chloride Tab 1 Gm Tablet) 1 gm PO TID [facility] Last Admin: 12/26/21 08:17 Dose: 1 gm Documented By: BRYAN Labs CBC & Chem 7: 12/26/21 05:50 12/26/21 05:50 Labs: Laboratory Results - last 24 hr 12/25/21 12/25/21 12/26/21 15:26 19:25 05:50 MCV 87.5 MCH 28.4 MCHC 32.5 RDW 18.9 H Plt Count 390 D MPV 9.7 Absolute Nucleated RBC 0.000 Nucleated RBC % (auto) 0.0 Anion Gap Estim Creat Clear Calc Estimated GFR POC Glucose 383 H* 237 H Random Glucose Calcium 12/26/21 12/26/21 12/26/21 05:50 07:00 11:10 MCV MCH MCHC RDW Plt Count MPV Absolute Nucleated RBC Nucleated RBC % (auto) Anion Gap 20 Estim Creat Clear Calc 44.9 Estimated GFR > 60 POC Glucose 400 H* 346 H Random Glucose 416 H* Calcium 9.1 Microbiology Microbiology Results: Microbiology 12/25/21 09:47 Gram Stain - Final Sputum - Suctioned Sputum Culture - Preliminary Culture in progress. Assessment and Plan (1) Pneumonia: Status: Acute (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: Status: Acute Plan 60yo F with recently diagnosed SCC of neck with tracheostomy and PEG presenting with cough, increased tracheostomy secretions with blood, and dyspnea found to have enlarging nodule of lingula as well as radiographic evidence of emphysema and possible PNA # Squamous cell carcinoma of neck with swelling/# tracheostomy dependence Decreased secretions today from trach, Trach tube changed by Dr. Crowley, yesterday noted to have thick creamy secretions from trach concern for aspiration chest x-ray showed mild bilateral infrahilar airspace opacities Patient finished 1 week course of IV antibiotic, case discussed with pulmonology they recommend by mouth Levaquin for 1 week to cover Pseudomonas G-tube feedings changed to continuous feeds due to aspiration WBC trending down IV steroids changed to by mouth low-dose tapering dose port placement rescheduled for 12/30/21; with radiation appointment same day, at [facility] , continue Dilaudid via G-tube # acute hypoxic resp failure due to PNA - BCx neg, PCT low, MRSA negative. IV antibiotic discontinued today - weaned off O2, on trach collar with oxygen only for humidification [no medical air in unit] # G tube dislodgement - replaced by Dr Temple 12/19/21, gastrograffin study confirms placement, change G-tube feedings to continuous # lingular nodule - Heme/Onc consulted, question of metastasis vs primary CA, will schedule CT-guided biopsy as outpt due to PNA # leukocytosis likely related to high-dose steroid, trending down, some concern for aspiration placed on antibiotic # hemoptysis - resolved # recurrent hyperK resolved s/p lokelma # hypoNa - sodium 129,status post IV normal saline, continue NaCl tabs. 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 Follow BMP # DM2 - blood sugars elevated likely due to steroid, adjusted correction-dose lispro and wean steroids # tube feeding dependence - Nutrition consulted, changed to continues feeds # VTE ppx: UFH In my clinical judgment, the patient requires continued hospitalization for aspiration, safe dc with nursing services for tube feed Quality Stroke Does the patient have a stroke diagnosis?: No VTE Prior VTE?: No VTE Risk Level:: Medical - moderate - high VTE Device Contraindication: Treatment Not Indicated VTE Drug Contraindication: N/A - Med Ordered
[2021-12-26] MEDS: dexAMETHasone sod phosphate 10 MG/ML VIAL 2 MG IVPUSH ×2 (14:36→23:13)
--- NOTE | 2021-12-26 14:45 | MHC.CM.PN ---
PER HOSPITALIST PT MEDICALLY CLEARED FOR D/C HOWEVER PT NEEDS PUMP AND FEED DELIVERED SHE WAS ON BOLUS FEEDS AT HOME AND WILL NOW BE ON PUMP, PTS NUTRITION WILL BE GLUCERNA 15 AT 35ML/HR CONTINUOUS D/T ASPIRATION. [facility] COMING IN FOR A TEACH AT 3:30PM AND HAS BEEN MADE AWARE PT MAY NEED TRACH SUPPLIES HER TRACH WAS REPLACED W/A #7 [employer]. [facility] NOTIFIED [facility] IN DCP AND IS REQUESTING PT OR SISTER CONTACT HER ONCE SHE ARRIVES HOME AND SHE WILL GO TO PT'S HOME FOR SOC. PT HAS A CURRENT ENT DR MOREL WHO HAS ALREADY REFERRED PT TO [facility] AND HER FIRST APPT IS 12/30 AT 9:30AM. CM MET W/PT TO DISCUSS DISPO AND PT AGREEABLE TO PLAN AND HAS BEEN GIVEN [facility] AND CANDY FROM [facility] CONTACT NUMBER.
[2021-12-26 15:25] VITALS: BP 138/66; PULSE 66; RESP 15; TEMP 36.2; O2SAT 95
[2021-12-26 16:14] LABS: Glucose, Whole Blood 285 mg/dL (60-115)
[2021-12-26 19:39] VITALS: BP 162/72; PULSE 78; RESP 17; TEMP 36.6; O2SAT 92
[2021-12-26 19:49] LABS: Glucose, Whole Blood 201 mg/dL (60-115)
[2021-12-26] MEDS: Insulin Glargine,Hum.rec.anlog 100 UNIT/ML 10 ML VIAL 6 UNIT SUBCUT (20:21)
[2021-12-27] VITALS: BP 143/75; PULSE 62; RESP 18; TEMP 35.8; O2SAT 97
[2021-12-27] MEDS: HYDROmorphone HCl 2 MG TABLET 10 MG G-TUBE ×4 (00:37→13:34)
[2021-12-27 03:28] VITALS: BP 145/82; PULSE 79; RESP 18; TEMP 36; O2SAT 97
[2021-12-27] MEDS: dexAMETHasone sod phosphate 10 MG/ML VIAL 2 MG IVPUSH (05:18)
[2021-12-27 07:39] VITALS: BP 146/79; PULSE 79; RESP 18; TEMP 36.3; O2SAT 96
[2021-12-27 08:00] VITALS: O2SAT 96
[2021-12-27 08:00] LABS: Glucose, Whole Blood 346 mg/dL (60-115)
[2021-12-27] MEDS: Insulin Lispro 100 UNIT/ML 3 ML VIAL SUBCUT ×2 (08:05→13:34)
[2021-12-27] MEDS: Multivitamin with Minerals Liq 15 ML LIQUID G-TUBE (08:06)
[2021-12-27] MEDS: Calcium + Vitamin D 250 MG TABLET 500 MG G-TUBE (08:06)
[2021-12-27] MEDS: Loratadine 10 MG TABLET G-TUBE (08:06)
[2021-12-27] MEDS: Sodium Chloride Tab 1 GM TABLET PO ×2 (08:06→13:34)
[2021-12-27] MEDS: Acetaminophen 325 MG TABLET 650 MG G-TUBE (08:06)
[2021-12-27] MEDS: 0.9 % Sodium Chloride Flush 3 ML SYRINGE IVFLUSH (08:07)
[2021-12-27 08:32] LABS: Hematocrit 27.3 % (37.0-47.0); Hemoglobin 9.2 g/dl (12.0-16.0); Mean Corpuscular HGB Conc 33.7 g/dl (31.0-35.0); Mean Corpuscular Hemoglobin 29.3 pg (27.0-33.0); Mean Corpuscular Volume 86.9 fL (80.0-98.0); Mean Platelet Volume 8.8 fL (9.4-12.3); Platelet Count 398 X10*3/uL (160-400); Red Blood Count 3.14 X10*6/uL (4.20-5.50); Red Cell Distribution Width 18.8 % (11.0-16.0)
[2021-12-27 08:51] LABS: White Blood Count 37.9 X10*3/uL (4.8-10.8)
[2021-12-27] MEDS: levoFLOXacin 500 MG TABLET PO (09:20)
[2021-12-27] MEDS: amLODIPine Besylate 5 MG TABLET PO (09:20)
[2021-12-27] MEDS: Nystatin Cream 15 GM TUBE 1 APPL TOPICAL (09:21)
[2021-12-27 11:20] VITALS: BP 155/72; PULSE 67; RESP 18; TEMP 36.2; O2SAT 98
[2021-12-27 11:38] LABS: Glucose, Whole Blood 255 mg/dL (60-115)
--- NOTE | 2021-12-27 12:15 | PM.PNPUL ---
Subjective Subjective Date of Service: 12/27/21 Interval history: The patient was seen on exam. The patient otherwise is feeling about the same. Denies any chest pains or any shortness of breath. Her oxygen requirements have increased however. In addition to that my biggest concern is that she has to feeds and her tracheostomy circuit and trach collar suggesting that she still aspirating tube feeds. Her cultures are still negative. We briefly spoke about end of life. The patient has not spoken to her sister about it as of yet. The patient is not ready for hospice yet. She would like to wait and see. She does take a lot of pain medications already. Her performance status is starting to decline. Objective Data Labs CBC & Chem 7: 12/27/21 08:22 12/26/21 05:50 Labs: Laboratory Results - last 24 hr 12/26/21 12/26/21 12/27/21 16:09 19:45 07:38 WBC RBC Hgb Hct MCV MCH MCHC RDW Plt Count MPV Absolute Nucleated RBC Nucleated RBC % (auto) POC Glucose 285 H 201 H 346 H 12/27/21 12/27/21 08:22 11:19 WBC 37.9 H* RBC 3.14 L Hgb 9.2 L Hct 27.3 L MCV 86.9 MCH 29.3 MCHC 33.7 RDW 18.8 H Plt Count 398 MPV 8.8 L Absolute Nucleated RBC 0.000 Nucleated RBC % (auto) 0.0 POC Glucose 255 H Microbiology Microbiology Results: Microbiology 12/25/21 09:47 Sputum - Suctioned Gram Stain - Final 12/25/21 09:47 Sputum - Suctioned Sputum Culture - Preliminary Culture in progress. 12/16/21 23:11 Blood - Venous Blood Culture - Final No growth after 5 days. 12/16/21 23:11 Blood - Venous Blood Culture - Final No growth after 5 days. Review of Systems Review of Systems Yes Unobtainable due to mental condition Cardiovascular: Reports dyspnea Respiratory: Reports change in phlegm color, Reports chest congestion, Reports cough, Denies hemoptysis, Reports excessive phlegm production and Reports dyspnea Physical Exam Vital Signs: Vital Signs: Last Vital Signs Temp 97.2 F 12/27/21 11:20 Pulse 67 12/27/21 11:20 Resp 18 12/27/21 11:20 BP 155/72 H 12/27/21 11:20 Pulse Ox 98 09/03/22 11:20 O2 Del Method 12/27/21 11:20 O2 Flow Rate 8 12/27/21 11:20 FiO2 28 12/26/21 11:07 Oxygen Flow Rate 8 12/27/21 08:00 BMI result Body Mass Index 19.9 Const: General: cooperative Orientation/consciousness: patient oriented x3 HEENT: Head: Yes normal to inspection Mouth: Normal oral and palatal mucosa present Eyes: General: appearance normal, both eyes and all related structures Pupils: Equal, round and reactive pupils present Neck: Neck: Yes tracheostomy present (significant tf like secretions on her trach circuit) Resp: Other: trach Effort & Inspection: normal respiratory effort Cardio: Rate: regular rate Rhythm: regular rhythm GI: Palpation (GI): Soft to palpation and nontender : General: Yes no CVA tenderness Back/Spine/Pelvis: Back: no CVA tenderness Skin: General skin exam: no rashes or lesions noted Neuro: General: patient oriented x3 Cranial nerves: Yes CN's II-XII intact bilaterally and Yes Equal, round and reactive pupils present Extrem: General: Yes normal to inspection Psych: Appearance: grossly normal Procedures Date of Service Date of Service: 12/27/21 Assessment and Plan Assessment and plan (1) Tracheostomy dependence: Status: Acute (2) Squamous cell carcinoma of head and neck: Status: Acute (3) Aspiration into airway: Status: Acute (4) Leukocytosis: Status: Acute Plan The patient is now with increased oxygen requirements an obvious tube feed aspiration which is likely related. Recommendations: GI should evaluate further for the aspiration. Patient may need a G-J tube if persistent Awaiting sputum cultures Etiology of the leukocytosis is still not 100% clear-pretty pronounced. The patient does not have any GI symptoms but C diff should be considered Trach care. Tracheostomy changes should be done by her surgeon in view of the complexity of this large 10 cm upper airway mass goals of care Time Spent With Patient Time: Total time spent is greater than 50% in coordination of care (as documented) at patient's floor/unit and/or counseling patient: Progress Note: Quality Stroke Does the patient have a stroke diagnosis?: No
--- NOTE | 2021-12-27 13:23 | MHC.CM.PN ---
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 SHE STATES SHE HAS HAD DIFFICULTY WITH ELECTRONICALLY SENT SCRIPTS IN THE PAST REQUEST FORWARDED TO HOSPITALIST PT WILL DC HOME TODAY WITH [facility] AND [facility] HI SISTER WILL TRANSPORT
[2021-12-27] MEDS: dexAMETHasone 2 MG TABLET PO (13:34)
--- NOTE | 2021-12-27 13:54 | P.DS_ITS ---
DS: Providers Provider Date of Service: 12/27/21 Date of admission: 12/17/21 04:33 Primary care physician: Shae Chicas MD Consults: 12/17/21 04:31 Consult to Hematology / Oncology Routine Consulting Provider: Rosibel Weir Reason for consultation: Lung mass Has provider been notified: No 12/18/21 11:33 Consult to Hematology / Oncology Routine Consulting Provider: Rosibel Weir Reason for consultation: scc neck; lung nodule 8->10 mm over last 2 mo 12/19/21 00:04 Consult to General Surgery Routine Consulting Provider: Arelis Hanson Reason for consultation: Dislodged G-tube Has provider been notified: No 12/19/21 07:53 Consult to Infectious Diseases Routine Consulting Provider: Paulina Alvarez Reason for consultation: HCAP 12/21/21 12:32 Consult to Pulmonology Routine Consulting Provider: Tez Jasmine Reason for consultation: SCC neck. Trach'ed/PEG'ed. PNA/lung nodule. ?Trach change DS: Diagnosis Discharge Diagnosis (1) Pneumonia: Status: Acute (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: Status: Acute DS: Summary Hospital Course Hospital Course: History of presenting illness Date of Service: 12/17/21 Chief Complaint:? 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 Patient reports that the secretion have been increasing over the past few weeks but she noted blood secretions for the past 1 week.? Patient reports that her weight has been stable since started feeding tube, reports no acute worsening pain, denies any fever or chills, she reports that she has been coughing more than usual, denies any headache no change in vision, no chest pain, no abdominal pain, no diarrhea constipation, no urinary symptoms and no lower extremity edema. Patient reports that she is supposed to be starting chemoradiation in November.? But according to the note from Hematology-Oncology patient had already started on chemotherapy on 10/31 2021. ? On arrival to the ED patient hemodynamically stable with a blood pressure of 96/49, ?labs are significant for WBC count 20.7, it appears to be chronically elevated but worse today, hemoglobin of 9.8, hematocrit 29.1 which is stable, she has a left shift, sodium of 126 chronically low, potassium 5.2, chloride of 86, BUN of 33, alk-phos of 128, ?chest, abdominal and pelvis CT showed enlarging pulmonary nodule in the lingula now measuring 1.0 cm compared to 0.8 cm on 10/05, parents concerning for malignancy either metastasis or primary lung cancer, partial opacification of the right middle lobe, favored to be atelectasis versus superimposed infection, moderate upper lobe? emphysema,? there is also interval significant progression of a large 10 cm heterogeneous mass centered on the? right lateral and posterior mckeon of the pharynx hypopharynx and upper esophagus. Patient started on IV antibiotics and will be admitted for further management Hospital course Squamous cell carcinoma neck with tracheostomy/pneumonia 60yo F with recently diagnosed SCC of neck with tracheostomy and PEG presenting with cough, increased tracheostomy secretions with blood, and dyspnea,found to have enlarging nodule of lingula as well as radiographic evidence of emphysema and possible PNA, patient admitted to medical floor and treated with IV antibiotics, on 12/21 patient complained of worsening swelling in the neck with increased secretion in the trachea, therefore a CT neck was obtained that showed overall similar size of the 10 cm pharyngeal/hypopharyngeal mass with minimally increased subcutaneous edema in the interval, few small bubbles of soft tissue gas were noted in the left aspect of the lesion that was felt to be nonspecific, radiology and pulmonology felt that there is no perforation within the hypophar ynx, patient was placed on IV steroids and was continued on IV antibiotics subsequently patient improved significantly, no sob ,no cough, secretions have improved, blood cultures x2 are negative, repeat chest x-ray was obtained for concern for aspiration it showed mild bilateral infrahilar airspace opacity, patient has finished 7 day course of IV antibiotic due to concern for aspiration she has been placed on Levaquin, significant bump in leukocytosis is likely due to steroids patient remains afebrile, she had her trach change by Dr. Crowley and has recommended close outpatient follow-up with pulmonology as well as ENT for trach management. patient had 1 cycle of cisplatin/docetaxel/5 FU at [facility] 10/31/21 and has transitioned care to [facility] Oncology + [facility] Radiation Oncology with plan for concurrent chemoradiation therapy, chemotherapy with weekly carboplatin and Taxol port placement rescheduled for 12/30/21; has radiation in AM that day, recommend outpatient follow-up with Dr. Weir Patient is being discharged home on Dilaudid 10 mg q.4 hours as needed for pain and Levaquin 500 mg daily for 1 week Acute hypoxic respiratory failure due to pneumonia has resolved G-tube feeding, patient G-tube was dislodged due to coughing fit, G-tube has been replaced by Dr. Temple, Gastrografin study confirms placement patient is being discharged home on continuous feed, patient was given bolus feed but noted to have aspiration therefore has been change back to continuous feed at home will continue Glucerna 1.5 at 35 mL/hour with water boluses 120 mL every 8 hours lingular nodule- Heme/Onc consulted, question of metastasis vs primary CA, CT- guided biopsy as outpt due to PNA leukocytosis likely related to high-dose steroid, WBC trending down. Recurrent hyperK resolved follow BP closely Hypertension active Norvasc 5 mg by mouth daily HypoNa ? sodium 129,status post IV normal saline, continue NaCl tabs.? 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 Follow BMP DM2-? blood sugars elevated likely due to steroid, recommend to resume home medications, steroids being tapered Time Spent with Patient Time attestation: Total time spent providing and/or coordinating discharge services: Discharge coordination time: Greater than 30 minutes Quality: Safe Use of Opioids Does Pt have an Active Cancer Diagnosis on the Problem List?: No Quality: Stroke Does the patient have a stroke diagnosis?: No Physical Exam Vital Signs: Vital Signs: Last Vital Signs Temp 97.3 F 12/26/21 11:07 Pulse 63 12/26/21 11:07 Resp 18 12/26/21 11:07 BP 144/68 H 12/26/21 11:07 Pulse Ox 98 12/26/21 11:07 O2 Del Method 12/26/21 11:07 O2 Flow Rate 5 12/26/21 11:07 FiO2 28 12/26/21 11:07 Oxygen Flow Rate 5 12/26/21 08:00 BMI result Body Mass Index 19.9 Const: Other: Gen- ? Awake alert no acute distress neck- tracheostom y site showed no r edness, less secre tions, firm mass i n neck, stable german gs- clear bilatera lly, no respirator y distress, no use of accessory musc le, no wheeze, no rhonchi CV- RRR no murmurs abd- soft , PEG in place, no surrounding eryth marly, bowel sounds audible ext- no C/ C/E neuro- oriente d, alert psych- ap propriate affect DS: Data Data Completed and Pending Labs on day of discharge: Laboratory Results - last 24 hr 12/25/21 12/25/21 12/26/21 15:26 19:25 05:50 WBC 39.8 H* RBC 3.13 L Hgb 8.9 L Hct 27.4 L MCV 87.5 MCH 28.4 MCHC 32.5 RDW 18.9 H Plt Count 390 D MPV 9.7 Absolute Nucleated RBC 0.000 Nucleated RBC % (auto) 0.0 Sodium Potassium Chloride Carbon Dioxide Anion Gap BUN Creatinine Estim Creat Clear Calc Estimated GFR POC Glucose 383 H* 237 H Random Glucose Calcium 12/26/21 12/26/21 12/26/21 05:50 07:00 11:10 WBC RBC Hgb Hct MCV MCH MCHC RDW Plt Count MPV Absolute Nucleated RBC Nucleated RBC % (auto) Sodium 129 L Potassium 5.0 Chloride 90 L Carbon Dioxide 24 Anion Gap 20 BUN 27 H Creatinine 0.92 Estim Creat Clear Calc 44.9 Estimated GFR > 60 POC Glucose 400 H* 346 H Random Glucose 416 H* Calcium 9.1 Preliminary micro results at discharge 12/25/21 09:47 Sputum Culture - Preliminary Sputum - Suctioned Culture in progress. Discharge Plan Discharge Patient Disposition: Home Health Service Discharge Diagnosis: pneumonia Acute hypoxic respiratory failure lung nodule G-tube feed dependence/G-tube dislodgement Hyponatremia Referrals: [facility] [Other] - 1 Week (PLEASE CALL TASIA FOR ANY ISSUES W/DELIVERIES ) [facility] [Other] - 1 Week ([facility] FOR TRACH CHANGES & MINTENANCE, YOU HAVE AN APPT ON 12/30 AT 9:30AM W/DR. WESLEY DORAN ) [facility] [Outside] - 1 Day Shae Chicas MD [Primary Care Provider] - 1 Week Rosibel Weir MD [Physician] - 1 Week Fox Crowley MD [Physician] - 1 Week Discharge Medications: New Omeprazole Oral Susp [Prilosec Oral Susp] 20 mg G-tube DAILY@0630 Qty: 30 2RF hydromorphone 1 mg/mL liquid 10 mg PO Q4H PRN (Reason: severe pain) Qty: 473 0RF Rx Instructions: Partial Fill upon patient request. levofloxacin 500 mg Tablet 500 mg PO DAILY Qty: 7 0RF dexamethasone 2 mg tablet 2 mg PO Q8H Qty: 14 0RF Rx Instructions: Take dexamethasone 2 mg 1 tablet 3 times a day for 3 days, then take dexamethasone 2 mg 1 tablet 2 times a day for 3 days and then stop Continued (DME) pen needle, diabetic [BD Ultra-Fine Capri Pen Needle] 32 gauge x 5/32 needle See Rx Instructions .ROUTE .MEDSUPPLY Qty: 200 11RF Rx Instructions: As directed five times a day (DME) lancets [FreeStyle Lancets] 28 gauge misc See Rx Instructions .Route Qty: 100 2RF Rx Instructions: As directed 6 times a day (DME) FreeStyle Lite Strips Strip See Rx Instructions .Route Qty: 100 3RF Rx Instructions: As directed 4-6 times a day ipratropium-albuterol 0.5 mg-3 mg(2.5 mg base)/3 mL Solution For Nebulization 3 ml INHALATION Q6H PRN (Reason: Shortness Of Breath) Qty: 50 2RF prochlorperazine maleate 5 mg tablet 5 mg feeding tube Q6H PRN (Reason: Nausea) Qty: 30 2RF calcium carbonate-vitamin D3 600 mg-10 mcg (400 unit) tablet 1 tab PO DAILY Qty: 30 2RF (DME) lancets 28 gauge misc See Rx Instructions topical TID Qty: 100 Rx Instructions: As directed (DME) pen needle, diabetic 32 gauge x 5/32 needle See Rx Instructions subcut QID Qty: 50 Rx Instructions: As directed (DME) blood pressure test kit-large Kit See Rx Instructions .ROUTE DIRECTED Qty: 1 Rx Instructions: As directed (DME) blood sugar diagnostic Strip See Rx Instructions Not Applicable QID Qty: 10 Rx Instructions: As directed (DME) insulin syringe-needle U-100 0.3 mL 31 gauge x 5/16 syringe See Rx Instructions .ROUTE .MEDSUPPLY Qty: 10 Rx Instructions: As directed Changed sodium chloride 1 gram tablet 1 g feeding tube TID Qty: 90 2RF amlodipine 5 mg tablet 5 mg feeding tube DAILY Qty: 30 2RF simvastatin 5 mg tablet 5 mg feeding tube BEDTIME Qty: 30 2RF polyethylene glycol 3350 17 gram/dose powder 17 g feeding tube DAILY PRN (Reason: Constipation) Qty: 500 2RF ondansetron 4 mg tablet,disintegrating 1 tab feeding tube Q8H PRN (Reason: Nausea And Vomiting) Qty: 30 2RF loratadine 10 mg tablet 10 mg feeding tube DAILY Qty: 30 1RF Centrum 9 mg iron/15 mL liquid 15 ml feeding tube DAILY Qty: 450 2RF insulin lispro [Humalog Scot KwikPen U-100] 100 unit/mL insulin pen, half- unit See Protocol subcut TIDAC MDD 60 units Qty: 1 2RF Protocol: Insulin Correction Scale Less than or equal to 110 ---- Give (units): 0 111 to 150 Give (units): 0 151 to 200 Give (units): 2 201 to 250 Give (units): 4 251 to 300 Give (units): 6 301 to 350 Give (units): 8 Greater than 350 Give (units): 10 Call MD if Blood Glucose > : 350 Toujeo Max U-300 SoloStar 300 unit/mL (3 mL) insulin pen 8 unit subcut DAILY Qty: 1 2RF Discontinued lisinopril 5 mg tablet 5 mg PO DAILY Qty: 30 6RF omeprazole 20 mg capsule,delayed release(DR/EC) 20 mg PO DAILY 90 Days Qty: 90 1RF famotidine 20 mg tablet 1 tab PO BID metformin 500 mg tablet 1 tab PO BID hydromorphone 1 mg/mL liquid 8 ml PO Q4H PRN (Reason: severe pain) Discharge Orders: Discharge Order (Routine); Ordered 12/27/21 Ordered By: Vicente James Diet: tube feeds Activity on Discharge: As tolerated Stand Alone Forms: Patient Portal Discharge page Care Plan Goals: treatment of squamous cell carcinoma of neck diagnosis of lung nodule tracheostomy care tube feeding Glucerna 1.5, take 35 mL/hour continuous, water boluses 120 mL every 8 hours Health Concerns: pneumonia squamous cell carcinoma of neck enlarging lung nodule tracheostomy PEG tube Plan of Treatment: Follow-up at [facility] on 12/30 of port placement and appointment with radiation Dr. Crowley from pulmonology their office will call for follow-up appointment, call their office if do not hear from them in next 2 weeks Follow-up with Dr. Weir from Oncology Assessment: See Discharge Summary
--- NOTE | 2021-12-27 13:55 | W.MHC.F2F ---
Service Date Service Date: 12/27/21 Encounter Date of encounter: 12/27/21 Reasons for Services Signs and symptoms assessed: Trach management/G tube feeding/pain management Reason for senior care: medication management Homebound: Leaving the home is medically contraindicated at this time without the asist of a device and/or another person due th the listed conditions above and below. Reason homebound: weakness related to hospital stay Certification: Based on the above findings, I certify that this patient is confined to the home and needs intermittent senior care care, physical therapy and/or speech therapy, or continues to need occupational therapy. The patient is under my care, and I have initiated the establishment of the plan of care. The patient will be followed by a physician who will periodically review the plan of care.
== END 2021-12-27 16:00 | disposition home health service (06) | DRG 193 ==
LOC: HO.ED 12-17 01:53 → HO.EDOVER 12-17 04:37 → HO.S3 12-18 13:48
PROVIDERS: Family Medicine; Hospitalist; Physician Assistant; Admitting Provider Internal Medicine; Emergency Provider Internal Medicine; PCP Internal Medicine; Visit Provider Hospitalist
PROC: 0D20XUZ Change Feeding Device in Upper Intestinal Tract, External Approach (ICD-10-PCS; principal; 2021-12-24 10:00)
DX: J18.9 Pneumonia, unspecified organism (principal); J96.01 Acute respiratory failure with hypoxia; R04.2 Hemoptysis; E87.1 Hypo-osmolality and hyponatremia; K86.1 Other chronic pancreatitis; C34.92 Malignant neoplasm of unspecified part of left bronchus or lung; K94.23 Gastrostomy malfunction; J43.9 Emphysema, unspecified; C10.9 Malignant neoplasm of oropharynx, unspecified; E78.5 Hyperlipidemia, unspecified; K21.9 Gastro-esophageal reflux disease without esophagitis; E11.42 Type 2 diabetes mellitus with diabetic polyneuropathy; D72.829 Elevated white blood cell count, unspecified; J45.909 Unspecified asthma, uncomplicated; E87.5 Hyperkalemia; Z20.822 Contact with and (suspected) exposure to COVID-19; Z93.0 Tracheostomy status; Z86.14 Personal history of Methicillin resistant Staphylococcus aureus infection; Z87.891 Personal history of nicotine dependence; Z79.4 Long term (current) use of insulin; Z79.899 Other long term (current) drug therapy
CPT/HCPCS: 36415; 70491; 71045; 71250; 74018; 80048; 80053; 80202; 81003; 82565; 82947; 83605; 83735; 84145; 84295; 85025; 85027; 87040; 87070; 87205; 87635; 87640; 87641; 99285; J0295; J1100; J1170; J1650; J2250; J2405; J2543; J2765; J3370; J8540; Q9967

== ENCOUNTER 2021-12-30 10:30 | Outpatient (RCR) | payer OTHER, SELFPAY ==
[2021-11-20 10:28] VITALS: BP 118/69; PULSE 96; RESP 16; TEMP 36.1; O2SAT 96; BMI 16.5
--- NOTE | 2021-11-20 11:22 | HE.ONCSEC ---
I REQUESTED RECORD OF PT FROM [facility] , AWAITING FAX BACK
[2021-11-20 12:04] LABS: MANUAL DIFF FLAG NO
[2021-11-20 12:08] LABS: Basophils Absolute Auto 0.1 X10*3/uL (0.0-0.2); Basophils Percent Auto 0.4 % (0-2); Eosinophils Percent Auto 0.1 % (0-4); Hematocrit 28.6 % (37.0-47.0); Hemoglobin 9.3 g/dl (12.0-16.0); Imm Gran Abs Auto 0.27 X10*3/uL (0.00-0.03); Imm Gran Pct Auto 1.4 % (0.0-0.4); Lymphocytes Absolute Auto 2.6 X10*3/uL (1.2-4.9); Lymphocytes Percent Auto 13.6 % (20-40); Mean Corpuscular HGB Conc 32.5 g/dl (31.0-35.0); Mean Corpuscular Hemoglobin 27.7 pg (27.0-33.0); Mean Corpuscular Volume 85.1 fL (80.0-98.0); Mean Platelet Volume 8.6 fL (9.4-12.3); Monocytes Absolute Auto 1.3 X10*3/uL (0.1-1.2); Monocytes Percent Auto 6.6 % (2-11); Neutrophils Absolute Auto 14.8 x10*3/uL (2.0-8.3); Neutrophils Percent Auto 77.9 % (45-73); Platelet Count 721 X10*3/uL (160-400); Red Blood Count 3.36 X10*6/uL (4.20-5.50); Red Cell Distribution Width 17.4 % (11.0-16.0)
[2021-11-20 12:39] LABS: Alanine Aminotransferase 10 U/L (0-31); Alkaline Phosphatase 136 U/L (39-117); Anion Gap 17 (12-20); Aspartate Amino Transferase 10 U/L (5-31); Bilirubin Total 0.2 mg/dL (0.0-1.0); Blood Urea Nitrogen 13 mg/dL (9-16); Calcium 8.4 mg/dL (8.4-10.2); Carbon Dioxide 25 mmol/L (22-29); Chloride 91 mmol/L (96-108); Creatinine Clr Calc Pharmacy 38.9; Estimated Glomerular Filt Rate > 60; Glucose Random 394 mg/dL (60-115); Potassium 5.5 mmol/L (3.3-5.1); Sodium 127 mmol/L (135-145); Total Protein 5.7 g/dL (6.5-8.0)
--- NOTE | 2021-11-20 13:27 | MHC.HEMONC ---
Critical glucose 394. Dr. Weir updated. I called patient and spoke to sister Laurel who already administered her sliding scale 4.[address] Weir aware.
--- NOTE | 2021-11-20 13:36 | P.CNHO_ITS ---
Subjective - Subjective Chief complaint: Consult for: Head and neck carcinoma. Patient: new to practice Consult date: 11/20/21 Primary Care Provider: Shae Chicas MD Medical Summary: DIAGNOSIS: CARCINOMA OF THE HEAD AND NECK. HPI - Consult Narrative Reason for consult: CONSULT FOR: Squamous cell carcinoma of the oropharynx. Narrative: Clare Kee is a pleasant 60 year old lady, who was seen in the ER on 09/23. Presenting history: Patient is a 60 year old female presenting to the emergency department with a growing neck mass. Patient states that for the last 3 weeks, she has noticed a m ass on the left side of her neck that has slowly been growing and now it has gotten to the point where she is having difficulty swallowing. Patient states that she has also had some significant weight loss. Patient denies any dizziness, lightheadedness, abdominal pain, nausea, vomiting, fever, chills, blurry vision, double vision, loss of vision, chest pain, difficulty breathing, shortness of breath, back pain, night sweats, pain with urination, increased urinary frequency, increased urinary urgency, blood in her urine or stool, syncope or a near syncopal episode, recent trauma or falls, bowel incontinence, bladder incontinence, bowel retention, bladder retention, or any other complaints at this time. Patient states that she has a history of has had pre- cancerous polyps removed from her colon and is a daily smoker. CT scan of the neck from 09/23 revealed; - Limited noncontrast CT of the neck demonstrates a large up to 7 cm soft tissue density mass involving the dorsal oropharynx, the hypopharynx effacing the piriform sinuses bilaterally, and the post cricoid region. These findings are highly concerning for malignancy. Consider MRI of the neck with and without contrast and/or a PET/CT to more definitively characterize the mass and distinguish mass from obstructed material. The expansile mass partially effaces the supraglottic larynx which remains patent and the lesion partially effaces the paraglottic fat bilaterally. - There is gas along the periphery of the expected location of the hypopharynx and lower cervical esophagus which may be secondary to hypopharyngeal/esophageal perforation or superimposed gas producing infection. An air-fluid level supe rficial to the upper aspect of the left thyroid cartilage may reflect an obstructive laryngocele or infected collection. - Possible right-sided metastatic node of Osvaldo on image 26 of series 2 abigail uring 1.1 cm. Additional nonpathologic size criteria lymph nodes within the suprahyoid and infrahyoid neck bilaterally can be further assessed with PET. - There is soft tissue associated with focal mandibular erosion involving the dorsal right gingival buccal mucosa/retromolar trigone that can be further assessed with PET to exclude an additional site of malignancy in this location. ER course: Patient's physical exam showed a very large left sided neck mass but was otherwise unremarkable. Patient's blood work showed an elevated white blood cell count at 18.9, an elevated creatinine at 2.03, and a decreased sodium at 130. Patient chronically has low sodium levels however the other values are acute changes. Patient's soft tissue neck CT showed a 7cm mass to the left side of the neck with questionable esophageal perforation. Patient was given IV vancomycin, IV Zosyn, and IV fluconazole. Additionally, patient was given IV fluids. I called and spoke to Dr. Marinelli at [facility] who agreed to accept the patient there. I explained my physical exam findings as well as all test results to the patient. Patient verbalized agreement and understanding with this treatment plan and transfer. She tells me that she was had [facility] for almost 7 weeks. 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 She had a tracheostomy placed on 09/26/2021. 10/31: She was under the care of Dr. Yobany Gastelum, from Oncology. She received dose reduced cisplatin/docetaxel/5 FU. Plan is for weekly carboplatin/ paclitaxel plus radiation, locally. She is currently on tube feedings and supplemental oxygen via trach. FAMILY HISTORY: Dad had melanoma. Mom had lung cancer with brain metastases. A sister had breast cancer. SOCIAL HISTORY: She worked at [employer]. She is not Has no children. She smoked a pack-a-day quit a couple of months ago. She quit drinking 30 years ago. ROS: She does feel rather tired. She has been sleeping a lot. Denies fever chills or night sweats. Appetite has gone down. She is getting tube feedings. She has lost weight. Denies headache no dizziness. No chest pain or trouble breathing. She denies abdominal pain. She has heartburn she is on omeprazole. Bowels are working without any gross blood in it. Denies dysuria or hematuria. No muscle no joint pain. Denies focal weakness. Denies depression. No skin rashes or pruritus. Review of Systems - Constitutional Reports system reviewed and no additional complaints, except as documented, Reports anorexia, Reports fatigue, Reports lack of energy, Reports malaise, Reports poor appetite, Reports weakness, Reports weight loss, Denies headache(s) - Eyes Reports system reviewed and no additional complaints, except as documented - ENT Reports system reviewed and no additional complaints, except as documented, Reports dysphagia - Cardiovascular Reports system reviewed and no additional complaints, except as documented - Respiratory Reports no additional respiratory complaints Comments: Has tracheostomy in place. - Gastrointestinal Reports system reviewed and no additional complaints, except as documented, Reports dyspepsia, Reports heartburn Comments: Has a G-tube in place. - Genitourinary Reports no additional female genitourinary complaints - Musculoskeletal Reports system reviewed and no additional complaints, except as documented - Integumentary/Breasts Skin/Breast: Reports no additional skin complaints - Neurologic Reports system reviewed and no additional complaints, except as documented - Psychiatric Reports system reviewed and no additional complaints, except as documented - Endocrine Reports no additional endocrine complaints - Hematologic/Lymphatic Reports system reviewed and no additional complaints, except as documented - Allergic/Immunologic Reports system reviewed and no additional complaints, except as documented Oncology Screenings - ECOG Performance Status ECOG Performance Status: 2 [facility] Medical History: Medical History (Last Updated 11/20/21 @ 10:34 by Emmy Conner CMA) Asthma Chronic pancreatitis Essential hypertension Feeding by G-tube Hx MRSA infection Hx of respiratory failure Hx of septic shock Hyperlipidemia LDL goal <100 Macrocytic anemia Smoking Type 2 diabetes mellitus with polyneuropathy Functional capacity: uses cane/walker Patient : No Family History: Family History (Last Updated 11/20/21 @ 10:35 by Emmy Conner CMA) Father Diabetes Myeloma Mother Brain cancer Mother Lung cancer Sister Breast cancer Surgical History: Surgical History (Last Updated 11/20/21 @ 10:34 by Emmy Conner CMA) History of esophagogastroduodenoscopy (EGD) History of tracheostomy Hx of abdominal surgery Hx of colonoscopy Hx of exploratory laparotomy Social History: Social History (Last Updated 11/20/21 @ 10:37 by Emmy Conner CMA) Living Situation History: Household Members: None Household Members Other:: Sister Housing: Apartment Are you a primary healthcare customer service to a significant other at home: No Do you presently have visiting nurse or other home services: No Alcohol History Details: 1. How often do you have a drink containing alcohol?: a. Never Tobacco History: Patient Tobacco Use Status: Former Tobacco user Years Smoked: 30 Smoked in Last 30 Days: No Smoke Quit Date: 08/2021 Substance Use History: Use of substances other than those prescribed or required for medical reasons : No Domestic Abuse History: Have you been hit, kicked, punched, or otherwise hurt by someone within the past year? If so, by whom?: No Do you feel safe in your current relationship?: No Current Relationship Homicidal Assessment: Do you have thoughts of harming others: None Do you have a plan to hurt others: No Plan Do you have the means to hurt others: No Nutrition Assessment: Recently lost weight without trying: Yes How much weight loss: 2-13 pounds Eating poorly because of decreased appetite: No Nutrition screen score: 3 Patient : No Occupation Assessmet: service: No Current occupational status: disabled Home Medications and Allergies Home Medications Medication Instructions Recorded Confirmed Type blood pressure test kit-large #1 ea 04/29/20 11/20/21 History blood sugar diagnostic #10 ea 04/29/20 11/20/21 History insulin syringe-needle U-100 0.3 #10 ea 04/29/20 11/20/21 History mL 31 gauge x 5/16 lancets 28 gauge #100 ea 04/29/20 11/20/21 History pen needle, diabetic 32 gauge x #50 ea 04/29/20 11/20/21 History 5/32 simvastatin 5 mg tablet 5 mg PO BEDTIME 04/29/20 11/20/21 History amlodipine 5 mg tablet 5 mg PO DAILY 06/03/20 11/20/21 History famotidine 20 mg tablet 1 tab PO BID 11/20/21 11/20/21 History hydromorphone 1 mg/mL oral liquid 1 ea PO DAILY PRN Pain 11/20/21 11/20/21 History Allergies Allergy/AdvReac Type Severity Reaction Status Date / Time ragweed pollen [RAGWEED] Allergy Severe RUNNY NOSE Verified 11/20/21 10:37 Sulfa (Sulfonamide Allergy Intermediate PASS OUT, Verified 11/20/21 10:37 Antibiotics) HIVES [SULFA(SULFONAMIDE ANTIBIOTICS)] Physical Exam Vital signs: Vital Signs Temp 96.9 F 11/20/21 10:28 Pulse 96 11/20/21 10:28 Resp 16 11/20/21 10:28 BP 118/69 11/20/21 10:28 Pulse Ox 96 11/20/21 10:28 O2 Del Method 11/20/21 10:28 Intake & Output 11/19/21 11/20/21 11/20/21 18:59 06:59 18:59 Other: Weight 38.5 kg [place] Weight in Grams [id number] Weight 38.5 kg - Constitutional Present: mild distress - Routine HEENT Exam Head: Present: normocephalic ENT: Present: mucous membranes moist - Routine Neck Exam Present: supple - Routine Respiratory Exam Present: decreased breath sounds, CTAB - Routine Cardiovascular Exam Cardiovascular: Present: RRR, S1, S2 - Routine Abdominal Exam Present: soft, tenderness. Absent: nontender Hem/Onc Consult Result - Labs CBC & Chem 7: 11/20/21 11:50 11/20/21 11:50 Labs: Short CBC 11/20/21 Range/Units 11:50 WBC 19.0 H (4.8-10.8) X10*3/uL Hgb 9.3 L D (12.0-16.0) g/dl Hct 28.6 L D (37.0-47.0) % Plt Count 721 H D (160-400) X10*3/uL BMP 11/20/21 11:50 Sodium 127 L Potassium 5.5 H D Chloride 91 L Carbon Dioxide 25 BUN 13 D Creatinine 0.91 Calcium 8.4 D Liver Function 11/20/21 Range/Units 11:50 Total Bilirubin 0.2 (0.0-1.0) mg/dL AST 10 (5-31) U/L ALT 10 (0-31) U/L Alkaline Phosphatase 136 H D (39-117) U/L Albumin 3.0 L (3.5-5.0) g/dL Assessment and Plan Patient Active problem list reviewed?: Yes (1) Squamous cell carcinoma of head and neck Status: Acute Assessment and plan: This is a pleasant 60-year-old lady who presented with a dysphagia and shortness of breath. 09/23 CT scan of the neck revealed: 8.1 x 4.9 cm mass in the hypopharynx and 1.3 cm IIa cervical adenopathy. There was partial effacement of the piriform sinuses and supraglottic larynx. CT of the torso showed multiple nonspecific pulmonary nodules, largest 0.8 cm in the left upper lobe. These nodules appear to have connections to the fissures or pleura and could r epresent lymph nodes however neoplastic or metastatic lesions cannot be ruled out. Continued follow-up recommended. Age indeterminate mild compression deformity of T12. Pathology of the or pharyngeal mass on 09/24 revealed: Moderately differentiated focally keratinizing, P 16 negative, squamous cell carcinoma. She had her tracheostomy placed on 09/26. Treatment was delayed since she awaited transferred to care closer to home in [facility]. She underwent cycle 1 day 1 of dose reduced cisplatin/Taxotere/5 FU, on 10/31. She tolerated the treatment well. She was then discharged home. She is now here to continue her treatment closer to home. She is a candidate for combined modality therapy with carboplatin and Taxol weekly along with radiation. PLAN: I will set up an appointment to with Dr. Stanford for radiation therapy consult. She will start the chemo once the radiation therapy planning is done. She will return next week for a follow-up visit. All her and her sister's questions were answered to her satisfaction. Thanks, CC: Dr. Victor. - Time Spent With Patient Time Spent with Patient (in minutes): 35
--- NOTE | 2021-11-20 15:25 | MHC.HEMONCMA ---
Pt was in for consult. Clinical summary reviewed and updated, VSS. Labs were drawn. Pt to return in 1 week.
--- NOTE | 2021-11-20 16:31 | MHC.HEMONC ---
I met with pt and her sister, briefly following her Consultation with Dr Weir for oropharyngeal squamous cell cancer. She started treatment in [place] but is now seeking treatment closer to home. She has patent tracheostomy and GT. She states she is tolerating things fine and has no need for VNA at this time. She left here without f/u appt but Dr Weir reviewed her records following her appt and has asked us to set up concurrent chemoradiation. Emmy working on [employer] appt and I have given Yennifer information for PA. I will set up a teaching for next week.
[2021-11-21 04:46] LABS: HBS Num1 1.41 mIU/mL (0-7.99); HBc Num1 0.07 S/CO (0.00-0.79); HBsAGNum1 0.21 S/CO (0.00-0.99); Hepatitis B Core Antibody Nonreactive (Nonreactive); Hepatitis B Surface Antigen Negative (Negative); ~Hepatitis B Surface Antibody NONREACTIVE (Nonreactive)
--- NOTE | 2021-11-21 11:41 | MHC.HEMONC ---
I spoke to pt sister this morning and told her that Emmy is working on radOnc Consult at [facility] and we will schedule concurrent chemo/RT once they have made a plan and schedule for treatment. Yennifer is working on PA.
--- NOTE | 2021-11-24 08:59 | HO.HEMONCSCH ---
Notes to Elizabeth for radiation was sent on 11/21/21.
--- NOTE | 2021-11-24 09:54 | HE.ONCSEC ---
I WAS GIVEN A NOTE BY ROWENA AT THE END OF THE DAY TO BOOK THE PT IN A WEEK FOR A FOLLOW UP W/ . I WILL INFORM PATIENT OF THIS .
--- NOTE | 2021-11-24 09:57 | HE.ONCSEC ---
I WAS GIVEN A STICKY NOTE BY ROWENA AT THE END OF THE DAY TO BOOK PT IN A WEEK FOR A FOLLOW UP W/ . I WILL CALL AND INFORM PATIENT OF THIS APPT .
--- NOTE | 2021-11-24 12:24 | HO.HEMONCSCH ---
RADIATION ONCOLOGY CONSULT APPT BOOKED for 12/03/21 at 11am w/ Dr Herbert of [facility] at [facility].
--- NOTE | 2021-11-24 12:27 | HO.HEMONCPA ---
PA FOR PACLITAXEL & CARBOPLATIN REQUESTED. AWAITING DECISION
--- NOTE | 2021-11-24 16:21 | HO.HEMONCPA ---
NO PA IS REQUIRED FOR PACLITAXEL & CARBOPLATIN ( SEE DOCUMENT SCANNED IN CHART )
--- NOTE | 2021-11-26 09:51 | MHC.HEMONC ---
pt has appt at [facility] on 12/03 for RT consult
--- NOTE | 2021-11-26 13:31 | HE.ONCSEC ---
WAS TOLD BY ARA TO RESCHEDULE PATIENT FOR NEXT WEEK INSTEAD OF HER ORIGINAL APPT WHICH WAS TOMORROW. I WILL CALL PATIENT'S SISTER AND INFORM HER OF THIS CHANGE .
--- NOTE | 2021-11-26 13:35 | HE.ONCSEC ---
I CALLED PATIENT BUT PATIENT DID NOT ANSWER , I LEFT A DETAILED VOICEMAIL INFORMING PATIENT'S SISTER TO CALL BACK SO I CAN NOTIFY THEN OF THE CHANGE OF APPTS .
--- NOTE | 2021-12-04 08:55 | PM.HEMONCPN ---
Medical Summary - Medical Summary Date of Service: 12/04/21 Chief complaint: Follow up Medical Summary: DIAGNOSIS: Squamous cell carcinoma of oropharynx Interval History Interval history: Patient was discharged from [facility] and of October, she is now living with her sister. She is accompanied by her sister today. She feels okay and has no acute complaints. She has been giving herself bolus tube feeds, she has problems with the tubing. Occasionally it gets clogged. She is taking 4 cans a day. She is not gain much weight. She has a consultation with school vocational educator at [facility] next week. She denies any fever or chills. She has met with radiation oncologist. She does not know the start date for radiation yet. Review of Systems - Constitutional Reports as per HPI, Reports no additional constitutional complaints - Cardiovascular Reports no additional cardiovascular complaints - Respiratory Reports no additional respiratory complaints - Gastrointestinal Reports no additional gastrointestinal complaints - Neurologic Reports no additional neurologic complaints, Denies headache(s), Reports weakness [facility] Medical History: Medical History (Last Reviewed 12/04/21 @ 09:07 by CARA Anderson) Asthma Chronic pancreatitis Essential hypertension Feeding by G-tube Hx MRSA infection Hx of respiratory failure Hx of septic shock Hyperlipidemia LDL goal <100 Macrocytic anemia Smoking Type 2 diabetes mellitus with polyneuropathy Functional capacity: uses cane/walker Family History: Family History (Last Reviewed 12/04/21 @ 09:07 by CARA Anderson) Father Diabetes Myeloma Mother Brain cancer Mother Lung cancer Sister Breast cancer Surgical History: Surgical History (Last Reviewed 12/04/21 @ 09:07 by CARA Anderson) History of esophagogastroduodenoscopy (EGD) History of tracheostomy Hx of abdominal surgery Hx of colonoscopy Hx of exploratory laparotomy Social History: Social History (Last Updated 12/04/21 @ 09:08 by CARA Anderson) Living Situation History: Household Members: Family Household Members: None Household Members Other:: Sister Housing: Apartment Are you a primary daycare manager to a significant other at home: No Do you presently have visiting nurse or other home services: No Alcohol History Details: 1. How often do you have a drink containing alcohol?: a. Never Tobacco History: Patient Tobacco Use Status: Former Tobacco user Years Smoked: 30 Smoked in Last 30 Days: No Smoke Quit Date: 08/2021 Substance Use History: Use of substances other than those prescribed or required for medical reasons: No Domestic Abuse History: Have you been hit, kicked, punched, or otherwise hurt by someone within the past year? If so, by whom?: No Do you feel safe in your current relationship?: No Current Relationship Homicidal Assessment: Do you have thoughts of harming others: None Do you have a plan to hurt others: No Plan Do you have the means to hurt others: No Nutrition Assessment: Recently lost weight without trying: Yes How much weight loss: 2-13 pounds Eating poorly because of decreased appetite: No Nutrition screen score: 3 Patient : No Occupation Assessmet: service: No Current occupational status: disabled Oncology Screenings - ECOG Performance Status ECOG Performance Status: 1 Home Medications and Allergies Home Medications Medication Instructions Recorded Confirmed Type blood pressure test kit-large #1 ea 04/29/20 12/04/21 History blood sugar diagnostic #10 ea 04/29/20 12/04/21 History insulin syringe-needle U-100 0.3 #10 ea 04/29/20 12/04/21 History mL 31 gauge x 16 lancets 28 gauge #100 ea 04/29/20 12/04/21 History pen needle, diabetic 32 gauge x #50 ea 04/29/20 12/04/21 History /32 simvastatin 5 mg tablet 5 mg PO BEDTIME 04/29/20 12/04/21 History amlodipine 5 mg tablet 5 mg PO DAILY 06/03/20 12/04/21 History famotidine 20 mg tablet 1 tab PO BID 11/20/21 12/04/21 History hydromorphone 1 mg/mL oral liquid 1 ea PO DAILY PRN Pain 11/20/21 12/04/21 History Allergies Allergy/AdvReac Type Severity Reaction Status Date / Time ragweed pollen [RAGWEED] Allergy Severe RUNNY NOSE Verified 12/04/21 09:08 Sulfa (Sulfonamide Allergy Intermediate PASS OUT, Verified 12/04/21 09:08 Antibiotics) HIVES [SULFA(SULFONAMIDE ANTIBIOTICS)] Exam Vital signs: Vital Signs Temp 96.9 F 11/20/21 10:28 Pulse 96 11/20/21 10:28 Resp 16 11/20/21 10:28 BP 118/69 11/20/21 10:28 Pulse Ox 96 11/20/21 10:28 O2 Del Method 11/20/21 10:28 Weight 38.5 kg BMI result Body Mass Index 16.5 - Constitutional Present: mild distress - Routine HEENT Exam Head: Present: normocephalic - Routine Respiratory Exam Present: decreased breath sounds, CTAB - Routine Cardiovascular Exam Cardiovascular: Present: RRR, S1, S2 - Routine Abdominal Exam Present: soft, tenderness. Absent: nontender Data - Labs CBC & Chem 7: 11/20/21 11:50 11/20/21 11:50 Labs: 11/20/21 11:50 Type and Screen Routine Complete Blood Count Auto Diff Stat Comprehensive Met. Panel Stat Hepatitis B Profile Stat 11/20/21 16:31 Add Laboratory Test Routine Laboratory Last Values WBC 19.0 X10*3/uL (4.8-10.8) H 11/20/21 11:50 RBC 3.36 X10*6/uL (4.20-5.50) L D 11/20/21 11:50 Hgb 9.3 g/dl (12.0-16.0) L D 11/20/21 11:50 Hct 28.6 % (37.0-47.0) L D 11/20/21 11:50 MCV 85.1 fL (80.0-98.0) 11/20/21 11:50 MCH 27.7 pg (27.0-33.0) 11/20/21 11:50 MCHC 32.5 g/dl (31.0-35.0) 11/20/21 11:50 RDW 17.4 % (11.0-16.0) H 11/20/21 11:50 Plt Count 721 X10*3/uL (160-400) H D 11/20/21 11:50 MPV 8.6 fL (9.4-12.3) L 11/20/21 11:50 Immature Gran % (Auto) 1.4 % (0.0-0.4) H 11/20/21 11:50 Neut % (Auto) 77.9 % (45-73) H 11/20/21 11:50 Lymph % (Auto) 13.6 % (20-40) L 11/20/21 11:50 [place] % (Auto) 6.6 % (2-11) 11/20/21 11:50 Eos % (Auto) 0.1 % (0-4) 11/20/21 11:50 Baso % (Auto) 0.4 % (0-2) 11/20/21 11:50 Lymph # (Auto) 2.6 X10*3/uL (1.2-4.9) 11/20/21 11:50 [place] # (Auto) 1.3 X10*3/uL (0.1-1.2) H 11/20/21 11:50 Eos # (Auto) 0.0 X10*3/uL (0.0-0.4) 11/20/21 11:50 Baso # (Auto) 0.1 X10*3/uL (0.0-0.2) 11/20/21 11:50 Abs Immat Gran (auto) 0.27 X10*3/uL (0.00-0.03) H 11/20/21 11:50 Absolute Neuts (auto) 14.8 x10*3/uL (2.0-8.3) H 11/20/21 11:50 Absolute Nucleated RBC 0.000 X10*3/uL (0.0-0.012) 11/20/21 11:50 Nucleated RBC % (auto) 0.0 /100WBC (0.0-0.2) 11/20/21 11:50 Sodium 127 mmol/L (135-145) L 11/20/21 11:50 Potassium 5.5 mmol/L (3.3-5.1) H D 11/20/21 11:50 Chloride 91 mmol/L (96-108) L 11/20/21 11:50 Carbon Dioxide 25 mmol/L (22-29) 11/20/21 11:50 Anion Gap 17 (12-20) 11/20/21 11:50 BUN 13 mg/dL (9-16) D 11/20/21 11:50 Creatinine 0.91 mg/dL (0.5-1.4) 11/20/21 11:50 Estim Creat Clear Calc 38.9 11/20/21 11:50 Estimated GFR > 60 11/20/21 11:50 Random Glucose 394 mg/dL (60-115) H* 11/20/21 11:50 Calcium 8.4 mg/dL (8.4-10.2) D 11/20/21 11:50 Total Bilirubin 0.2 mg/dL (0.0-1.0) 11/20/21 11:50 AST 10 U/L (5-31) 11/20/21 11:50 ALT 10 U/L (0-31) 11/20/21 11:50 Alkaline Phosphatase 136 U/L (39-117) H D 11/20/21 11:50 Total Protein 5.7 g/dL (6.5-8.0) L 11/20/21 11:50 Albumin 3.0 g/dL (3.5-5.0) L 11/20/21 11:50 Hep Bs Antigen Negative (Negative) 11/20/21 11:50 Hep Bs Antibody NONREACTIVE (Nonreactive) 11/20/21 11:50 Hep B Core Total Ab Nonreactive (Nonreactive) 11/20/21 11:50 Blood Type O Negative 11/20/21 11:50 Antibody Screen NEGATIVE 11/20/21 11:50 Assessment and Plan Patient Active problem list reviewed?: Yes (1) Squamous cell carcinoma of head and neck Status: Acute Assessment and plan: 1. This is a 60-year-old woman with locally advanced squamous cell carcinoma of oropharynx diagnosed in September 2021. She presented with dysphagia and weight loss, she was transferred to [facility] for further management. Biopsy performed 09/24/2021 revealed moderately differentiated focally keratinizing squamous cell carcinoma with ulceration, necrosis and surface candidal overgrowth. P16 stain negative. She underwent emergency tracheostomy on 09/26/2021. She had G-tube for feeding placed. CT neck revealed retropharyngeal peripherally enhancing soft tissue density extending from oropharynx to hypopharynx measuring 2.6 x 4.9 x 8.1 cm. 1.3 cm left level 2A cervical lymph node. Bilateral pulmonary nodules on CT chest/abdomen and pelvis, largest measuring 0.8 cm in the left upper lobe, lymph node versus metastatic lesions. She received induction therapy with cisplatin/docetaxel/5 FU, dose reduced by 25% for tolerance, 10/31/2021 was cycle 1 day 1. at [facility]. Plan now is for her to receive concurrent chemoradiation therapy, chemotherapy with weekly carboplatin and Taxol. She has met with radiation oncologist at [facility]. MediPort placement by IR has been requested as she has poor venous access. Nutrition consult awaited at [facility]. G-tube issues need to be addressed. Submit CBC/CMP today. Chemotherapy teach to be given today. We briefly discussed possible side effects such as cytopenias, nausea, neuropathy and organ damage. Follow-up in 2 weeks. - Time Spent With Patient Time Spent with Patient (in minutes): 45
[2021-12-04 09:03] VITALS: BP 119/72; PULSE 111; RESP 14; TEMP 36.3; O2SAT 100; BMI 16.1
--- NOTE | 2021-12-04 10:25 | MHC.HEMONCSW ---
CONSULT FOR NECK CANCER. MET WITH PT AND HER SISTER/HCP GILL. PT TO BEGIN CHEMOTHERAPY HERE AND SOON RT AT [facility]. REPORTS COPING FAIRLY WELL, SELF MANAGES HER TRACH AND G-TUBE WHICH WAS PLACED AT [facility]. [facility] CM CALLS OFTEN, OFFERS SUPPORT. RESIDES WITH SISTER, GAVE UP APARTMENT DUE TO ILLNESS AND HER MANY NEEDS. DENIES H/O MENTAL ILLNESS ABUSED ALCOHOL FOR YEARS, REPORTEDLY QUIT WHEN SHE DX WITH CANCER. HER SUPPORT SYSTEM INCLUDES HER SISTER AND FRIENDS. SISTER PROVIDES ALL TRANSPORTATION NEEDS. RECEIVES SSDI. 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 SHE HAS NO QUESTIONS AT THIS TIME. SUPPORTIVE COUNSELING PROVIDED.
--- NOTE | 2021-12-04 11:34 | MHC.HEMONCMA ---
PT SEEN TODAY FOR 2 WEEK F/U , LABS, VSS AND MEDI PORT ORDERED AT THIS VISIT. 2 WEEK F/U BOOKED .
--- NOTE | 2021-12-04 12:47 | MHC.HEMONC ---
Chemotherapy Teaching: Carbo/Taxol concurrent with radiation. Exam with Dr. Duval today. All questions and concerns addressed. Side effects/regimen and when to call our office reviewed. Consent signed. Patient did report clogging of gtube Walter in to assess g-tube. Tubing flushed with warm water without difficulty. Salvatore valve changed. Patient re-educated on flushing/feeding. Patient verbalizes understanding. Order received for Port Placement- given to Yennifer. Patient had initial consult with [facility] radiation - Dr. Herbert. Radiation office will call patient with next appt. Patient to update our office to book chemotherapy concurrently.
--- NOTE | 2021-12-04 16:07 | MHC.HEMONC ---
Port Placement request in pending status in radiology. Radiology will call department w/appt. date & time.
--- NOTE | 2021-12-04 16:33 | HO.HEMONCPA ---
PA FOR IR CVC REPO TUNNEL W/ PORT ( [id number]) IS REQUIRED . I SENT CLINICAL INFORMATION TO [facility], AWAITING DECISION.
--- NOTE | 2021-12-05 11:20 | HO.HEMONCPA ---
PER [facility] , NO PA IS REQUIRED FOR IR CVC REPO TUNNEL ([id number]) ( SEE DOCUMENT SCANNED INTO CHART)
--- NOTE | 2021-12-09 09:11 | HO.HEMONCSCH ---
Spoke with pts sister, they are aware of appt for port insertion on 12/23/21 at 0830.
--- NOTE | 2021-12-22 11:31 | HO.HEMONCSCH ---
Spoke with pts sister and gave her appt for port insertion on 12/30/21 at 1030.
--- NOTE | 2021-12-23 11:37 | MHC.HEMONC ---
Received call from pt's sister-states pt [place] an [place] [facility] [place] Chem therapy appointment cancelled. Pt's sister to call department when pt is discharged from hospital
--- NOTE | 2021-12-26 14:40 | MHC.HEMONC ---
per phone conversation with Laurel pt sister - pt being D/C tomorrow from [facility] [facility]. [facility] to start RT on Wednesday. I have canceled her port appt for Wednesday and told her sister. She will come here following RT for c1d1 Taxol/Carbo.
--- NOTE | 2021-12-26 14:47 | MHC.HEMONC ---
Pt port r/s to 01/02 at 1:30. We will notify her on Wednesday when she comes for chemo.
[2021-12-30 11:20] LABS: Basophils Percent Auto 0.1 % (0-2); Hemoglobin 10.9 g/dl (12.0-16.0); Imm Gran Abs Auto 0.31 X10*3/uL (0.00-0.03); Imm Gran Pct Auto 0.8 % (0.0-0.4); Lymphocytes Absolute Auto 1.4 X10*3/uL (1.2-4.9); Lymphocytes Percent Auto 3.8 % (20-40); MANUAL DIFF FLAG SCAN; Mean Corpuscular Hemoglobin 28.5 pg (27.0-33.0); Mean Corpuscular Volume 86.4 fL (80.0-98.0); Mean Platelet Volume 8.8 fL (9.4-12.3); Monocytes Absolute Auto 2.1 X10*3/uL (0.1-1.2); Monocytes Percent Auto 5.6 % (2-11); Neutrophils Absolute Auto 33.9 x10*3/uL (2.0-8.3); Neutrophils Percent Auto 89.7 % (45-73); Platelet Count 470 X10*3/uL (160-400); Red Blood Count 3.82 X10*6/uL (4.20-5.50); Red Cell Distribution Width 18.8 % (11.0-16.0); SCAN SMEAR FLAG 1
[2021-12-30 11:24] LABS: White Blood Count 37.8 X10*3/uL (4.8-10.8)
[2021-12-30 11:48] LABS: Alanine Aminotransferase 10 U/L (0-31); Albumin Level 3.4 g/dL (3.5-5.0); Alkaline Phosphatase 81 U/L (39-117); Anion Gap 23 (12-20); Aspartate Amino Transferase 23 U/L (5-31); Bilirubin Total 0.3 mg/dL (0.0-1.0); Blood Urea Nitrogen 24 mg/dL (9-16); Carbon Dioxide 22 mmol/L (22-29); Chloride 86 mmol/L (96-108); Creatinine Clr Calc Pharmacy 35.9; Estimated Glomerular Filt Rate 59; Glucose Random 188 mg/dL (60-115); Potassium 5.3 mmol/L (3.3-5.1); Sodium 126 mmol/L (135-145); Total Protein 6.6 g/dL (6.5-8.0)
[2021-12-30 11:57] LABS: HBS Num1 1.47 mIU/mL (0-7.99); HBsAGNum1 0.19 S/CO (0.00-0.99); Hepatitis B Core Antibody Nonreactive (Nonreactive); Hepatitis B Surface Antigen Negative (Negative); SLIDE REVIEW VERIFIED; ~Hepatitis B Surface Antibody NONREACTIVE (Nonreactive)
[2021-12-30] MEDS: Famotidine/PF 20 MG/2 ML VIAL IVPUSH (12:28)
[2021-12-30] MEDS: diphenhydrAMINE HCL 50 MG/ML VIAL 25 MG IVPUSH (12:31)
[2021-12-30] MEDS: dexAMETHasone sod phosphate/NS 12 MG/50 ML PIGGYBACK 200 MG IV (12:52)
[2021-12-30 13:15] VITALS: BP 114/56; PULSE 68; RESP 16; TEMP 36.3; O2SAT 95
[2021-12-30] MEDS: HYDROmorphone HCl 1 MG/ML SYRINGE 2 MG IVPUSH (13:27)
--- NOTE | 2021-12-30 14:55 | MHC.HEMONC ---
Addendum entered by Ursula Carlson RN 12/30/21 15:56: Elina to look in to how often PICC needs to be flushed and whether VNA services will be needed. Addendum entered by Ursula Carlson RN 12/30/21 15:46: Spoke with nurse in Interventional radiology (Bridget). Clare will have a PICC line placed on Wednesday01/02/2022 not a port. The Radiation site is too close to where the port would be. Original Note: Pt here for c1 carbo/taxol with concurrent radiation at [facility] accompanied by sister. Has a gtube, for feeding. Gtube site healed well. Not eating or drinking at all by mouth. Also has trach, well healed. She has a suction device with her and self suctions as needed. Premedicated with dex, zofran, famotidine, benadryl all IV. Chemotherapy tolerated well. Dilaudid 2mg IV given for pain in neck/throat area with moderate effect. Pt aware of next appts, discharge packet given.
--- NOTE | 2022-01-01 10:19 | MHC.HEMONC ---
Nurse took t/c from Sully at [facility] Rad/Onc, calling to report that pt was in for RT today and they noticed a small abscess-like opaque growth at the 3 o'clock position of pt's trach stoma. Pt was [place] [facility] [place]. Shayy said pt's RT will continue as scheduled, as will pt's chemo schedule, unless we are instructed otherwise. Nurse updated Dr. Weir.
--- NOTE | 2022-01-05 15:58 | MHC.HEMONC ---
Pt is currently a patient in the ED. Awaiting PEG placement on 01/06/22 Chemotherapy cancelled for 01/06/22
--- NOTE | 2022-01-06 14:23 | MHC.HEMONC ---
Pt VNA is [facility] (P) [phone] and (F) [phone] For GT and trach supples vendor is [facility] (P)[phone] and [phone] Orders received at both places for new PICC. Pt family to be taught by [facility] how to flush PICC while at home. We will do weekly dressing change here for the time she is in chemo and requiring labs.
--- NOTE | 2022-01-12 15:26 | MHC.HEMONC ---
Nnamdi Lucas RN at [facility] - pt was admitted to [facility] one hour following d/c from [facility] due to leaking GT. Minda advised and will tell Dr Weir.
--- NOTE | 2022-01-19 15:41 | MHC.HEMONC ---
Dr. Weir confirmed pt is inpatient at [facility], asked nurse to cancel upcoming chemo and all upcoming appts until clinic hears otherwise.
--- NOTE | 2022-02-09 15:00 | MHC.HEMONC ---
Pt dies earlier in month according to her sister, Laurel.
== END 2022-04-09 | disposition home or self-care (01) ==
LOC: HO.ONC 10:30
PROVIDERS: PCP Internal Medicine; Visit Provider Internal Medicine Medical Oncology
DX: Z51.11 Encounter for antineoplastic chemotherapy (principal); C10.9 Malignant neoplasm of oropharynx, unspecified; R91.8 Other nonspecific abnormal finding of lung field; Z93.0 Tracheostomy status; Z93.1 Gastrostomy status
CPT/HCPCS: 36415; 80053; 85025; 86704; 86706; 86850; 86900; 86901; 87340; 96375; 96413; 96415; 96417; 99204; 99215; J1100; J1170; J1200; J2405; J9045; J9267

== ENCOUNTER 2022-01-02 13:35 | Outpatient (REF) | payer OTHER, SELFPAY ==
--- NOTE | ~2022-01-02 | IR_ITS ---
PROCEDURE: IR INSERTION OF PICC CLINICAL INFORMATION: IV access for chemotherapy. History of head and neck cancer. COMPARISON: None TECHNIQUE: Procedure and risks and benefits including bleeding, infection and blood clot were discussed with the patient and informed consent was obtained. All elements of maximal sterile barrier technique followed including use of cap, mask, sterile gown, sterile gloves, a sterile full body drape and hand hygiene. Also followed skin preparation with 2% chlorhexidine for cutaneous antisepsis, and sterile ultrasound preparation with sterile gel and probe cover when applicable. The right upper arm was prepped and draped in usual sterile fashion. The skin and soft tissues tissues were anesthetized with 1% lidocaine plain. Using ultrasound guidance, right brachial vein access was obtained. Over an 018 wire, a 5 [place] dilator was positioned in the right brachial vein. The 018 wire could not be advanced centrally in the chest. Limited venogram was performed of the right subclavian vein. The 018 wire was advanced centrally in the chest. 4 [place] single lumen PICC line was advanced over the guidewire through the peel-away sheath. Catheter length is 35 cm. Catheter tip projects over the SVC. Fluoroscopy time 2.2 minutes. Patient dose 2.6 mg. Patient received 5 mL Omnipaque 300 IV contrast. FINDINGS: There is a right upper extremity PICC line with tip projecting over the SVC. IR/IR cvc insert peripheral IMPRESSION: Right upper extremity 4 [place] single lumen PICC line placement.
--- NOTE | 2022-01-02 15:42 | HO.RADPN ---
RADIOLOGY Narrative Narrative: Right brachial sigle lumen PICC line placed. Catheter length 35 cm. Catheter tip in SVC.
== END 2022-01-02 13:36 | disposition home or self-care (01) ==
LOC: HO.XRAY 13:35
PROVIDERS: PCP Internal Medicine; Visit Provider Radiology Diagnostic Radiology
DX: C76.0 Malignant neoplasm of head, face and neck (principal)
CPT/HCPCS: 36573; C1751

== ENCOUNTER 2022-01-02 15:56 | Inpatient (IN) | payer OTHER, SELFPAY ==
--- NOTE | ~2022-01-02 | CT_ITS ---
EXAMINATION: CT ABDOMEN AND PELVIS WITHOUT CONTRAST CLINICAL INFORMATION: Cancer. Intermittent PEG dysfunction. Evaluate for leak. COMPARISON: Most recent abdominal radiograph done earlier the same day. Most recent CT chest/abdomen/pelvis dated 09/24/2021. TECHNIQUE: Multidetector volumetric imaging was performed from the superior aspect of the liver through the pubic symphysis. Sagittal and coronal reformatted images were obtained on the technologist's workstation. This CT examination was performed using dose optimization techniques as appropriate, variously including the following: *Automated exposure control *Adjustment of mA and/or kV according to patient size (this includes techniques or standardized protocols for targeted exams where dose is matched to indication/reason for exam; i.e. extremities or head) *Use of iterative reconstruction technique DLP: 193 mGy-cm FINDINGS: LUNG BASES: Minimal scattered tree-in-bud opacities within the right lung base which are new when compared to the prior CT and could represent a minimal infectious or inflammatory process. LIVER, GALLBLADDER, AND BILIARY TREE: The liver is normal in size, shape, and attenuation. Stable subcentimeter hypodensity within the anteroinferior aspect of the right hepatic lobe. No new focal hepatic lesion or biliary ductal dilatation is present. The gallbladder is unremarkable with no evidence of radiopaque gallstones, gallbladder wall thickening, or obvious pericholecystic inflammatory changes. PANCREAS: Diffuse pancreatic atrophy with associated calcifications, unchanged and consistent with sequela of chronic pancreatitis. Evaluation of the parenchyma limited without IV contrast. SPLEEN: Unremarkable. ADRENAL GLANDS: Unremarkable. KIDNEYS AND URETERS: The kidneys are normal in size, shape, and attenuation. No hydronephrosis, hydroureter, or calculi seen. Nonspecific bilateral perinephric stranding, new when compared to the prior examination. Findings could represent an infectious or inflammatory process versus normal variation. BLADDER: Unremarkable. GASTROINTESTINAL TRACT: Small amount of contrast within the gastric lumen. No extravasation of contrast extraluminally. No contrast adjacent to the PEG tube to suggest leak. Nondistention of the stomach with diffuse circumferential wall thickening. No small or large bowel obstruction. Moderate stool burden consistent with constipation. Unremarkable appendix. PERITONEAL CAVITY: No intra-abdominal free air or free fluid. ABDOMINAL WALL: PEG tube without associated herniation or fluid collection. Redemonstration of an inferior abdominal wall hernia containing a nonobstructed loop of stool-filled colon. This appears increased in size when compared to the prior CT measuring up to 4 cm in ML dimension (previously 2.5 cm). LYMPH NODES: No significant lymphadenopathy, however, evaluation is limited without IV contrast. VASCULAR: Diffuse atherosclerotic calcifications are redemonstrated. PELVIC VISCERA: The uterus and adnexa are unremarkable. OSSEOUS STRUCTURES: Unremarkable. CT/CT abdomen pelvis wo IV con IMPRESSION: 1. No extraluminal extravasation of contrast to suggest PEG tube leak or rupture. Diffuse gastric circumferential wall thickening which could indicate gastritis in the appropriate clinical setting. Evaluation limited without IV contrast. No bowel perforation or abscess formation. 2. Moderate stool burden. No small or large bowel obstruction. 3. Bilateral perinephric stranding, new when compared to the prior CT. Findings are nonspecific and could represent normal variation versus an infectious or inflammatory process. No hydronephrosis or nephrolithiasis. 4. Minimal tree-in-bud opacities within the right lung base, new when compared to the prior examination. This could represent a minimal infectious or inflammatory process. Fleischner guidelines were followed.
--- NOTE | ~2022-01-02 | XR_ITS ---
EXAMINATION: XR ABDOMEN KUB CLINICAL INDICATION: Leaking PEG tube COMPARISON: 01/02/2022 TECHNIQUE: AP view of the abdomen. Per technologist note, 30 mL water-soluble contrast was injected into the tube prior to obtaining the image. FINDINGS: Contrast material is present in the stomach, in keeping with gastrostomy tube tip location in the stomach. No extravasated contrast is seen. Redemonstrated pancreatic calcifications consistent with chronic pancreatitis. Included bowel gas pattern is nonobstructive with large amount of stool in the visualized colon. Included lung bases are well-aerated. No acute osseous findings are seen. XR/XR KUB IMPRESSION: Findings consistent with gastrostomy tube tip location in the stomach. No contrast extravasation identified.
--- NOTE | ~2022-01-02 | XR_ITS ---
EXAMINATION: XR ABDOMEN KUB CLINICAL INDICATION: G-tube check. COMPARISON: 12/19/2021 abdominal radiographs, chest CT scan dated 12/17/2021. TECHNIQUE: AP view of the abdomen. FINDINGS: Support devices: Contrast was injected through the gastrostomy tube with contrast within the gastric lumen without evidence for leak. There is a nonobstructive bowel gas pattern. Moderate stool seen throughout the colon distally to the rectum. Multiple coarse pancreatic calcifications are again noted. The osseous structures are unchanged. XR/XR KUB IMPRESSION: 1. Accessory tube appears in good position without leak. 2. Nonobstructive bowel gas pattern. Moderate colonic stool burden. This appears increased from the previous study.
--- NOTE | ~2022-01-02 | IR_ITS ---
EXAMINATION: XR GASTROSTOMY TUBE PLACEMENT CLINICAL INFORMATION: Gastric leak through the existent gastrostomy tube. Needs conversion to a GJ tube. COMPARISON: None. TECHNIQUE: Following explaining fluoroscopy-guided conversion of G-tube to GJ tube procedure, benefits and risks, a written consent was obtained from the patient. Patient was placed supine on fluoroscopy table and the area of the abdominal wall around the G-tube was cleaned and draped in the usual sterile manner. The existent G-tube was removed. The gastrostomy entry site is significantly large with continuous gastric juice drainage seen. A long GJ tube was inserted under fluoroscopy after several attempts an approximately 30 to 40 minutes fluoroscopy time. The G-tube tip now lies beyond the duodenal jejunal flexure and the proximal jejunum. Contrast was injected to confirm the catheter tip in the proximal jejunum. Patient has significant gastric juice drainage and minimal hemorrhage seen. The G-tube was anchored to the abdominal wall by inflated balloon along the stomach and a external gastric stabilizer. No suturing was performed due to significant edema in the abdominal wall. Sedation was provided by anesthesia department. FINDINGS: Successful fluoroscopy-guided conversion of G-tube to a GJ tube. There is significant gastric juice drainage from a large hole within the abdominal wall where gastrostomy tube was placed. This needs to be surgically corrected or a larger Bore catheter can be used. There is significant induration seen along the anterior wall. FLUOROSCOPY TIME: 19.9 minutes. DOSE AREA PRODUCT: 2355 uGy-m2 (microgray-meter squared). IR/IR gastro tube insertion IMPRESSION: Successful but time-consuming fluoroscopy-guided conversion of G-tube to a GJ tube. The entry point of the gastrostomy tube along the abdominal wall is significantly larger. This will have significant gastric juice drainage or leak along the GJ tube. The entry point has to been surgically corrected.
--- NOTE | ~2022-01-02 | XR_ITS ---
EXAMINATION: XR CHEST CLINICAL INFORMATION: Leukocytosis, aspiration COMPARISON: Chest x-ray 12/25/2021 TECHNIQUE: Frontal view of the chest was obtained. FINDINGS: Tracheostomy tube in place. Right-sided PICC line tip terminates in the distal SVC. No appreciable airspace consolidation. Partial clearing of patchy infrahilar airspace opacities. Mildly increased reticulonodular opacities in the left lung, present previously. No pleural effusion or pneumothorax. Normal cardiomediastinal silhouette. No evidence pulmonary edema. Changes of right rotator cuff arthropathy noted. No acute osseous injury. There is to be high-density material/contrast opacifying rugal folds of the stomach in the left upper quadrant. XR/XR chest 1V IMPRESSION: 1. Small reticulonodular densities in the left mid to lower lung, which could represent localized inflammatory/infectious process or small volume aspiration. No lobar consolidation or pleural effusions. Previously reported infrahilar opacities appear improved.
--- NOTE | 2022-01-02 16:04 | ED_ITS ---
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 Patient was just in the Interventional Radiology suite here at [facility] for a a right-sided PICC line placement. She reports when she got home she had a coughing fit and thinks her G-tube was dislodged. Of note patient has had a similar episode during her last admission requiring replacement of her G- tube. She also had a trach change last admission. She is on the Levaquin after her discharge. She denies any fevers at home. History is obtained from her sister who cares for her at home. Patient is nonverbal does not tolerate a Passy Gus valve. complaint: Dislodged G-tube Onset (ago): minute(s) Location: abdomen Radiation: non-radiation Severity: mild Pain Consistency: constant Relieving factors: none Exacerbating factors: none Associated symptoms: denies other symptoms Treatments prior to arrival: none Related Data Home Medications Medication Instructions Recorded Confirmed blood pressure test kit-large #1 ea 04/29/20 12/04/21 blood sugar diagnostic #10 ea 04/29/20 12/04/21 insulin syringe-needle U-100 0.3 #10 ea 04/29/20 12/04/21 mL 31 gauge x 09/08 lancets 28 gauge #100 ea 04/29/20 12/04/21 pen needle, diabetic 32 gauge x #50 ea 04/29/20 12/04/21 Previous Rx's Medication Instructions Recorded pen needle, diabetic 32 gauge x #200 ea 05/30/21 (BD Ultra-Fine Capri Pen Needle) blood sugar diagnostic (FreeStyle #100 ea 12/08/21 Lite Strips) lancets 28 gauge (FreeStyle #100 ea 12/08/21 Lancets) Omeprazole Oral Susp [PriLOSEC 20 mg G-tube DAILY@0630 #30 ea 12/21/21 Oral Susp] amlodipine 5 mg tablet 5 mg feeding tube DAILY #30 tabs 12/21/21 calcium carbonate 600 mg-vitamin 1 tab PO DAILY #30 tabs 12/21/21 D3 10 mcg (400 unit) tablet hydromorphone 1 mg/mL oral liquid 10 mg (10 mL) PO Q4H PRN severe 12/21/21 pain #473 mL insulin glargine U-300 conc 300 8 unit (0.0267 mL) subcut DAILY #1 12/21/21 unit/mL (3 mL) subcutaneous pen ea (Toujeo Max U-300 SoloStar) insulin lispro 100 unit/mL See Protocol subcut TIDAC #1 ea 12/21/21 subcutaneous half-unit pen (Humalog Scot KwikPen (U-100)) ipratropium 0.5 mg-albuterol 3 mg 3 ml inhalation Q6H PRN Shortness 12/21/21 (2.5 mg base)/3 mL nebulization Of Breath #50 ea soln loratadine 10 mg tablet 10 mg feeding tube DAILY #30 tabs 12/21/21 multivit and minerals-ferrous 15 ml feeding tube DAILY #450 mL 12/21/21 gluconate 9 mg iron/15 mL oral liquid (Centrum) ondansetron 4 mg disintegrating 1 tab feeding tube Q8H PRN Nausea 12/21/21 tablet And Vomiting #30 tabs polyethylene glycol 3350 17 17 g feeding tube DAILY PRN 12/21/21 gram/dose oral powder Constipation #500 grams prochlorperazine maleate 5 mg 5 mg feeding tube Q6H PRN Nausea 12/21/21 tablet #30 tabs simvastatin 5 mg tablet 5 mg feeding tube BEDTIME #30 tabs 12/21/21 sodium chloride 1 gram tablet 1 g feeding tube TID #90 tabs 12/21/21 dexamethasone 2 mg tablet 2 mg PO Q8H #14 tabs 12/26/21 levofloxacin 500 mg tablet 500 mg PO DAILY #7 tabs 12/26/21 Allergies Allergy/AdvReac Type Severity Reaction Status Date / Time ragweed pollen [RAGWEED] Allergy Severe RUNNY NOSE Verified 12/12/21 08:04 Sulfa (Sulfonamide Allergy Intermediate PASS OUT, Verified 12/12/21 08:04 Antibiotics) HIVES [SULFA(SULFONAMIDE ANTIBIOTICS)] Review of Systems Review of Systems: Constitutional: No Fever, No Chills ENT/Mouth: No sore throat, No Rhinorrhea, No Swallowing Difficulty Eyes: No Eye Pain, No Swelling, No Redness Cardiovascular: No Chest Pain, No SOB, No Orthopnea, No Edema Respiratory: + Cough, + Sputum, No Wheezing, No dyspnea Gastrointestinal: No Nausea, No Vomiting, No Diarrhea, No abdominal Pain Genitourinary: No Dysuria, No Urinary Frequency, No Hematuria Musculoskeletal: No joint pain, No Myalgias Skin: No Skin Lesions, No rash Neuro: No Weakness, No Numbness, No Dizziness, No Headache Psych: + Anxiety/Panic, No Depression Heme/Lymph: No Bruising, No Lymphadenopathy Endocrine: No Polyuria, No Polydipsia PMFSH Past Medical History Medical History Asthma Bronchitis Cellulitis Chronic pancreatitis Essential hypertension Feeding by G-tube Hemoptysis Hx MRSA infection Hx of respiratory failure Hx of septic shock Hyperlipidemia LDL goal <100 Lung mass Macrocytic anemia Oropharyngeal dysphagia Pneumonia Shortness of breath Smoking 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 Surgical History History of esophagogastroduodenoscopy (EGD) History of tracheostomy Hx of abdominal surgery Hx of colonoscopy Hx of exploratory laparotomy Family History Family History Father Diabetes Myeloma Mother Brain cancer Mother Lung cancer Sister Breast cancer Social History Social History Household Members: Family Household Members Other:: 2 Housing: House Are you a primary child care center assistant director to a significant other at home: No Do you presently have visiting nurse or other home services: Yes (CANNOT RECALL NAME OF AGENCY) Alcohol intake: former Year quit: 2019 Patient Tobacco Use Status: Former Tobacco user Quit Date: JULY 2021 Years Smoked: 40 Advance Directives: No Advance Directives Information Provided: Yes service: No Current occupational status: disabled Physical Exam ED Vital Signs: Vital Signs - 24 hr 01/02/22 16:34 01/02/22 20:29 01/02/22 22:51 Temperature 98.3 F Pulse Rate 56 67 63 Respiratory Rate Blood Pressure 125/55 L 143/75 H 127/61 Pulse Oximetry 94 99 99 Oxygen Delivery Method Room Air Oxygen Flow Rate 01/03/22 06:05 01/03/22 07:56 Temperature 98.0 F Pulse Rate 66 70 Respiratory Rate 17 Blood Pressure 133/66 126/60 Pulse Oximetry 95 97 Oxygen Delivery Method Room Air Humidified O2 Oxygen Flow Rate 8 BMI result Body Mass Index 16.5 Appearance: Alert, frail female sitting up in the stretcher. Oriented X3. No acute distress. Eyes: Pupils equal, round and reactive to light. ENT: Pharynx normal. Neck: Tracheostomy in place with yellow gastric contents presents. Neck with large palpable mass anteriorly CVS: Normal heart rate and rhythm. Pulses normal. Respiratory: No respiratory distress. Breath sounds normal. Abdomen: Dislodge G-tube present on the abdomen with 10 cc balloon intact. v isible soft, reducible mass below the site. insertion site dilated with copious amounts of yellow gastric contents leaking out. +BS x4 Skin: Skin warm and dry. Normal skin color. Normal skin turgor. No rashes. Extremities: No lower extremity edema. Neuro: Answers y/n questions appropriately, follows simple commands. Nonfocal. Nonverbal Course Course Course Narrative: 61 yo female with hx SCC oropharynx, s/p trach and PEG coming in with feeding tube problem. On exam her entire PEG tube was dislodged with the 10cc balloon inflated, creating a large stoma at the insertion site with copious amounts of gastric contents on the patient, including some visualized around her trach. Will need to replace. Upon review of records during her recent hospitalization she had her G-tube replaced by Dr. Temple after it was dislodged during a coughing fit. She may need conversion to G-J tube instead. She was discharged with PO dilaudid 10 mg Q4 PRN and 1 week of levaquin. She completed 1 cycle of cisplatin/docetaxel/5 FU at [facility] 10/31/21 and has transitioned care to [facility] + [facility] Rad[facility] On[facility] with plan for concurrent chemoradiation therapy, chemotherapy with weekly carboplatin and taxol. She is frail. Reevaluation(s) Reevaluation #1: PEG tube replaced with a larger 22 F tube. Gastrograffin injected by myself revealing adequate positioning. CXR with possible early aspiration w/ small reticulonodular densities of the left mid to lower lung, which could represent localized inflammatory/infectious process or small volume aspiration. Patient appears to be chronically aspirating. There are no lobar consolidations or pleural effusions. Repeat reported previously seen infrahilar opacities are improved. She is not requiring oxygen. She is self suctioning. Lab work showing leukocytosis of 33,000 which is trending down. She is on chronic dexamethasone for her neck swelling. This could be contributing. No diarrhea check for C diff today. Case was discussed with Dr. Tse from surgery who is recommending outpatient follow up for possible G-J conversion - he will discuss logistic with Dr. Temple and Dr. Magana over the weekend and come up with a plan for Wednesday given Gen Surg has seen her in the past. Case also briefly d/w Dr. Mart - no indication for admission at this time. Spoke with patient's sister and catheter builder Laurel who is not comfortable with the patient going home alone tonight and that she is working all night. She says Clare is unsteady on her feet and is worried for her safety at home. Patient very upset and would like to go home but is willing to stay in the ED overnight. Will get PT eval in the morning to see if she qualifies for PT at home. She is refusing STR placement. Physician observation started at 19:30. Patient placed in physician observation because patient is awaiting [facility] evaluation for the possible need of inpatient psych admission. At the time observation was started patient's vital signs were stable. Patient is alert and oriented. Neuro exam is non-focal. CV: RRR and lungs are clear. Will continue to monitor. Reevaluation #2: Nursing went to give PO meds via PEG with visible leakage externally. Patient was laid supine and repeat gastrograffin study was performed again demonstrating adequate positioning. Will give PO meds in a more supine position, however this increases aspiration risk. Nursing aware. All home meds and TF have been ordered. (No PO liquid dilaudid here so IV equivalent ordered) Consultations Consultation #1: General Surgery - Dr. Tse Procedures Feeding Tube Replacement Type of Tube: gastrostomy Insertion Site Prior to Procedure: erythematous, swollen and GI fluid leaking Tube Used for Reinsertion: other (22 F, prior was 18F with balloon fully intact) [place] Tube Size (F): 22 Balloon size (mL): 10 Verification of Placement: KUB and gastrografin injection Tube Secured by: tape/dressing and attachment device Patient Tolerated Procedure: well and no complications Medical Decision Making Lab Data Result diagrams: 01/02/22 16:31 01/02/22 16:31 Labs: Lab Results 01/02/22 01/02/22 01/03/22 Range/Units 16:31 16:31 00:08 WBC 33.1 H* (4.8-10.8) X10*3/uL RBC 2.92 L D (4.20-5.50) X10*6/uL Hgb 8.6 L D (12.0-16.0) g/dl Hct 25.2 L D (37.0-47.0) % MCV 86.3 (80.0-98.0) fL MCH 29.5 (27.0-33.0) pg MCHC 34.1 (31.0-35.0) g/dl RDW 19.6 H (11.0-16.0) % Plt Count 336 D (160-400) X10*3/uL MPV 9.6 (9.4-12.3) fL Immature Gran % (Auto) 0.7 H (0.0-0.4) % Neut % (Auto) 96.3 H (45-73) % Lymph % (Auto) 1.4 L (20-40) % [place] % (Auto) 1.4 L (2-11) % Eos % (Auto) 0.0 (0-4) % Baso % (Auto) 0.2 (0-2) % Lymph # (Auto) 0.5 L (1.2-4.9) X10*3/uL [place] # (Auto) 0.5 (0.1-1.2) X10*3/uL Eos # (Auto) 0.0 (0.0-0.4) X10*3/uL Baso # (Auto) 0.1 (0.0-0.2) X10*3/uL Abs Immat Gran (auto) 0.24 H (0.00-0.03) X10*3/uL Absolute Neuts (auto) 31.9 H (2.0-8.3) x10*3/uL Absolute Nucleated RBC 0.000 (0.0-0.012) X10*3/uL Nucleated RBC % (auto) 0.0 (0.0-0.2) /100WBC Smear Tech's Comments VERIFIED Sodium 129 L (135-145) mmol/L Potassium 5.1 (3.3-5.1) mmol/L Chloride 91 L (96-108) mmol/L Carbon Dioxide 26 (22-29) mmol/L Anion Gap 17 (12-20) BUN 30 H (9-16) mg/dL Creatinine 0.97 (0.5-1.4) mg/dL Estim Creat Clear Calc 36.0 Estimated GFR 58 POC Glucose 188 H (60-115) mg/dL Random Glucose 326 H (60-115) mg/dL Calcium 9.6 (8.4-10.2) mg/dL Magnesium 1.7 (1.6-2.6) mg/dL Total Bilirubin 0.4 (0.0-1.0) mg/dL Direct Bilirubin 0.2 (0.0-0.5) mg/dL AST 11 D (5-31) U/L ALT 14 (0-31) U/L Alkaline Phosphatase 81 (39-117) U/L Total Protein 5.2 L D (6.5-8.0) g/dL Albumin 3.1 L (3.5-5.0) g/dL 01/03/22 Range/Units 07:53 WBC (4.8-10.8) X10*3/uL RBC (4.20-5.50) X10*6/uL Hgb (12.0-16.0) g/dl Hct (37.0-47.0) % MCV (80.0-98.0) fL MCH (27.0-33.0) pg MCHC (31.0-35.0) g/dl RDW (11.0-16.0) % Plt Count (160-400) X10*3/uL MPV (9.4-12.3) fL Immature Gran % (Auto) (0.0-0.4) % Neut % (Auto) (45-73) % Lymph % (Auto) (20-40) % [place] % (Auto) (2-11) % Eos % (Auto) (0-4) % Baso % (Auto) (0-2) % Lymph # (Auto) (1.2-4.9) X10*3/uL [place] # (Auto) (0.1-1.2) X10*3/uL Eos # (Auto) (0.0-0.4) X10*3/uL Baso # (Auto) (0.0-0.2) X10*3/uL Abs Immat Gran (auto) (0.00-0.03) X10*3/uL Absolute Neuts (auto) (2.0-8.3) x10*3/uL Absolute Nucleated RBC (0.0-0.012) X10*3/uL Nucleated RBC % (auto) (0.0-0.2) /100WBC Smear Tech's Comments Sodium (135-145) mmol/L Potassium (3.3-5.1) mmol/L Chloride (96-108) mmol/L Carbon Dioxide (22-29) mmol/L Anion Gap (12-20) BUN (9-16) mg/dL Creatinine (0.5-1.4) mg/dL Estim Creat Clear Calc Estimated GFR POC Glucose 133 H (60-115) mg/dL Random Glucose (60-115) mg/dL Calcium (8.4-10.2) mg/dL Magnesium (1.6-2.6) mg/dL Total Bilirubin (0.0-1.0) mg/dL Direct Bilirubin (0.0-0.5) mg/dL AST (5-31) U/L ALT (0-31) U/L Alkaline Phosphatase (39-117) U/L Total Protein (6.5-8.0) g/dL Albumin (3.5-5.0) g/dL Discharge Plan Discharge Clinical Impression: Dislodged gastrostomy tube Patient Disposition: Still a Patient Instructions: How to Use and Care for Your PEG Tube (ED), PEG Tube Insertion (DC) Additional Instructions: Recommend following up with General Surgery for conversion of your PEG tube to a G-J tube which can help better safely deliver tube feeds with decreased aspiration risk. If you develop new or worsening symptoms call 911 or come back to the ER for further evaluation. Prescriptions: No Action (DME) pen needle, diabetic [BD Ultra-Fine Capri Pen Needle] 32 gauge x /32 needle See Rx Instructions .ROUTE .MEDSUPPLY Qty: 200 11RF Rx Instructions: As directed five times a day (DME) lancets [FreeStyle Lancets] 28 gauge misc See Rx Instructions .Route Qty: 100 2RF Rx Instructions: As directed 6 times a day (DME) FreeStyle Lite Strips Strip See Rx Instructions .Route Qty: 100 3RF Rx Instructions: As directed 4-6 times a day Omeprazole Oral Susp [Prilosec Oral Susp] 20 mg G-tube DAILY@0630 Qty: 30 2RF ipratropium-albuterol 0.5 mg-3 mg(2.5 mg base)/3 mL Solution For Nebulization 3 ml INHALATION Q6H PRN (Reason: Shortness Of Breath) Qty: 50 2RF prochlorperazine maleate 5 mg tablet 5 mg feeding tube Q6H PRN (Reason: Nausea) Qty: 30 2RF sodium chloride 1 gram tablet 1 g feeding tube TID Qty: 90 2RF amlodipine 5 mg tablet 5 mg feeding tube DAILY Qty: 30 2RF simvastatin 5 mg tablet 5 mg feeding tube BEDTIME Qty: 30 2RF polyethylene glycol 3350 17 gram/dose powder 17 g feeding tube DAILY PRN (Reason: Constipation) Qty: 500 2RF ondansetron 4 mg tablet,disintegrating 1 tab feeding tube Q8H PRN (Reason: Nausea And Vomiting) Qty: 30 2RF loratadine 10 mg tablet 10 mg feeding tube DAILY Qty: 30 1RF calcium carbonate-vitamin D3 600 mg-10 mcg (400 unit) tablet 1 tab PO DAILY Qty: 30 2RF Centrum 9 mg iron/15 mL liquid 15 ml feeding tube DAILY Qty: 450 2RF insulin lispro [Humalog Scot ChristopherikPen U-100] 100 unit/mL insulin pen, half- unit See Protocol subcut TIDAC MDD 60 units Qty: 1 2RF Protocol: Insulin Correction Scale Less than or equal to 110 ---- Give (units): 0 111 to 150 Give (units): 0 151 to 200 Give (units): 2 201 to 250 Give (units): 4 251 to 300 Give (units): 6 301 to 350 Give (units): 8 Greater than 350 Give (units): 10 Call MD if Blood Glucose > : 350 Toujeo Max U-300 SoloStar 300 unit/mL (3 mL) insulin pen 8 unit subcut DAILY Qty: 1 2RF hydromorphone 1 mg/mL liquid 10 mg PO Q4H PRN (Reason: severe pain) Qty: 473 0RF Rx Instructions: Partial Fill upon patient request. levofloxacin 500 mg Tablet 500 mg PO DAILY Qty: 7 0RF dexamethasone 2 mg tablet 2 mg PO Q8H Qty: 14 0RF Rx Instructions: Take dexamethasone 2 mg 1 tablet 3 times a day for 3 days, then take dexamethasone 2 mg 1 tablet 2 times a day for 3 days and then stop (DME) lancets 28 gauge misc See Rx Instructions topical TID Qty: 100 Rx Instructions: As directed (DME) pen needle, diabetic 32 gauge x 5/32 needle See Rx Instructions subcut QID Qty: 50 Rx Instructions: As directed (DME) blood pressure test kit-large Kit See Rx Instructions .ROUTE DIRECTED Qty: 1 Rx Instructions: As directed (DME) blood sugar diagnostic Strip See Rx Instructions Not Applicable QID Qty: 10 Rx Instructions: As directed (DME) insulin syringe-needle U-100 0.3 mL 31 gauge x 5/16 syringe See Rx Instructions .ROUTE .MEDSUPPLY Qty: 10 Rx Instructions: As directed Referrals: [facility] [Provider Group] (G-J tube conversion)
[2022-01-02 16:19] VITALS: BP 110/64; PULSE 69; O2SAT 96; BMI 16.5
[2022-01-02 16:34] VITALS: BP 125/55; PULSE 56; TEMP 36.8; O2SAT 94
[2022-01-02 16:52] LABS: Basophils Absolute Auto 0.1 X10*3/uL (0.0-0.2); Basophils Percent Auto 0.2 % (0-2); Hematocrit 25.2 % (37.0-47.0); Hemoglobin 8.6 g/dl (12.0-16.0); Imm Gran Abs Auto 0.24 X10*3/uL (0.00-0.03); Imm Gran Pct Auto 0.7 % (0.0-0.4); Lymphocytes Absolute Auto 0.5 X10*3/uL (1.2-4.9); Lymphocytes Percent Auto 1.4 % (20-40); MANUAL DIFF FLAG SCAN; Mean Corpuscular HGB Conc 34.1 g/dl (31.0-35.0); Mean Corpuscular Hemoglobin 29.5 pg (27.0-33.0); Mean Corpuscular Volume 86.3 fL (80.0-98.0); Mean Platelet Volume 9.6 fL (9.4-12.3); Monocytes Absolute Auto 0.5 X10*3/uL (0.1-1.2); Monocytes Percent Auto 1.4 % (2-11); Neutrophils Absolute Auto 31.9 x10*3/uL (2.0-8.3); Neutrophils Percent Auto 96.3 % (45-73); Platelet Count 336 X10*3/uL (160-400); Red Blood Count 2.92 X10*6/uL (4.20-5.50); Red Cell Distribution Width 19.6 % (11.0-16.0); SCAN SMEAR FLAG 1
[2022-01-02 16:53] LABS: Alanine Aminotransferase 14 U/L (0-31); Albumin Level 3.1 g/dL (3.5-5.0); Alkaline Phosphatase 81 U/L (39-117); Anion Gap 17 (12-20); Aspartate Amino Transferase 11 U/L (5-31); Bilirubin Direct 0.2 mg/dL (0.0-0.5); Bilirubin Total 0.4 mg/dL (0.0-1.0); Blood Urea Nitrogen 30 mg/dL (9-16); Calcium 9.6 mg/dL (8.4-10.2); Carbon Dioxide 26 mmol/L (22-29); Chloride 91 mmol/L (96-108); Estimated Glomerular Filt Rate 58; Glucose Random 326 mg/dL (60-115); Magnesium 1.7 mg/dL (1.6-2.6); Potassium 5.1 mmol/L (3.3-5.1); Sodium 129 mmol/L (135-145); Total Protein 5.2 g/dL (6.5-8.0)
[2022-01-02] MEDS: Diatrizoate Meglumine, Sodium 30 ML SOLUTION PO (17:01)
[2022-01-02 17:08] LABS: White Blood Count 33.1 X10*3/uL (4.8-10.8)
[2022-01-02 17:30] LABS: SLIDE REVIEW VERIFIED
--- NOTE | 2022-01-02 19:57 | PHA.MEDREC ---
Pharmacy Consult ? Medication Reconciliation Pharmacy has completed the medication reconciliation.
[2022-01-02 20:29] VITALS: BP 143/75; PULSE 67; O2SAT 99
--- NOTE | 2022-01-02 22:11 | MHC.CM.ED ---
CM met with patient at the request of Marianne VALDES. Pt has squamous cell ca of neck and oropharnyx and is currently undergoing chemo and radiation. Was at [facility] today for a PICC line. Came to ED secondary to ? PEG displacement. Pt was hospitalized at [facility] from 12/17-12/27/21 for resp failure secondary to aspiration pna. Pt is A&Ox4. Pt lives with her sister/HCP Laurel Kee ([phone]), who is her primary bilingual recruiter. 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 Pt was discharged home on 12/27 with VNA services from [facility]. Pt has a trach and a PEG. Has tube feedings. Pt cares for her trach and is independent with ADL's. Pt communicates with written word. Pt does not use cane/walker. Pt tells CM that [facility] is working on getting her a life alert. Pt is alone at night, as her sister works overnights, and pt states she is comfortable and safe at home. Pt is very upset that she is still here in the hospital. States she wants to go home. CM explained that PA ordered PT. Pt states she does not need PT and will not go to STR. She is definite about that. Pt reluctantly agreed to staying overnight. Requested pain medication. PA aware. CM requested hospital bed for comfort. No referrals placed, as patient is unwilling to go to STR. Call placed to sister Laurel and message left. Marianne VALDES is aware of above conversation and is ordering pt medications. CM to follow for d/c needs.
--- NOTE | 2022-01-02 22:45 | PC.NURSE ---
RN called data warehouse consultant to request pt's tube feeding, tubing and pump.
[2022-01-02 22:51] VITALS: BP 127/61; PULSE 63; O2SAT 99
[2022-01-02] MEDS: HYDROmorphone HCl 2 MG/ML VIAL 4 MG IVPUSH (23:24)
[2022-01-03] VITALS (7 sets, daily range): BP systolic 105–147; BP diastolic 60–82; PULSE 66–101; RESP 16–20; TEMP 36.6–36.8; O2SAT 95–100
--- NOTE | 2022-01-03 00:03 | PC.NURSE ---
RN to bedside for evening medication admin and to redress the pt's peg tube. Old dressing noted to have yellow drainage that appears slimy like in appearance with occasional harrison chunks noted. Skin surrounding peg entrance is slightly macerated with some areas more distal from the insertion site noted to have healing areas which appear to be a result of tape placement. Pt tolerated the dressing change well and even provided assistance by opening packages and/or holding the tube in place to prevent dislodgment. Pt was noted to hold her tube whenever she coughed to help ensure the tube remained in place. Area was cleansed with NS, patted dry and new split gauze applied and reinforced with additional guaze and an ABD pad. RN had pt's evening medication and tube feeding prepared for admin, RN was able to confirm that there was no residual noted/present and the tube flushed well and with ease with 30mls of sterile water x2. After the 2nd flush the pt wrote down that she felt as though she had fluid leaking and this RN could confirm that the pt's new dressing was wet. RN did not administer and/or instill anything additional, APC and MD made aware and to bedside for further eval. RN used Cranberry juice (instilled 30mls) to confirm whether or not the wetness/leaking the pt felt was the content this RN was instilling vs gastric leaking and soon after instillation of the cranberry juice did the pt's dressings become visibly soiled with red solution. Per APC the pt is to no longer receive anything else through the peg tube at this time. Plan is for additional/repeat imaging studies and to consult surgery. RN will continue to monitor.
[2022-01-03 00:12] LABS: Glucose, Whole Blood 188 mg/dL (60-115)
[2022-01-03] MEDS: Diatrizoate Meglumine, Sodium 30 ML SOLUTION PO ×2 (00:30→18:50)
--- NOTE | 2022-01-03 02:00 | PC.NURSE ---
pt resting comfortably in stretcher with eyes closed, respirations even and unlabored without distress noted. Call yepez in reach
--- NOTE | 2022-01-03 05:00 | PC.NURSE ---
Pt continues to rest comfortably in the stretcher without distress. RN will continue to monitor
[2022-01-03] MEDS: HYDROmorphone HCl 2 MG/ML VIAL 4 MG IVPUSH ×2 (07:30→10:42)
--- NOTE | 2022-01-03 08:06 | PC.NURSE ---
pt reported bleeding from Peg Tube site after using the bathroom, Dr. Tobias cleaned and reenforced peg tube. respiratory therapist at bedside doing deep suctioning. no apparent distress, vss.
[2022-01-03 08:21] LABS: Glucose, Whole Blood 133 mg/dL (60-115)
[2022-01-03] MEDS: Insulin Glargine,Hum.rec.anlog 100 UNIT/ML 10 ML VIAL 6 UNIT SUBCUT (10:09)
--- NOTE | 2022-01-03 10:49 | PC.NURSE ---
pt requested Dilaudid for 9/10 aching, pulsating burning neck pain. med given as documented.
--- NOTE | 2022-01-03 12:15 | PC.NURSE ---
report obtained from laney bhardwaj all meds have been held due to gtube leaking, ed provider was notified by this nurse that po medicatins were held, decision was made to change some of the meds to IV. tube feed will attempt to resume.
--- NOTE | 2022-01-03 12:19 | PC.NURSE ---
Pt VS are stable, pt reports expericing pain 10/10. Pt trach is patent, and feeding.
--- NOTE | 2022-01-03 12:32 | MHC.CM.ED ---
Addendum entered by Brandee Madera 01/03/22 13:29: Pt will board in the ED until Wednesday when she can be re-seen by surgery for continued G tube leaking/inadequate nutrition. Pt aware and in agreement of plan. Message left w/pt's sister, Laurel requesting call back to update on plan. Original Note: PT eval supports home services: pt presently has [facility] however, they do not offer skilled PT services. Referred to [facility] - awaiting acceptance. Met with pt to review d/c plan: pt communicates using written words: pt states she is not comfortable returning to home with a substantially leaking replaced Gtube. Pt shows me her saturated tawnya and bed linens and notes that she has been changed several times already today. She was to follow up Friday 01/05 with GI/surgery. Pt not getting adequate nutrition d/t leaking. This CM discussed with ED PA who contacted surgeon: Per surgeon, pt needs f/u with IR and GI which will not occur this weekend. Discussed possible OBS admission as pt is not meeting her nutritional requirements d/t ongoing leaking of feeding tube. Pt is also at risk of aspiration and other complications d/t her trach dependent status. Awaiting determination by PA on course of treatment. Message left for pt's sister Laurel re: above. CM to follow.
--- NOTE | 2022-01-03 13:05 | PC.NURSE ---
Pt VS are stable, pt NG tube dressing was change. NG tube was flush with 60cc water and return 30cc. Pt is complaining with NG tube leaking and provider is aware. Trach dressing was change and deep suction completed. PT has PICC line, provider is working on temporary changing her daily meds to administered through PICC. PT POC 125.
--- NOTE | 2022-01-03 13:54 | PC.NURSE ---
pharmacy called for provider to change order for dilaudid to 2mg q2h, telephone order was obtained per consent of provider
[2022-01-03] MEDS: Sodium Chloride Tab 1 GM TABLET G-TUBE ×2 (14:02→20:56)
[2022-01-03] MEDS: HYDROmorphone HCl 2 MG/ML VIAL IVPUSH ×5 (14:03→23:21)
[2022-01-03] MEDS: levoFLOXacin/D5W 500 MG/100 ML PIGGYBACK 100 MG IV (14:03)
--- NOTE | 2022-01-03 14:16 | PC.NURSE ---
patient a&ox3, pt medicated with dilaudid per new order, tube feed restarted per request of provider in order to see how it goes with new dressing, iv antibiotics given- pt getting IV abx only due to the gtube leak, family at bedside, call yepez within reach, will continue to monitor
[2022-01-03 14:19] LABS: Glucose, Whole Blood 125 mg/dL (60-115)
--- NOTE | 2022-01-03 15:52 | PC.NURSE ---
PT VS are slightly elevated, Pt G tube is running and patent. PT abd dressing still clean and dry. Pt will be continue to monitor.
[2022-01-03 16:59] LABS: Glucose, Whole Blood 71 mg/dL (60-115)
[2022-01-03] MEDS: Dextrose 5 % and 0.9 % NaCl 1,000 ML 100 ML IVCONT (17:46)
--- NOTE | 2022-01-03 17:50 | PC.NURSE ---
Pt IVF started and G tube was stopped, pt is semi-grace 30 degree.
[2022-01-03] MEDS: Atorvastatin Calcium 10 MG TABLET 5 MG G-TUBE (20:56)
[2022-01-03 20:58] LABS: Glucose, Whole Blood 115 mg/dL (60-115)
--- NOTE | 2022-01-03 21:00 | PC.NURSE ---
Pt was administered med by provider order and flush, pt G- tube was back connected to 20 ml. Pt VS are stable. Pt will be continue to monitor.
--- NOTE | 2022-01-03 21:09 | PC.NURSE ---
Resp therapy was called to do a deep section for the pt.
--- NOTE | 2022-01-03 23:06 | PC.NURSE ---
Pt was assess for her pain level. Pt VS are stable. Pt will continuing be monitor.
--- NOTE | 2022-01-03 23:23 | PC.NURSE ---
Pt was administer pain mes as order.
[2022-01-04] VITALS (7 sets, daily range): BP systolic 105–168; BP diastolic 66–90; PULSE 86–113; RESP 16–20; TEMP 36.2–36.6; O2SAT 96–100
[2022-01-04] MEDS: Dextrose 5 % and 0.9 % NaCl 1,000 ML 100 ML IVCONT ×2 (00:18→13:41)
[2022-01-04] MEDS: HYDROmorphone HCl 2 MG/ML VIAL IVPUSH ×10 (02:37→23:28)
[2022-01-04 07:36] LABS: Glucose, Whole Blood 216 mg/dL (60-115)
--- NOTE | 2022-01-04 08:38 | PC.NURSE ---
dressing around the gtube removed and wet gauze changed. leaking around the tube, [facility] care navigator aware and pt has appt w IR for this tomorrow. gtube flushes ok, pt reports pain relief after dilaudid
[2022-01-04] MEDS: Insulin Glargine,Hum.rec.anlog 100 UNIT/ML 10 ML VIAL 6 UNIT SUBCUT (09:15)
[2022-01-04] MEDS: Calcium + Vitamin D 250 MG TABLET PO (09:16)
[2022-01-04] MEDS: Loratadine 10 MG TABLET G-TUBE (09:17)
[2022-01-04] MEDS: amLODIPine Besylate 5 MG TABLET G-TUBE (09:17)
[2022-01-04] MEDS: Multivitamin TABLET 1 TAB PO (09:17)
[2022-01-04] MEDS: Sodium Chloride Tab 1 GM TABLET G-TUBE ×2 (09:17→15:41)
--- NOTE | 2022-01-04 09:29 | PC.NURSE ---
pt suctioned oral airway mult times, alert, nad, i suctioned her trach and pt reports improvement, friend at bedside, skin wpd, medicated via g tube, feeding frequently shows ownstream occlusion but tube flushes well and tubing flows fine when not attached to g tube
--- NOTE | 2022-01-04 10:01 | PC.NURSE ---
new tube feeding and tubing changed and flowing well now
--- NOTE | 2022-01-04 10:29 | MHC.CM.ED ---
Pt remains holding in ED awaiting IR intervention on 01/05 for leaking G-tube. Of note, G-tube was changed in ED on 01/02 by surgeon but continues to leak despite verification of correct placement. D/C plan is for a return to home w/new [facility] for PT needs vs continuation of care w/[facility] (no PT). Pt is refusing STR placement - states she is independent at home. Attempted to contact pt's sister Laurel with whom pt resides, to update on plan. No return calls - messages left on 01/03 and 01/04.
[2022-01-04] MEDS: levoFLOXacin/D5W 500 MG/100 ML PIGGYBACK 100 MG IV (13:37)
--- NOTE | 2022-01-04 16:00 | PC.NURSE ---
LARGE AMT G-TUBE FEED SATURATING DRESSING. CHANGED. MED FOR PAIN
[2022-01-04 18:03] LABS: Glucose, Whole Blood 156 mg/dL (60-115)
--- NOTE | 2022-01-04 18:29 | PC.NURSE ---
Pt VS were stable, pt G- tube dressing was changed, pt also was one assist to the bathroom. PT requested pain meds and they were administered by provider order. PT POC 156.
[2022-01-04] MEDS: Insulin Lispro 100 UNIT/ML 3 ML VIAL SUBCUT (18:49)
[2022-01-04 20:29] LABS: Glucose, Whole Blood 69 mg/dL (60-115)
--- NOTE | 2022-01-04 20:29 | PC.NURSE ---
Pt.'s POC = 69. Primary RNSocorro and MD Mor notified. MD Mor aware and no new orders at this time.
--- NOTE | 2022-01-04 20:40 | PC.NURSE ---
Notified KEARA Quintanilla that pt. did not want meds. administered until MD looks at feeding tube tomorrow because per pt., tube has been dislodging when meds. are pushed through
[2022-01-05] MEDS: HYDROmorphone HCl 2 MG/ML VIAL IVPUSH ×8 (02:26→20:51)
[2022-01-05 04:42] LABS: Glucose, Whole Blood 200 mg/dL (60-115)
[2022-01-05] MEDS: Dextrose 5 % and 0.9 % NaCl 1,000 ML 100 ML IVCONT ×2 (04:42→15:51)
[2022-01-05 06:00] VITALS: BP 127/68; PULSE 75; O2SAT 100
[2022-01-05] MEDS: amLODIPine Besylate 5 MG TABLET G-TUBE (07:20)
[2022-01-05] MEDS: Calcium + Vitamin D 250 MG TABLET PO (07:20)
[2022-01-05] MEDS: Loratadine 10 MG TABLET G-TUBE (07:20)
[2022-01-05] MEDS: Sodium Chloride Tab 1 GM TABLET G-TUBE (07:20)
[2022-01-05] MEDS: Multivitamin TABLET 1 TAB PO (07:21)
[2022-01-05 09:28] VITALS: BP 138/71; PULSE 78; RESP 16; O2SAT 100
[2022-01-05] MEDS: Ondansetron ODT 4 MG TAB.RAPDIS TRANSLINGU (11:08)
--- NOTE | 2022-01-05 11:13 | PC.NURSE ---
INTRODUCED SELF TO PT, PROVIDED WITH PRN PAIN RX REQUESTED FOR ESOPHAGEAL AND ABD PAIN. AWAITING TRANSPORT TO IR, PT AWARE OF PLAN FOR CARE. PT IN NAD AT THIS TIME, IVF RUNNING.
--- NOTE | 2022-01-05 12:30 | PC.NURSE ---
attempting to contact IR for confirmation of pegj placement. no answer. feedings not being administered as per provider order.
[2022-01-05] MEDS: levoFLOXacin/D5W 500 MG/100 ML PIGGYBACK 100 MG IV (13:44)
[2022-01-05 13:47] VITALS: BP 154/85; PULSE 96; RESP 16; O2SAT 93
--- NOTE | 2022-01-05 14:11 | PC.NURSE ---
pt not to receive feedings past midnight tonight. pt currently refusing any g-tube feedings as they are painful, aware of plan for pegj tomorrow. dsg changed, trach suctioned at pts request.
[2022-01-05 16:15] VITALS: BP 123/62; PULSE 70; O2SAT 97
[2022-01-05] MEDS: HYDROmorphone HCl 1 MG/ML SYRINGE IVPUSH (16:55)
[2022-01-05 17:03] LABS: Glucose, Whole Blood 356 mg/dL (60-115)
[2022-01-05] MEDS: Insulin Lispro 100 UNIT/ML 3 ML VIAL SUBCUT (17:03)
--- NOTE | 2022-01-05 17:04 | PC.NURSE ---
poct glucose 356, given 10u of humalog as per protocol. PA aware. pt continues to refuse g tube feed.
[2022-01-05 17:42] LABS: Glucose, Whole Blood 327 mg/dL (60-115)
[2022-01-05 20:31] VITALS: BP 122/66; PULSE 81; O2SAT 92
[2022-01-05 21:51] LABS: Glucose, Whole Blood 59 mg/dL (60-115)
--- NOTE | 2022-01-05 21:57 | PC.NURSE ---
D5NS GTT STILL RUNNING. MD AWARE OF RECENT POCT GLUCOSE.
[2022-01-05 23:47] VITALS: BP 169/94; PULSE 113; O2SAT 94
[2022-01-06] VITALS (13 sets, daily range): BP systolic 126–159; BP diastolic 62–81; PULSE 76–98; RESP 12–28; TEMP 36.4–36.9; O2SAT 84–97; BMI 16.5
[2022-01-06] MEDS: HYDROmorphone HCl 2 MG/ML VIAL IVPUSH ×6 (00:02→21:19)
[2022-01-06 07:07] LABS: Glucose, Whole Blood 202 mg/dL (60-115)
--- NOTE | 2022-01-06 08:27 | PC.NURSE ---
pt continues to remain in er r/t leaking g tube s/p placement at this facility. pt is npo, awaiting IR intervention for leaking g tube. able to get over to commode on own w stand by assist, chronic trach, pt able to suction self. large dressing changed soiled w significant dark brown gastric drainage, replaced with abd pads, surrounding skin of g tube appears excoriated and irritated, cleaned and redressed. pt tolerated dressing change well.
[2022-01-06] MEDS: Insulin Glargine,Hum.rec.anlog 100 UNIT/ML 10 ML VIAL 6 UNIT SUBCUT (08:46)
--- NOTE | 2022-01-06 08:46 | PC.RT ---
trach care done with pt. sx thick dark yellow sec. changed inner cannula
[2022-01-06 10:07] LABS: Glucose, Whole Blood 230 mg/dL (60-115)
--- NOTE | 2022-01-06 10:41 | PC.NURSE ---
dr. garrett @ bedside. dr. toledo and dr. fowler evaluating anesthesia need
[2022-01-06] MEDS: HYDROmorphone HCl 0.5 MG/0.5 ML SYRINGE 0.125 MG IVPUSH ×2 (13:35→14:07)
[2022-01-06] MEDS: levoFLOXacin/D5W 500 MG/100 ML PIGGYBACK 100 MG IV (14:31)
--- NOTE | 2022-01-06 15:00 | PC.NURSE ---
G-tube medications not administered, G-tube out of place
--- NOTE | 2022-01-06 15:20 | MHC.CM.ED ---
Patient went to IR for G tube replacement. Per Lalita at [facility], patient has been active with [facility]. However, they are unable to provide physical therapy. [facility] is unable to provide physical therapy. Care will be transferred to [facility]. Patient is already active with [facility] for enteral feedings. Patient had PICC placed on 01/02 for anticipation of chemo treatment. [facility] has already received flushing orders from Elina at [facility] oncology and will be dropping supplies at patient's home tomorrow. Continue to monitor for d/c needs.
--- NOTE | 2022-01-06 15:38 | MHC.CM.ED ---
Per Medical record and RN, PEG leaking. Awaiting Dr. Magana consult. Pt will not be d/c home today. CM to follow for d/c planning.
[2022-01-06] MEDS: Lidocaine HCl 1 % MPF 2 ML VIAL INFILTRATI ×2 (18:30)
--- NOTE | 2022-01-06 18:30 | MHC.CM.ED ---
Pt to be admitted per Dr. Magana. Awaiting orders. CM to follow for d/c planning
--- NOTE | 2022-01-06 18:35 | P.HPGS_ITS ---
History of Present Illness History of Present Illness Date of Service: 01/09/22 Chief complaint: Leaking PEG tube Narrative: Clare Kee is a 61 year old female here in the ED for a leaking feeding tube. She apparently has been in the ED for 4 days whle waiting for conversion of her PEG tube to a PEG-J in view of history of aspiration. The PEG-J was done today under fluoro by Dr. James. However, since this PEG tube had been downsized to a smaller-caluber PEG-J, she has been leaking a lot from this. I have therefore been asked by the ED to admit. She has a hx of oral squamous cell CA. She undergoes chemotx in [place]. She says the PEG was done in [place] last September 2021 on diagnosis. This PEG has been dislodged many times with coughing, and has been reinserted without difficulty. In view of the leak of gastic contents through the PEG site, she has had pain and burning on the skin from excoriations. Review of Systems Constitutional: Constitutional: Denies chills and Denies fever(s) ENT: Denies odynophagia Cardiovascular: Cardiovascular: Denies chest pain Respiratory: Respiratory: Reports cough Gastrointestinal: Gastrointestinal: Denies odynophagia Genitourinary: Genitourinary: Denies difficulty voiding PMFSH Past Medical History Medical History Asthma Bronchitis Cellulitis Chronic pancreatitis Essential hypertension Feeding by G-tube GERD (gastroesophageal reflux disease) Hemoptysis Hx MRSA infection Hx of respiratory failure Hx of septic shock Hyperlipidemia LDL goal <100 Lung mass Macrocytic anemia Oropharyngeal dysphagia PEG tube malfunction Pneumonia Shortness of breath Smoking 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 Family History Family History Father Diabetes Myeloma Mother Brain cancer Mother Lung cancer Sister Breast cancer Surgical History Surgical History History of esophagogastroduodenoscopy (EGD) History of tracheostomy Hx of abdominal surgery Hx of colonoscopy Hx of exploratory laparotomy Social History Social History Household Members: Other Household Members Other:: sister Housing: House Are you a primary health care coordinator to a significant other at home: No Do you presently have visiting nurse or other home services: No Alcohol intake: never Patient Tobacco Use Status: Former Tobacco user Quit Date: JULY 2021 Years Smoked: 40 Use of substances other than those prescribed or required for medical reasons: No Currently Displaying Signs/Symptoms of Drug Intoxication Withdrawal: No Have you been hit, kicked, punched, or otherwise hurt by someone within the past year? If so, by whom?: No Do you feel safe in your current relationship?: No Current Relationship Is there a partner from a previous relationship who is making you feel unsafe now?: No Are you made to feel afraid or neglected: No Are you DNR?: Yes Advance Directives: No Advance Directives Information Provided: Yes Do you have thoughts of harming others: None Do you have a plan to hurt others: No Plan Recently lost weight without trying: Unsure Eating poorly because of decreased appetite: No Nutrition Risks: Receiving home tube feeding or CPN Patient : No : No Poor oral hygiene: No service: No Current occupational status: disabled Meds Allergies Allergy/AdvReac Type Severity Reaction Status Date / Time ragweed pollen [RAGWEED] Allergy Severe RUNNY NOSE Verified 12/12/21 08:04 Sulfa (Sulfonamide Allergy Intermediate PASS OUT, Verified 12/12/21 08:04 Antibiotics) HIVES [SULFA(SULFONAMIDE ANTIBIOTICS)] Active Medications: Current Medications Albuterol/Ipratropium (Albuterol/Iprat 2.5/0.5mg 3 Ml Ampul.Neb) 3 ml INHALE Q6H PRN PRN Reason: Shortness Of Breath Amlodipine Besylate (Amlodipine Besylate 5 Mg Tablet) 5 mg G-TUBE DAILY [facility]; Protocol Last Admin: 01/06/22 08:53 Dose: Not Given Atorvastatin Calcium (Atorvastatin Calcium 10 Mg Tablet) 5 mg G-TUBE BEDTIME [facility] Last Admin: 01/05/22 20:55 Dose: Not Given Calcium Carbonate/Cholecalciferol (Calcium + Vitamin D 250 Mg Tablet) 250 mg PO DAILY [facility] Last Admin: 01/06/22 08:54 Dose: Not Given Dexamethasone (Dexamethasone 2 Mg Tablet) 2 mg G-TUBE Q8H [facility] Last Admin: 01/03/22 06:52 Dose: Not Given Dexamethasone Sodium Phosphate (Dexamethasone Sod Phosphate 4 Mg/Ml Vial) 2 mg IVPUSH ONCE [facility] Hydromorphone HCl (Hydromorphone Hcl 2 Mg/Ml Vial) 2 mg IVPUSH Q2H PRN PRN Reason: Pain, Severe (Pain Scale 7-10) Last Admin: 01/06/22 15:37 Dose: 2 mg Hydromorphone HCl (Hydromorphone Hcl 1 Mg/Ml Syringe) 1 mg IVPUSH ONCE PRN; Protocol PRN Reason: Breakthrough Pain Last Admin: 01/05/22 16:55 Dose: 1 mg Hydromorphone HCl (Hydromorphone Hcl 0.5 Mg/0.5 Ml Syringe) 0.125 mg IVPUSH Q5M PRN; Protocol PRN Reason: Pain, Severe (Pain Scale 7-10) Last Admin: 01/06/22 14:07 Dose: 0.125 mg Levofloxacin (Levaquin) 500 mg in 100 mls @ 100 mls/hr IV Q24H [facility] Last Infusion: 01/06/22 15:24 Dose: Infused Insulin Glargine (Insulin Glargine,Hum.Rec.Anlog 100 Unit/Ml 10 Ml Vial) 6 unit SUBCUT DAILY [facility] Last Admin: 01/06/22 08:46 Dose: 6 unit Insulin Human Lispro (Insulin Lispro 100 Unit/Ml 3 Ml Vial) 0 unit SUBCUT QIDACHS [facility]; Protocol Last Admin: 01/06/22 18:30 Dose: Not Given Levofloxacin (Levofloxacin 500 Mg Tablet) 500 mg PO DAILY [facility] Last Admin: 01/03/22 10:18 Dose: Not Given Loratadine (Loratadine 10 Mg Tablet) 10 mg G-TUBE DAILY [facility] Last Admin: 01/06/22 08:54 Dose: Not Given Multivitamins/Vitamin C (Multivitamin Tablet) 1 tab PO DAILY [facility] Last Admin: 01/06/22 08:54 Dose: Not Given Omeprazole (Omeprazole 20 Mg/10 Ml Susp.Recon) 20 mg G-TUBE DAILY@0630 [facility] Last Admin: 01/03/22 06:52 Dose: Not Given Ondansetron HCl (Ondansetron Odt 4 Mg Tab.Rapdis) 4 mg TRANSLINGU Q8H PRN PRN Reason: Nausea And Vomiting Last Admin: 01/05/22 11:08 Dose: 4 mg Ondansetron HCl (Ondansetron Hcl 4 Mg/2 Ml Vial) 4 mg IVPUSH ONCE PRN PRN Reason: Nausea and Vomiting Pharmacy Consult (Consult Rx Perform Med Rec) 1 each MISCELLANE ONCE PRN PRN Reason: Consult order Polyethylene Glycol (Polyethylene Glycol 3350 17 Gm Powd.Pack) 17 gm G-TUBE DAILY PRN PRN Reason: Constipation Prochlorperazine Maleate (Prochlorperazine Maleate 5 Mg Tablet) 5 mg G-TUBE Q6H PRN PRN Reason: Nausea Sodium Chloride (Sodium Chloride Tab 1 Gm Tablet) 1 gm G-TUBE TID [facility] Last Admin: 01/06/22 15:00 Dose: Not Given Home Medications Medication Instructions Recorded Confirmed Last Taken Type blood pressure test kit-large #1 ea 04/29/20 12/04/21 Unknown History blood sugar diagnostic #10 ea 04/29/20 12/04/21 Unknown History insulin syringe-needle U-100 0.3 #10 ea 04/29/20 12/04/21 Unknown History mL 31 gauge x 09/08 lancets 28 gauge #100 ea 04/29/20 12/04/21 Unknown History pen needle, diabetic 32 gauge x #50 ea 04/29/20 12/04/21 Unknown History Physical Exam Vital Signs: Vital Signs: Last Vital Signs Temp 98.0 F 01/06/22 14:49 Pulse 98 01/06/22 14:49 Resp 28 H 01/06/22 14:49 BP 141/80 H 01/06/22 14:49 Pulse Ox 95 01/06/22 14:49 O2 Del Method 01/06/22 14:49 O2 Flow Rate 5 01/06/22 14:49 BMI result Body Mass Index 16.5 Const: General: comfortable and no acute distress HEENT: Other: trache tube in place; mass on left neck Resp: Effort & Inspection: normal respiratory effort Cardio: Rate: regular rate GI: Other: soft, new PEG-J in place, large skin opening around this with leak of gastric contents; skin excoriation around the PEG Assessment and Plan (1) PEG tube malfunction: Status: Acute In view of aspiration with PEG feeds, her PEG was converted by IR to a PEG J today. However, the tube has been downsized, wit a large mismatch between the tube diameter and the opening, with subsequent leak of gastric contents. Furthermore, the external bolster was not tight on the abdominal wall. I applied interupted suttres wity nyylon 3-0 to reappose the skin and subcutaneous layer around the PEG-J. I tightened the external bolster on the skin to make this snug and seal the tube from within the stoamch wall and the skin. We are holding off on her feedings for now and see how she does overnight. I will consult the Hospitalist service. Quality Stroke Does the patient have a stroke diagnosis?: No VTE Prior VTE?: No VTE Risk Level:: Medical - moderate - high VTE Device Contraindication: N/A - Device Ordered VTE Drug Contraindication: N/A - Med Ordered Procedures Date of Service Date of Service: 01/06/22
[2022-01-06] MEDS: HYDROmorphone HCl 0.5 MG/0.5 ML SYRINGE IVPUSH (18:58)
[2022-01-06] MEDS: Dextrose 5 % and 0.45 % NaCl 1,000 ML 100 ML IVCONT (19:07)
--- NOTE | 2022-01-06 19:27 | PC.NURSE ---
report taken from maegan simon pt has been in ed for several days as case mgmt, had g tube replaced days ago in ed after falling out, pt has had chronic g tube leaks with subsequent excoriation of abd skin. failed attempt to mitigate leak in IR w Dr James this afternoon, Dr Magana at bedside approx [address] 3 sutures on r side g tube without issue. dressing in place s/p sutures has remained dry and intact. pt requiring frequent pain medication. plan for inpt admission.
--- NOTE | 2022-01-06 20:11 | PC.NURSE ---
per Dr Magana, pt not to have g tube used for at least 12 hrs.
[2022-01-06 20:27] LABS: Glucose, Whole Blood 189 mg/dL (60-115)
--- NOTE | 2022-01-06 20:39 | MHC.CM.PN ---
Addendum entered by Delfina Guzman 01/06/22 20:42: Active with [facility] for enteral feedings. Original Note: [facility] 01/06. Observation. Awaiting bed. [facility] following for PT/SN. See previous note. D/C plan is home with home services. Sister to provide transportation home. CM to follow for d/c planning
[2022-01-06 21:44] LABS: COVID-19 Test Negative (Negative); IDNOW Serial# 55D5AD1C
[2022-01-07] VITALS (7 sets, daily range): BP systolic 124–145; BP diastolic 61–71; PULSE 54–102; RESP 18–20; TEMP 36.3–36.6; O2SAT 82–98; BMI 14.1
[2022-01-07] MEDS: 0.9 % Sodium Chloride Flush 3 ML SYRINGE IVFLUSH ×4 (00:09→20:56)
[2022-01-07 01:59] LABS: Hematocrit 24.3 % (37.0-47.0); Hemoglobin 7.9 g/dl (12.0-16.0); Mean Corpuscular HGB Conc 32.5 g/dl (31.0-35.0); Mean Corpuscular Hemoglobin 29.4 pg (27.0-33.0); Mean Corpuscular Volume 90.3 fL (80.0-98.0); Mean Platelet Volume 9.8 fL (9.4-12.3); Platelet Count 192 X10*3/uL (160-400); Red Blood Count 2.69 X10*6/uL (4.20-5.50); Red Cell Distribution Width 19.8 % (11.0-16.0); White Blood Count 17.6 X10*3/uL (4.8-10.8)
[2022-01-07] MEDS: HYDROmorphone HCl 2 MG/ML VIAL IVPUSH ×8 (02:07→23:06)
[2022-01-07 02:23] LABS: Anion Gap 16 (12-20); Blood Urea Nitrogen 14 mg/dL (9-16); Calcium 9.2 mg/dL (8.4-10.2); Carbon Dioxide 30 mmol/L (22-29); Chloride 103 mmol/L (96-108); Creatinine Clr Calc Pharmacy 35.4; Estimated Glomerular Filt Rate > 60; Glucose Random 303 mg/dL (60-115); Potassium 2.9 mmol/L (3.3-5.1); Sodium 146 mmol/L (135-145)
[2022-01-07] MEDS: Dextrose 5 % and 0.45 % NaCl 1,000 ML 100 ML IVCONT ×3 (04:29→23:06)
--- NOTE | 2022-01-07 06:20 | MHC.PIE ---
p.k 2.9 i.lab work drawn previously noted k 2.9.dr gonzalez notified.order for iv kcl 10 meq x 4 bags given. e.next shift updated.
--- NOTE | 2022-01-07 07:34 | P.PNGS_ITS ---
Subjective Subjective Date of Service: 01/07/22 Interval history: Feels well today No leakage around feeding tube overnight No events reported Physical Exam Vital Signs: Vital Signs: Last Vital Signs Temp 97.9 F 01/07/22 03:06 Pulse 102 H 01/07/22 03:06 Resp 20 01/07/22 03:06 BP 124/66 01/07/22 03:06 Pulse Ox 82 L 01/07/22 03:06 O2 Del Method 01/07/22 03:06 O2 Flow Rate 4 01/07/22 00:00 FiO2 28 01/07/22 00:00 BMI result Body Mass Index 14.1 Const: General: comfortable and no acute distress Resp: Effort & Inspection: normal respiratory effort Cardio: Rate: regular rate GI: Other: Soft, dressings dry, no guarding or rebound Objective Data Active Medications Albuterol/Ipratropium (Albuterol/Iprat 2.5/0.5mg 3 Ml Ampul.Neb) 3 ml INHALE Q6H PRN PRN Reason: Shortness Of Breath Amlodipine Besylate (Amlodipine Besylate 5 Mg Tablet) 5 mg G-TUBE DAILY [facility]; Protocol Last Admin: 01/06/22 08:53 Dose: Not Given Documented By: DONALD Non-Admin Reason: NPO Atorvastatin Calcium (Atorvastatin Calcium 10 Mg Tablet) 5 mg G-TUBE BEDTIME [facility] Last Admin: 01/06/22 20:11 Dose: Not Given Documented By: WILD Non-Admin Reason: See Note Calcium Carbonate/Cholecalciferol (Calcium + Vitamin D 250 Mg Tablet) 250 mg PO DAILY [facility] Last Admin: 01/06/22 08:54 Dose: Not Given Documented By: DONALD Non-Admin Reason: NPO Dexamethasone (Dexamethasone 2 Mg Tablet) 2 mg G-TUBE Q8H [facility] Last Admin: 01/03/22 06:52 Dose: Not Given Documented By: DEAN Non-Admin Reason: medication held d/t peg tube leaking Dexamethasone Sodium Phosphate (Dexamethasone Sod Phosphate 4 Mg/Ml Vial) 2 mg IVPUSH ONCE [facility] Heparin Sodium (Porcine) (Heparin Sodium,Porcine 5,000 Unit/Ml Vial) 5,000 unit SUBCUT Q12H [facility] Hydromorphone HCl (Hydromorphone Hcl 2 Mg/Ml Vial) 2 mg IVPUSH Q2H PRN PRN Reason: Pain, Severe (Pain Scale 7-10) Last Admin: 01/07/22 04:26 Dose: 2 mg Documented By: REJI Hydromorphone HCl (Hydromorphone Hcl 1 Mg/Ml Syringe) 1 mg IVPUSH ONCE PRN; Protocol PRN Reason: Breakthrough Pain Last Admin: 01/05/22 16:55 Dose: 1 mg Documented By: DESMOND Hydromorphone HCl (Hydromorphone Hcl 0.5 Mg/0.5 Ml Syringe) 0.125 mg IVPUSH Q5M PRN; Protocol PRN Reason: Pain, Severe (Pain Scale 7-10) Last Admin: 01/06/22 14:07 Dose: 0.125 mg Documented By: DONALD Hydromorphone HCl (Hydromorphone Hcl 0.5 Mg/0.5 Ml Syringe) 0.5 mg IVPUSH Q3H PRN; Protocol PRN Reason: Pain, Severe (Pain Scale 7-10) Last Admin: 01/06/22 18:58 Dose: 0.5 mg Documented By: DONALD Levofloxacin (Levaquin) 500 mg in 100 mls @ 100 mls/hr IV Q24H [facility] Last Infusion: 01/06/22 15:24 Dose: 0 mls/hr Documented By: DONALD Dextrose/Sodium Chloride (D51/2ns) 1,000 mls @ 100 mls/hr IVCONT .Q10H [facility] Last Admin: 01/07/22 04:29 Dose: 100 mls/hr Documented By: REJI Potassium Chloride (Potassium Chloride/H20) 10 meq in 100 mls @ 100 mls/hr IV Q1H [facility] Stop: 01/07/22 10:59 Insulin Glargine (Insulin Glargine,Hum.Rec.Anlog 100 Unit/Ml 10 Ml Vial) 6 unit SUBCUT DAILY [facility] Last Admin: 01/06/22 08:46 Dose: 6 unit Documented By: DONALD Insulin Human Lispro (Insulin Lispro 100 Unit/Ml 3 Ml Vial) 0 unit SUBCUT QIDACHS [facility]; Protocol Last Admin: 01/06/22 20:38 Dose: Not Given Documented By: WILD Non-Admin Reason: No Insulin Coverage Levofloxacin (Levofloxacin 500 Mg Tablet) 500 mg PO DAILY [facility] Last Admin: 01/03/22 10:18 Dose: Not Given Documented By: KIM Non-Admin Reason: No Access Loratadine (Loratadine 10 Mg Tablet) 10 mg G-TUBE DAILY [facility] Last Admin: 01/06/22 08:54 Dose: Not Given Documented By: DONALD Non-Admin Reason: NPO Multivitamins/Vitamin C (Multivitamin Tablet) 1 tab PO DAILY [facility] Last Admin: 01/06/22 08:54 Dose: Not Given Documented By: DONALD Non-Admin Reason: NPO Omeprazole (Omeprazole 20 Mg/10 Ml Susp.Recon) 20 mg G-TUBE DAILY@0630 [facility] Last Admin: 01/03/22 06:52 Dose: Not Given Documented By: DEAN Non-Admin Reason: held d/t leaking peg tube Ondansetron HCl (Ondansetron Odt 4 Mg Tab.Rapdis) 4 mg TRANSLINGU Q8H PRN PRN Reason: Nausea And Vomiting Last Admin: 01/05/22 11:08 Dose: 4 mg Documented By: DESMOND Ondansetron HCl (Ondansetron Hcl 4 Mg/2 Ml Vial) 4 mg IVPUSH ONCE PRN PRN Reason: Nausea and Vomiting Pharmacy Consult (Consult Rx Perform Med Rec) 1 each MISCELLANE ONCE PRN PRN Reason: Consult order Polyethylene Glycol (Polyethylene Glycol 3350 17 Gm Powd.Pack) 17 gm G-TUBE DAILY PRN PRN Reason: Constipation Prochlorperazine Maleate (Prochlorperazine Maleate 5 Mg Tablet) 5 mg G-TUBE Q6H PRN PRN Reason: Nausea Sodium Chloride (Sodium Chloride Tab 1 Gm Tablet) 1 gm G-TUBE TID [facility] Last Admin: 01/06/22 20:10 Dose: Not Given Documented By: WILD Non-Admin Reason: See Note Sodium Chloride (0.9 % Sodium Chloride Flush 3 Ml Syringe) 3 ml IVFLUSH QSHIFT [facility] Last Admin: 01/07/22 00:09 Dose: 3 ml Documented By: REJI Labs CBC & Chem 7: 01/07/22 01:38 01/07/22 01:38 Labs: Laboratory Results - last 24 hr 01/06/22 01/06/22 01/06/22 10:04 20:24 21:24 MCV MCH MCHC RDW Plt Count MPV Absolute Nucleated RBC Nucleated RBC % (auto) Anion Gap Estim Creat Clear Calc Estimated GFR POC Glucose 230 H 189 H Random Glucose Calcium COVID-19 ([facility]) Negative COVID-19 Clin Com See Note 01/07/22 01/07/22 01:38 01:38 MCV 90.3 MCH 29.4 MCHC 32.5 RDW 19.8 H Plt Count 192 D MPV 9.8 Absolute Nucleated RBC 0.000 Nucleated RBC % (auto) 0.0 Anion Gap 16 Estim Creat Clear Calc 35.4 Estimated GFR > 60 POC Glucose Random Glucose 303 H Calcium 9.2 COVID-19 ([facility]) COVID-19 Clin Com Procedures Date of Service Date of Service: 01/07/22 Progress Note: A&P Assessment and plan (1) PEG tube malfunction: Status: Acute Assessment and Plan: PEG J-tube without any leak overnight I had the external bolster snug on the skin Reapposed the wide skin gap around tube with sutures Okay to restart PEG feeds again today Potassium replaced by hospitalist Looks well Time Spent With Patient Time: Total time spent is greater than 50% in coordination of care (as documented) at patient's floor/unit and/or counseling patient: Quality Stroke Does the patient have a stroke diagnosis?: No VTE Prior VTE?: No VTE Risk Level:: Medical - moderate - high VTE Device Contraindication: N/A - Device Ordered VTE Drug Contraindication: N/A - Med Ordered
[2022-01-07] MEDS: Potassium Chloride/H20 10 MEQ/100 ML PIGGYBACK 100 MEQ IV ×4 (07:45→13:13)
[2022-01-07 09:19] LABS: Glucose, Whole Blood 235 mg/dL (60-115)
[2022-01-07] MEDS: Insulin Glargine,Hum.rec.anlog 100 UNIT/ML 10 ML VIAL 6 UNIT SUBCUT (09:25)
[2022-01-07] MEDS: Insulin Lispro 100 UNIT/ML 3 ML VIAL SUBCUT ×2 (09:26→20:56)
[2022-01-07] MEDS: Loratadine 10 MG TABLET G-TUBE (09:27)
[2022-01-07] MEDS: Multivitamin TABLET 1 TAB PO (09:27)
[2022-01-07] MEDS: amLODIPine Besylate 5 MG TABLET G-TUBE (09:27)
[2022-01-07] MEDS: Calcium + Vitamin D 250 MG TABLET PO (09:27)
[2022-01-07] MEDS: Sodium Chloride Tab 1 GM TABLET G-TUBE ×3 (09:27→20:55)
[2022-01-07 11:07] LABS: Glucose, Whole Blood 120 mg/dL (60-115)
--- NOTE | 2022-01-07 11:42 | HO.POSTANES ---
Post Anesthesia Evaluation Post Anesthesia Evaluation Vital Signs: Vital Signs Temp Pulse Resp BP Pulse Ox O2 Del Method O2 Flow Rate 01/07/22 11:40 98 F 86 18 131/61 97 Nasal Cannula 4 01/07/22 07:33 98 F 54 20 145/65 H 92 Trach Collar 4 01/07/22 03:06 97.9 F 102 H 20 124/66 82 L Trach Collar 01/07/22 00:00 93 Trach Collar 4 FiO2 01/07/22 11:40 28 01/07/22 07:33 28 01/07/22 03:06 01/07/22 00:00 28 Anesthesia: Monitored Mental Status: Awake Pain Control: Satisfactory Nausea/Vomiting: None Hydration: Adequate Anesthesia-Related Issues: No Anes. Related Issues
--- NOTE | 2022-01-07 12:02 | MHC.CLN ---
PT IS SEVERELY MALNOURISHED PT TRIGGERS FOR 15 % SIGNIFICANT WT LOSS WITH LEAKING G-TUBE, HX ASPIRATION AND CHEMO TX AND DX ORAL SQUAMOUS CELL CA PT WITH NEW J-TUBE PLACED RECOMMEND GLUCERNA 1.0 AT MAX GOAL RATE 45ML/HR WITH 120ML FREE WATER FLUSHES Q 8 HRS TO PROVIDE 1080KCALS (28KCLAS/KG), 45G (1.2G/KG), 1281ML TOTAL WATER FROM FORMULA AND FLUSH (34ML/KG) MONITOR TOLERANCE AND LYTES DO NOT CHECK RESIDUALS WITH J TUBE SEE ALSO FULL CLINICAL NUTRITION ASSESSMENT
[2022-01-07] MEDS: levoFLOXacin/D5W 500 MG/100 ML PIGGYBACK 100 MG IV (13:14)
--- NOTE | 2022-01-07 13:31 | HO.PM.IMCN ---
History of Present Illness Data of Consult Service Date: 01/07/22 Requesting physician: Jimi Magana Primary Care Provider: Shae Chicas MD [facility] Reason for consult: dm, htn 61 year old woman admitted to general surgery for leaking feeding tube. Has hx oral squamous cell CA and had PEG done September 2021 on diagnosis. Has history of aspiration and PEG tube has been converted to PEG-J earlier today. Has been resumed on glucerna feeds today. Patient has no complaints. Review of Systems Review of Systems: General: No fevers, malaise, unintentional weight loss Cardiovascular: No chest pain, palpitations, or leg edema Respiratory: No shortness of breath, wheezing, cough GI: No abdominal pain, nausea, vomiting, diarrhea, constipation, melena, hematochezia Neuro: No headaches, weakness, paresthesias Skin: No rashes or lesions PMFSH Medical History Asthma Bronchitis Cellulitis Chronic pancreatitis Essential hypertension Feeding by G-tube GERD (gastroesophageal reflux disease) Hemoptysis Hx MRSA infection Hx of respiratory failure Hx of septic shock Hyperlipidemia LDL goal <100 Lung mass Macrocytic anemia Oropharyngeal dysphagia PEG tube malfunction Pneumonia Shortness of breath Smoking 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 Family History Father Diabetes Myeloma Mother Brain cancer Mother Lung cancer Sister Breast cancer Surgical History History of esophagogastroduodenoscopy (EGD) History of tracheostomy Hx of abdominal surgery Hx of colonoscopy Hx of exploratory laparotomy Social History Household Members: Other Household Members Other:: sister Housing: House Are you a primary director career to a significant other at home: No Do you presently have visiting nurse or other home services: No Alcohol intake: never Patient Tobacco Use Status: Former Tobacco user Quit Date: JULY 2021 Years Smoked: 40 Use of substances other than those prescribed or required for medical reasons: No Currently Displaying Signs/Symptoms of Drug Intoxication Withdrawal: No Have you been hit, kicked, punched, or otherwise hurt by someone within the past year? If so, by whom?: No Do you feel safe in your current relationship?: No Current Relationship Is there a partner from a previous relationship who is making you feel unsafe now?: No Are you made to feel afraid or neglected: No Are you DNR?: Yes Advance Directives: No Advance Directives Information Provided: Yes Do you have thoughts of harming others: None Do you have a plan to hurt others: No Plan Recently lost weight without trying: Unsure Eating poorly because of decreased appetite: No Nutrition Risks: Receiving home tube feeding or CPN Patient : No : No Poor oral hygiene: No service: No Current occupational status: disabled Meds Allergies Allergy/AdvReac Type Severity Reaction Status Date / Time ragweed pollen [RAGWEED] Allergy Severe RUNNY NOSE Verified 12/12/21 08:04 Sulfa (Sulfonamide Allergy Intermediate PASS OUT, Verified 12/12/21 08:04 Antibiotics) HIVES [SULFA(SULFONAMIDE ANTIBIOTICS)] Active Medications: Current Medications Albuterol/Ipratropium (Albuterol/Iprat 2.5/0.5mg 3 Ml Ampul.Neb) 3 ml INHALE Q6H PRN PRN Reason: Shortness Of Breath Amlodipine Besylate (Amlodipine Besylate 5 Mg Tablet) 5 mg G-TUBE DAILY [facility]; Protocol Last Admin: 01/07/22 09:27 Dose: 5 mg Atorvastatin Calcium (Atorvastatin Calcium 10 Mg Tablet) 5 mg G-TUBE BEDTIME [facility] Last Admin: 01/06/22 20:11 Dose: Not Given Calcium Carbonate/Cholecalciferol (Calcium + Vitamin D 250 Mg Tablet) 250 mg PO DAILY [facility] Last Admin: 01/07/22 09:27 Dose: 250 mg Dexamethasone (Dexamethasone 2 Mg Tablet) 2 mg G-TUBE Q8H [facility] Last Admin: 01/03/22 06:52 Dose: Not Given Dexamethasone Sodium Phosphate (Dexamethasone Sod Phosphate 4 Mg/Ml Vial) 2 mg IVPUSH ONCE [facility] Heparin Sodium (Porcine) (Heparin Sodium,Porcine 5,000 Unit/Ml Vial) 5,000 unit SUBCUT Q12H [facility] Hydromorphone HCl (Hydromorphone Hcl 2 Mg/Ml Vial) 2 mg IVPUSH Q2H PRN PRN Reason: Pain, Severe (Pain Scale 7-10) Last Admin: 01/07/22 13:13 Dose: 2 mg Hydromorphone HCl (Hydromorphone Hcl 1 Mg/Ml Syringe) 1 mg IVPUSH ONCE PRN; Protocol PRN Reason: Breakthrough Pain Last Admin: 01/05/22 16:55 Dose: 1 mg Hydromorphone HCl (Hydromorphone Hcl 0.5 Mg/0.5 Ml Syringe) 0.125 mg IVPUSH Q5M PRN; Protocol PRN Reason: Pain, Severe (Pain Scale 7-10) Last Admin: 01/06/22 14:07 Dose: 0.125 mg Hydromorphone HCl (Hydromorphone Hcl 0.5 Mg/0.5 Ml Syringe) 0.5 mg IVPUSH Q3H PRN; Protocol PRN Reason: Pain, Severe (Pain Scale 7-10) Last Admin: 01/06/22 18:58 Dose: 0.5 mg Levofloxacin (Levaquin) 500 mg in 100 mls @ 100 mls/hr IV Q24H [facility] Last Admin: 01/07/22 13:14 Dose: 100 mls/hr Dextrose/Sodium Chloride (D51/2ns) 1,000 mls @ 100 mls/hr IVCONT .Q10H [facility] Last Admin: 01/07/22 04:29 Dose: 100 mls/hr Insulin Glargine (Insulin Glargine,Hum.Rec.Anlog 100 Unit/Ml 10 Ml Vial) 6 unit SUBCUT DAILY [facility] Last Admin: 01/07/22 09:25 Dose: 6 unit Insulin Human Lispro (Insulin Lispro 100 Unit/Ml 3 Ml Vial) 0 unit SUBCUT QIDACHS [facility]; Protocol Last Admin: 01/07/22 12:40 Dose: Not Given Levofloxacin (Levofloxacin 500 Mg Tablet) 500 mg PO DAILY [facility] Last Admin: 01/03/22 10:18 Dose: Not Given Loratadine (Loratadine 10 Mg Tablet) 10 mg G-TUBE DAILY [facility] Last Admin: 01/07/22 09:27 Dose: 10 mg Multivitamins/Vitamin C (Multivitamin Tablet) 1 tab PO DAILY [facility] Last Admin: 01/07/22 09:27 Dose: 1 tab Omeprazole (Omeprazole 20 Mg/10 Ml Susp.Recon) 20 mg G-TUBE DAILY@0630 [facility] Last Admin: 01/03/22 06:52 Dose: Not Given Ondansetron HCl (Ondansetron Odt 4 Mg Tab.Rapdis) 4 mg TRANSLINGU Q8H PRN PRN Reason: Nausea And Vomiting Last Admin: 01/05/22 11:08 Dose: 4 mg Ondansetron HCl (Ondansetron Hcl 4 Mg/2 Ml Vial) 4 mg IVPUSH ONCE PRN PRN Reason: Nausea and Vomiting Pharmacy Consult (Consult Rx Perform Med Rec) 1 each MISCELLANE ONCE PRN PRN Reason: Consult order Polyethylene Glycol (Polyethylene Glycol 3350 17 Gm Powd.Pack) 17 gm G-TUBE DAILY PRN PRN Reason: Constipation Prochlorperazine Maleate (Prochlorperazine Maleate 5 Mg Tablet) 5 mg G-TUBE Q6H PRN PRN Reason: Nausea Sodium Chloride (Sodium Chloride Tab 1 Gm Tablet) 1 gm G-TUBE TID [facility] Last Admin: 01/07/22 09:27 Dose: 1 gm Sodium Chloride (0.9 % Sodium Chloride Flush 3 Ml Syringe) [facility] Last Admin: 01/07/22 09:13 Dose: 3 ml Home Medications Medication Instructions Recorded Confirmed Last Taken Type blood pressure test kit-large #1 ea 04/29/20 12/04/21 Unknown History blood sugar diagnostic #10 ea 04/29/20 12/04/21 Unknown History insulin syringe-needle U-100 0.3 #10 ea 04/29/20 12/04/21 Unknown History mL 31 gauge x 09/08 lancets 28 gauge #100 ea 04/29/20 12/04/21 Unknown History pen needle, diabetic 32 gauge x #50 ea 04/29/20 12/04/21 Unknown History Physical Exam Vital Signs and Narrative: Vital Signs: Last Vital Signs Temp 98 F 01/07/22 11:40 Pulse 86 01/07/22 11:40 Resp 18 01/07/22 11:40 BP 131/61 01/07/22 11:40 Pulse Ox 97 01/07/22 11:40 O2 Del Method 01/07/22 11:40 O2 Flow Rate 4 01/07/22 11:40 FiO2 28 01/07/22 11:40 BMI result Body Mass Index 14.1 Constitutional - Awake and Alert, No apparent distress. Communicates with pen and paper Eyes - PERRLA, EOMI Neck- Left sided submandibular mass Cardiovascular - S1S2, RRR, No edema Respiratory - Normal lung expansion, Normal respiratory effort, No respiratory distress, CTA bilaterally Gastrointestinal - new PEG-J in place without purulent drainage or obvious leakage of gastric contents from under bandage. NT / ND; +BS; No rebound or guarding Extremities - no calf tenderness bilaterally, no swelling Skin - Warm/Dry Neurological - Alert & oriented, No focal deficit Results Labs CBC and Chem 7: 01/07/22 01:38 01/07/22 01:38 Labs: Laboratory Results - last 24 hr 01/06/22 01/06/22 01/07/22 20:24 21:24 01:38 MCV 90.3 MCH 29.4 MCHC 32.5 RDW 19.8 H Plt Count 192 D MPV 9.8 Absolute Nucleated RBC 0.000 Nucleated RBC % (auto) 0.0 Anion Gap Estim Creat Clear Calc Estimated GFR POC Glucose 189 H Random Glucose Calcium COVID-19 ([facility]) Negative COVID-19 Clin Com See Note 01/07/22 01/07/22 01/07/22 01:38 09:15 11:02 MCV MCH MCHC RDW Plt Count MPV Absolute Nucleated RBC Nucleated RBC % (auto) Anion Gap 16 Estim Creat Clear Calc 35.4 Estimated GFR > 60 POC Glucose 235 H 120 H Random Glucose 303 H Calcium 9.2 COVID-19 ([facility]) COVID-19 Clin Com Assessment and Plan (1) PEG tube malfunction: Status: Acute Plan 61 year old woman admitted to general surgery for leaking feeding tube with consult placed for medical management of htn and diabetes 1-HTN- contolled -Continue amlodipine via PEG-J 2-Diabetes- controlled at this time -Glucerna tube feeds have been resumed -Continue 6 units insulin glargine and regular insulin on SS -POC glucose Thank you for the opportunity to participate in this patient's care. Will continue to follow.
--- NOTE | 2022-01-07 15:22 | PM.EVENT ---
Event Note Date of Service: 01/07/22 Event Note: Tube feeds restarted at lower rate She has been tolerating this so far Says she feels well Abdomen soft No significant leakage around PEG site Possible DC home tomorrow
--- NOTE | 2022-01-07 15:33 | PC.NURSE ---
1530-report given to KEARA Fatima
--- NOTE | 2022-01-07 16:00 | PC.NURSE ---
Assumed care of patient at this time.
[2022-01-07 16:09] LABS: Glucose, Whole Blood 55 mg/dL (60-115)
[2022-01-07] MEDS: Heparin Sodium,Porcine 5,000 UNIT/ML VIAL 5000 UNIT SUBCUT (16:41)
[2022-01-07] MEDS: Dextrose 50 % 25 GM/50 ML SYRINGE IVPUSH (16:42)
[2022-01-07 17:03] LABS: Glucose, Whole Blood 231 mg/dL (60-115)
[2022-01-07 20:20] LABS: Glucose, Whole Blood 183 mg/dL (60-115)
[2022-01-07] MEDS: Atorvastatin Calcium 10 MG TABLET 5 MG G-TUBE (20:55)
[2022-01-08] VITALS (8 sets, daily range): BP systolic 115–159; BP diastolic 56–73; PULSE 90–107; RESP 16–18; TEMP 36.6–37.2; O2SAT 94–99
[2022-01-08] MEDS: HYDROmorphone HCl 2 MG/ML VIAL IVPUSH ×5 (04:32→13:44)
[2022-01-08] MEDS: Heparin Sodium,Porcine 5,000 UNIT/ML VIAL 5000 UNIT SUBCUT ×2 (06:33→18:46)
[2022-01-08 07:55] LABS: Glucose, Whole Blood 302 mg/dL (60-115)
--- NOTE | 2022-01-08 08:15 | P.PNGS_ITS ---
Subjective Subjective Date of Service: 01/08/22 Interval history: She has she feels well Denies any problems with tube feeds No significant leakage around PEG site Physical Exam Vital Signs: Vital Signs: Last Vital Signs Temp 97.8 F 01/08/22 07:24 Pulse 104 H 01/08/22 07:24 Resp 18 01/08/22 07:24 BP 150/67 H 01/08/22 07:24 Pulse Ox 94 01/08/22 07:24 O2 Del Method 01/08/22 07:24 O2 Flow Rate 4 01/07/22 15:46 FiO2 28 01/07/22 11:40 Oxygen Flow Rate 4 01/07/22 14:00 BMI result Body Mass Index 14.1 Const: General: comfortable and no acute distress HEENT: Other: Trach in place Resp: Other: Trach in place Effort & Inspection: normal respiratory effort Cardio: Rate: regular rate GI: Other: No significant leakage around peg J site Palpation (GI): Soft to palpation, not firm, nontender and no guarding Objective Data Active Medications Albuterol/Ipratropium (Albuterol/Iprat 2.5/0.5mg 3 Ml Ampul.Neb) 3 ml INHALE Q6H PRN PRN Reason: Shortness Of Breath Amlodipine Besylate (Amlodipine Besylate 5 Mg Tablet) 5 mg G-TUBE DAILY [facility]; Protocol Last Admin: 01/07/22 09:27 Dose: 5 mg Documented By: MCKAYLA Atorvastatin Calcium (Atorvastatin Calcium 10 Mg Tablet) 5 mg G-TUBE BEDTIME [facility] Last Admin: 01/07/22 20:55 Dose: 5 mg Documented By: CATRACHO Calcium Carbonate/Cholecalciferol (Calcium + Vitamin D 250 Mg Tablet) 250 mg PO DAILY [facility] Last Admin: 01/07/22 09:27 Dose: 250 mg Documented By: MCKAYLA Dexamethasone (Dexamethasone 2 Mg Tablet) 2 mg G-TUBE Q8H [facility] Last Admin: 01/03/22 06:52 Dose: Not Given Documented By: DEAN Non-Admin Reason: medication held d/t peg tube leaking Dexamethasone Sodium Phosphate (Dexamethasone Sod Phosphate 4 Mg/Ml Vial) 2 mg IVPUSH ONCE [facility] Dextrose (Dextrose 50 % 25 Gm/50 Ml Syringe) 25 gm IVPUSH Q15M PRN; Protocol PRN Reason: per Hypoglycemia Standing Ord. Last Admin: 01/07/22 16:42 Dose: 25 gm Documented By: DOYLE Glucose (Glucose Gel 15 Gm Gel..Gram.) 15 gm PO Q15M PRN; Protocol PRN Reason: per Hypoglycemia Standing Ord. Heparin Sodium (Porcine) (Heparin Sodium,Porcine 5,000 Unit/Ml Vial) 5,000 unit SUBCUT Q12H [facility] Last Admin: 01/08/22 06:33 Dose: 5,000 unit Documented By: CATRACHO Hydromorphone HCl (Hydromorphone Hcl 2 Mg/Ml Vial) 2 mg IVPUSH Q2H PRN PRN Reason: Pain, Severe (Pain Scale 7-10) Last Admin: 01/08/22 06:33 Dose: 2 mg Documented By: CATRACHO Hydromorphone HCl (Hydromorphone Hcl 1 Mg/Ml Syringe) 1 mg IVPUSH ONCE PRN; Protocol PRN Reason: Breakthrough Pain Last Admin: 01/05/22 16:55 Dose: 1 mg Documented By: DESMOND Hydromorphone HCl (Hydromorphone Hcl 0.5 Mg/0.5 Ml Syringe) 0.125 mg IVPUSH Q5M PRN; Protocol PRN Reason: Pain, Severe (Pain Scale 7-10) Last Admin: 01/06/22 14:07 Dose: 0.125 mg Documented By: DONALD Hydromorphone HCl (Hydromorphone Hcl 0.5 Mg/0.5 Ml Syringe) 0.5 mg IVPUSH Q3H PRN; Protocol PRN Reason: Pain, Severe (Pain Scale 7-10) Last Admin: 01/06/22 18:58 Dose: 0.5 mg Documented By: DONALD Levofloxacin (Levaquin) 500 mg in 100 mls @ 100 mls/hr IV Q24H [facility] Last Infusion: 01/07/22 14:14 Dose: 0 mls/hr Documented By: MCKAYLA Dextrose/Sodium Chloride (D51/2ns) 1,000 mls @ 100 mls/hr IVCONT .Q10H [facility] Last Admin: 01/07/22 23:06 Dose: 100 mls/hr Documented By: CATRACHO Insulin Glargine (Insulin Glargine,Hum.Rec.Anlog 100 Unit/Ml 10 Ml Vial) 6 unit SUBCUT DAILY [facility] Last Admin: 01/07/22 09:25 Dose: 6 unit Documented By: MCKAYLA Insulin Human Lispro (Insulin Lispro 100 Unit/Ml 3 Ml Vial) 0 unit SUBCUT QIDACHS [facility]; Protocol Last Admin: 01/07/22 20:56 Dose: 2 unit Documented By: CATRACHO Levofloxacin (Levofloxacin 500 Mg Tablet) 500 mg PO DAILY [facility] Last Admin: 01/03/22 10:18 Dose: Not Given Documented By: KIM Non-Admin Reason: No Access Loratadine (Loratadine 10 Mg Tablet) 10 mg G-TUBE DAILY [facility] Last Admin: 01/07/22 09:27 Dose: 10 mg Documented By: MCKAYLA Multivitamins/Vitamin C (Multivitamin Tablet) 1 tab PO DAILY [facility] Last Admin: 01/07/22 09:27 Dose: 1 tab Documented By: MCKAYLA Omeprazole (Omeprazole 20 Mg/10 Ml Susp.Recon) 20 mg G-TUBE DAILY@0630 [facility] Last Admin: 01/03/22 06:52 Dose: Not Given Documented By: DEAN Non-Admin Reason: held d/t leaking peg tube Ondansetron HCl (Ondansetron Odt 4 Mg Tab.Rapdis) 4 mg TRANSLINGU Q8H PRN PRN Reason: Nausea And Vomiting Last Admin: 01/05/22 11:08 Dose: 4 mg Documented By: DESMOND Ondansetron HCl (Ondansetron Hcl 4 Mg/2 Ml Vial) 4 mg IVPUSH ONCE PRN PRN Reason: Nausea and Vomiting Pharmacy Consult (Consult Rx Perform Med Rec) 1 each MISCELLANE ONCE PRN PRN Reason: Consult order Polyethylene Glycol (Polyethylene Glycol 3350 17 Gm Powd.Pack) 17 gm G-TUBE DAILY PRN PRN Reason: Constipation Prochlorperazine Maleate (Prochlorperazine Maleate 5 Mg Tablet) 5 mg G-TUBE Q6H PRN PRN Reason: Nausea Sodium Chloride (Sodium Chloride Tab 1 Gm Tablet) 1 gm G-TUBE TID [facility] Last Admin: 01/07/22 20:55 Dose: 1 gm Documented By: CATRACHO Sodium Chloride (0.9 % Sodium Chloride Flush 3 Ml Syringe) [facility] Last Admin: 01/07/22 20:56 Dose: 3 ml Documented By: CATRACHO Labs CBC & Chem 7: 01/07/22 01:38 01/07/22 01:38 Labs: Laboratory Results - last 24 hr 01/07/22 01/07/22 01/07/22 09:15 11:02 16:05 POC Glucose 235 H 120 H 55 L* 01/07/22 01/07/22 01/08/22 16:59 20:14 07:26 POC Glucose 231 H 183 H 302 H Procedures Date of Service Date of Service: 01/08/22 Progress Note: A&P Assessment and plan (1) PEG tube malfunction: Status: Acute Assessment and Plan: No significant leakage from PEG site I had made the external bolster snug on the abdominal wall Placed sutures to reappose the skin opening Tolerating jejunostomy tubes well Patient feels well Likely discharged today Check potassium levels Time Spent With Patient Time: Total time spent is greater than 50% in coordination of care (as documented) at patient's floor/unit and/or counseling patient: Quality Stroke Does the patient have a stroke diagnosis?: No VTE Prior VTE?: No VTE Risk Level:: Medical - moderate - high VTE Device Contraindication: N/A - Device Ordered VTE Drug Contraindication: N/A - Med Ordered
[2022-01-08] MEDS: Insulin Lispro 100 UNIT/ML 3 ML VIAL SUBCUT ×2 (08:30→16:40)
[2022-01-08] MEDS: amLODIPine Besylate 5 MG TABLET G-TUBE (09:11)
[2022-01-08] MEDS: Calcium + Vitamin D 250 MG TABLET PO (09:11)
[2022-01-08] MEDS: 0.9 % Sodium Chloride Flush 3 ML SYRINGE IVFLUSH ×2 (09:11→14:19)
[2022-01-08] MEDS: Sodium Chloride Tab 1 GM TABLET G-TUBE ×3 (09:12→19:30)
[2022-01-08] MEDS: Multivitamin TABLET 1 TAB PO (09:12)
[2022-01-08] MEDS: Loratadine 10 MG TABLET G-TUBE (09:12)
[2022-01-08] MEDS: Dextrose 5 % and 0.45 % NaCl 1,000 ML 100 ML IVCONT (09:36)
--- NOTE | 2022-01-08 10:48 | W.MHC.F2F ---
Service Date Service Date: 01/08/22 Encounter Date of encounter: 01/08/22 Reasons for Services Signs and symptoms assessed: Patient on tube feeding with new PEG J Homebound Abdomen soft, no significant leak from her tube site Tracheostomy in place Homebound: Leaving the home is medically contraindicated at this time without the asist of a device and/or another person due th the listed conditions above and below. Reason homebound: unsteady gait / fall risk, bedbound/chairbound and unable to drive Certification: Based on the above findings, I certify that this patient is confined to the home and needs intermittent penitentiary care, physical therapy and/or speech therapy, or continues to need occupational therapy. The patient is under my care, and I have initiated the establishment of the plan of care. The patient will be followed by a physician who will periodically review the plan of care.
--- NOTE | 2022-01-08 11:23 | MHC.CLN ---
F/U PT IS SEVERELY MALNOURISHED SEE FULL CLINICAL NUTRITION ASSESSMENT DATED 01/07/22 PT S/P NEW J-TUBE PLACED TOLERATING TF AT GOAL RATE AT THIS TIME-POSSIBLE PENDING D/C TODAY PER PT RECEIVING GLUCERNA 1.0 AT MAX GOAL RATE 45ML/HR WITH 120ML FREE WATER FLUSHES Q 8 HRS PROVIDES 1080KCALS (28KCLAS/KG), 45G (1.2G/KG), 1281ML TOTAL WATER FROM FORMULA AND FLUSH (34ML/KG) MONITOR TOLERANCE AND LYTES DO NOT CHECK RESIDUALS WITH J TUBE
[2022-01-08 11:40] LABS: Glucose, Whole Blood 128 mg/dL (60-115)
[2022-01-08] MEDS: levoFLOXacin/D5W 500 MG/100 ML PIGGYBACK 100 MG IV (12:23)
[2022-01-08 12:31] LABS: Anion Gap 13 (12-20); Blood Urea Nitrogen 12 mg/dL (9-16); Calcium 8.5 mg/dL (8.4-10.2); Carbon Dioxide 27 mmol/L (22-29); Chloride 105 mmol/L (96-108); Creatinine Clr Calc Pharmacy 40.7; Estimated Glomerular Filt Rate > 60; Glucose Random 123 mg/dL (60-115); Potassium 3.4 mmol/L (3.3-5.1); Sodium 142 mmol/L (135-145)
--- NOTE | 2022-01-08 13:17 | MHC.CM.PN ---
[facility] PATIENT AND RN AWARE OF PLAN.
--- NOTE | 2022-01-08 13:24 | P.EN_ITS ---
Event Note Date of Service: 01/08/22 Event Note: Patient continues to tolerate tube feed Abdomen soft No significant leak around tube site Repeat potassium within normal Okay to DC home with services Discussed with social work case manager Discussed with hospitalist service
--- NOTE | 2022-01-08 14:40 | MHC.CM.PN ---
MESSAGE LEFT FOR SISTER GILL ([phone]) ASKING FOR A CALL BACK TO DETERMINE HOW PATIENT WILL BE GETTING HOME. NO CALL BACK RECEIVED AFTER 1 HOUR. SECOND CALL AND MESSAGE LEFT STATING THAT THIS [facility] CAN SEND PATIENT HOME IN AMBULANCE. CALL BACK NUMBERS FOR THIS [facility] LEFT ON VOICEMAIL PATIENT DOES NOT WANT AMBULANCE TRANSPORT.
[2022-01-08 16:14] LABS: Glucose, Whole Blood 265 mg/dL (60-115)
[2022-01-08] MEDS: HYDROmorphone HCl 0.5 MG/0.5 ML SYRINGE IVPUSH ×3 (16:47→23:43)
--- NOTE | 2022-01-08 17:05 | PM.EVENT ---
Event Note Date of Service: 01/08/22 Event Note: seen on afternoon rounds comfortable tolerating tube feeds no leakage around site as per community case manager - unable to get hold of family so dc home was cancelled for today she always asks for Dilaudid
[2022-01-08] MEDS: Atorvastatin Calcium 10 MG TABLET 5 MG G-TUBE (19:30)
[2022-01-08 20:01] LABS: Glucose, Whole Blood 130 mg/dL (60-115)
[2022-01-09] MEDS: HYDROmorphone HCl 0.5 MG/0.5 ML SYRINGE IVPUSH ×3 (03:16→11:00)
[2022-01-09 03:40] VITALS: BP 132/59; PULSE 83; RESP 17; TEMP 36.1; O2SAT 96
[2022-01-09] MEDS: Heparin Sodium,Porcine 5,000 UNIT/ML VIAL 5000 UNIT SUBCUT (06:42)
[2022-01-09 07:46] LABS: Glucose, Whole Blood 325 mg/dL (60-115)
[2022-01-09 08:00] VITALS: BP 134/64; PULSE 85; RESP 15; TEMP 37.4; O2SAT 98
[2022-01-09] MEDS: Sodium Chloride Tab 1 GM TABLET G-TUBE (09:06)
[2022-01-09] MEDS: Calcium + Vitamin D 250 MG TABLET PO (09:06)
[2022-01-09] MEDS: Multivitamin TABLET 1 TAB PO (09:06)
[2022-01-09] MEDS: amLODIPine Besylate 5 MG TABLET G-TUBE (09:07)
[2022-01-09] MEDS: Insulin Lispro 100 UNIT/ML 3 ML VIAL SUBCUT ×2 (09:07→11:44)
[2022-01-09] MEDS: 0.9 % Sodium Chloride Flush 3 ML SYRINGE IVFLUSH (09:07)
[2022-01-09] MEDS: Loratadine 10 MG TABLET G-TUBE (09:07)
--- NOTE | 2022-01-09 09:13 | PM.PNGS ---
Subjective Subjective Date of Service: 01/09/22 Interval history: says she has been ok tolerating tube feeds some leak around site but much better compared to before did not go home last night as staff unable to contact family Physical Exam Vital Signs: Vital Signs: Last Vital Signs Temp 99.4 F 01/09/22 08:00 Pulse 85 01/09/22 08:00 Resp 15 01/09/22 08:00 BP 134/64 01/09/22 08:00 Pulse Ox 98 01/09/22 08:00 O2 Del Method 01/09/22 08:00 O2 Flow Rate 7 01/09/22 03:40 FiO2 28 01/07/22 11:40 Oxygen Flow Rate 7 01/08/22 14:00 BMI result Body Mass Index 14.1 Const: General: comfortable Neck: Other: trache in place Resp: Effort & Inspection: normal respiratory effort Cardio: Rhythm: regular rhythm GI: Other: soft, PEG-J in place, some leak around but much improved, benign Objective Data Active Medications Albuterol/Ipratropium (Albuterol/Iprat 2.5/0.5mg 3 Ml Ampul.Neb) 3 ml INHALE Q6H PRN PRN Reason: Shortness Of Breath Amlodipine Besylate (Amlodipine Besylate 5 Mg Tablet) 5 mg G-TUBE DAILY VARGAS; Protocol Last Admin: 01/08/22 09:11 Dose: 5 mg Documented By: ROMY Atorvastatin Calcium (Atorvastatin Calcium 10 Mg Tablet) 5 mg G-TUBE BEDTIME VARGAS Last Admin: 01/08/22 19:30 Dose: 5 mg Documented By: CATRACHO Calcium Carbonate/Cholecalciferol (Calcium + Vitamin D 250 Mg Tablet) 250 mg PO DAILY VARGAS Last Admin: 01/08/22 09:11 Dose: 250 mg Documented By: ROMY Dexamethasone (Dexamethasone 2 Mg Tablet) 2 mg G-TUBE Q8H VARGAS Last Admin: 01/03/22 06:52 Dose: Not Given Documented By: DEAN Non-Admin Reason: medication held d/t peg tube leaking Dexamethasone Sodium Phosphate (Dexamethasone Sod Phosphate 4 Mg/Ml Vial) 2 mg IVPUSH ONCE [facility] Dextrose (Dextrose 50 % 25 Gm/50 Ml Syringe) 25 gm IVPUSH Q15M PRN; Protocol PRN Reason: per Hypoglycemia Standing Ord. Last Admin: 01/07/22 16:42 Dose: 25 gm Documented By: DOYLE Glucose (Glucose Gel 15 Gm Gel..Gram.) 15 gm PO Q15M PRN; Protocol PRN Reason: per Hypoglycemia Standing Ord. Heparin Sodium (Porcine) (Heparin Sodium,Porcine 5,000 Unit/Ml Vial) 5,000 unit SUBCUT Q12H [facility] Last Admin: 01/09/22 06:42 Dose: 5,000 unit Documented By: CATRACHO Hydromorphone HCl (Hydromorphone Hcl 1 Mg/Ml Syringe) 1 mg IVPUSH ONCE PRN; Protocol PRN Reason: Breakthrough Pain Last Admin: 01/05/22 16:55 Dose: 1 mg Documented By: DESMOND Hydromorphone HCl (Hydromorphone Hcl 0.5 Mg/0.5 Ml Syringe) 0.125 mg IVPUSH Q5M PRN; Protocol PRN Reason: Pain, Severe (Pain Scale 7-10) Last Admin: 01/06/22 14:07 Dose: 0.125 mg Documented By: DONALD Hydromorphone HCl (Hydromorphone Hcl 0.5 Mg/0.5 Ml Syringe) 0.5 mg IVPUSH Q3H PRN; Protocol PRN Reason: Pain, Severe (Pain Scale 7-10) Last Admin: 01/09/22 06:42 Dose: 0.5 mg Documented By: CATRACHO Hydromorphone HCl (Hydromorphone Hcl 2 Mg Tablet) 2 mg G-TUBE Q3H PRN PRN Reason: Pain, Severe (Pain Scale 7-10) Insulin Glargine (Insulin Glargine,Hum.Rec.Anlog 100 Unit/Ml 10 Ml Vial) 6 unit SUBCUT DAILY [facility] Last Admin: 01/07/22 09:25 Dose: 6 unit Documented By: MCKAYAL Insulin Human Lispro (Insulin Lispro 100 Unit/Ml 3 Ml Vial) 0 unit SUBCUT QIDACHS [facility]; Protocol Last Admin: 01/08/22 21:20 Dose: Not Given Documented By: CATRACHO Non-Admin Reason: No Insulin Coverage Levofloxacin (Levofloxacin 500 Mg Tablet) 500 mg PO DAILY [facility] Last Admin: 01/03/22 10:18 Dose: Not Given Documented By: KIM Non-Admin Reason: No Access Loratadine (Loratadine 10 Mg Tablet) 10 mg G-TUBE DAILY [facility] Last Admin: 01/08/22 09:12 Dose: 10 mg Documented By: ROMY Multivitamins/Vitamin C (Multivitamin Tablet) 1 tab PO DAILY [facility] Last Admin: 01/08/22 09:12 Dose: 1 tab Documented By: ROMY Omeprazole (Omeprazole 20 Mg/10 Ml Susp.Recon) 20 mg G-TUBE DAILY@0630 [facility] Last Admin: 01/03/22 06:52 Dose: Not Given Documented By: DEAN Non-Admin Reason: held d/t leaking peg tube Ondansetron HCl (Ondansetron Odt 4 Mg Tab.Rapdis) 4 mg TRANSLINGU Q8H PRN PRN Reason: Nausea And Vomiting Last Admin: 01/05/22 11:08 Dose: 4 mg Documented By: DESMOND Ondansetron HCl (Ondansetron Hcl 4 Mg/2 Ml Vial) 4 mg IVPUSH ONCE PRN PRN Reason: Nausea and Vomiting Pharmacy Consult (Consult Rx Perform Med Rec) 1 each MISCELLANE ONCE PRN PRN Reason: Consult order Polyethylene Glycol (Polyethylene Glycol 3350 17 Gm Powd.Pack) 17 gm G-TUBE DAILY PRN PRN Reason: Constipation Prochlorperazine Maleate (Prochlorperazine Maleate 5 Mg Tablet) 5 mg G-TUBE Q6H PRN PRN Reason: Nausea Sodium Chloride (Sodium Chloride Tab 1 Gm Tablet) 1 gm G-TUBE TID [facility] Last Admin: 01/08/22 19:30 Dose: 1 gm Documented By: CATRACHO Sodium Chloride (0.9 % Sodium Chloride Flush 3 Ml Syringe) 3 ml IVFLUSH QSHIFT [facility] Last Admin: 01/08/22 23:52 Dose: Not Given Documented By: CATRACHO Non-Admin Reason: IV Running Labs CBC & Chem 7: 01/07/22 01:38 01/08/22 11:46 Labs: Laboratory Results - last 24 hr 01/08/22 01/08/22 01/08/22 11:29 11:46 16:05 Anion Gap 13 Estim Creat Clear Calc 40.7 Estimated GFR > 60 POC Glucose 128 H 265 H Random Glucose 123 H Calcium 8.5 D 09/15/22 09/16/22 19:57 07:32 Anion Gap Estim Creat Clear Calc Estimated GFR POC Glucose 130 H 325 H Random Glucose Calcium Procedures Date of Service Date of Service: 01/09/22 Progress Note: A&P Assessment and plan (1) PEG tube malfunction: Status: Acute Assessment and Plan: much less leak tolerating tube feeds ok to dc home change dressings BID as skin excoriation present from leak ffup in office dw Hospitalist and nurse outreach case manager Time Spent With Patient Time: Total time spent is greater than 50% in coordination of care (as documented) at patient's floor/unit and/or counseling patient: Quality Stroke Does the patient have a stroke diagnosis?: No VTE Prior VTE?: No VTE Risk Level:: Medical - moderate - high VTE Device Contraindication: N/A - Device Ordered VTE Drug Contraindication: N/A - Med Ordered
--- NOTE | 2022-01-09 09:39 | MHC.CM.PN ---
MATIAS CALLED PTS GILL [phone] WHO REPORTS BEING UPSET THAT NO ONE HAS CALLED HER PRIOR TO YESTERDAY WHEN SHE RECEIVED A CALL FROM . SHE REPORTS BEING UPSET THAT NONE OF THE NURSES OR DOCTORS HAVE UPDATED HER ON THE PTS CONDITION. MATIAS EXPLAINED THIS WAS LIKELY DUE TO THE FACT THAT THE PT IS A&O X 4. SHE REPORTS ALSO BEING UPSET THAT SHE RECEIVED A CALL FROM [facility] SAYING THEY WOULD BE PROVIDING PTS SERVICES INSTEAD OF [facility] WHO SHE HAS BEEN ACTIVE WITH. SHE SAYS [facility] TOLD HER THEY WOULD ONLY BE COMING A COUPLE OF TIMES PER WEEK,HOWEVER [facility] WAS COMING ALMOST DAILY WHEN NEEDED. SHE IS ALSO WORRIED BECAUSE [facility] TOLD HER IT WAS BECAUSE THE PATIENT NOW NEEDS PT SERVICES AND THE OTHER [facility] COULD NOT PROVIDE THEM. SHE REPORTS IF THE PT IS NOT INDEPENDENT, SHE CANNOT HAVE HER RETURN HOME. MATIAS REVIEWED PATIENTS PT NOTE AND INFORMED GILL THERE APPEARS TO BE NO CHANGE IN PTS FUNCTIONAL ABILITIES. SHE REPORTS SHE WOULD LIKE TO HAVE [facility] AT [facility] IF POSSIBLE GILL REPORTED SHE WORKS FROM 2300 HOURS TO 0730 HOURS, SHE ASKS THAT PT BE DISCHARGED IN THE AFTERNOON. CM WILL TALK TO [facility] TO DETERMINE IF THEY ARE ABLE TO ACCEPT PT AT [facility].
[2022-01-09 11:10] LABS: Glucose, Whole Blood 252 mg/dL (60-115)
[2022-01-09 11:24] VITALS: BP 109/61; PULSE 95; RESP 17; TEMP 36.7; O2SAT 97
--- NOTE | 2022-01-09 12:31 | P.CDIC_ITS ---
CDI Concurrent Query Documentation Clarification: PHYSICIAN'S DOCUMENTATION REQUEST Date of Query: 01/09/22 1232 Patient Name: Clare Kee Admit Date: 01/07/22 Dear Doctor, A review of the medical record indicates additional documentation may be needed. Please review below and update the documentation accordingly. Clinical Indicators: Is there a diagnosis that correlates with the findings below: Risk Factors/Clinical Indicators/Treatments BMI: 14.1 Height: 5ft Weight: 32.7 Per provider note: Pt admitted with PEG tube malfunction ASPEN Criteria* Acute Illness Chronic Illness Clinical Characteristic Non-Severe (2 or more criteria present) Severe (2 or more criteria present) Non-Severe (2 or more criteria present) Severe (2 or more criteria present) Energy Intake <75% for >7 days <=50% for >=5 days <75% for >=1 month <=75% for >=1 month Weight Loss 1 week 1 ? 2% >2% N/A N/A 1 month 5% >5% 5% >5% 3 months 7.5 % >7.5% 7.5% >7.5% 6 months N/A N/A 10% >10% 1 year N/A N/A 20% >20% Body Fat Mild Moderate Mild Severe Muscle Mass Mild Moderate Mild Severe Fluid Accumulation Mild Moderate to Severe Mild Severe Reduced Manager Review Strength N/A Measurably Reduced N/A Measurably Reduced *[facility] Hospitalist, 2017 If possible, please provide in your progress notes, additional specificity regarding the severity of the malnutrition using the above information: Malnutrition: * Moderate * Severe * Other (please specify) * Unable to determine For a BMI <= 19: * Underweight * Weight loss * Cachexia * Anorexia Use of terms such as suspected, likely, concern for, or probable (associated with a specific diagnosis that is being evaluated, monitored, or treated as if it exists) are acceptable and can be coded in the inpatient setting, when documented at the time of discharge. Thank you, Thu Lawson MS, RN, CCRN Extension: [phone] Please use your independent medical judgment in providing your response. THIS QUERY IS PART OF THE PERMANENT MEDICAL RECORD
--- NOTE | 2022-01-09 13:13 | MHC.CM.PN ---
CM SPOKE TO [facility] LIAISON, TASIA, WHO CONFIRMS THEY WILL BE PROVIDING SUPPLIES FOR PTS PICC RETAIL SALES DIRECTOR AND TUBE FEEDS CM INFORMED HER OF THE NEW FEED SETTINGS, HOWEVER SHE INDICATED LONG THE [facility] NEEDS DID NOT CHANGE, IT WOULD NOT AFFECT THE SUPPLY NEEDS SO PT IS ALL SET FROM THEIR PERSPECTIVE [facility] NOTIFIED VIA [employer]
--- NOTE | 2022-01-09 13:45 | MHC.CLN ---
F/U PER MD, TOLERATING TUBE FEEDING. CONTINUE GLUCERNA 1.0 AT MAX GOAL RATE 45ML/HR WITH 120ML FREE WATER FLUSHES Q 8 HRS PROVIDES 1080KCALS (28KCALS/KG), 45G PROTEIN (1.2G/KG), 1281ML TOTAL WATER FROM FORMULA AND FLUSH (34ML/KG) MONITOR TOLERANCE AND LYTES. DO NOT CHECK RESIDUALS WITH J TUBE.
[2022-01-09 14:00] VITALS: O2SAT 96
--- NOTE | 2022-01-09 14:17 | MHC.CM.PN ---
[facility] UNWILLING TO TAKE PT BACK PT WILL DC WITH [facility] FOR RETIREMENT CM CALLED PTS SISTER GILL [phone] AND INFORMED HER OF ABOVE SHE REPORTED BEING CONCERNED ABOUT FLUSHING PTS PICC TOMORROW SHE HAS NOT BEEN TRAINED AND THE [facility]NA WILL NOT START UNTIL WEDNESDAY PER DISCUSSION, SHE WILL BE HERE AT 1530 FOR A BEDSIDE TEACH. [facility] AND [facility] ARE AWARE OF DC SISTER WILL TRANSPORT
[2022-01-09] MEDS: HYDROmorphone HCl 2 MG TABLET G-TUBE (15:03)
[2022-01-09 15:37] VITALS: BP 125/60; PULSE 91; RESP 15; TEMP 36.9; O2SAT 100
[2022-01-09 15:54] LABS: Glucose, Whole Blood 109 mg/dL (60-115)
--- NOTE | 2022-01-12 16:25 | P.DS_ITS ---
DS: Providers Provider Date of Service: 01/06/22 Date of admission: 01/07/22 10:21 Date of discharge: 01/09/22 Primary care physician: Shae Chicas MD Consults: 01/02/22 19:02 Consult to General Surgery Stat Consulting Provider: Benny Tse Reason for consultation: PEG to G-J converstion Has provider been notified: Yes 01/06/22 18:49 Consult to Hospitalist Routine Consulting Provider: Hospitalist Reason For Exam: HTn, DM DS: Diagnosis Discharge Diagnosis (1) PEG tube malfunction: Status: Resolved (2) Squamous cell carcinoma of head and neck: Status: Acute DS: Summary Hospital Course Hospital Course: 61-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 She has had some aspiration as well so she underwent conversion of the PEG tube to a PEG J by Interventional Radiology under fluoroscopy. However, because of the leakage around her tube site, I was asked to evaluate her. She was admitted and on examination, the external bolster was loose above the skin. I therefore tighten this to create some seal around the tract from both the lumen of the stomach well as the skin. I applied interrupted sutures to the skin as well because of the large skin opening. She was restarted on feeds the day after admission and she tolerated this well. Dressings were being changed. She was actually noted to have much less its around the PEG tube. She continued to tolerate required rate of tube feeding. She was supposed to be discharged on January 08 but they could not get hold of her family. She was discharged on January 08, 2022. Given wound care instructions. She had a home nurse arranged as well. Time Spent with Patient Time attestation: Total time spent providing and/or coordinating discharge services: Discharge coordination time: Less than 30 minutes Quality: Safe Use of Opioids Does Pt have an Active Cancer Diagnosis on the Problem List?: Yes Opioid Measure Date for [facility] Report: 12/13/21 Opioid Measure Time for [facility] Report: 16:28 Quality: Stroke Does the patient have a stroke diagnosis?: No Physical Exam Vital Signs: Vital Signs: Last Vital Signs Temp 98.4 F 01/09/22 15:37 Pulse 91 01/09/22 15:37 Resp 15 01/09/22 15:37 BP 125/60 01/09/22 15:37 Pulse Ox 100 01/09/22 15:37 O2 Del Method 01/09/22 15:37 O2 Flow Rate 7 01/09/22 15:37 FiO2 28 01/07/22 11:40 Oxygen Flow Rate 7 01/08/22 14:00 BMI result Body Mass Index 14.1 Const: General: comfortable and no acute distress Orientation/consciousness: patient oriented x3 Neck: Other: Tracheostomy tube in place, large mass on the left neck Neck: Yes no lymphadenopathy Resp: Auscultation: clear to auscultation bilaterally Cardio: Rhythm: regular rhythm GI: Other: PEG J-tube in place minimal leak around this Palpation (GI): Soft to palpation, nontender and no guarding Neuro: General: patient oriented x3 DS: Data Data Completed and Pending Completed studies during hospitalization [Text1]: Procedures Change Feeding Device in Upper Intestinal Tract, External Approach (01/07/22) Fluoroscopy of Upper GI and Small Bowel (01/07/22) Insertion of Feeding Device into Jejunum, Percutaneous Approach (01/07/22) Laboratory Results WBC 17.6 X10*3/uL (4.8-10.8) H 01/07/22 01:38 RBC 2.69 X10*6/uL (4.20-5.50) L 01/07/22 01:38 Hgb 7.9 g/dl (12.0-16.0) L 01/07/22 01:38 Hct 24.3 % (37.0-47.0) L 01/07/22 01:38 MCV 90.3 fL (80.0-98.0) 01/07/22 01:38 MCH 29.4 pg (27.0-33.0) 01/07/22 01:38 MCHC 32.5 g/dl (31.0-35.0) 01/07/22 01:38 RDW 19.8 % (11.0-16.0) H 01/07/22 01:38 Plt Count 192 X10*3/uL (160-400) D 01/07/22 01:38 MPV 9.8 fL (9.4-12.3) 01/07/22 01:38 Immature Gran % (Auto) 0.7 % (0.0-0.4) H 01/02/22 16:31 Neut % (Auto) 96.3 % (45-73) H 01/02/22 16:31 Lymph % (Auto) 1.4 % (20-40) L 01/02/22 16:31 Kerr % (Auto) 1.4 % (2-11) L 01/02/22 16:31 Eos % (Auto) 0.0 % (0-4) 01/02/22 16:31 Baso % (Auto) 0.2 % (0-2) 01/02/22 16:31 Lymph # (Auto) 0.5 X10*3/uL (1.2-4.9) L 01/02/22 16:31 Kerr # (Auto) 0.5 X10*3/uL (0.1-1.2) 01/02/22 16:31 Eos # (Auto) 0.0 X10*3/uL (0.0-0.4) 01/02/22 16:31 Baso # (Auto) 0.1 X10*3/uL (0.0-0.2) 01/02/22 16:31 Abs Immat Gran (auto) 0.24 X10*3/uL (0.00-0.03) H 01/02/22 16:31 Absolute Neuts (auto) 31.9 x10*3/uL (2.0-8.3) H 01/02/22 16:31 Absolute Nucleated RBC 0.000 X10*3/uL (0.0-0.012) 01/07/22 01:38 Nucleated RBC % (auto) 0.0 /100WBC (0.0-0.2) 01/07/22 01:38 Smear Tech's Comments VERIFIED 01/02/22 16:31 Sodium 142 mmol/L (135-145) 01/08/22 11:46 Potassium 3.4 mmol/L (3.3-5.1) 01/08/22 11:46 Chloride 105 mmol/L (96-108) 01/08/22 11:46 Carbon Dioxide 27 mmol/L (22-29) 01/08/22 11:46 Anion Gap 13 (12-20) 01/08/22 11:46 BUN 12 mg/dL (9-16) 01/08/22 11:46 Creatinine 0.73 mg/dL (0.5-1.4) 01/08/22 11:46 Estim Creat Clear Calc 40.7 01/08/22 11:46 Estimated GFR > 60 01/08/22 11:46 POC Glucose 109 mg/dL (60-115) 01/09/22 15:41 Random Glucose 123 mg/dL (60-115) H 01/08/22 11:46 Calcium 8.5 mg/dL (8.4-10.2) D 01/08/22 11:46 Magnesium 1.7 mg/dL (1.6-2.6) 01/02/22 16:31 Total Bilirubin 0.4 mg/dL (0.0-1.0) 01/02/22 16:31 Direct Bilirubin 0.2 mg/dL (0.0-0.5) 01/02/22 16:31 AST 11 U/L (5-31) D 01/02/22 16:31 ALT 14 U/L (0-31) 01/02/22 16:31 Alkaline Phosphatase 81 U/L (39-117) 01/02/22 16:31 Total Protein 5.2 g/dL (6.5-8.0) L D 01/02/22 16:31 Albumin 3.1 g/dL (3.5-5.0) L 01/02/22 16:31 COVID-19 (ESPINOZA) Negative (Negative) 01/06/22 21:24 COVID-19 Clin Com See Note 01/06/22 21:24 Impressions Chest X-Ray 01/02/22 16:50 IMPRESSION: 1. Small reticulonodular densities in the left mid to lower lung, which could represent localized inflammatory/infectious process or small volume aspiration. No lobar consolidation or pleural effusions. Previously reported infrahilar opacities appear improved. KUB X-Ray 01/03/22 00:28 IMPRESSION: Findings consistent with gastrostomy tube tip location in the stomach. No contrast extravasation identified. Abdomen/Pelvis CT 01/03/22 18:52 IMPRESSION: 1. No extraluminal extravasation of contrast to suggest PEG tube leak or rupture. Diffuse gastric circumferential wall thickening which could indicate gastritis in the appropriate clinical setting. Evaluation limited without IV contrast. No bowel perforation or abscess formation. 2. Moderate stool burden. No small or large bowel obstruction. 3. Bilateral perinephric stranding, new when compared to the prior CT. Findings are nonspecific and could represent normal variation versus an infectious or inflammatory process. No hydronephrosis or nephrolithiasis. 4. Minimal tree-in-bud opacities within the right lung base, new when compared to the prior examination. This could represent a minimal infectious or inflammatory process. Fleischner guidelines were followed. Gastrostomy Tube Placement 01/06/22 12:49 IMPRESSION: Successful but time-consuming fluoroscopy-guided conversion of G-tube to a GJ tube. The entry point of the gastrostomy tube along the abdominal wall is significantly larger. This will have significant gastric juice drainage or leak along the GJ tube. The entry point has to been surgically corrected. Discharge Plan Discharge Patient Disposition: Home Health Service Discharge Diagnosis: Leaking feeding tube Referrals: [facility] [Other] [facility] [place] [place] [facility] [Provider Group] (G-J tube conversion) [facility] [Outside] Shae Chicas MD [Primary Care Provider] - 01/21/22 10:30 am (FOLLOW UP APPOINTMENT WITH , CALL IF YOU NEED TO RESCHEDULED ) Jimi Magana MD [Physician] - 2 Weeks Discharge Medications: Continued (DME) pen needle, diabetic [BD Ultra-Fine Capri Pen Needle] 32 gauge x 5/32 needle See Rx Instructions .ROUTE .MEDSUPPLY Qty: 200 11RF Rx Instructions: As directed five times a day (DME) lancets [FreeStyle Lancets] 28 gauge misc See Rx Instructions .Route Qty: 100 2RF Rx Instructions: As directed 6 times a day (DME) FreeStyle Lite Strips Strip See Rx Instructions .Route Qty: 100 3RF Rx Instructions: As directed 4-6 times a day Omeprazole Oral Susp [Prilosec Oral Susp] 20 mg G-tube DAILY@0630 Qty: 30 2RF ipratropium-albuterol 0.5 mg-3 mg(2.5 mg base)/3 mL Solution For Nebulization 3 ml INHALATION Q6H PRN (Reason: Shortness Of Breath) Qty: 50 2RF prochlorperazine maleate 5 mg tablet 5 mg feeding tube Q6H PRN (Reason: Nausea) Qty: 30 2RF sodium chloride 1 gram tablet 1 g feeding tube TID Qty: 90 2RF amlodipine 5 mg tablet 5 mg feeding tube DAILY Qty: 30 2RF simvastatin 5 mg tablet 5 mg feeding tube BEDTIME Qty: 30 2RF polyethylene glycol 3350 17 gram/dose powder 17 g feeding tube DAILY PRN (Reason: Constipation) Qty: 500 2RF ondansetron 4 mg tablet,disintegrating 1 tab feeding tube Q8H PRN (Reason: Nausea And Vomiting) Qty: 30 2RF loratadine 10 mg tablet 10 mg feeding tube DAILY Qty: 30 1RF calcium carbonate-vitamin D3 600 mg-10 mcg (400 unit) tablet 1 tab PO DAILY Qty: 30 2RF Centrum 9 mg iron/15 mL liquid 15 ml feeding tube DAILY Qty: 450 2RF insulin lispro [Humalog Scot KwikPen U-100] 100 unit/mL insulin pen, half- unit See Protocol subcut TIDAC MDD 60 units Qty: 1 2RF Protocol: Insulin Correction Scale Less than or equal to 110 ---- Give (units): 0 111 to 150 Give (units): 0 151 to 200 Give (units): 2 201 to 250 Give (units): 4 251 to 300 Give (units): 6 301 to 350 Give (units): 8 Greater than 350 Give (units): 10 Call MD if Blood Glucose > : 350 Toujeo Max U-300 SoloStar 300 unit/mL (3 mL) insulin pen 8 unit subcut DAILY Qty: 1 2RF hydromorphone 1 mg/mL liquid 10 mg PO Q4H PRN (Reason: severe pain) Qty: 473 0RF Rx Instructions: Partial Fill upon patient request. levofloxacin 500 mg Tablet 500 mg PO DAILY Qty: 7 0RF dexamethasone 2 mg tablet 2 mg PO Q8H Qty: 14 0RF Rx Instructions: Take dexamethasone 2 mg 1 tablet 3 times a day for 3 days, then take dexamethasone 2 mg 1 tablet 2 times a day for 3 days and then stop (DME) lancets 28 gauge misc See Rx Instructions topical TID Qty: 100 Rx Instructions: As directed (DME) pen needle, diabetic 32 gauge x 5/32 needle See Rx Instructions subcut QID Qty: 50 Rx Instructions: As directed (DME) blood pressure test kit-large Kit See Rx Instructions .ROUTE DIRECTED Qty: 1 Rx Instructions: As directed (DME) blood sugar diagnostic Strip See Rx Instructions Not Applicable QID Qty: 10 Rx Instructions: As directed (DME) insulin syringe-needle U-100 0.3 mL 31 gauge x 5/16 syringe See Rx Instructions .ROUTE .MEDSULY Qty: 10 Rx Instructions: As directed Discharge Orders: Discharge Order (Routine); Ordered 01/08/22 Ordered By: Jimi Magana Activity on Discharge: No heavy lifting Stand Alone Forms: Patient Portal Discharge page Activity Restrictions/Additional Instructions: Continue tube feeds Dry dressings daily Care Plan Goals: Continue management for oral cancer Health Concerns: Oral cancer Diabetes On tube feeds With tracheostomy Plan of Treatment: Continue feeding PEG-J tube Assessment: Stable Patient Instructions: How to Use and Care for Your PEG Tube (ED), PEG Tube Insertion (DC) Discharge Date/Time: 01/09/22 16:51
--- NOTE | 2022-01-13 14:01 | P.CDIR_ITS ---
Documented by User: Thu Lawson RN 01/13/22 14:05 Retrospective Query PHYSICIAN'S DOCUMENTATION REQUEST Date of Query: 01/13/22 1401 Patient Name: Clare Kee Admit Date: 01/07/22 Dear Doctor, A review of the medical record indicates additional documentation may be needed. Please review below and update the documentation accordingly. Clinical Indicators: Is there a diagnosis that correlates with the findings below: Risk Factors/Clinical Indicators/Treatments BMI: 14.1 Height: 5ft Weight: 32.7kg Per provider note: -Patient admitted with PEG tube malfunct ion -Patient on tube feeds ASPEN Criteria* Acute Illness Chronic Illness Clinical Characteristic Non-Severe (2 or more criteria present) Severe (2 or more criteria present) Non-Severe (2 or more criteria present) Severe (2 or more criteria present) Energy Intake <75% for >7 days <=50% for >=5 days <75% for >=1 month <=75% for >=1 month Weight Loss 1 week 1 ? 2% >2% N/A N/A 1 month 5% >5% 5% >5% 3 months 7.5 % >7.5% 7.5% >7.5% 6 months N/A N/A 10% >10% 1 year N/A N/A 20% >20% Body Fat Mild Moderate Mild Severe Muscle Mass Mild Moderate Mild Severe Fluid Accumulation Mild Moderate to Severe Mild Severe Reduced Slide Forming Machine Tender Strength N/A Measurably Reduced N/A Measurably Reduced *[facility] [address] Hospitalist, 2019 If possible, please provide in your progress notes, additional specificity regarding the severity of the malnutrition using the above information: Malnutrition: * Moderate * Severe * Other?(please specify) * Unable to determine For a BMI <= 19: * Underweight * Weight loss * Cachexia * Anorexia Use of terms such as suspected, likely, concern for, or probable (associated with a specific diagnosis that is being evaluated, monitored, or treated as if i t exists) are acceptable and can be coded in the inpatient setting, when documented at the time of discharge. Thank you, Thu Lawson MS, RN, CCRN Extension: [phone] Please use your independent medical judgment in providing your response. THIS QUERY IS PART OF THE PERMANENT MEDICAL RECORD Documented by User: Jimi Magana MD 01/16/22 16:08 Retrospective Query Provider Response: Other (The patient appears to be severely malnourished and is underweight with a BMI of 14.)
== END 2022-01-09 16:51 | disposition home health service (06) | DRG 393 ==
LOC: HO.ED 01-06 15:17 → HO.EDOVER 01-06 19:22 → HO.IMC 01-06 21:52 → HO.S3 01-07 16:20
PROVIDERS: Physician Assistant; Radiology Diagnostic Radiology; Admitting Provider Surgery; Emergency Provider Internal Medicine; PCP Internal Medicine; Visit Provider Surgery
PROC: (CPT 43762; principal; 2022-01-06 13:00)
DX: K94.23 Gastrostomy malfunction (principal); E43 Unspecified severe protein-calorie malnutrition; K86.1 Other chronic pancreatitis; Z68.1 Body mass index [BMI] 19.9 or less, adult; C10.9 Malignant neoplasm of oropharynx, unspecified; K21.9 Gastro-esophageal reflux disease without esophagitis; Z66 Do not resuscitate; E11.42 Type 2 diabetes mellitus with diabetic polyneuropathy; E78.5 Hyperlipidemia, unspecified; J45.909 Unspecified asthma, uncomplicated; Z20.822 Contact with and (suspected) exposure to COVID-19; Z93.0 Tracheostomy status; Z86.14 Personal history of Methicillin resistant Staphylococcus aureus infection; Z87.891 Personal history of nicotine dependence; Z88.2 Allergy status to sulfonamides; Z79.4 Long term (current) use of insulin; Z79.899 Other long term (current) drug therapy
CPT/HCPCS: 36415; 49440; 71045; 74018; 74176; 80048; 80076; 82947; 83735; 85025; 85027; 87635; 96365; 96375; 96376; 97161; 99285; C1769; J0131; J1170; J1956; J8540